=== PATIENT | female | born 1945 | race Caucasian/White ===

== ENCOUNTER → 2016-11-16 | Outpatient (CLI) | payer MEDICARE, BC ==
[~2016-11-16] MED LIST: BUPIVACAINE MPF 0.25% 10 ML VIAL. ONE; BYSTOLIC10 MG PO; CHOL100013 PO; CYCL10TA2 PO; DICL1TAB5 PO; FERR-26 PO; GABA-586 PO; IOHEXOL 180 MG/ML 10 ML VIAL. ONE; METF10002 PO; OLME40TA PO; OXYC-250 PO; TIZA4TAB PO; methylPREDNISolone ACETATE 40 MG/ML VIAL. ONE
--- NOTE | 2016-11-17 02:40 | PAIN ---
DATE OF SERVICE: 11/16/2016 PROGRESS NOTE FOR PAIN CLINIC DIAGNOSIS: Bilateral shoulder joint pain with primary osteoarthritis, bilateral shoulder joints. HISTORY OF PRESENT ILLNESS: The patient is a 71-year-old female who returns for followup status post previous acromioclavicular joint injections, last seen 08/02/2016. The patient did well with these afterwards, reports approximately 100% improvement for about 2 months. Pain has been returning now over the past month or so and is constant and painful in the shoulders bilaterally radiating to the biceps region of the upper arms with some numbness and aching. The patient reports it is constant and painful, rates as 8-9 on a scale of 10, making it difficult for her to do daily activities such as using her arms over her head, getting dressed, putting on clothing, carrying any items with the shoulder, is becoming significantly more difficult as well as driving vehicle. The patient reports no new motor or sensory deficits, no other complaints. PHYSICAL EXAMINATION: VITAL SIGNS: The patient's blood pressure is 158/102, pulse 76, respirations 18, temperature 97.9 degrees Fahrenheit. Height is 4 feet 10 inches, weight is 146 pounds. GENERAL: The patient is awake, alert, oriented, appropriate, very pleasant demeanor. HEENT: Shows normocephalic, atraumatic. Extraocular movements are intact and symmetrical. Oral cavity shows mucous membranes moist and pink. Dentition is intact. NECK: Shows anterior throat supple without palpable lymphadenopathy noted. Swallow reflex is symmetrical. Neck shows good rotational motion, some minor limitation in extension, but not with forward flexion. Right and left lateral rotation is performed without difficulty. CHEST: Shows normal on inspection. Breath sounds are clear to auscultation bilaterally. HEART: Shows S1 and S2 clear. No murmurs are auscultated. ABDOMEN: Soft, nontender, nondistended. No palpable organomegaly is noted. No rebound or guarding demonstrated. BACK: Shows spine grossly in the midline, normal cervical lordotic curvature, slight increase in thoracic kyphosis and some mild flattening of the lumbar lordotic curvature. The patient's upper extremities show deep tendon reflexes at 1+ in the biceps and triceps tendons. Motor exam is approximately 4 on a scale of 5, but symmetrical with wreath machine tender strength, biceps and triceps flexion. Significant tenderness with attempting to shrug the shoulders as well as abduction of the upper arms that is past about 15-20 degrees, very painful with both shoulder pain reported bilaterally with this maneuver. With palpation over the acromioclavicular joint, very severe tenderness especially on the right greater than the left with palpation on the anterior and posterior aspect of this joint. This is also tender with the patient's arms at the side and with pulling downward on the hands, significant pain reported again, worse on the right than the left, but present bilaterally. PLAN: Options were discussed with the patient and the patient's old chart was reviewed as her current medication regimen and updated. Current review of systems updated today as well. We will proceed with bilateral acromioclavicular joint injections with fluoroscopic guidance. Risks were again discussed including, but not limited to bleeding, infection, possibility of intravascular injection sequelae, spread of local anesthetic and numbness, pneumothorax, side effects of steroid medications, exposure to fluoroscopy and poor results regarding pain control. The patient understands and wishes to proceed. The patient will return to clinic in approximately 2 weeks for followup or as necessary, would like to call for next appointment. The patient was counseled as to activity level as well as side effects to be aware of. Also, we discussed the patient's blood pressure as it was slightly high with a diastolic of 102 today. The patient reports she is following up with her primary care physician within the next week. I encouraged her to discuss the blood pressure with her primary care at the next visit and she will do this as well. DIAGNOSIS: Bilateral shoulder joint pain with primary osteoarthritis, bilateral shoulders. PROCEDURE: Bilateral acromioclavicular joint injections with fluoroscopic guidance under sterile prep and drape using local anesthetic. MEDICATIONS INJECTED: A total of 4 mL of 0.25% bupivacaine and a total of 80 mg Depo-Medrol, 40 mg per joint after negative aspiration. CONDITION AT DISCHARGE: Stable. The patient tolerated the procedure well, had no complications. BRANDON GALVAN MD DR: TYLER/adrienne JOB#: [id number] / [id number]
== END ==
LOC: PNCL 13:33
PROVIDERS: ATTEND Anesthesiology
DX: M19.012 Primary osteoarthritis, left shoulder (principal); M19.011 Primary osteoarthritis, right shoulder
CPT/HCPCS: 20605; J1030; J3490

== ENCOUNTER → 2018-10-12 | Outpatient (CLI) | payer MEDICARE, BC ==
[~2018-10-12] MED LIST changes: -BUPIVACAINE MPF 0.25% 10 ML VIAL. ONE; +BYSTOLIC20 MG PO; +CHOL200059 PO; +CYAN-25 PO; +DICY10CA3 PO; -FERR-26 PO; +FERR325T14 PO; -GABA-586 PO; +GABA300C18 PO; -IOHEXOL 180 MG/ML 10 ML VIAL. ONE; +LACT1CAP8 PO; -METF10002 PO; +METF10007 PO; -OLME40TA PO; +OLME40TA12 PO; -OXYC-250 PO; +OXYC1TAB22 PO; -TIZA4TAB PO; +TIZA4TAB2 PO; +TRAM50TA PO; +methylPREDNISolone ACETATE 80 MG/ML VIAL. ONE
--- NOTE | 2018-10-12 20:49 | PAIN ---
DATE OF SERVICE: 10/12/2018 DIAGNOSES: Lumbar radiculopathy with lumbar degenerative disk disease and post-lumbar laminectomy syndrome. HISTORY OF PRESENT ILLNESS: The patient is a 73-year-old female who returns for followup, last seen 11/16/2016. The patient was having injection of the acromioclavicular joints bilaterally, reports good results with these, but the main complaint now is the pain in her low back and bilateral lower extremities, worse on the left than the right. The patient reports it has been going on for many years, but over the last year has become much worse with walking, standing, changing positions across the low back bilaterally into the right posterior gluteus into the left lateral hip and thigh and into the anterior thigh as well as the posterior thigh on the left side. The patient reports it is aching and stabbing, severe, radiating, cramping, tight, shooting, becoming severe at times, becoming more constant. The patient reports it is worse with standing, walking, better with sitting or lying down, does awaken her from sleep at night, but not more than once or twice. She generally sleeps about 8 or 9 hours without significant difficulty. The patient reports no loss of motor function. She is using a walker at all times when ambulating, no longer drives a car as her takes care of this for her. The patient rates her pain as 8 on a scale of 10 at its worst, 8 on average, 4 at its least and is 8 today. The patient reports no loss of motor function, but significant fatigability in the bilateral lower extremities, especially on the left with ambulation or standing. The patient did have MRI scan from 2011 showing previous surgical instrumentation, multilevel degenerative changes, spinal instrumentation from L3 through L5 and moderately severe right foraminal narrowing at L5-S1 due to marginal spurring, severe degenerative change as well. PHYSICAL EXAMINATION: VITAL SIGNS: The patient's blood pressure 142/88, pulse 72, respirations 18, temperature 98.6 degrees Fahrenheit. Height 4 feet 10 inches and weight is 145 pounds. GENERAL: The patient is awake, alert, oriented, appropriate, very pleasant demeanor. HEENT: Head shows normocephalic, atraumatic. Extraocular movements are intact and symmetrical. Oral cavity: Mucous membranes moist and pink. Dentition is intact. NECK: Shows anterior throat supple without palpable lymphadenopathy noted. Swallow reflex symmetrical. CHEST: Shows normal on inspection. Breath sounds clear to auscultation bilaterally. HEART: Shows S1, S2 clear. No murmurs auscultated. ABDOMEN: Obese, soft, nontender, nondistended. BACK: Shows spine grossly in the midline, slight flattening of cervical lordotic curvature and significant exaggerated thoracic kyphotic curvature, some flattening of lumbar lordotic curvature with well-healed surgical scar in the midline is noted. On inspection with palpation, the lumbar paraspinous muscle shows symmetrical, but with moderate tenderness bilaterally in the low and middle distribution of paraspinous musculature without radiation. The patient has good rotational motion, although somewhat limited with extension and flexion without any pain associated: The patient's lower extremities show deep tendon reflexes 1+ in the patellar and tendo-calcaneus tendons. Motor exam is 4 on a scale of 5, but equal and symmetrical with dorsiflexion, extension, quadriceps and hamstring flexion. Peripheral pulses are 1+. No peripheral edema is noted. Options were discussed with the patient. The patient's old chart was reviewed as her current medication regimen updated. Current review of systems updated today as well. We will proceed with a caudal approach epidural steroid injection today with fluoroscopic guidance. Risks were again discussed including, but not limited to bleeding, infection, possibility of epidural hematoma and subsequent neurological compromise, dural puncture, headaches, spinal cord and/or nerve damage, side effects of steroid medication and poor results regarding pain control. The patient understands and wished to proceed. The patient will return to clinic in approximately 2 weeks for followup, was counseled on return appointment, activity level and side effects to be aware of. DIAGNOSES: Lumbar radiculopathy with lumbar degenerative disk disease and post-lumbar laminectomy syndrome. PROCEDURE: Caudal approach epidural steroid injection using C-arm fluoroscopic guidance under sterile prep and drape using local anesthetic. MEDICATION INJECTED: A total of 120 mg Depo-Medrol plus 10 mL of preservative-free normal saline. CONDITION AT DISCHARGE: Stable. The patient tolerated procedure well, had no complications. BRANDON GALVAN MD DR: TYLER/adrienne JOB#: [id number] / [id number]
== END | disposition home or self-care (01) ==
LOC: PNCL 12:47
PROVIDERS: ATTEND Anesthesiology
DX: M51.16 Intervertebral disc disorders with radiculopathy, lumbar region (principal); M96.1 Postlaminectomy syndrome, not elsewhere classified; Z91.041 Radiographic dye allergy status
CPT/HCPCS: 62323; J1030; J1040

== ENCOUNTER → 2019-05-10 | Day surgery (SDC) | payer MEDICARE, BC ==
[~2019-05-10] MED LIST changes: +IV RINGERS,LACTATED 1000ML 1,000 ML IV SCH; -methylPREDNISolone ACETATE 40 MG/ML VIAL. ONE; -methylPREDNISolone ACETATE 80 MG/ML VIAL. ONE
[2019-05-10 13:15] VITALS: BP 150/70
== END ==
LOC: SURG 10:40
PROVIDERS: ATTEND Internal Medicine Gastroenterology
DX: K29.50 Unspecified chronic gastritis without bleeding (principal); E11.9 Type 2 diabetes mellitus without complications; I10 Essential (primary) hypertension; D64.9 Anemia, unspecified; Z88.8 Allergy status to other drugs, medicaments and biological substances; Z87.39 Personal history of other diseases of the musculoskeletal system and connective tissue; Z79.84 Long term (current) use of oral hypoglycemic drugs; Z87.891 Personal history of nicotine dependence
CPT/HCPCS: 43235

== ENCOUNTER → 2019-05-28 | Outpatient (CLI) | payer MEDICARE, BC ==
[2019-05-10 13:15] VITALS: BP 150/70
[~2019-05-28] VITALS: Ht 149.9 cm; Wt 58.1 kg
[~2019-05-28] MED LIST changes: -IV RINGERS,LACTATED 1000ML 1,000 ML IV SCH; +NORMAL SALINE IV ONE; +SINCALIDE IV ONE
--- NOTE | 2019-05-28 08:23 | RAD ---
Examination: ABDOMEN LTD History: Right upper quadrant pain Comparison/Correlation: None Findings: Right upper quadrant ultrasound was performed. Hepatic echotexture is normal. Gallbladder fossa is unremarkable. Gallbladder measures up to 8 cm diameter. No cholelithiasis. Common bile measures up to 0.3 cm diameter. Right kidney measures 10.1 cm x 3.5 cm x 4.1 cm. Proximal pancreas is normal. Distal pancreas is obscured by bowel gas. Inferior vena cava is unremarkable. Right pleural effusion is evident. Impression: Small right pleural effusion. Otherwise unremarkable exam. Electronically signed by: Lenny Gifford MD (05/28/2019 8:20 AM) [facility]
--- NOTE | 2019-05-28 10:56 | RAD ---
EXAM: Nuclear hepatobiliary scan. HISTORY: Pain. TECHNIQUE: Following intravenous administration of 5.5 mCi Tc 99m Choletec, anterior images of the abdomen were obtained at five minute intervals through one hour. Subsequently, 1.16 mcg CCK was administered and additional images to assess gallbladder ejection fraction were obtained. FINDINGS: There is prompt radiotracer uptake by the liver. No focal defect is seen. There is normal excretion into the biliary tree. The gallbladder is visualized within 20 minutes and there is free flow into the duodenum. The gallbladder ejection fraction is 73%. IMPRESSION: Increased gallbladder ejection fraction of 73%. This can be associated with biliary hyperkinesia. Electronically signed by: Elo Hess MD (05/28/2019 10:53 AM) [facility]
== END | disposition home or self-care (01) ==
LOC: US 07:55
PROVIDERS: ATTEND Internal Medicine Gastroenterology
DX: J90 Pleural effusion, not elsewhere classified (principal); R10.13 Epigastric pain; R10.11 Right upper quadrant pain; F90.9 Attention-deficit hyperactivity disorder, unspecified type
CPT/HCPCS: 76705; 78227; A9537; J2805

== ENCOUNTER → 2019-07-04 | Outpatient (CLI) | payer MEDICARE, BC ==
[2019-05-10 13:15] VITALS: BP 150/70
[~2019-07-04] MED LIST changes: -NORMAL SALINE IV ONE; -SINCALIDE IV ONE
--- NOTE | 2019-07-04 12:43 | RAD ---
EXAM: Bilateral lower extremity venous Doppler. HISTORY: Bilateral lower extremity pain/swelling. Shortness of breath. Elevated d-dimer. COMPARISON: None. FINDINGS: Grayscale and Doppler analysis of the both lower extremity deep venous systems was performed with graded compression and augmentation. The common femoral, greater saphenous, superficial femoral, popliteal and calf veins were assessed. There is no evidence of deep venous thrombosis. IMPRESSION: 1. No evidence of deep venous thrombosis. Electronically signed by: Marco A Jimenes MD (07/04/2019 12:40 PM) [facility]
--- NOTE | 2019-07-04 12:50 | RAD ---
EXAM: CHEST 2 VIEWS. HISTORY: Pleural effusion. COMPARISON: None. FINDINGS: Frontal and lateral views of the chest are obtained. A trace right pleural effusion may be present. Opacity in the right cardiophrenic angle may represent atelectasis or infiltrate. There is no pneumothorax. The heart is not enlarged. There are atherosclerotic calcifications of the aorta. Left glenohumeral osteoarthritis is severe. A sclerotic focus within the left proximal humerus measures 14 mm and may represent a bone island or a benign chondroid lesion such as an enchondroma in the absence of known malignancy. Changes of cervical and lumbar fusion are partially visualized. There is a mild S-shaped thoracolumbar scoliosis. IMPRESSION: 1. Trace right pleural effusion. Right basilar atelectasis or infiltrate. Follow-up to resolution is recommended. Electronically signed by: Marco A Jimenes MD (07/04/2019 12:47 PM) [facility]
[2019-07-04 13:24] LABS: ALBUMIN 3.3 g/dL (3.4-5.0); TOTAL PROTEIN 6.9 g/dL (6.4-8.2)
--- NOTE | 2019-07-05 01:17 | RAD ---
Ventilation/perfusion lung scan. HISTORY: Short of air, elevated d-dimer. Ventilation images were done using 9.3 mCi xenon-133. Anterior and posterior imaging is unremarkable. Perfusion images were done using 5 mCi technetium 99 MAA injected intravenously. A segmental perfusion defect is not identified. There is no ventilation perfusion mismatch. IMPRESSION: 1. Low probability for a pulmonary embolus. Electronically signed by: Jeffrey Brown MD (07/05/2019 1:14 AM) [facility]
== END | disposition home or self-care (01) ==
LOC: US 11:56
PROVIDERS: ATTEND Internal Medicine Pulmonary Disease
DX: J90 Pleural effusion, not elsewhere classified (principal); I70.0 Atherosclerosis of aorta; M19.012 Primary osteoarthritis, left shoulder; M41.85 Other forms of scoliosis, thoracolumbar region
CPT/HCPCS: 36415; 71046; 78582; 82040; 84155; 93970; 96374; A9540; A9558

== ENCOUNTER 2020-05-26 01:28 | Inpatient (IN) | payer MEDICARE, BC ==
[~2020-05-26] VITALS: Ht 147.3 cm; Wt 54.9 kg
[2020-05-26] VITALS (17 sets, daily range): BP systolic 100–146; BP diastolic 50–80
[2020-05-26] MEDS ORDERED: IV NORMAL SALINE 1000ML BAG 1,000 ML IV SCH (02:30)
[2020-05-26] MEDS: oxyCODONE/APAP 10/325 1 TAB TABLET PO PRN ×2 (02:32→09:07)
[2020-05-26 03:00] LABS: BASO % 1 % (0-3); EOS # 0.2 x10^3/uL (0.0-0.7); EOS % 2 % (0-3); HEMATOCRIT 31.6 % (36.0-47.0); HEMOGLOBIN 11.3 g/dL (12.0-15.5); LYMPH # 1.1 x10^3/uL (1.0-4.8); LYMPH % 12 % (24-48); MEAN CORPUSCULAR HEMOGLOBIN 33 pg (25-35); MEAN CORPUSCULAR HGB CONC 36 g/dL (31-37); MEAN CORPUSCULAR VOLUME 92 fL (79-100); MONO # 0.7 x10^3/uL (0.0-1.1); MONO % 8 % (0-9); NEUT # 7.2 x10^3/uL (1.8-7.7); NEUT % 78 % (31-73); PLATELET COUNT 143 x10^3/uL (140-400); RED BLOOD COUNT 3.45 x10^6/uL (3.50-5.40); RED CELL DISTRIBUTION WIDTH 14.9 % (11.5-14.5); WHITE BLOOD COUNT 9.3 x10^3/uL (4.0-11.0)
[2020-05-26 03:16] LABS: ALBUMIN 2.7 g/dL (3.4-5.0); ALBUMIN/GLOBULIN RATIO 0.8 (1.0-1.7); CALCIUM 7.6 mg/dL (8.5-10.1); CREATININE 1.9 mg/dL (0.6-1.0); GFR 25.8; MAGNESIUM 1.9 mg/dL (1.8-2.4); POTASSIUM 3.3 mmol/L (3.5-5.1); TOTAL PROTEIN 6.1 g/dL (6.4-8.2)
--- NOTE | 2020-05-26 04:00 | NUR ---
Patient arrived via EMS from [facility] at 0130. Patient transferred to bed, ICU monitors placed. Patient said has medication list at home. Able to complete admission history per patient. Dr. Berger called for admitting orders, would like to defer to nephrology if any electrolytes are critical. Multiple labs drawn with sodium coming back at 112. Consult and callback was placed to nephrology. Dr. Vazquez called back, orders received and placed to keep NS at 100 and recheck Na in 6 hours.
[2020-05-26] MEDS: MAGNESIUM OXIDE 400 MG TABLET PO SCH ×3 (07:55→20:00)
[2020-05-26] MEDS: POTASSIUM CHLORIDE 20 MEQ TABLET.ER. PO SCH ×3 (07:55→17:52)
--- NOTE | 2020-05-26 08:06 | HP ---
ADMIT DATE: HISTORY OF PRESENT ILLNESS: The patient is a 75-year-old female patient who was brought to the Emergency Room of [facility] with a complaint of generalized weakness. She has also nausea and vomiting for the last 4 days. She stated that whenever she feels like this, her sodium levels are very low. The patient states that she was feeling so weak that she fell and hit her head 3 days ago. She did complain of headache. Denied any extremity pain. No back pain, no abdominal pain, no chest pain. She also complained of trouble breathing, but denied any cough, chills, or fever. She stated she has been lying in bed. Her could not take care of her. EMS was called and took her to the Emergency Room. They reported that her bedroom was very dirty with bed bugs. She was basically investigated in the Emergency Room and apparently was found to have extreme hypokalemia, hyponatremia as well as acute kidney injury and severe hypomagnesemia, and was transferred to [facility] for further evaluation and treatment. PAST MEDICAL HISTORY: Significant for hypertension, type 2 diabetes mellitus, coronary artery disease status post stent deployment in August of this year at [facility]. Initially, she had 3 stents and 3 months later she had another 2 stents placed. She does have history of hyponatremia. In fact, she was admitted here to [facility] in 2016 with a very similar presentation. PAST SURGICAL HISTORY: Significant for appendectomy as well as PCI with stent deployment x 5. ALLERGIES: SHE IS ALLERGIC TO IODINATED CONTRAST MEDIA. MEDICATIONS: We do not have the actual list of her home medications. Her is bringing the list today. However, her most recent list of medications she was on included cyclobenzaprine 10 mg 3 times a day, ferrous sulfate 325 mg once a day, Bystolic 10 mg daily. She is on medoxomil 40 mg once a day, oxycodone/APAP 10/325 one to two tablets 4 times a day. She is on gabapentin 300 mg 3 times a day, metformin 500 mg q.i.d., cholecalciferol vitamin D 5000 units once a day. FAMILY HISTORY: Noncontributory. SOCIAL HISTORY: She is , lives with her . She quit smoking about 30 years ago. Does not drink alcohol. 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 She has two sons. She uses a walker at home. REVIEW OF SYSTEMS: The patient has bilateral cataracts, but denied any glaucoma or macular degeneration. She said that she is supposed to have her cataracts removed; however, she is on a blood thinner. Denied any earache, tinnitus or sensorineural deafness. Denied any nosebleeds, stuffy nose or postnasal drip. Denied any sore throat, sore tongue, toothache, hoarseness of voice or difficulty swallowing. Did complain of nausea, vomiting and severe anorexia, but denied any diarrhea or constipation. Denied any hematemesis, melena, or hematochezia. Denied any dysuria, frequency or hematuria. She denied any chest pain, shortness of breath, orthopnea or paroxysmal nocturnal dyspnea. PHYSICAL EXAMINATION: GENERAL: On arrival to the Emergency Room, she was pale, but no jaundice, cyanosis or thyromegaly. No jugular venous distention. No lower limb edema. VITAL SIGNS: Her heart rate was 67, blood pressure was 122/50, temperature 98.2, respiratory rate was 16, and oxygen saturation was 100% on room air. HEAD, EYES, EARS, NOSE AND THROAT: Showed normocephalic, atraumatic. NECK: Supple. HEART: Showed normal first and second heart sounds. No gallop or murmur. CHEST: Clear to auscultation. No crepitation or rhonchi. ABDOMEN: Distended, soft, nontender. NEUROLOGIC: She is awake, alert, responding appropriately. She moves her extremities spontaneously, although she has been extremely weak and was unable to get out of her bed. LABORATORY DATA: Her lab work on arrival to the Emergency Room showed a white cell count of 8900, hemoglobin 11, hematocrit 32, MCV 93, and platelet count of 159,000. Her chemistry showed serum sodium 109, potassium 3.2, chloride 72, bicarbonate 31, anion gap of 6, BUN 26, creatinine 2.2, estimated GFR was 21 mL per minute. Glucose 116, calcium was 8.2, magnesium was 1.4. Total bilirubin and ALT normal. AST and alkaline phosphatase slightly elevated. Her CK was 167. Troponin was 0.072. Total protein was 6.5, albumin was 2.8. Her urinalysis was essentially unremarkable. She did have a CT scan of the head and cervical spine, which showed that the patient has extracranial soft tissue scalp contusion and hematoma overlying the right temporal region without underlying osseous or intracranial abnormality, negative CT spine for acute traumatic injury. Her chest x-ray showed that the patient's cardiomediastinal silhouette and pulmonary vessels are within normal limits, the lungs and pleural spaces are clear. ASSESSMENT AND PLAN: In summary, this is a 75-year-old female patient who was seen at [facility] Emergency Room with generalized weakness. She was found to have severe hyponatremia, hypokalemia, hypomagnesemia and probably acute on chronic kidney injury. She was given magnesium sulfate and a liter of normal saline as well as potassium and was transferred to [facility] ICU for further evaluation and treatment. Her repeat lab work showed that her serum sodium is trending up slightly to 112, potassium up to 3.3 and magnesium is up to 1.9 and creatinine is down to 1.9. I did order a serum TSH as well as morning cortisol. We will continue with the potassium to supplement the potassium as well as magnesium and continue with normal saline with a plan to increase the sodium slowly at a rate of about 6 mEq per liter in 24 hours. I have consulted the administrative assistant office manager to assist with management. Unfortunately, we do not have the list of her medications, but the patient stated that she was on diuretic, although she is not sure whether she is on SSRI. PAUL PITTS MD DR: ERIC/adrienne JOB#: [id number] / [id number]
--- NOTE | 2020-05-26 11:30 | PDOC2 ---
CONSULT Date of Consult Date of Consult DATE: 05/26/20 TIME: 11:18 Reason for Consult Reason for Consult: Severe Hyponatremia Source Source: Chart review, Patient History of Present Illness Reason for Visit: Pt is a 75-year-old female who was brought to the Emergency Room of [facility] with a complaint of generalized weakness. She was also h aving nausea and vomiting for the last 4 days. She states that whenever she feels like this, her sodium levels are very low. She states that she was feeling so weak that she fell and hit her head 3 days ago. She was having headache. No other neurological symptoms Denies abdominal pain, no chest pain . She also complained of trouble breathing, but denies any cough, chills, or fever. C/O Severe anorexia . She stated she has been lying in bed. Her could not take care of her. EMS was called and took her to the Emergency Room. Per EMS her bedroom was very dirty with bed bugs. She had low Na in the past as well . She states cause was not known . She was hospitalized at [facility] x 2 this year for Cardiac cath/Stent placement and she thinks her sodium was low at the time as well and she was seen by Nephrology In [facility] ER she was found to have extreme hypokalemia, hyponatremia, Low Mg and MARIA ELENA Currently she denies any complaints, No CP or SOB at rest. No Headache. Denies any urinary complaints . She reports she was on diuretic .Denies use of SSRI's, No PPI. Denies use of NSAID's otc any other OTC health supplements except Zyrtec Denies Dx of Hypothyroidism, states Quit smoking many years back . She reports she has decreased her salt intake significantly per [employer] recommendations and has been drinking plenty of fluids- Including Pepsi, Water etc Denies ETOH or Illegal drug use Past Medical History Past Medical History Significant for hypertension, type 2 diabetes mellitus,coronary artery disease status post stent deployment in August of this year at [facility]. Initially, she had 3 stents and 3 months later she had another 2 stents placed. She does have history of hyponatremia. and was admitted here to [facility] in 2016 with a very similar presentation. Past Surgical History Past Surgical History Significant for appendectomy as well as PCI with stent deployment x 5. Family History Family History Non Contributory Social History Social History She is , lives with her . She quit smoking about 30 years ago. Does not drink alcohol. 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 She has two sons. She uses a walker at home. She was found at home with unhygenic conditions and bed bugs Current Medications Current Medications Current Medications Oxycodone/ Acetaminophen (Percocet 10/325) 2 tab PRN Q6HRS PRN PO SEVERE PAIN 7-10 Last administered on 05/26/20at 09:07; Start 05/26/20 at 02:00 Sodium Chloride 1,000 ml @ 100 mls/hr Q10H IV Last administered on 05/26/20at 02:32; Start 05/26/20 at 02:30; Stop 05/26/20 at 11:15; Status DC Potassium Chloride (Klor-Con) 20 meq TIDWMEALS PO Last administered on 05/26/20at 07:55; Start 05/26/20 at 08:00 Magnesium Oxide (Magnesium Oxide) 400 mg TID PO Last administered on 05/26/20at 07:55; Start 05/26/20 at 09:00 Active Scripts Active Reported Vitamin B-12 (Cyanocobalamin (Vitamin B-12)) 1,000 Mcg Tablet 1 Tab PO DAILY Probiotic (Lactobacillus Combo No.11) 1 Each Cap.sprink 1 Each PO DAILY Vitamin D-3 (Cholecalciferol (Vitamin D3)) 2,000 Unit Tablet 5,000 Unit PO DAILY Bystolic (Nebivolol Hcl) 20 Mg Tablet 20 Mg PO DAILY Tizanidine Hcl 4 Mg Tablet 1 Tab PO QHS Ferrous Sulfate 325 Mg Tablet 1 Tab PO DAILY Cyclobenzaprine Hcl 10 Mg Tablet 1 Tab PO TID Percocet 10-325 Mg Tablet (Oxycodone/Acetaminophen) 1 Each Tablet 1 Tab PO Q4-6HRS Gabapentin (Gabapentin) 300 Mg Capsule 1 Cap PO HS Allergies Allergies: Coded Allergies: Iodinated Contrast Media (Verified Allergy, Severe, Hives, 05/10/19) clarithromycin (Verified Allergy, Intermediate, 05/10/19) ROS Review of System As per HPI, rest of the ROS is negative Physical Exam Physical Exam GENERAL:NAD HEEN OM moist NECK: Supple. HEART: RRR CHEST: Clear to auscultation. on labored ABDOMEN: soft, nontender. NEUROLOGIC awake, alert, responding appropriately. She moves her extremities spontaneously, Morejon + SKIN No rash EXT No Edema Vital Signs Vital Signs Date Time Temp Pulse Resp B/P (MAP) Pulse Ox O2 Delivery O2 Flow Rate FiO2 05/26/20 09:07 12 Room Air 05/26/20 09:00 71 100/52 (68) 98 05/26/20 07:00 97.2 97.2 Assessment & Plan HypoNatremia - severe , recurrent At presentation to [facility] - Na of 109, corrected to 116 in 24 hrs with IV NS, Hold NS , avoid Overcorrection Check Na and will re-evaluate IVF , TSH Normal , No use of SSRI's Hospitalized with similar presentation in 2016 Hospitalization at [facility] in December with Na at 118, improved to 134 at dc - Dx with HypoVolemia - reviewed records from [facility] (No mention of Diuretics in DC meds) Monitor Closely, strict I/O , currently Pt asymptomatic , Dw RN HypoMagnesemia - Mg 1.4 at presentation to [facility]- Normal now HypoKalemia -Replace as indicated MARIA ELENA - Vasomotor /Dehydration BUN/Cr 26/2.2 and ua normal at [facility] Improving with IVF , good UOP ,Avoid nephrotoxins CKD 3- Cr 1.2 @ dc from [facility] in December 2019 , baseline Cr in 2015 MARIA ELENA at [facility] NSTEMI- Severe 2V CAD s/p cardiac cath and stent Diastolic Heart failure Hx of Massive bleeding from Cardiac cath insertion area with large hematoma at [facility] Labs Labs Laboratory Tests Test 05/26/20 02:50 05/26/20 09:05 White Blood Count 9.3 x10^3/uL (4.0-11.0) Red Blood Count 3.45 x10^6/uL (3.50-5.40) Hemoglobin 11.3 g/dL (12.0-15.5) Hematocrit 31.6 % (36.0-47.0) Mean Corpuscular Volume 92 fL (79-100) Mean Corpuscular Hemoglobin 33 pg (25-35) Mean Corpuscular Hemoglobin Concent 36 g/dL (31-37) Red Cell Distribution Width 14.9 % (11.5-14.5) Platelet Count 143 x10^3/uL (140-400) Neutrophils (%) (Auto) 78 % (31-73) Lymphocytes (%) (Auto) 12 % (24-48) Monocytes (%) (Auto) 8 % (0-9) Eosinophils (%) (Auto) 2 % (0-3) Basophils (%) (Auto) 1 % (0-3) Neutrophils # (Auto) 7.2 x10^3/uL (1.8-7.7) Lymphocytes # (Auto) 1.1 x10^3/uL (1.0-4.8) Monocytes # (Auto) 0.7 x10^3/uL (0.0-1.1) Eosinophils # (Auto) 0.2 x10^3/uL (0.0-0.7) Basophils # (Auto) 0.0 x10^3/uL (0.0-0.2) Sodium Level 112 mmol/L (136-145) 116 mmol/L (136-145) Potassium Level 3.3 mmol/L (3.5-5.1) Chloride Level 78 mmol/L (98-107) Carbon Dioxide Level 31 mmol/L (21-32) Anion Gap 3 (6-14) Blood Urea Nitrogen 26 mg/dL (7-20) Creatinine 1.9 mg/dL (0.6-1.0) Estimated GFR (Cockcroft-Gault) 25.8 BUN/Creatinine Ratio 14 (6-20) Glucose Level 104 mg/dL (70-99) Calcium Level 7.6 mg/dL (8.5-10.1) Magnesium Level 1.9 mg/dL (1.8-2.4) 1.8 mg/dL (1.8-2.4) Total Bilirubin 1.0 mg/dL (0.2-1.0) Aspartate Amino Transf (AST/SGOT) 52 U/L (15-37) Alanine Aminotransferase (ALT/SGPT) 16 U/L (14-59) Alkaline Phosphatase 131 U/L (46-116) Total Protein 6.1 g/dL (6.4-8.2) Albumin 2.7 g/dL (3.4-5.0) Albumin/Globulin Ratio 0.8 (1.0-1.7) Thyroid Stimulating Hormone (TSH) 2.701 uIU/mL (0.358-3.74) Cortisol AM Sample 16.4 ug/dL (4.3-22.4) Laboratory Tests Test 05/26/20 02:50 05/26/20 09:05 White Blood Count 9.3 x10^3/uL (4.0-11.0) Red Blood Count 3.45 x10^6/uL (3.50-5.40) Hemoglobin 11.3 g/dL (12.0-15.5) Hematocrit 31.6 % (36.0-47.0) Mean Corpuscular Volume 92 fL (79-100) Mean Corpuscular Hemoglobin 33 pg (25-35) Mean Corpuscular Hemoglobin Concent 36 g/dL (31-37) Red Cell Distribution Width 14.9 % (11.5-14.5) Platelet Count 143 x10^3/uL (140-400) Neutrophils (%) (Auto) 78 % (31-73) Lymphocytes (%) (Auto) 12 % (24-48) Monocytes (%) (Auto) 8 % (0-9) Eosinophils (%) (Auto) 2 % (0-3) Basophils (%) (Auto) 1 % (0-3) Neutrophils # (Auto) 7.2 x10^3/uL (1.8-7.7) Lymphocytes # (Auto) 1.1 x10^3/uL (1.0-4.8) Monocytes # (Auto) 0.7 x10^3/uL (0.0-1.1) Eosinophils # (Auto) 0.2 x10^3/uL (0.0-0.7) Basophils # (Auto) 0.0 x10^3/uL (0.0-0.2) Sodium Level 112 mmol/L (136-145) 116 mmol/L (136-145) Potassium Level 3.3 mmol/L (3.5-5.1) Chloride Level 78 mmol/L (98-107) Carbon Dioxide Level 31 mmol/L (21-32) Anion Gap 3 (6-14) Blood Urea Nitrogen 26 mg/dL (7-20) Creatinine 1.9 mg/dL (0.6-1.0) Estimated GFR (Cockcroft-Gault) 25.8 BUN/Creatinine Ratio 14 (6-20) Glucose Level 104 mg/dL (70-99) Calcium Level 7.6 mg/dL (8.5-10.1) Magnesium Level 1.9 mg/dL (1.8-2.4) 1.8 mg/dL (1.8-2.4) Total Bilirubin 1.0 mg/dL (0.2-1.0) Aspartate Amino Transf (AST/SGOT) 52 U/L (15-37) Alanine Aminotransferase (ALT/SGPT) 16 U/L (14-59) Alkaline Phosphatase 131 U/L (46-116) Total Protein 6.1 g/dL (6.4-8.2) Albumin 2.7 g/dL (3.4-5.0) Albumin/Globulin Ratio 0.8 (1.0-1.7) Thyroid Stimulating Hormone (TSH) 2.701 uIU/mL (0.358-3.74) Cortisol AM Sample 16.4 ug/dL (4.3-22.4) Review All relevant outside records, renal labs, imaging studies, telemetry/EKG's were reviewed. Images Images CT scan of the head and cervical spine, which showed that the patient has extracranial soft tissue scalp contusion and hematoma overlying the right temporal region without underlying osseous or intracranial abnormality negative CT spine for acute traumatic injury. chest x-ray s cardiomediastinal silhouette and pulmonary vessels are within normal limits, the lungs and pleural spaces are clear. LANCE DRISCOLL MD May 26, 2020 11:30
--- NOTE | 2020-05-26 13:59 | NUR ---
SS following for discharge planning. SS reviewed pt chart and discussed with pt RN. Pt is from home with spouse and is currently on room air. Pt having low sodium and low magnesium. Discharge plan is to home when medically ready. Pt transferring to room 254. SS will continue to follow for discharge planning.
--- NOTE | 2020-05-26 14:49 | NUR ---
Patient transferred from room 106 to room 254 via floor bed accompanied by transportation personnel. All personal belongings transferred with patient.
[2020-05-26 16:15] LABS: CALCIUM 7.6 mg/dL (8.5-10.1); CREATININE 1.8 mg/dL (0.6-1.0); GFR 27.5
[2020-05-26 21:32] LABS: CREATININE 1.6 mg/dL (0.6-1.0); GFR 31.5; POTASSIUM 3.6 mmol/L (3.5-5.1)
[2020-05-26 23:07] LABS: UR POTASSIUM 11.9 mmol/L (Not Estab.)
[2020-05-27 03:10] VITALS: BP 151/66
[2020-05-27 07:00] VITALS: BP 144/64
[2020-05-27] MEDS ORDERED: ACET325T21 PO (07:24)
[2020-05-27] MEDS ORDERED: CARV25TA2 PO (07:24)
[2020-05-27] MEDS ORDERED: CLOP75TA PO (07:24)
[2020-05-27] MEDS ORDERED: LIPITOR80 MG PO (07:24)
[2020-05-27] MEDS ORDERED: ASPI-886 PO (07:24)
[2020-05-27] MEDS ORDERED: CETI10TA74 PO (07:24)
[2020-05-27] MEDS ORDERED: AMLO10TA4 PO (07:24)
[2020-05-27] MEDS ORDERED: CYCL10TA2 PO (07:24)
[2020-05-27] MEDS ORDERED: NITR0.4T24 SL (07:24)
[2020-05-27] MEDS: POTASSIUM CHLORIDE 20 MEQ TABLET.ER. PO SCH ×3 (08:00→17:03)
[2020-05-27] MEDS: oxyCODONE/APAP 10/325 1 TAB TABLET PO PRN ×2 (08:01→20:35)
[2020-05-27 08:09] LABS: HEMATOCRIT 33.2 % (36.0-47.0); HEMOGLOBIN 11.7 g/dL (12.0-15.5); RED BLOOD COUNT 3.55 x10^6/uL (3.50-5.40); RED CELL DISTRIBUTION WIDTH 15.2 % (11.5-14.5); WHITE BLOOD COUNT 9.9 x10^3/uL (4.0-11.0)
[2020-05-27 08:34] LABS: ALBUMIN 2.7 g/dL (3.4-5.0); ALBUMIN/GLOBULIN RATIO 0.8 (1.0-1.7); CALCIUM 8.4 mg/dL (8.5-10.1); CREATININE 1.4 mg/dL (0.6-1.0); GFR 36.8; TOTAL BILIRUBIN 0.5 mg/dL (0.2-1.0); TOTAL PROTEIN 6.1 g/dL (6.4-8.2)
[2020-05-27 08:38] LABS: POTASSIUM 4.6 mmol/L (3.5-5.1)
--- NOTE | 2020-05-27 09:25 | PDOC ---
DATE OF SERVICE DATE: 05/27/20 TIME: 09:20 SUBJECTIVE ROS stable OBJECTIVE Vital Signs Vital Signs Date Time Temp Pulse Resp B/P (MAP) Pulse Ox O2 Delivery O2 Flow Rate FiO2 05/27/20 08:01 20 96 Room Air 05/27/20 07:00 98.5 81 144/64 (90) 98.5 I & 0 Intake and Output 05/27/20 07:00 Intake Total 1180 ml Output Total 2585 ml Balance -1405 ml Intake Oral 580 ml IV Total 600 ml Output Urine Total 2585 ml # Bowel Movements 1 PHYSICAL EXAM Physical Exam GENERAL:NAD HEEN OM moist NECK: Supple. HEART: RRR CHEST: Clear to auscultation. on labored ABDOMEN: soft, nontender. NEUROLOGIC awake, alert, responding appropriately. She moves her extremities spontaneously, Morejon + SKIN No rash EXT No Edema DIAGNOSIS/ASSESSMENT Assessment & Plan HypoNatremia - severe , recurrent At presentation to [facility] - Na of 109, corrected to 116 in 24 hrs with IV NS, Improving off IVF since yesterday afternoon TSH Normal , No use of SSRI's Hospitalized with similar presentation in 2016 Hospitalization at [facility] in December with Na at 118, improved to 134 at dc - Dx with HypoVolemia - reviewed records from [facility] (No mention of Diuretics in DC meds) Monitor Closely, strict I/O , Pt asymptomatic , Dw RN HypoMagnesemia - on PO replacement , Normal HypoKalemia -On PO replacement , monitor MARIA ELENA - Vasomotor /Dehydration BUN/Cr 26/2.2 and ua normal at [facility] Improving , good UOP ,Avoid nephrotoxins CKD 3- Cr 1.2 @ dc from [facility] in December 2019 , baseline Cr in 2015 MARIA ELENA at [facility] NSTEMI- Severe 2V CAD s/p cardiac cath and stent Diastolic Heart failure Hx of Massive bleeding from Cardiac cath insertion area with large hematoma at [facility] COMMENT/RELEVANT DATA Meds Current Medications Medications (Trade) Dose Ordered Sig/Jess Start Time Stop Time Status Last Admin Dose Admin Magnesium Oxide (Magnesium Oxide) 400 mg TID 05/26/20 09:00 05/26/20 20:00 400 MG Oxycodone/ Acetaminophen (Percocet 10/325) 2 tab PRN Q6HRS PRN 05/26/20 02:00 05/27/20 08:01 2 TAB Potassium Chloride (Klor-Con) 20 meq TIDWMEALS 9/28/20 08:00 05/27/20 08:00 20 MEQ Sodium Chloride 1,000 ml @ 100 mls/hr Q10H 05/26/20 02:30 05/26/20 11:15 DC 05/26/20 02:32 100 MLS/HR Lab Laboratory Tests Test 05/26/20 15:45 05/26/20 16:36 05/26/20 20:31 05/26/20 21:17 Sodium Level 116 mmol/L (136-145) 118 mmol/L (136-145) Potassium Level 3.0 mmol/L (3.5-5.1) 3.6 mmol/L (3.5-5.1) Chloride Level 82 mmol/L (98-107) 85 mmol/L (98-107) Carbon Dioxide Level 30 mmol/L (21-32) 28 mmol/L (21-32) Anion Gap 4 (6-14) 5 (6-14) Blood Urea Nitrogen 25 mg/dL (7-20) 24 mg/dL (7-20) Creatinine 1.8 mg/dL (0.6-1.0) 1.6 mg/dL (0.6-1.0) Estimated GFR (Cockcroft-Gault) 27.5 31.5 Glucose Level 143 mg/dL (70-99) 124 mg/dL (70-99) Calcium Level 7.6 mg/dL (8.5-10.1) 8.0 mg/dL (8.5-10.1) Glucose (Fingerstick) 132 mg/dL (70-99) 119 mg/dL (70-99) Test 05/27/20 07:15 05/27/20 07:45 Glucose (Fingerstick) 69 mg/dL (70-99) White Blood Count 9.9 x10^3/uL (4.0-11.0) Red Blood Count 3.55 x10^6/uL (3.50-5.40) Hemoglobin 11.7 g/dL (12.0-15.5) Hematocrit 33.2 % (36.0-47.0) Mean Corpuscular Volume 94 fL (79-100) Mean Corpuscular Hemoglobin 33 pg (25-35) Mean Corpuscular Hemoglobin Concent 35 g/dL (31-37) Red Cell Distribution Width 15.2 % (11.5-14.5) Platelet Count 158 x10^3/uL (140-400) Sodium Level 123 mmol/L (136-145) Potassium Level 4.6 mmol/L (3.5-5.1) Chloride Level 89 mmol/L (98-107) Carbon Dioxide Level 30 mmol/L (21-32) Anion Gap 4 (6-14) Blood Urea Nitrogen 20 mg/dL (7-20) Creatinine 1.4 mg/dL (0.6-1.0) Estimated GFR (Cockcroft-Gault) 36.8 BUN/Creatinine Ratio 14 (6-20) Glucose Level 96 mg/dL (70-99) Calcium Level 8.4 mg/dL (8.5-10.1) Magnesium Level 2.2 mg/dL (1.8-2.4) Total Bilirubin 0.5 mg/dL (0.2-1.0) Aspartate Amino Transf (AST/SGOT) 55 U/L (15-37) Alanine Aminotransferase (ALT/SGPT) 22 U/L (14-59) Alkaline Phosphatase 142 U/L (46-116) Total Protein 6.1 g/dL (6.4-8.2) Albumin 2.7 g/dL (3.4-5.0) Albumin/Globulin Ratio 0.8 (1.0-1.7) Results All relevant outside records, renal labs, imaging studies, telemetry/EKG's were reviewed. LANCE DRISCOLL MD May 27, 2020 09:25
[2020-05-27 11:01] VITALS: BP 126/41
--- NOTE | 2020-05-27 11:35 | PDOC ---
DATE OF SERVICE DATE: 05/27/20 TIME: 11:26 SUBJECTIVE ROS stable , she is feeling frustrated that she is not walking She states she eats only 1 meal/day whatever her cooks OBJECTIVE Vital Signs Vital Signs Date Time Temp Pulse Resp B/P (MAP) Pulse Ox O2 Delivery O2 Flow Rate FiO2 05/27/20 11:01 98.5 74 20 126/41 (69) 96 Room Air 98.5 I & 0 Intake and Output 05/27/20 07:00 Intake Total 1180 ml Output Total 2585 ml Balance -1405 ml Intake Oral 580 ml IV Total 600 ml Output Urine Total 2585 ml # Bowel Movements 1 PHYSICAL EXAM Physical Exam GENERAL:NAD HEEN OM moist NECK: Supple. HEART: RRR CHEST: Clear to auscultation. on labored ABDOMEN: soft, nontender. NEUROLOGIC awake, alert, responding appropriately. She moves her extremities spontaneously, Morejon + SKIN No rash EXT No Edema DIAGNOSIS/ASSESSMENT Assessment & Plan HypoNatremia - severe , recurrent At presentation to [place] - Na of 109, corrected to 116 in 24 hrs with IV NS, off IVF since yesterday afternoon , Na improving , good uop TSH Normal , No use of SSRI's Hospitalized with similar presentation in 2016 Hospitalization at [facility] in December with Na at 118, improved to 134 at dc - Dx with HypoVolemia - reviewed records from [facility] (No mention of Diuretics in DC meds) Monitor Closely, strict I/O , Pt asymptomatic , Dw RN HypoMagnesemia - on PO replacement , Normal HypoKalemia -On PO replacement , monitor MARIA ELENA - Vasomotor /Dehydration BUN/Cr 26/2.2 and ua normal at [facility] Improving , good UOP ,Avoid nephrotoxins CKD 3- Cr 1.2 @ dc from [facility] in December 2019 , baseline Cr in 2015 MARIA ELENA at [facility] NSTEMI- Severe 2V CAD s/p cardiac cath and stent Diastolic Heart failure Hx of Massive bleeding from Cardiac cath insertion area with large hematoma at [facility] COMMENT/RELEVANT DATA Meds Current Medications Medications (Trade) Dose Ordered Sig/Jess Start Time Stop Time Status Last Admin Dose Admin Magnesium Oxide (Magnesium Oxide) 400 mg TID 05/26/20 09:00 05/26/20 20:00 400 MG Oxycodone/ Acetaminophen (Percocet 10/325) 2 tab PRN Q6HRS PRN 05/26/20 02:00 05/27/20 08:01 2 TAB Potassium Chloride (Klor-Con) 20 meq TIDWMEALS 05/26/20 08:00 05/27/20 08:00 20 MEQ Sodium Chloride 1,000 ml @ 100 mls/hr Q10H 05/26/20 02:30 05/26/20 11:15 DC 05/26/20 02:32 100 MLS/HR Lab Laboratory Tests Test 05/26/20 15:45 05/26/20 16:36 05/26/20 20:31 05/26/20 21:17 Sodium Level 116 mmol/L (136-145) 118 mmol/L (136-145) Potassium Level 3.0 mmol/L (3.5-5.1) 3.6 mmol/L (3.5-5.1) Chloride Level 82 mmol/L (98-107) 85 mmol/L (98-107) Carbon Dioxide Level 30 mmol/L (21-32) 28 mmol/L (21-32) Anion Gap 4 (6-14) 5 (6-14) Blood Urea Nitrogen 25 mg/dL (7-20) 24 mg/dL (7-20) Creatinine 1.8 mg/dL (0.6-1.0) 1.6 mg/dL (0.6-1.0) Estimated GFR (Cockcroft-Gault) 27.5 31.5 Glucose Level 143 mg/dL (70-99) 124 mg/dL (70-99) Calcium Level 7.6 mg/dL (8.5-10.1) 8.0 mg/dL (8.5-10.1) Glucose (Fingerstick) 132 mg/dL (70-99) 119 mg/dL (70-99) Test 05/27/20 07:15 05/27/20 07:45 Glucose (Fingerstick) 69 mg/dL (70-99) White Blood Count 9.9 x10^3/uL (4.0-11.0) Red Blood Count 3.55 x10^6/uL (3.50-5.40) Hemoglobin 11.7 g/dL (12.0-15.5) Hematocrit 33.2 % (36.0-47.0) Mean Corpuscular Volume 94 fL (79-100) Mean Corpuscular Hemoglobin 33 pg (25-35) Mean Corpuscular Hemoglobin Concent 35 g/dL (31-37) Red Cell Distribution Width 15.2 % (11.5-14.5) Platelet Count 158 x10^3/uL (140-400) Sodium Level 123 mmol/L (136-145) Potassium Level 4.6 mmol/L (3.5-5.1) Chloride Level 89 mmol/L (98-107) Carbon Dioxide Level 30 mmol/L (21-32) Anion Gap 4 (6-14) Blood Urea Nitrogen 20 mg/dL (7-20) Creatinine 1.4 mg/dL (0.6-1.0) Estimated GFR (Cockcroft-Gault) 36.8 BUN/Creatinine Ratio 14 (6-20) Glucose Level 96 mg/dL (70-99) Calcium Level 8.4 mg/dL (8.5-10.1) Magnesium Level 2.2 mg/dL (1.8-2.4) Total Bilirubin 0.5 mg/dL (0.2-1.0) Aspartate Amino Transf (AST/SGOT) 55 U/L (15-37) Alanine Aminotransferase (ALT/SGPT) 22 U/L (14-59) Alkaline Phosphatase 142 U/L (46-116) Total Protein 6.1 g/dL (6.4-8.2) Albumin 2.7 g/dL (3.4-5.0) Albumin/Globulin Ratio 0.8 (1.0-1.7) Results All relevant outside records, renal labs, imaging studies, telemetry/EKG's were reviewed. Justicifation of Admission Dx: Justifications for Admission: Justification of Admission Dx: Yes Comments: Severe HypoNatremia LANCE DRISCOLL MD May 27, 2020 11:35
--- NOTE | 2020-05-27 11:38 | NUR ---
SW following. Discussed with RN, PT/OT ordered, as well as COVID swab for possible placement. SW will continue to follow.
[2020-05-27] MEDS: MAGNESIUM OXIDE 400 MG TABLET PO SCH ×3 (12:23→20:34)
[2020-05-27 14:49] VITALS: BP 138/69
[2020-05-27] MEDS: IV NORMAL SALINE 1000ML BAG 1,000 ML IV SCH (17:04)
[2020-05-27 19:00] VITALS: BP 148/56
--- NOTE | 2020-05-27 21:26 | PN ---
DATE: 05/27/2020 SUBJECTIVE: The patient is resting, slightly propped up in bed, in no apparent respiratory distress. She is awake, alert, complaining that she is very weak, unable to move. However, she denied any nausea, vomiting, diarrhea or constipation. Her serum sodium is improving slowly. Her serum sodium was [address] to [facility] Emergency Room and today is up to 123 mEq per liter. Her potassium and magnesium are also well within normal range and her BUN and creatinine has improved. In fact, her creatinine was 2.4 when she arrived to the Emergency Room of [facility] and this morning is 1.4. PHYSICAL EXAMINATION: GENERAL: When I examined her, she was pale, but no jaundice or cyanosis. No lymphadenopathy, no thyromegaly. No jugular venous distention. No lower limb edema. VITAL SIGNS: Her heart rate was 74, blood pressure was 126/41, temperature 98.5, respiratory rate 20, and oxygen saturation was 96% on room air. HEENT: Showed normocephalic, atraumatic. NECK: Supple. CARDIAC: Normal first and second heart sounds. No gallop, rub or murmur. CHEST: Clear to auscultation. No crepitation or rhonchi. ABDOMEN: Distended, soft, nontender. NEUROLOGIC: She is grossly intact. Her intake and output were incompletely recorded. LABORATORY DATA: As of this morning, her serum sodium was 123, potassium 4.6, chloride 89, bicarbonate 30, anion gap of 4, BUN 20, creatinine 1.4, estimated GFR was 37 mL per minute. Her glucose was 96, calcium was 8.4, magnesium was 2.2. Total bilirubin, AST, ALT, alkaline phosphatase were normal. Total protein was 6.1, albumin was 2.7. Her white cell count was 9900, hemoglobin 12, hematocrit 33, MCV 94 and platelet count of 158,000. ASSESSMENT: 1. Hyponatremia, severe, but improving. 2. Hypokalemia, resolved. 3. Hypomagnesemia, resolved. 4. Acute kidney injury is also improving. Her creatinine is down from 2.4 to 1.4. PLAN: To continue with current plan of management. She will probably need to be admitted to a detention facility for further rehabilitation. PAUL PITTS MD DR: Meg JOB#: [id number] / [id number]
[2020-05-27 23:12] VITALS: BP 145/56
--- NOTE | 2020-05-27 23:56 | NUR ---
Reported NA level [address] [place]. Orders to continue IVF NS at 75/hr.
[2020-05-28] MEDS: oxyCODONE/APAP 10/325 1 TAB TABLET PO PRN ×3 (02:23→20:07)
[2020-05-28 02:52] VITALS: BP 166/63
[2020-05-28] MEDS: IV NORMAL SALINE 1000ML BAG 1,000 ML IV SCH ×2 (05:25→20:04)
[2020-05-28 07:00] VITALS: BP 158/63
[2020-05-28 07:23] LABS: CREATININE 1.1 mg/dL (0.6-1.0); GFR 48.6; POTASSIUM 5.6 mmol/L (3.5-5.1)
[2020-05-28] MEDS: POTASSIUM CHLORIDE 20 MEQ TABLET.ER. PO SCH (08:00)
[2020-05-28] MEDS: MAGNESIUM OXIDE 400 MG TABLET PO SCH ×3 (08:13→20:07)
--- NOTE | 2020-05-28 09:18 | PDOC ---
DATE OF SERVICE DATE: 05/28/20 TIME: 09:18 SUBJECTIVE ROS sitting up in chair, states feeling better , had Breakfast OBJECTIVE Vital Signs Vital Signs Date Time Temp Pulse Resp B/P (MAP) Pulse Ox O2 Delivery O2 Flow Rate FiO2 05/28/20 07:00 97.5 73 18 158/63 (94) 92 Room Air 97.5 I & 0 Intake and Output 05/28/20 07:00 Intake Total 1200 ml Output Total 3100 ml Balance -1900 ml Intake Oral 1200 ml Output Urine Total 3100 ml # Bowel Movements 1 PHYSICAL EXAM Physical Exam GENERAL:NAD HEEN OM moist NECK: Supple. HEART: RRR CHEST: Clear to auscultation. on labored ABDOMEN: soft, nontender. NEUROLOGIC awake, alert, responding appropriately. She moves her extremities spontaneously, Morejon + SKIN No rash EXT No Edema DIAGNOSIS/ASSESSMENT Assessment & Plan HypoNatremia - severe , recurrent At presentation to [place] - Na of 109, continue current management, dw RN ULytes cw Pr-renal , TSH Normal , No use of SSRI's Hospitalized with similar presentation in 2015 Hospitalization at [facility] in December with Na at 118, improved to 134 at dc - Dx with HypoVolemia - reviewed records from [facility] (No mention of Diuretics in DC meds) Monitor , strict I/O , Salt tabs not available in our pharmacy HypoMagnesemia - on PO replacement , Normal HypoKalemia -On PO replacement , K elevated today DCed PO KCL MARIA ELENA - Vasomotor /Dehydration BUN/Cr 26/2.2 and ua normal at [facility] Improving , good UOP ,Avoid nephrotoxins CKD 3- Cr 1.2 @ dc from [facility] in December 2019 , baseline Cr in 2015 MARIA ELENA at [facility] NSTEMI- Severe 2V CAD s/p cardiac cath and stent Diastolic Heart failure Hx of Massive bleeding from Cardiac cath insertion area with large hematoma at [facility] COMMENT/RELEVANT DATA Meds Current Medications Medications (Trade) Dose Ordered Sig/Jess Start Time Stop Time Status Last Admin Dose Admin Magnesium Oxide (Magnesium Oxide) 400 mg TID 05/26/20 09:00 05/28/20 08:13 400 MG Oxycodone/ Acetaminophen (Percocet 10/325) 2 tab PRN Q6HRS PRN 05/26/20 02:00 05/28/20 02:23 2 TAB Potassium Chloride (Klor-Con) 20 meq TIDWMEALS 9/28/20 08:00 05/27/20 17:03 20 MEQ Sodium Chloride 1,000 ml @ 75 mls/hr [id number] 05/27/20 17:00 05/28/20 05:25 75 MLS/HR Lab Laboratory Tests Test 05/27/20 11:45 05/27/20 13:40 05/27/20 16:24 05/27/20 20:31 Glucose (Fingerstick) 104 mg/dL (70-99) 106 mg/dL (70-99) 114 mg/dL (70-99) Sodium Level 121 mmol/L (136-145) Magnesium Level 2.0 mg/dL (1.8-2.4) Test 05/27/20 23:13 05/28/20 06:30 05/28/20 07:10 Sodium Level 124 mmol/L (136-145) 125 mmol/L (136-145) Potassium Level 5.6 mmol/L (3.5-5.1) Chloride Level 94 mmol/L (98-107) Carbon Dioxide Level 30 mmol/L (21-32) Anion Gap 1 (6-14) Blood Urea Nitrogen 14 mg/dL (7-20) Creatinine 1.1 mg/dL (0.6-1.0) Estimated GFR (Cockcroft-Gault) 48.6 Glucose Level 86 mg/dL (70-99) Calcium Level 8.0 mg/dL (8.5-10.1) Magnesium Level 2.0 mg/dL (1.8-2.4) Glucose (Fingerstick) 86 mg/dL (70-99) Results All relevant outside records, renal labs, imaging studies, telemetry/EKG's were reviewed. Justicifation of Admission Dx: Justifications for Admission: Justification of Admission Dx: Yes LANCE DRISCOLL MD May 28, 2020 09:18
[2020-05-28 10:38] VITALS: BP 157/66
--- NOTE | 2020-05-28 11:23 | NUR ---
SS following up with discharge planning. SS reviewed pt chart and discussed with pt RN. Pt is currently on room air. COVID19 test pending. PT/OT recommended care home unit. SS met with pt and discussed care home unit and discharge planning. Pt reported that she is from [place] and is familiar with [facility] and [place]. Pt requested that SS contact her spouse, Crow, , to discuss care home unit. SS left voicemail for Matty requesting return call. SS will continue to follow for discharge planning.
[2020-05-28] MEDS ORDERED: ACETAMINOPHEN 325 MG TABLET. PO PRN (11:30)
[2020-05-28] MEDS ORDERED: NITROGLYCERIN SUBLINGUAL 0.4 MG BOTTLE OF 25. SL PRN (11:30)
[2020-05-28] MEDS: CLOPIDOGREL BISULFATE 75 MG TABLET PO SCH (12:26)
[2020-05-28] MEDS: ASPIRIN ENTERIC COATED 81 MG TABLET.DR. PO SCH (12:26)
[2020-05-28] MEDS: amLODIPine BESYLATE 10 MG TABLET PO SCH (12:27)
[2020-05-28] MEDS: CETIRIZINE HCL 10 MG TABLET. PO SCH (12:27)
[2020-05-28] MEDS: CARVEDILOL 12.5 MG TABLET. PO SCH ×2 (12:27→17:07)
--- NOTE | 2020-05-28 12:38 | NUR ---
SS following up with discharge planning. Pt's spouse, Crow, notified staff that he wants pt to go to [facility], ; fax [phone]. SS phoned and faxed referral to [facility]. COVID19 pending. SS will continue to follow for discharge planning.
[2020-05-28 14:27] LABS: CALCIUM 8.4 mg/dL (8.5-10.1); CREATININE 1.2 mg/dL (0.6-1.0); GFR 43.9; POTASSIUM 5.2 mmol/L (3.5-5.1)
[2020-05-28 14:49] VITALS: BP 168/70
[2020-05-28 19:00] VITALS: BP 144/68
[2020-05-28] MEDS: ATORVASTATIN CALCIUM 40 MG TABLET. PO SCH (20:07)
[2020-05-28] MEDS: CYCLOBENZAPRINE 10 MG TABLET. PO SCH (20:07)
[2020-05-28] MEDS: GABAPENTIN 300 MG CAPSULE. PO SCH (20:07)
[2020-05-28 22:44] VITALS: BP 140/61
[2020-05-29 02:56] VITALS: BP 155/68
[2020-05-29 05:54] LABS: CALCIUM 8.1 mg/dL (8.5-10.1); GFR 54.2; POTASSIUM 5.4 mmol/L (3.5-5.1)
[2020-05-29] MEDS: oxyCODONE/APAP 10/325 1 TAB TABLET PO PRN ×3 (06:23→20:39)
[2020-05-29 07:00] VITALS: BP 164/65
[2020-05-29] MEDS: amLODIPine BESYLATE 10 MG TABLET PO SCH (09:24)
[2020-05-29] MEDS: CETIRIZINE HCL 10 MG TABLET. PO SCH (09:24)
[2020-05-29] MEDS: ASPIRIN ENTERIC COATED 81 MG TABLET.DR. PO SCH (09:24)
[2020-05-29] MEDS: MAGNESIUM OXIDE 400 MG TABLET PO SCH ×3 (09:24→20:39)
[2020-05-29] MEDS: IV NORMAL SALINE 1000ML BAG 1,000 ML IV SCH ×2 (09:24→21:45)
[2020-05-29] MEDS: CLOPIDOGREL BISULFATE 75 MG TABLET PO SCH (09:24)
[2020-05-29] MEDS: CARVEDILOL 12.5 MG TABLET. PO SCH ×2 (09:25→17:48)
--- NOTE | 2020-05-29 09:41 | PN ---
DATE: 05/28/2020 SUBJECTIVE: The patient is resting, slightly propped up in bed, in no apparent distress. She is definitely more awake, alert. She apparently participated in physical therapy managed to walk with a walker, although she continued to complain of generalized weakness. PHYSICAL EXAMINATION: GENERAL: When I examined her, she was pale, but not jaundiced, cyanosis or thyromegaly. No jugular venous distension. No lower limb edema. VITAL SIGNS: Her heart rate was 77, blood pressure 157/66, temperature 98, respiratory rate was 16, and oxygen saturation was 94% on room air. HEAD, EYES, EARS, NOSE, AND THROAT: Showed normocephalic, atraumatic. NECK: Supple. CARDIAC: Normal first and second heart sounds. No gallop, rub or murmur. CHEST: Clear to auscultation. No crepitation or rhonchi. ABDOMEN: Distended, soft, nontender. NEUROLOGIC: She is definitely more awake, alert. All her cranial nerves intact. She moves extremities without difficulty. Her intake was 1180, output was 2700. LABORATORY DATA: Showed a white cell count 9900, hemoglobin 11, hematocrit 33, MCV 94 and platelet count of 158,000. Serum sodium was 125, potassium 5.6, chloride 94, bicarbonate 30, anion gap of 1. Her BUN was 14, creatinine 1.1, estimated GFR was 48 mL per minute. Her glucose was 86, calcium was 8, magnesium was 2. ASSESSMENT: 1. Hyponatremia, severe, but improving. Today's sodium is 125. 2. Hypokalemia, resolved. In fact, she is hyperkalemic with potassium 5.6. 3. Hypomagnesemia, resolved. 4. Acute kidney injury, also improving. Her creatinine is down to 1.1. Plan is to continue current plan of management. Her potassium was discontinued. Other medical problems include chronic kidney disease and non-ST segment elevation myocardial infarction. Apparently, has severe 2-vessel coronary artery disease, status post cardiac catheterization and stent deployment, diastolic heart failure. I would reconcile all her medication given her debility and weakness. She will need to have further rehabilitation probably in a jail facility. PAUL PITTS MD DR: ERIC/adrienne JOB#: [id number] / [id number]
--- NOTE | 2020-05-29 10:54 | PDOC ---
DATE OF SERVICE DATE: 05/29/20 TIME: 10:47 SUBJECTIVE ROS Stable , she is concerned about unable to ambulate Appetite not very good per RN OBJECTIVE Vital Signs Vital Signs Date Time Temp Pulse Resp B/P (MAP) Pulse Ox O2 Delivery O2 Flow Rate FiO2 05/29/20 09:25 74 155/68 05/29/20 08:00 Room Air 05/29/20 07:23 16 98 05/29/20 07:00 98.6 98.6 I & 0 Intake and Output 05/29/20 07:00 Intake Total 2200 ml Output Total 2500 ml Balance -300 ml Intake Oral 700 ml Blood Product IV Normal Saline Flush 1500 ml Output Urine Total 2500 ml # Bowel Movements 1 PHYSICAL EXAM Physical Exam GENERAL:NAD HEEN OM moist NECK: Supple. HEART: RRR CHEST: Clear to auscultation. non labored ABDOMEN: soft, nontender. NEUROLOGIC awake, alert, responding appropriately. She moves her extremities spontaneously, Morejon + SKIN No rash EXT No Edema DIAGNOSIS/ASSESSMENT Assessment & Plan HypoNatremia - severe , recurrent At presentation to [place] - Na of 109, improving with IV NS , continue current management, dw RN ULytes cw Pr-renal , TSH Normal , No use of SSRI's Hospitalized with similar presentation in 2016 Hospitalization at [facility] in December with Na at 118, improved to 134 at dc - Dx with HypoVolemia - reviewed records from [facility] (No mention of Diuretics in DC meds) Monitor , strict I/O , Salt tabs not available in our pharmacy HypoMagnesemia - on PO replacement , Normal HypoKalemia -was On PO replacement , K mildly elevated DCed PO KCL MARIA ELENA - Vasomotor /Dehydration BUN/Cr 26/2.2 and ua normal at [facility] Resolved , good UOP ,Avoid nephrotoxins CKD 3- Cr 1.2 @ dc from [facility] in December 2019 , baseline Cr in 2016 MARIA ELENA at [facility] NSTEMI- Severe 2V CAD s/p cardiac cath and stent Diastolic Heart failure Hx of Massive bleeding from Cardiac cath insertion area with large hematoma at [facility] COMMENT/RELEVANT DATA Meds Current Medications Medications (Trade) Dose Ordered Sig/Jess Start Time Stop Time Status Last Admin Dose Admin Acetaminophen (Tylenol) 650 mg PRN DAILY PRN 05/28/20 11:30 Amlodipine Besylate (Norvasc) 10 mg DAILY 05/28/20 12:00 05/29/20 09:24 10 MG Aspirin (Ecotrin) 81 mg DAILY 05/28/20 12:00 05/29/20 09:24 81 MG Atorvastatin Calcium (Lipitor) 80 mg QHS 05/28/20 21:00 05/28/20 20:07 80 MG Carvedilol (Coreg) 12.5 mg BIDWMEALS 05/28/20 12:00 05/29/20 09:25 12.5 MG Cetirizine HCl (ZyrTEC) 10 mg DAILY 05/28/20 12:00 05/29/20 09:24 10 MG Clopidogrel Bisulfate (Plavix) 75 mg DAILY 05/28/20 12:00 05/29/20 09:24 75 MG Cyclobenzaprine HCl (Flexeril) 10 mg QHS 05/28/20 21:00 05/28/20 20:07 10 MG Gabapentin (Neurontin) 300 mg HS 05/28/20 21:00 05/28/20 20:07 300 MG Magnesium Oxide (Magnesium Oxide) 400 mg TID 05/26/20 09:00 05/29/20 09:24 400 MG Nitroglycerin (Nitrostat) 0.4 mg PRN Q5MIN PRN 05/28/20 11:30 Oxycodone/ Acetaminophen (Percocet 10/325) 1 tab PRN Q6HRS PRN 05/28/20 11:30 05/29/20 06:23 1 TAB Potassium Chloride (Klor-Con) 20 meq TIDWMEALS 05/26/20 08:00 05/28/20 09:10 DC 05/27/20 17:03 20 MEQ Sodium Chloride 1,000 ml @ 75 mls/hr [id number] 05/27/20 17:00 05/29/20 09:24 75 MLS/HR Lab Laboratory Tests Test 05/28/20 11:10 05/28/20 14:04 05/28/20 16:33 05/28/20 20:09 Glucose (Fingerstick) 84 mg/dL (70-99) 133 mg/dL (70-99) 127 mg/dL (70-99) Sodium Level 129 mmol/L (136-145) Potassium Level 5.2 mmol/L (3.5-5.1) Chloride Level 95 mmol/L (98-107) Carbon Dioxide Level 32 mmol/L (21-32) Anion Gap 2 (6-14) Blood Urea Nitrogen 13 mg/dL (7-20) Creatinine 1.2 mg/dL (0.6-1.0) Estimated GFR (Cockcroft-Gault) 43.9 Glucose Level 151 mg/dL (70-99) Calcium Level 8.4 mg/dL (8.5-10.1) Test 05/29/20 04:43 05/29/20 07:52 Sodium Level 130 mmol/L (136-145) Potassium Level 5.4 mmol/L (3.5-5.1) Chloride Level 100 mmol/L (98-107) Carbon Dioxide Level 29 mmol/L (21-32) Anion Gap 1 (6-14) Blood Urea Nitrogen 11 mg/dL (7-20) Creatinine 1.0 mg/dL (0.6-1.0) Estimated GFR (Cockcroft-Gault) 54.2 Glucose Level 92 mg/dL (70-99) Calcium Level 8.1 mg/dL (8.5-10.1) Glucose (Fingerstick) 72 mg/dL (70-99) Results All relevant outside records, renal labs, imaging studies, telemetry/EKG's were reviewed. Justicifation of Admission Dx: Justifications for Admission: Justification of Admission Dx: Yes LANCE DRISCOLL MD May 29, 2020 10:54
[2020-05-29 11:00] VITALS: BP 152/57
--- NOTE | 2020-05-29 11:07 | NUR ---
SS following up with discharge planning. SS reviewed pt chart and discussed with pt RN. Pt is currently on room air. COVID19 [address] Berger, pt accepted at [facility], ; fax [phone]. Bed available tomorrow. SS will continue to follow for discharge planning.
--- NOTE | 2020-05-29 12:25 | PN ---
DATE: 05/29/2020 SUBJECTIVE: The patient is resting, almost flat in bed, in no apparent distress. She is awake, alert, continued to complain of weakness. She is concerned that her will not be able to take care of her and we are actually in the process of arranging for her to be discharged to Swing bed. I spoke with ____ and apparently they will not able to take her today, but she will be discharged tomorrow. Meanwhile, her serum sodium has been trending upward slowly. Her sodium today is 130. PHYSICAL EXAMINATION: GENERAL: When I examined her, she was pale, but no jaundice, cyanosis or thyromegaly. No jugular venous distention or limb edema. VITAL SIGNS: Her heart rate was 74, blood pressure was 155/68, temperature was 98.6, respiratory rate was 16, and oxygen saturation was 98%. HEENT: Normocephalic, atraumatic. NECK: Supple. HEART: Showed normal first and second heart sounds. No gallop, rub or murmur. CHEST: Clear to auscultation. No crepitation or rhonchi. ABDOMEN: Distended, soft, nontender. NEUROLOGIC: She is definitely more awake, alert, responding appropriately. All her cranial nerves intact. She moves extremities without difficulty. She ambulates with a walker with standby assist. Her intake over the last 24 hours was 1200, output was 3100. LABORATORY DATA: As of this morning, her serum sodium was 130, potassium 5.4, chloride 100, bicarbonate 29, anion gap of 1, BUN 11, creatinine 1, estimated GFR was 54 mL per minute. Her glucose was 92, calcium was 8.1. Her most recent white cell count was 9900, hemoglobin 11.7, hematocrit 33, MCV 94 and platelet count of 158,000. Her coronavirus PCR was not detectable. ASSESSMENT: 1. Profound hyponatremia, improving. Today's sodium is up to 130 mEq per liter. 2. Hypokalemia, resolved. In fact, she is hyperkalemic and her serum potassium today is 5.4. 3. Hypomagnesemia, resolved. 3. Acute kidney injury, improving. Her creatinine is down to 1 mg/dL. PLAN: To continue with IV normal saline. Continue with physical and occupational therapy. She will be discharged to Swing bed at [facility] tomorrow. PAUL PITTS MD DR: Meg JOB#: [id number] / [id number]
[2020-05-29 15:00] VITALS: BP 165/72
--- NOTE | 2020-05-29 16:10 | NUR ---
Have reviewed documentation by internal control consultant and made changes as needed
[2020-05-29 19:00] VITALS: BP 145/53
[2020-05-29] MEDS: CYCLOBENZAPRINE 10 MG TABLET. PO SCH ×2 (20:39→21:44)
[2020-05-29] MEDS: GABAPENTIN 300 MG CAPSULE. PO SCH (20:39)
[2020-05-29] MEDS: ATORVASTATIN CALCIUM 40 MG TABLET. PO SCH (20:39)
[2020-05-29 22:55] VITALS: BP 118/60
[2020-05-30 02:56] VITALS: BP 106/40
[2020-05-30 07:00] VITALS: BP 174/67
[2020-05-30] MEDS ORDERED: DEXTROSE 50% 25 GM / 50ML DISP.SYRIN. IV PRN (08:00)
[2020-05-30] MEDS: MAGNESIUM OXIDE 400 MG TABLET PO SCH (08:20)
[2020-05-30] MEDS: CARVEDILOL 12.5 MG TABLET. PO SCH (08:20)
[2020-05-30] MEDS: ASPIRIN ENTERIC COATED 81 MG TABLET.DR. PO SCH (08:20)
[2020-05-30] MEDS: amLODIPine BESYLATE 10 MG TABLET PO SCH (08:20)
[2020-05-30] MEDS: CLOPIDOGREL BISULFATE 75 MG TABLET PO SCH (08:20)
[2020-05-30] MEDS: oxyCODONE/APAP 10/325 1 TAB TABLET PO PRN (08:21)
[2020-05-30] MEDS: CETIRIZINE HCL 10 MG TABLET. PO SCH (08:21)
[2020-05-30 10:02] LABS: HEMATOCRIT 32.1 % (36.0-47.0); RED BLOOD COUNT 3.36 x10^6/uL (3.50-5.40); RED CELL DISTRIBUTION WIDTH 15.5 % (11.5-14.5)
[2020-05-30 10:08] LABS: ALBUMIN 2.6 g/dL (3.4-5.0); ALBUMIN/GLOBULIN RATIO 0.7 (1.0-1.7); CALCIUM 8.4 mg/dL (8.5-10.1); CREATININE 1.1 mg/dL (0.6-1.0); GFR 48.6; POTASSIUM 4.9 mmol/L (3.5-5.1); TOTAL BILIRUBIN 0.4 mg/dL (0.2-1.0); TOTAL PROTEIN 6.2 g/dL (6.4-8.2)
--- NOTE | 2020-05-30 10:17 | PDOC ---
DATE OF SERVICE DATE: 05/30/20 TIME: 10:15 SUBJECTIVE ROS Stable , OBJECTIVE Vital Signs Vital Signs Date Time Temp Pulse Resp B/P (MAP) Pulse Ox O2 Delivery O2 Flow Rate FiO2 05/30/20 09:21 96 Room Air 05/30/20 08:21 2.0 05/30/20 08:20 97 174/67 05/30/20 07:00 97.8 22 97.8 I & 0 Intake and Output 05/30/20 07:00 Output Total 3400 ml Balance -3400 ml Output Urine Total 3400 ml PHYSICAL EXAM Physical Exam GENERAL:NAD HEEN OM moist NECK: Supple. HEART: RRR CHEST: Clear to auscultation. non labored ABDOMEN: soft, nontender. NEUROLOGIC awake, alert, responding appropriately. She moves her extremities spontaneously, Morejon + SKIN No rash EXT No Edema DIAGNOSIS/ASSESSMENT Assessment & Plan HypoNatremia - severe , recurrent At presentation to [place] - Na of 109, improving with IV NS ULytes cw Pr-renal , TSH Normal , No use of SSRI's Hospitalized with similar presentation in 2016 Hospitalization at [facility] in December with Na at 118, improved to 134 at dc - Dx wi th HypoVolemia - reviewed records from [facility] (No mention of Diuretics in DC meds) Monitor , strict I/O , Salt tabs at dc. dw Dr. Berger, who will follow her as OP HypoMagnesemia - on PO replacement , Normal HypoKalemia -was On PO replacement , later K mildly elevated DCed PO KCL . K normal MARIA ELENA - Vasomotor /Dehydration BUN/Cr 26/2.2 and ua normal at [facility] Resolved , good UOP ,Avoid nephrotoxins CKD 3- Cr 1.2 @ dc from [facility] in December 2019 , baseline Cr in 2015 MARIA ELENA at [facility] NSTEMI- Severe 2V CAD s/p cardiac cath and stent Diastolic Heart failure Hx of Massive bleeding from Cardiac cath insertion area with large hematoma at [facility] COMMENT/RELEVANT DATA Meds Current Medications Medications (Trade) Dose Ordered Sig/Jess Start Time Stop Time Status Last Admin Dose Admin Acetaminophen (Tylenol) 650 mg PRN DAILY PRN 05/28/20 11:30 Amlodipine Besylate (Norvasc) 10 mg DAILY 05/28/20 12:00 05/30/20 08:20 10 MG Aspirin (Ecotrin) 81 mg DAILY 05/28/20 12:00 05/30/20 08:20 81 MG Atorvastatin Calcium (Lipitor) 80 mg QHS 05/28/20 21:00 05/29/20 20:39 80 MG Carvedilol (Coreg) 12.5 mg BIDWMEALS 05/28/20 12:00 05/30/20 08:20 12.5 MG Cetirizine HCl (ZyrTEC) 10 mg DAILY 05/28/20 12:00 05/30/20 08:21 10 MG Clopidogrel Bisulfate (Plavix) 75 mg DAILY 05/28/20 12:00 05/30/20 08:20 75 MG Cyclobenzaprine HCl (Flexeril) 10 mg QHS 05/28/20 21:00 05/29/20 21:44 10 MG Dextrose (Dextrose 50%-Water Syringe) 12.5 gm PRN Q15MIN PRN 05/30/20 08:00 05/30/20 08:20 12.5 GM Gabapentin (Neurontin) 300 mg HS 05/28/20 21:00 05/29/20 20:39 300 MG Magnesium Oxide (Magnesium Oxide) 400 mg TID 05/26/20 09:00 05/30/20 08:20 400 MG Nitroglycerin (Nitrostat) 0.4 mg PRN Q5MIN PRN 05/28/20 11:30 Oxycodone/ Acetaminophen (Percocet 10/325) 1 tab PRN Q6HRS PRN 05/28/20 11:30 05/29/20 06:23 1 TAB Potassium Chloride (Klor-Con) 20 meq TIDWMEALS 05/26/20 08:00 05/28/20 09:10 DC 05/27/20 17:03 20 MEQ Sodium Chloride 1,000 ml @ 75 mls/hr [id number] 05/27/20 17:00 05/29/20 21:45 75 MLS/HR Lab Laboratory Tests Test 05/29/20 11:43 05/29/20 17:16 05/29/20 20:24 05/30/20 07:44 Glucose (Fingerstick) 106 mg/dL (70-99) 102 mg/dL (70-99) 132 mg/dL (70-99) 55 mg/dL (70-99) Test 05/30/20 07:49 05/30/20 07:53 05/30/20 08:08 05/30/20 09:37 Glucose (Fingerstick) 40 mg/dL (70-99) 66 mg/dL (70-99) 54 mg/dL (70-99) White Blood Count 9.0 x10^3/uL (4.0-11.0) Red Blood Count 3.36 x10^6/uL (3.50-5.40) Hemoglobin 11.0 g/dL (12.0-15.5) Hematocrit 32.1 % (36.0-47.0) Mean Corpuscular Volume 96 fL (79-100) Mean Corpuscular Hemoglobin 33 pg (25-35) Mean Corpuscular Hemoglobin Concent 34 g/dL (31-37) Red Cell Distribution Width 15.5 % (11.5-14.5) Platelet Count 173 x10^3/uL (140-400) Sodium Level 132 mmol/L (136-145) Potassium Level 4.9 mmol/L (3.5-5.1) Chloride Level 100 mmol/L (98-107) Carbon Dioxide Level 29 mmol/L (21-32) Anion Gap 3 (6-14) Blood Urea Nitrogen 9 mg/dL (7-20) Creatinine 1.1 mg/dL (0.6-1.0) Estimated GFR (Cockcroft-Gault) 48.6 BUN/Creatinine Ratio 8 (6-20) Glucose Level 178 mg/dL (70-99) Calcium Level 8.4 mg/dL (8.5-10.1) Total Bilirubin 0.4 mg/dL (0.2-1.0) Aspartate Amino Transf (AST/SGOT) 43 U/L (15-37) Alanine Aminotransferase (ALT/SGPT) 18 U/L (14-59) Alkaline Phosphatase 123 U/L (46-116) Total Protein 6.2 g/dL (6.4-8.2) Albumin 2.6 g/dL (3.4-5.0) Albumin/Globulin Ratio 0.7 (1.0-1.7) Results All relevant outside records, renal labs, imaging studies, telemetry/EKG's were reviewed. Justicifation of Admission Dx: Justifications for Admission: Justification of Admission Dx: Yes LANCE DRISCOLL MD May 30, 2020 10:17
--- NOTE | 2020-05-30 10:22 | SNU/HH DC ---
DISCHARGE ORDERS DISCHARGE INFORMATION: DISCHARGE DATE: May 30, 2020 FINAL DIAGNOSIS hyponatremia acute kidney injury hypokalemia hypomagnesemia CONDITION ON DISCHARGE: Stable CODE STATUS: Code Status: Full DETENTION: SNF STAY <30 DAYS: Yes POST DISCHARGE ORDERS: ACTIVITY ORDERS: Activity as tolerated DIET AFTER DISCHARGE: Cardiac TREATMENT/EQUIPMENT ORDERS: Physical Therapy For: Evalulation/Treatment Occupational Therapy For: Evaluation/Treatment DISCHARGE MEDICATIONS: Home Meds Reported Medications Cyclobenzaprine Hcl (CYCLOBENZAPRINE HCL) 10 Mg Tablet, 1 TAB PO QHS for PAIN, #30 TAB 05/27/20 Carvedilol (CARVEDILOL) 25 Mg Tablet, 12.5 MG PO BIDWMEALS for CARDIAC, TAB 05/27/20 Atorvastatin Calcium (LIPITOR) 80 Mg Tablet, 1 TAB PO HS for HIGH LIPID, #30 TAB 5 Refills 05/27/20 Aspirin (ASPIRIN EC) 81 Mg Tablet.dr, 1 TAB PO DAILY for BLOOD THINNER, #30 TAB 3 Refills 05/27/20 Acetaminophen (ACETAMINOPHEN) 325 Mg Tablet, 2 TAB PO PRN DAILY PRN for pain or fever for 30 Days, #30 TAB 0 Refills 05/27/20 Cetirizine Hcl (ZYRTEC) 10 Mg Tablet, 1 TAB PO DAILY for ALLERGY, #30 TAB 2 Refills 05/27/20 Amlodipine Besylate (NORVASC) 10 Mg Tablet, 10 MG PO DAILY for htn, TAB 05/27/20 Nitroglycerin (NITROSTAT) 0.4 Mg Tab.subl, 0.4 MG SL PRN Q5MIN PRN for CHEST PAIN, BOTTLE 05/27/20 Clopidogrel Bisulfate (CLOPIDOGREL) 75 Mg Tablet, 1 TAB PO DAILY for STENT, #90 TAB 1 Refill 05/27/20 Oxycodone/Apap 10-325 (PERCOCET 10-325 MG TABLET ) 1 Each Tablet, 1 TAB PO Q4- 6HRS, #40 TAB 08/02/16 Gabapentin (GABAPENTIN ) 300 Mg Capsule, 1 CAP PO HS for nerve pain, #90 CAP 5 Refills 09/26/14 Discontinued Reported Medications Cyanocobalamin (Vitamin B-12) (VITAMIN B-12) 1,000 Mcg Tablet, 1 TAB PO DAILY for supp, #30 TAB 2 Refills 10/12/18 Lactobacillus Combo No.11 (PROBIOTIC) 1 Each Cap.sprink, 1 EACH PO DAILY for supp, CAP 10/12/18 Cholecalciferol (Vitamin D3) (VITAMIN D-3) 2,000 Unit Tablet, 5000 UNIT PO DAILY for supp, TAB 10/12/18 Nebivolol Hcl (BYSTOLIC) 20 Mg Tablet, 20 MG PO DAILY for htn, TAB 10/12/18 Ferrous Sulfate (FERROUS SULFATE) 325 Mg Tablet, 1 TAB PO DAILY, #30 TAB 3 Refills 08/02/16 PAUL PITTS MD May 30, 2020 10:22
[2020-05-30 10:57] VITALS: BP 132/57
--- NOTE | 2020-05-30 11:31 | NUR ---
SS following up with discharge planning. SS reviewed pt chart and discussed with pt RN. Pt accepted at [facility], ; fax [phone]. COVID19 negative. Discharge orders received. SS phoned and faxed discharge orders to [facility]. Pt will discharge today and go to [facility] at 1400 via [facility] transport, [id number]. Pt, pt's spouse, and pt's RN notified.
[2020-05-30] MEDS: IV NORMAL SALINE 1000ML BAG 1,000 ML IV SCH (11:32)
--- NOTE | 2020-05-30 12:13 | DS ---
DATE OF DISCHARGE: 05/30/2020 HOSPITAL COURSE: The patient is a 75-year-old female patient who was admitted as a transfer from the Emergency Room of [facility] with profound hyponatremia. In fact, when she arrived there, she complained of generalized weakness together with nausea and vomiting. She was found to have severe hyponatremia with serum sodium of only 109 mEq per liter. She was extensively investigated. We started her on IV normal saline and her serum sodium steadily improved. She was also found to be extremely hypokalemic, hypomagnesemic and in acute kidney injury and all her electrolytes and kidney function have dramatically improved. Her serum sodium has risen from 109 to 232. Her serum potassium has risen from 3 to 4.9 and her magnesium has risen from 1.3 to 2. Her creatinine came down from high of 1.9, down to 1.1. The patient feels generally much improved, stronger, and has been up and about walking with a walker and a decision was made to discharge her to swing bed at [facility] to continue the process of rehabilitation. PHYSICAL EXAMINATION: GENERAL: When I saw her today, she looked pale, but no jaundice, cyanosis or thyromegaly. No jugular venous distention. No limb edema. VITAL SIGNS: Her heart rate was 97, blood pressure was 174/67, temperature was 97.8, respiratory rate 22, and oxygen saturation was 96% on room air. HEAD, EYES, EARS, NOSE AND THROAT: Showed normocephalic, atraumatic. NECK: Supple. CARDIAC: Normal first and second heart sounds. No gallop, rub or murmur. CHEST: Clear to auscultation. No crepitation or rhonchi. ABDOMEN: Distended, soft, nontender. NEUROLOGIC: She is definitely more lucid without any obvious lateralizing sign. All her cranial nerves intact. She moves extremities without difficulty. She ambulates with a walker. Her intake over the last 24 hours was 2200, output was 2500. LABORATORY DATA: As of this morning, her serum sodium was up to 132, potassium 4.9, chloride 100, bicarbonate 29, anion gap of 3, BUN 9, creatinine 1.1, estimated GFR was 48 mL per minute. Her glucose 178, calcium was 8.4. Total bilirubin, AST, ALT, alkaline phosphatase slightly elevated. Total protein 6.2, albumin was 2.6. Her white cell count was 9000, hemoglobin 11, hematocrit 32, MCV 96, and platelet count of 173,000. DISCHARGE MEDICATIONS: She was discharged to the swing bed in [facility] to continue on the following medications: Tylenol 650 mg every 6 hours as needed, amlodipine 10 mg once a day, aspirin 81 mg once a day, atorvastatin, calcium 80 mg at bedtime, carvedilol 12.5 mg twice a day with meals, cetirizine for Zyrtec 10 mg once a day, Plavix 75 mg once a day, cyclobenzaprine 10 mg at bedtime, gabapentin 300 mg at bedtime, nitroglycerin 0.4 mg sublingually every 5 minutes x 3 and oxycodone/APAP 10/325 one tablet every 4-6 hours. FINAL DISCHARGE DIAGNOSES: 1. Profound hyponatremia, resolved. 2. Hypokalemia, resolved. 3. Hypomagnesemia, resolved. 4. Acute kidney injury has resolved. The patient has multiple other medical problems including hypertension, type 2 diabetes, coronary artery disease, status post 3 stent deployment, previous history of hypernatremia. PAUL PITTS MD DR: ERIC/adrienne JOB#: [id number] / [id number]
== END 2020-05-30 14:16 | DRG 682 ==
LOC: 1 WEST ICU 01:28 → 2 SOUTH 15:00
PROVIDERS: ADMIT Internal Medicine; ATTEND Internal Medicine
DX: N17.0 Acute kidney failure with tubular necrosis (principal); E43 Unspecified severe protein-calorie malnutrition; E87.1 Hypo-osmolality and hyponatremia; E11.22 Type 2 diabetes mellitus with diabetic chronic kidney disease; E83.42 Hypomagnesemia; E87.6 Hypokalemia; I12.9 Hypertensive chronic kidney disease with stage 1 through stage 4 chronic kidney disease, or unspecified chronic kidney disease; I25.10 Atherosclerotic heart disease of native coronary artery without angina pectoris; N18.9 Chronic kidney disease, unspecified; Z87.891 Personal history of nicotine dependence; Z95.5 Presence of coronary angioplasty implant and graft; Z20.828 Contact with and (suspected) exposure to other viral communicable diseases; Z88.8 Allergy status to other drugs, medicaments and biological substances; Z68.25 Body mass index [BMI] 25.0-25.9, adult
CPT/HCPCS: 36415; 80048; 80053; 82436; 82533; 82962; 83735; 84133; 84295; 84300; 84443; 85025; 85027; J7030; 97110-GP; 97530-GO; 97530-GP; 97535-GO; G0378; U0003-CS

== ENCOUNTER 2020-09-20 01:09 | Inpatient (IN) | payer MEDICARE, BC ==
[~2020-09-20] VITALS: Ht 147.3 cm; Wt 58.8 kg
[2020-09-20] VITALS (9 sets, daily range): BP systolic 117–169; BP diastolic 42–72
[~2020-09-20 01:09] MED LIST changes: +ACET325T21 PO; +AMLO10TA4 PO; +ASPI-886 PO; +CARV25TA2 PO; +CETI10TA74 PO; +CLOP75TA PO; +LIPITOR80 MG PO; +NITR0.4T24 SL
[2020-09-20] MEDS ORDERED: cefTRIAXone IV Push 1 GM VIAL. IVP SCH (03:00)
[2020-09-20] MEDS ORDERED: ONDANSETRON PF 4 MG/2 ML VIAL. IVP PRN (03:00)
[2020-09-20] MEDS: IV NORMAL SALINE 1000ML BAG 1,000 ML IV SCH ×3 (03:18→23:46)
[2020-09-20] MEDS: PANTOPRAZOLE IV PUSH 40 MG VIAL. IVP SCH ×3 (03:18→21:18)
--- NOTE | 2020-09-20 07:18 | PDOC1 ---
History and Physical Date of Admission Date of Admission DATE: 09/20/20 TIME: 07:17 Identification/Chief Complaint Chief Complaint Hematemesis Source Source: Chart review, Patient History of Present Illness History of Present Illness Ms Gonzalez is a 75yo F w/ PMHx hypertension, type 2 diabetes, CAD s/p PCI (x3 in 08/2019 at [facility], then x2 11/2019) who presented to [facility] 09/19/20 c/o hematemesis. Was transfused 2u of convalescent FFP, NGT was placed, but coiled in esophagus. Vital signs on ED presentation temp 94 F, heart rate 102 bpm blood pressure 142/73. WBC 16.4, Hb 9.3, Platelets 295, Na 129, K 4, BUN 111, Cr 2.3, Glucose 291, Trop 0.061, BNP 7800, Lipase 75, Albumin 3. UDS + for opioids. UA positive leukoesterase and blood. Transferred to [facility] for GI consultation and further treatment. Per GI has had dyspepsia and early satiety for decades. EGD in 2010 2018 not revealing. Previous gastric emptying study borderline delay. Colonoscopy in 2010 with no pathology. Upon evaluation she is drowsy and very confused. Repeat KUB with NG tube better placed below the diaphragm and appears in stomach. Discussed with bedside patient has been continuing her home medications in addition she has been taking ibuprofen and Aleve for pain recently. She was seen by [facility] cardiology on ~09/08/2020 and prescribed Brilinta 90 mg, and losartan 25 mg spironolactone 25 mg and furosemide 20 mg twice daily Past Medical History Cardiovascular: CAD (S/p OBED x5 in 2019), HTN Endocrine: Diabetes Past Surgical History Past Surgical History S/P hysterectomy, , left rotator cuff repair, bilateral CTR's. Past Surgical History: Arthroscopy (Left rotator cuff), , Hysterectomy, Other (Bilateral carpal tunnel release) Family History Family History CAD, CVA, DM, Hypertension Family History: Coronary Artery Disease, Diabetes, Heart Disease, Hypertension, Stroke Social History Smoke: Quit ALCOHOL: none Drugs: None Current Medications Current Medications Current Medications Sodium Chloride 1,000 ml @ 100 mls/hr Q10H IV Last administered on 09/20/20at 03:18; Start 09/20/20 at 03:00 Ondansetron HCl (Zofran) 4 mg PRN Q6HRS PRN IVP NAUSEA/VOMITING; Start 09/20/20 at 03:00 Morphine Sulfate (Morphine Sulfate) 4 mg PRN Q4HRS PRN IV PAIN; Start 09/20/20 at 03:00 Pantoprazole Sodium (PROTONIX VIAL for IV PUSH) 40 mg BID IVP Last administered on 09/20/20at 03:18; Start 09/20/20 at 03:00 Ceftriaxone Sodium (Rocephin) 1 gm Q24H IVP ; Start 09/20/20 at 03:00; Stop at 03:07; Status DC Ceftriaxone Sodium (Rocephin) 1 gm Q24H IVP ; Start 09/20/20 at 21:00 Active Scripts Active Reported Cyclobenzaprine Hcl 10 Mg Tablet 1 Tab PO QHS Carvedilol 25 Mg Tablet 12.5 Mg PO BIDWMEALS Lipitor (Atorvastatin Calcium) 80 Mg Tablet 1 Tab PO HS Aspirin Ec (Aspirin) 81 Mg Tablet.dr 1 Tab PO DAILY Acetaminophen 325 Mg Tablet 2 Tab PO PRN DAILY PRN 30 Days Zyrtec (Cetirizine Hcl) 10 Mg Tablet 1 Tab PO DAILY Norvasc (Amlodipine Besylate) 10 Mg Tablet 10 Mg PO DAILY Nitrostat (Nitroglycerin) 0.4 Mg Tab.subl 0.4 Mg SL PRN Q5MIN PRN Clopidogrel (Clopidogrel Bisulfate) 75 Mg Tablet 1 Tab PO DAILY Percocet 10-325 Mg Tablet (Oxycodone/Acetaminophen) 1 Each Tablet 1 Tab PO Q4-6HRS Gabapentin (Gabapentin) 300 Mg Capsule 1 Cap PO HS Allergies Allergies: Coded Allergies: Iodinated Contrast Media (Verified Allergy, Severe, Hives, 05/10/19) clarithromycin (Verified Allergy, Intermediate, 05/10/19) ROS Review of System Unable to obtain due to severe confusion Physical Exam General: No acute distress, moderate distress HEENT: Atraumatic, PERRLA, EOMI, Mucous membr. moist/pink Lungs: Clear to auscultation, Normal air movement Heart: S1S2, RRR, no thrills, no rubs, no gallops, no murmurs Abdomen: Normal bowel sounds, Soft, No tenderness, No hepatosplenomegaly, No masses Rectal Exam: not examined Extremities: No clubbing, No cyanosis, No edema, Normal pulses, No tenderness/swelling Skin: No rashes, No breakdown, No significant lesion Neuro: Normal tone, Sensation intact, Cranial nerves 3-12 NL, Reflexes 2+ Psych/Mental Status: Other (Confused) Vitals Vitals Vital Signs Date Time Temp Pulse Resp B/P (MAP) Pulse Ox O2 Delivery O2 Flow Rate FiO2 09/20/20 04:51 109 140/70 (93) 09/20/20 03:00 97.0 16 98 Room Air 97.0 09/20/20 01:15 2.0 Labs Labs Laboratory Tests Test 09/20/20 04:00 SARS-CoV-2 Antigen (Rapid) Negative (NEGATIVE) Laboratory Tests Test 09/20/20 04:00 SARS-CoV-2 Antigen (Rapid) Negative (NEGATIVE) Images Images KUB: Enteric tube is coiled in the upper esophagus. The cardiomediastinal silhouette and pulmonary vessels are within normal limits. The lung and pleural spaces are clear. Numerous dilated loops of small bowel in the abdomen. No suspicious masses or calcifications. Visualized osseous structures are unremarkable. IMPRESSION: 1. Enteric tube coiled in the upper esophagus 2. No acute cardiopulmonary process. 3. Numerous dilated loops of small bowel in the abdomen. Repeat KUB with no formal read appears to have NG tube no longer coiled now passes below the diaphragm and appears in the stomach. VTE Prophylaxis Ordered VTE Prophylaxis Devices: Yes VTE Pharmacological Prophylaxi: Contraindicated Assessment/Plan Assessment/Plan A/P: Acute blood loss anemia - due to upper GI bleed likely from NSAIDs with cardiac antiplatelet agents, on BID protonix UGIB - GI consulted, possible gastritis vs PUD Acute encephalopathy - sepsis from UTI but also metabolic with uremia UTI -positive leuk esterase and blood. Septic we will continue Rocephin. MARIA ELENA - vasomotor nephropathy Uremia - likely from upper GI bleed Sepsis- leukocytosis, hypothermia, UTI and GI bleed treat as sepsis with IVF and rocephin Hyponatremia - likely hypovolemic, will monitor hydration DM2 - sliding scale CAD - s/p remote stenting 08/2019. Sees [facility]. 09/08/2020 and prescribed Brilinta 90 mg, and losartan 25 mg spironolactone 25 mg and furosemide 20 mg twice daily Elevated troponins - likely demand ischemia given sepsis and above. Will trend troponins, Telemetry FEN - NPO PPX - PPI, SCDs FULL CODE Dispo - inpatient Justifications for Admission Other Justification EDI BRADEN MD Sep 20, 2020 07:18
--- NOTE | 2020-09-20 07:30 | NUR ---
Pt was received fr [facility] via EMS by 0115 this AM. Maintained LR IVF while waiting for admission orders. Pt lethargic, (was given benadryl @ [facility]) though answers questions appropriately. Pt very pale looking, skin cool to touch. Arrived with NGT to left nare, solorio cath and 2 IV sites. Noted scabbed areas candelaria to legs, areas of bruising candelaria the left lower side of her abdomen.
--- NOTE | 2020-09-20 07:35 | NUR ---
Followed up with lab this AM due to timed troponin. AM Staff said that night coordinator didnt draw the blood yet. Offered to draw blood but lab said that type and screen should be drawn by lab. Pt denied chest pain or ab pain @ this time.
[2020-09-20 07:41] LABS: CALCIUM 9.3 mg/dL (8.5-10.1); CREATININE 2.5 mg/dL (0.6-1.0); GFR 18.8; POTASSIUM 4.6 mmol/L (3.5-5.1)
[2020-09-20] MEDS: INSULIN LISPRO 300 UNITS/3 ML VIAL. SQ SCH ×4 (07:45→23:58)
[2020-09-20] MEDS ORDERED: DEXTROSE 50% 25 GM / 50ML DISP.SYRIN. IV PRN (07:45)
[2020-09-20] MEDS: METOPROLOL IV PUSH 5 MG/5 ML VIAL. IVP SCH ×4 (08:21→23:53)
[2020-09-20 08:26] LABS: BASO # 0.1 x10^3/uL (0.0-0.2); BASO % 0 % (0-3); EOS % 0 % (0-3); HEMATOCRIT 25.4 % (36.0-47.0); HEMOGLOBIN 8.3 g/dL (12.0-15.5); LYMPH # 1.7 x10^3/uL (1.0-4.8); LYMPH % 6 % (24-48); MEAN CORPUSCULAR HEMOGLOBIN 30 pg (25-35); MEAN CORPUSCULAR HGB CONC 33 g/dL (31-37); MEAN CORPUSCULAR VOLUME 92 fL (79-100); MONO # 1.2 x10^3/uL (0.0-1.1); MONO % 5 % (0-9); NEUT # 23.7 x10^3/uL (1.8-7.7); NEUT % 89 % (31-73); PLATELET COUNT 284 x10^3/uL (140-400); RED BLOOD COUNT 2.75 x10^6/uL (3.50-5.40); RED CELL DISTRIBUTION WIDTH 12.7 % (11.5-14.5); WHITE BLOOD COUNT 26.7 x10^3/uL (4.0-11.0)
[2020-09-20] MEDS ORDERED: ACETAMINOPHEN 650 MG SUPP.RECT. PR PRN (09:00)
--- NOTE | 2020-09-20 11:42 | PDOC2 ---
GI CONSULT Date of Service: DATE: 09/20/20 TIME: 11:24 Reason For Consult: GI bleeding. HPI: HPI: 75 y/o female presented to [facility] ER last evening with complaints of tarry stools, abdominal pain and altered mental status. Unclear if had hematemesis. She's confused and not a reliable historian. Hemoglobin lower than historical values. Here has not had a stool. Has NG with small amount of dark drainage. From our EMR: No h/o PUD. Long h/o dyspepsia, mostly early satiety. EGD's in 2010 and 2018 pretty much unrevealing for major issue. At one time on PPI, apparently not now. Negative GB sono and PIPIDA in 2019. GES borderline delayed. No liver or pancreatic history. Former smoker. No alcohol use. Details re: bowel function unknown. Colonoscopy in 2010 as part of w/u for AMALIA negative. No pathology. At one time on po iron supplement, unclearly now. Details re: weight and appetite not available. PMH: PMH: FMS, ASHD with prior PCI, HTN, COPD, hyponatremia, OA, CTS. S/P hysterectomy, , left rotator cuff repair, bilateral CTR's. FH: Family History: CAD, CVA, DM, Hypertension Social History: Smoke: Quit ALCOHOL: none ROS: Not reliably obtainable from patient at this time due to mental status. Vitals: Vitals: Vital Signs Date Time Temp Pulse Resp B/P (MAP) Pulse Ox O2 Delivery O2 Flow Rate FiO2 09/20/20 08:21 113 147/51 09/20/20 07:59 101.5 20 96 Room Air 101.5 09/20/20 01:15 2.0 Labs: Labs: Laboratory Tests Test 09/20/20 04:00 09/20/20 07:19 09/20/20 08:25 09/20/20 09:50 SARS-CoV-2 Antigen (Rapid) Negative (NEGATIVE) White Blood Count 26.7 x10^3/uL (4.0-11.0) Red Blood Count 2.75 x10^6/uL (3.50-5.40) Hemoglobin 8.3 g/dL (12.0-15.5) Hematocrit 25.4 % (36.0-47.0) Mean Corpuscular Volume 92 fL (79-100) Mean Corpuscular Hemoglobin 30 pg (25-35) Mean Corpuscular Hemoglobin Concent 33 g/dL (31-37) Red Cell Distribution Width 12.7 % (11.5-14.5) Platelet Count 284 x10^3/uL (140-400) Neutrophils (%) (Auto) 89 % (31-73) Lymphocytes (%) (Auto) 6 % (24-48) Monocytes (%) (Auto) 5 % (0-9) Eosinophils (%) (Auto) 0 % (0-3) Basophils (%) (Auto) 0 % (0-3) Neutrophils # (Auto) 23.7 x10^3/uL (1.8-7.7) Lymphocytes # (Auto) 1.7 x10^3/uL (1.0-4.8) Monocytes # (Auto) 1.2 x10^3/uL (0.0-1.1) Eosinophils # (Auto) 0.0 x10^3/uL (0.0-0.7) Basophils # (Auto) 0.1 x10^3/uL (0.0-0.2) Sodium Level 131 mmol/L (136-145) Potassium Level 4.6 mmol/L (3.5-5.1) Chloride Level 93 mmol/L (98-107) Carbon Dioxide Level 27 mmol/L (21-32) Anion Gap 11 (6-14) Blood Urea Nitrogen 123 mg/dL (7-20) Creatinine 2.5 mg/dL (0.6-1.0) Estimated GFR (Cockcroft-Gault) 18.8 Glucose Level 173 mg/dL (70-99) Calcium Level 9.3 mg/dL (8.5-10.1) Troponin I Quantitative 0.115 ng/mL (0.000-0.055) Glucose (Fingerstick) 158 mg/dL (70-99) Lactic Acid Level 2.1 mmol/L (0.4-2.0) UA at [facility] compatible with UTI. Azotemia noted with abnormal BUN/Cr ratio. Allergies: Coded Allergies: Iodinated Contrast Media (Verified Allergy, Severe, Hives, 05/10/19) clarithromycin (Verified Allergy, Intermediate, 05/10/19) Medications: Current Medications Medications (Trade) Dose Ordered Sig/Jess Route PRN Reason Start Time Stop Time Status Last Admin Dose Admin Sodium Chloride 1,000 ml @ 100 mls/hr Q10H IV 09/20/20 03:00 09/20/20 03:18 Pantoprazole Sodium (PROTONIX VIAL for IV PUSH) 40 mg BID IVP 09/20/20 03:00 09/20/20 08:29 Metoprolol Tartrate (Lopressor Vial) 5 mg Q6HRS IVP 09/20/20 07:45 09/20/20 08:21 Acetaminophen (Tylenol Supp) 650 mg PRN Q6HRS PRN [place] MILD PAIN / TEMP > 100.3'F 09/20/20 09:00 09/20/20 10:24 Imaging: Imaging: None here. PE: GEN: Mild distress, confused. HEENT: Atraumatic, PERRLA LUNGS: CTAB HEART: RRR with occasional extrasystoles, no murmurs ABD: NABS, S/ND/tender suprapubic, no masses EXTREMITY: No edema SKIN: No rashes, no jaundice NEURO/PSYCH: Not oriented, no focal findings. A/P: A/P: IMP: UGI bleed? By NG seems maybe, but low volume. H.pylori status unknown, b ut no prior PUD. No signs liver disease. M-W, ulcer major differentials. H/o dyspepsia, undiagnosed. H/o AMALIA. Has UTI, maybe why the AMS. REC: Continue PPI. Observe for signs of ongoing bleeding. Will plan on EGD today. Other rec's after. Thanks. CHIRAG TREVIÑO MD Sep 20, 2020 11:42
[2020-09-20 12:45] LABS: % BANDS 3 % (0-9); % LYMPHS 3 % (24-48); % MONOS 1 % (0-10); % SEGS 93 % (35-66); PLT ESTIMATE ADEQUATE (ADEQUATE)
[2020-09-20] MEDS ORDERED: NITROGLYCERIN SUBLINGUAL 0.4 MG BOTTLE OF 25. SL PRN (14:15)
--- NOTE | 2020-09-20 14:29 | PDOC2 ---
CONSULT Date of Consult Date of Consult DATE: 09/20/20 TIME: 14:21 Reason for Consult Reason for Consult: Acute kidney injury Referring Physician Referring Physician: Anselmo Identification/Chief Complaint Chief Complaint Hematemesis, GI bleed Source Source: Chart review, Patient History of Present Illness Reason for Visit: Patient is a 75-year-old female with extensive past medical history as outlined below. She presented to [facility] ER with hematemesis. She is now transferred to [facility] for further evaluation by gastr oenterology specialist for her GI bleed. Her last creatinine in our system was noted to be 1.1 however she presented with a creatinine of 2.5. Her records from [facility] were reviewed. She appears somewhat pale and drowsy. She has been started on antibiotics. She was noted to have a high-grade fever documented to 101.5 earlier today. She has a Morejon catheter and appears to be urinating well. A UA is not available at this time. She denies NSAID use or nausea vomiting diarrhea per se other than hematemesis. Past Medical History Past Medical History Diabetes, hypertension, CAD status post stents x5, hysterectomy, shoulder surgery, osteoarthritis, COPD, section, fibromyalgia, tobaccoism Past Surgical History Past Surgical History Hysterectomy, section, shoulder surgery Family History Family History: Kidney Disease (Sister) Social History Quit ALCOHOL: none Current Medications Current Medications Current Medications Sodium Chloride 1,000 ml @ 100 mls/hr Q10H IV Last administered on 09/20/20at 13:27; Start 09/20/20 at 03:00 Ondansetron HCl (Zofran) 4 mg PRN Q6HRS PRN IVP NAUSEA/VOMITING; Start 09/20/20 at 03:00 Morphine Sulfate (Morphine Sulfate) 4 mg PRN Q4HRS PRN IV PAIN; Start 09/20/20 at 03:00 Pantoprazole Sodium (PROTONIX VIAL for IV PUSH) 40 mg BID IVP Last administered on 09/20/20at 08:29; Start 09/20/20 at 03:00 Ceftriaxone Sodium (Rocephin) 1 gm Q24H IVP ; Start 09/20/20 at 03:00; Stop 09/20/20 at 03:07; Status DC Ceftriaxone Sodium (Rocephin) 1 gm Q24H IVP ; Start 09/20/20 at 21:00 Metoprolol Tartrate (Lopressor Vial) 5 mg Q6HRS IVP Last administered on 09/20/20at 12:39; Start 09/20/20 at 07:45 Insulin Human Lispro (HumaLOG) 0-9 UNITS Q6HRS SQ ; Start 09/20/20 at 07:45 Dextrose (Dextrose 50%-Water Syringe) 12.5 gm PRN Q15MIN PRN IV SEE COMMENTS; Start 09/20/20 at 07:45 Acetaminophen (Tylenol Supp) 650 mg PRN Q6HRS PRN [place] MILD PAIN / TEMP > 100.3'F Last administered on 09/20/20at 10:24; Start 09/20/20 at 09:00 Nitroglycerin (Nitrostat) 0.4 mg PRN Q5MIN PRN SL CHEST PAIN; Start 09/20/20 at 14:15 Ringer's Solution 1,000 ml @ 50 mls/hr Q20H IV ; Start 09/21/20 at 07:00; Stop 09/21/20 at 18:59; Status UNV Magnesium Sulfate 50 ml @ 25 mls/hr PRN DAILY PRN IV for Mag < 1.7 on am labs; Start 09/20/20 at 14:30; Status UNV Active Scripts Active Reported Cyclobenzaprine Hcl 10 Mg Tablet 1 Tab PO QHS Carvedilol 25 Mg Tablet 12.5 Mg PO BIDWMEALS Lipitor (Atorvastatin Calcium) 80 Mg Tablet 1 Tab PO HS Aspirin Ec (Aspirin) 81 Mg Tablet.dr 1 Tab PO DAILY Acetaminophen 325 Mg Tablet 2 Tab PO PRN DAILY PRN 30 Days Zyrtec (Cetirizine Hcl) 10 Mg Tablet 1 Tab PO DAILY Norvasc (Amlodipine Besylate) 10 Mg Tablet 10 Mg PO DAILY Nitrostat (Nitroglycerin) 0.4 Mg Tab.subl 0.4 Mg SL PRN Q5MIN PRN Clopidogrel (Clopidogrel Bisulfate) 75 Mg Tablet 1 Tab PO DAILY Percocet 10-325 Mg Tablet (Oxycodone/Acetaminophen) 1 Each Tablet 1 Tab PO Q4-6HRS Gabapentin (Gabapentin) 300 Mg Capsule 1 Cap PO HS Allergies Allergies: Coded Allergies: Iodinated Contrast Media (Verified Allergy, Severe, Hives, 05/10/19) clarithromycin (Verified Allergy, Intermediate, 05/10/19) ROS Review of System Negative other than as reviewed under HPI Physical Exam Physical Exam General Appearance: Awake semi-alert Oriented x 2 In no visible Distress, significant facial pallor Eyes: VIsion Unchanged Conjunctiva palish EN: No EN Drainage Mucous Memb. Dryish Neck: no JVD no JVP Supple no Thyromegaly CVS: S1 S2 soft murmur No Gallop No Rub no Edema Resp: no Rales no Rhonchi no Acc. Muscle use GI: BAS +ve NO Bruit Min Tender right lower quadrant Non Distended : no CVA tenderness; no Suprapubic Tenderness SKIN: No petechial rashes Breast Exam deferred Mu.Sk: Adequate ROM no obvious muscle Atrophy Heme: Unable to palpate Obvious LAD unable to palpate splenomegaly NEURO: Good Strength and Tone Cranial Nerves II - XII grossly intact Psych: Not depressed no active Active hallucination Vital Signs Vital Signs Date Time Temp Pulse Resp B/P (MAP) Pulse Ox O2 Delivery O2 Flow Rate FiO2 09/20/20 12:39 101 130/42 09/20/20 11:41 100.6 20 97 Room Air 100.6 09/20/20 01:15 2.0 Assessment & Plan ARF: This is etiology unclear intravascular volume depletion appears to be most likely etiology at this time. Given right lower quadrant pain kidney stone will need to be ruled out especially in the setting of fevers. CT scan of the abdomen stone protocol has been ordered. Current FLuid and E-lyte status does not necessitate emergent need for Dialysis. Possible underlying CKD due to diabetic nephropathy cannot be ruled out Anemia: Presumably due to hematemesis. Tansfuse with next HD as needed. HTN: Current BP meds reviewed. As needed hydralazine if needed Abdominal pain: CT of the abdomen without IV contrast has been ordered. Consideration to oral contrast can be given if felt necessary Hyponatremia: Presumably associated with vomiting and hematemesis, intravascular volume depletion. She has had hyponatremia in the past. Watch response to normal saline. Do not see need for hypertonic saline at this time. Labs Labs Laboratory Tests Test 09/20/20 04:00 09/20/20 07:19 09/20/20 08:25 09/20/20 09:50 SARS-CoV-2 Antigen (Rapid) Negative (NEGATIVE) White Blood Count 26.7 x10^3/uL (4.0-11.0) Red Blood Count 2.75 x10^6/uL (3.50-5.40) Hemoglobin 8.3 g/dL (12.0-15.5) Hematocrit 25.4 % (36.0-47.0) Mean Corpuscular Volume 92 fL (79-100) Mean Corpuscular Hemoglobin 30 pg (25-35) Mean Corpuscular Hemoglobin Concent 33 g/dL (31-37) Red Cell Distribution Width 12.7 % (11.5-14.5) Platelet Count 284 x10^3/uL (140-400) Neutrophils (%) (Auto) 89 % (31-73) Lymphocytes (%) (Auto) 6 % (24-48) Monocytes (%) (Auto) 5 % (0-9) Eosinophils (%) (Auto) 0 % (0-3) Basophils (%) (Auto) 0 % (0-3) Neutrophils # (Auto) 23.7 x10^3/uL (1.8-7.7) Lymphocytes # (Auto) 1.7 x10^3/uL (1.0-4.8) Monocytes # (Auto) 1.2 x10^3/uL (0.0-1.1) Eosinophils # (Auto) 0.0 x10^3/uL (0.0-0.7) Basophils # (Auto) 0.1 x10^3/uL (0.0-0.2) Segmented Neutrophils % 93 % (35-66) Band Neutrophils % 3 % (0-9) Lymphocytes % 3 % (24-48) Monocytes % 1 % (0-10) Platelet Estimate Adequate (ADEQUATE) Sodium Level 131 mmol/L (136-145) Potassium Level 4.6 mmol/L (3.5-5.1) Chloride Level 93 mmol/L (98-107) Carbon Dioxide Level 27 mmol/L (21-32) Anion Gap 11 (6-14) Blood Urea Nitrogen 123 mg/dL (7-20) Creatinine 2.5 mg/dL (0.6-1.0) Estimated GFR (Cockcroft-Gault) 18.8 Glucose Level 173 mg/dL (70-99) Calcium Level 9.3 mg/dL (8.5-10.1) Troponin I Quantitative 0.115 ng/mL (0.000-0.055) Glucose (Fingerstick) 158 mg/dL (70-99) Lactic Acid Level 2.1 mmol/L (0.4-2.0) Test 09/20/20 11:05 09/20/20 11:59 Glucose (Fingerstick) 174 mg/dL (70-99) Troponin I Quantitative 0.128 ng/mL (0.000-0.055) Laboratory Tests Test 09/20/20 04:00 09/20/20 07:19 09/20/20 08:25 09/20/20 09:50 SARS-CoV-2 Antigen (Rapid) Negative (NEGATIVE) White Blood Count 26.7 x10^3/uL (4.0-11.0) Red Blood Count 2.75 x10^6/uL (3.50-5.40) Hemoglobin 8.3 g/dL (12.0-15.5) Hematocrit 25.4 % (36.0-47.0) Mean Corpuscular Volume 92 fL (79-100) Mean Corpuscular Hemoglobin 30 pg (25-35) Mean Corpuscular Hemoglobin Concent 33 g/dL (31-37) Red Cell Distribution Width 12.7 % (11.5-14.5) Platelet Count 284 x10^3/uL (140-400) Neutrophils (%) (Auto) 89 % (31-73) Lymphocytes (%) (Auto) 6 % (24-48) Monocytes (%) (Auto) 5 % (0-9) Eosinophils (%) (Auto) 0 % (0-3) Basophils (%) (Auto) 0 % (0-3) Neutrophils # (Auto) 23.7 x10^3/uL (1.8-7.7) Lymphocytes # (Auto) 1.7 x10^3/uL (1.0-4.8) Monocytes # (Auto) 1.2 x10^3/uL (0.0-1.1) Eosinophils # (Auto) 0.0 x10^3/uL (0.0-0.7) Basophils # (Auto) 0.1 x10^3/uL (0.0-0.2) Segmented Neutrophils % 93 % (35-66) Band Neutrophils % 3 % (0-9) Lymphocytes % 3 % (24-48) Monocytes % 1 % (0-10) Platelet Estimate Adequate (ADEQUATE) Sodium Level 131 mmol/L (136-145) Potassium Level 4.6 mmol/L (3.5-5.1) Chloride Level 93 mmol/L (98-107) Carbon Dioxide Level 27 mmol/L (21-32) Anion Gap 11 (6-14) Blood Urea Nitrogen 123 mg/dL (7-20) Creatinine 2.5 mg/dL (0.6-1.0) Estimated GFR (Cockcroft-Gault) 18.8 Glucose Level 173 mg/dL (70-99) Calcium Level 9.3 mg/dL (8.5-10.1) Troponin I Quantitative 0.115 ng/mL (0.000-0.055) Glucose (Fingerstick) 158 mg/dL (70-99) Lactic Acid Level 2.1 mmol/L (0.4-2.0) Test 09/20/20 11:05 09/20/20 11:59 Glucose (Fingerstick) 174 mg/dL (70-99) Troponin I Quantitative 0.128 ng/mL (0.000-0.055) Review All relevant outside records, renal labs, imaging studies, telemetry/EKG's were reviewed. BREN BURR MD Sep 20, 2020 14:29
[2020-09-20] MEDS ORDERED: MAGNESIUM SULFATE 2GM 50 ML IV PRN (14:30)
--- NOTE | 2020-09-20 16:05 | NUR ---
Dr. Vazquez was paged for clarification on CT orders with or without contrast. Pt is allergic to IV contrast and is NPO due to GI bleed. Dr. Vazquez would like to have CT with contrast if GI was ok with giving pt oral contrast. Dr. Barbosa was paged who state he was ok with pt receiving oral contrast. laboratory tech notified.
[2020-09-20 16:09] LABS: BILIRUBIN,URINE NEGATIVE (NEG); CLARITY,URINE CLEAR; COLOR,URINE YELLOW; NITRITE,URINE NEGATIVE (NEG); PROTEIN,URINE NEGATIVE (NEG-TRACE); UROBILINOGEN,URINE 0.2 mg/dL (0.2 mg/dL)
[2020-09-20 16:17] LABS: BACTERIA,URINE FEW /HPF (0-FEW); RBC,URINE RARE /HPF (0-2)
--- NOTE | 2020-09-20 16:25 | PDOC2 ---
CONSULT Date of Consult Date of Consult DATE: 09/20/20 TIME: 16:16 Reason for Consult Reason for Consult: History of coronary disease and upcoming procedures Referring Physician Referring Physician: Dr. Douglas Identification/Chief Complaint Chief Complaint Confusion Source Source: Chart review, Patient History of Present Illness Reason for Visit: The patient is a 75-year-old female who is being worked up for blood loss anemi a, encephalopathy and was seen earlier today by the GI service for a possible EGD. She has a history of extensive coronary artery disease with up to 5 stents placed earlier last year at [facility]. Additionally she had a minimally elevated troponin at 0.128 which on repeat was 0.115. The patient is confused and cannot give a clear history. However she does deny chest pain. Her EKG showed T wave inversion which is uncertain if it is chronic. Apparently she was seen by her logistics technician at [facility] with the last several weeks and has been continued on Brilinta which probably has been present since her stenting in early 2019. Past Medical History Cardiovascular: CAD (S/p OBED x5 in 2019), CHF, HTN Endocrine: Diabetes Past Surgical History Past Surgical History: Arthroscopy (Left rotator cuff), , Hysterectomy, Other (Bilateral carpal tunnel release, multiple coronary stents placed in early 2019) Family History Family History: Coronary Artery Disease, Diabetes, Heart Disease, Hypertension, Stroke Social History Quit ALCOHOL: none Drugs: None Current Medications Current Medications Current Medications Sodium Chloride 1,000 ml @ 100 mls/hr Q10H IV Last administered on 09/20/20at 13:27; Start 09/20/20 at 03:00 Ondansetron HCl (Zofran) 4 mg PRN Q6HRS PRN IVP NAUSEA/VOMITING; Start 09/20/20 at 03:00 Morphine Sulfate (Morphine Sulfate) 4 mg PRN Q4HRS PRN IV PAIN; Start 09/20/20 at 03:00 Pantoprazole Sodium (PROTONIX VIAL for IV PUSH) 40 mg BID IVP Last administered on 09/20/20at 08:29; Start 09/20/20 at 03:00 Ceftriaxone Sodium (Rocephin) 1 gm Q24H IVP ; Start 09/20/20 at 03:00; Stop 09/20/20 at 03:07; Status DC Ceftriaxone Sodium (Rocephin) 1 gm Q24H IVP ; Start 09/20/20 at 21:00 Metoprolol Tartrate (Lopressor Vial) 5 mg Q6HRS IVP Last administered on 09/20/20at 12:39; Start 09/20/20 at 07:45 Insulin Human Lispro (HumaLOG) 0-9 UNITS Q6HRS SQ ; Start 09/20/20 at 07:45 Dextrose (Dextrose 50%-Water Syringe) 12.5 gm PRN Q15MIN PRN IV SEE COMMENTS; Start 09/20/20 at 07:45 Acetaminophen (Tylenol Supp) 650 mg PRN Q6HRS PRN [place] MILD PAIN / TEMP > 100.3'F Last administered on 09/20/20at 10:24; Start 09/20/20 at 09:00 Nitroglycerin (Nitrostat) 0.4 mg PRN Q5MIN PRN SL CHEST PAIN; Start 09/20/20 at 14:15 Ringer's Solution 1,000 ml @ 50 mls/hr Q20H IV ; Start 09/21/20 at 07:00; Stop 09/21/20 at 18:59 Magnesium Sulfate 50 ml @ 25 mls/hr PRN DAILY PRN IV for Mag < 1.7 on am labs; Start 09/20/20 at 14:30 Active Scripts Active Reported Cyclobenzaprine Hcl 10 Mg Tablet 1 Tab PO QHS Carvedilol 25 Mg Tablet 12.5 Mg PO BIDWMEALS Lipitor (Atorvastatin Calcium) 80 Mg Tablet 1 Tab PO HS Aspirin Ec (Aspirin) 81 Mg Tablet.dr 1 Tab PO DAILY Acetaminophen 325 Mg Tablet 2 Tab PO PRN DAILY PRN 30 Days Zyrtec (Cetirizine Hcl) 10 Mg Tablet 1 Tab PO DAILY Norvasc (Amlodipine Besylate) 10 Mg Tablet 10 Mg PO DAILY Nitrostat (Nitroglycerin) 0.4 Mg Tab.subl 0.4 Mg SL PRN Q5MIN PRN Clopidogrel (Clopidogrel Bisulfate) 75 Mg Tablet 1 Tab PO DAILY Percocet 10-325 Mg Tablet (Oxycodone/Acetaminophen) 1 Each Tablet 1 Tab PO Q4-6HRS Gabapentin (Gabapentin) 300 Mg Capsule 1 Cap PO HS Allergies Allergies: Coded Allergies: Iodinated Contrast Media (Verified Allergy, Severe, Hives, 05/10/19) clarithromycin (Verified Allergy, Intermediate, 05/10/19) ROS General: YES: Fatigue, Malaise Neurological: Yes Confusion Physical Exam General: mild distress HEENT: Atraumatic Lungs: Other (Mildly decreased breath sounds) Heart: Regular rate Abdomen: Normal bowel sounds Vitals VITALS Vital Signs Date Time Temp Pulse Resp B/P (MAP) Pulse Ox O2 Delivery O2 Flow Rate FiO2 09/20/20 14:59 100.2 94 20 121/59 (79) 96 Room Air 100.2 09/20/20 01:15 2.0 Labs Labs Laboratory Tests Test 09/20/20 04:00 09/20/20 07:19 09/20/20 08:25 09/20/20 09:50 SARS-CoV-2 Antigen (Rapid) Negative (NEGATIVE) White Blood Count 26.7 x10^3/uL (4.0-11.0) Red Blood Count 2.75 x10^6/uL (3.50-5.40) Hemoglobin 8.3 g/dL (12.0-15.5) Hematocrit 25.4 % (36.0-47.0) Mean Corpuscular Volume 92 fL (79-100) Mean Corpuscular Hemoglobin 30 pg (25-35) Mean Corpuscular Hemoglobin Concent 33 g/dL (31-37) Red Cell Distribution Width 12.7 % (11.5-14.5) Platelet Count 284 x10^3/uL (140-400) Neutrophils (%) (Auto) 89 % (31-73) Lymphocytes (%) (Auto) 6 % (24-48) Monocytes (%) (Auto) 5 % (0-9) Eosinophils (%) (Auto) 0 % (0-3) Basophils (%) (Auto) 0 % (0-3) Neutrophils # (Auto) 23.7 x10^3/uL (1.8-7.7) Lymphocytes # (Auto) 1.7 x10^3/uL (1.0-4.8) Monocytes # (Auto) 1.2 x10^3/uL (0.0-1.1) Eosinophils # (Auto) 0.0 x10^3/uL (0.0-0.7) Basophils # (Auto) 0.1 x10^3/uL (0.0-0.2) Segmented Neutrophils % 93 % (35-66) Band Neutrophils % 3 % (0-9) Lymphocytes % 3 % (24-48) Monocytes % 1 % (0-10) Platelet Estimate Adequate (ADEQUATE) Sodium Level 131 mmol/L (136-145) Potassium Level 4.6 mmol/L (3.5-5.1) Chloride Level 93 mmol/L (98-107) Carbon Dioxide Level 27 mmol/L (21-32) Anion Gap 11 (6-14) Blood Urea Nitrogen 123 mg/dL (7-20) Creatinine 2.5 mg/dL (0.6-1.0) Estimated GFR (Cockcroft-Gault) 18.8 Glucose Level 173 mg/dL (70-99) Calcium Level 9.3 mg/dL (8.5-10.1) Troponin I Quantitative 0.115 ng/mL (0.000-0.055) Glucose (Fingerstick) 158 mg/dL (70-99) Lactic Acid Level 2.1 mmol/L (0.4-2.0) Test 09/20/20 11:05 09/20/20 11:59 09/20/20 14:45 Glucose (Fingerstick) 174 mg/dL (70-99) Troponin I Quantitative 0.128 ng/mL (0.000-0.055) Thyroid Stimulating Hormone (TSH) 1.187 uIU/mL (0.358-3.74) Laboratory Tests Test 09/20/20 04:00 09/20/20 07:19 09/20/20 08:25 09/20/20 09:50 SARS-CoV-2 Antigen (Rapid) Negative (NEGATIVE) White Blood Count 26.7 x10^3/uL (4.0-11.0) Red Blood Count 2.75 x10^6/uL (3.50-5.40) Hemoglobin 8.3 g/dL (12.0-15.5) Hematocrit 25.4 % (36.0-47.0) Mean Corpuscular Volume 92 fL (79-100) Mean Corpuscular Hemoglobin 30 pg (25-35) Mean Corpuscular Hemoglobin Concent 33 g/dL (31-37) Red Cell Distribution Width 12.7 % (11.5-14.5) Platelet Count 284 x10^3/uL (140-400) Neutrophils (%) (Auto) 89 % (31-73) Lymphocytes (%) (Auto) 6 % (24-48) Monocytes (%) (Auto) 5 % (0-9) Eosinophils (%) (Auto) 0 % (0-3) Basophils (%) (Auto) 0 % (0-3) Neutrophils # (Auto) 23.7 x10^3/uL (1.8-7.7) Lymphocytes # (Auto) 1.7 x10^3/uL (1.0-4.8) Monocytes # (Auto) 1.2 x10^3/uL (0.0-1.1) Eosinophils # (Auto) 0.0 x10^3/uL (0.0-0.7) Basophils # (Auto) 0.1 x10^3/uL (0.0-0.2) Segmented Neutrophils % 93 % (35-66) Band Neutrophils % 3 % (0-9) Lymphocytes % 3 % (24-48) Monocytes % 1 % (0-10) Platelet Estimate Adequate (ADEQUATE) Sodium Level 131 mmol/L (136-145) Potassium Level 4.6 mmol/L (3.5-5.1) Chloride Level 93 mmol/L (98-107) Carbon Dioxide Level 27 mmol/L (21-32) Anion Gap 11 (6-14) Blood Urea Nitrogen 123 mg/dL (7-20) Creatinine 2.5 mg/dL (0.6-1.0) Estimated GFR (Cockcroft-Gault) 18.8 Glucose Level 173 mg/dL (70-99) Calcium Level 9.3 mg/dL (8.5-10.1) Troponin I Quantitative 0.115 ng/mL (0.000-0.055) Glucose (Fingerstick) 158 mg/dL (70-99) Lactic Acid Level 2.1 mmol/L (0.4-2.0) Test 09/20/20 11:05 09/20/20 11:59 09/20/20 14:45 Glucose (Fingerstick) 174 mg/dL (70-99) Troponin I Quantitative 0.128 ng/mL (0.000-0.055) Thyroid Stimulating Hormone (TSH) 1.187 uIU/mL (0.358-3.74) Assessment/Plan Assessment/Plan 1. Blood loss anemia. Being worked up by the GI service. EGD pending. 2. History of coronary disease with multiple stents placed in early 2019. Available records show the most recent stents placed were in November 2019. At this time if needed Brilinta may be reasonably held at reasonably low risk in the short-term. EKG shows some T wave inversion and will repeat EKG this afternoon and in the morning. Additionally troponins have been him minimally elevated 0.128 and 0.115. We will repeat a troponin in the morning. If no changes in EKG or significant elevation in troponin the patient would be at moderate risk for an EGD procedure. We will continue to monitor. We will attempt to obtain further old records. We will check an echocardiogram. 3. Encephalopathy. Work-up as above. 4. MARIA ELENA. Being evaluated by the renal service. 5. Hypertension. We will continue to monitor. Thank you for allowing us to participate in the care of your patient. AYLA GARCIA MD Sep 20, 2020 16:25
[2020-09-20] MEDS: cefTRIAXone IV Push 1 GM VIAL. IVP SCH (21:18)
[2020-09-20] MEDS: MORPHINE SULFATE 4 MG/ML VIAL. IV PRN (23:47)
[2020-09-21] VITALS (13 sets, daily range): BP systolic 105–145; BP diastolic 35–61
--- NOTE | 2020-09-21 05:04 | RAD ---
ACUTE ABDOMEN SERIES History: NG placement. Comparison: Two-view chest July 04, 2019. Findings: Frontal chest and supine and upright views of the abdomen. There is enteric tube, tip is in the proximal stomach. The cardiac size is normal. There is coronary artery disease. There is no pleural effusion or pneumothorax. There is stable linear scarring in the left lung base. Lungs otherwise clear. No pneumoperitoneum is identified. No dilated air-filled loops of bowel are seen. Bowel gas pattern i s nonobstructive. No obvious organomegaly. There is advanced arthropathy of the bilateral shoulders. There is posterior fusion hardware of the lower lumbar spine. IMPRESSION: 1. Enteric tube tip is in the proximal stomach. 2. Stable linear scarring in the left lung base. 3. Nonobstructive bowel gas pattern. Electronically signed by: Livan Mari MD (09/21/2020 5:02 AM) [facility]
[2020-09-21] MEDS: INSULIN LISPRO 300 UNITS/3 ML VIAL. SQ SCH ×3 (06:00→18:00)
--- NOTE | 2020-09-21 06:09 | EKG ---
[facility] [address] [place] [address] Test Date: 2020-09-21 Test Time: 05:59:18 Pat Name: GEOFFREY KANG Department: Room: [facility] Gender: F Fishing Hand: BOOGIE : 1945 Requested By: AYLA GARCIA Order Number: [id number] Reading MD: Measurements Intervals [place] Rate: 105 P: 59 IL: 170 QRS: 28 QRSD: 98 T: 204 QT: 334 QTc: 445 Interpretive Statements SINUS TACHYCARDIA ST & T ABNORMALITY, CONSIDER HIGH LATERAL ISCHEMIA OR LEFT VENTRICULAR STRAIN T ABNORMALITY IN ANTERIOR LEADS INFEROLATERAL LEADS ABNORMAL ECG RI6.02 No previous ECG available for comparison
--- NOTE | 2020-09-21 06:37 | RAD ---
PQRS Compliance Statement: One or more of the following individualized dose reduction techniques were utilized for this examinat ion: 1. Automated exposure control 2. Adjustment of the mA and/or kV according to patient size 3. Use of iterative reconstruction technique CT ABDOMEN+PELVIS W Clinical Indication: Reason: RLQ Pain and MARIA ELENA, fever, okay to use oral contrast / Comparison: None. TECHNIQUE: Helical CT imaging of the abdomen and pelvis is performed without IV contrast. Oral contra st is administered. Findings: There is enteric tube, tip is in the proximal stomach. There is three-vessel coronary artery disease. Cardiac size normal, no pericardial effusion. There is atelectasis or scarring in the posterior lowe r lobes bilaterally. Calcified granulomas in the spleen. The gallbladder is distended. The liver is normal. The pancreas i s atrophic. A 12 mm indeterminate left adrenal nodule. The right adrenal gland is normal. There is mo derate atherosclerotic calcification of the abdominal aorta. There is no renal calculus. There is no hydronephrosis. No obvious abnormality of the stomach. There is no small bowel obstruction. There is wall thickening of the distal ileum. No colon wall thickening is identified. The appendix is not seen, no secondary s igns of appendicitis. No abdominal adenopathy or free fluid. There is supraumbilical ventral hernia m esh. There is a Morejon catheter in the urinary bladder. The urinary bladder is decompressed. Hysterectomy. No pelvic free fluid. There is posterior fusion hardware of L3-L5. There is grade 2 anterolisthesis of L4 on L5. There is v acuum disc phenomenon of T11/T12 and L4/L5 and L5/S1. There are probably reactive endplate changes of T11/T12. There is right convexity scoliosis centered at T12. IMPRESSION: 1. There is wall thickening of the distal ileum suggesting ileitis. 2. Small indeterminate left adrenal nodule. Consider outpatient adrenal protocol CT or MR abdomen. Electronically signed by: Livan Mari MD (09/21/2020 6:34 AM) [facility]
[2020-09-21] MEDS: METOPROLOL IV PUSH 5 MG/5 ML VIAL. IVP SCH ×3 (06:46→19:24)
[2020-09-21] MEDS ORDERED: IV RINGERS,LACTATED 1000ML 1,000 ML IV SCH (07:00)
[2020-09-21 07:59] LABS: BASO # 0.1 x10^3/uL (0.0-0.2); BASO % 1 % (0-3); EOS % 0 % (0-3); LYMPH # 2.5 x10^3/uL (1.0-4.8); LYMPH % 16 % (24-48); MEAN CORPUSCULAR HEMOGLOBIN 32 pg (25-35); MEAN CORPUSCULAR HGB CONC 34 g/dL (31-37); MEAN CORPUSCULAR VOLUME 95 fL (79-100); MONO % 6 % (0-9); NEUT # 12.4 x10^3/uL (1.8-7.7); NEUT % 77 % (31-73); PLATELET COUNT 140 x10^3/uL (140-400); RED BLOOD COUNT 2.03 x10^6/uL (3.50-5.40); RED CELL DISTRIBUTION WIDTH 13.2 % (11.5-14.5)
[2020-09-21 08:03] LABS: HEMATOCRIT 19.2 % (36.0-47.0); HEMOGLOBIN 6.4 g/dL (12.0-15.5)
[2020-09-21 09:21] LABS: ALBUMIN 2.7 g/dL (3.4-5.0); ALBUMIN/GLOBULIN RATIO 0.9 (1.0-1.7); CALCIUM 8.3 mg/dL (8.5-10.1); CREATININE 2.1 mg/dL (0.6-1.0); MAGNESIUM 2.9 mg/dL (1.8-2.4); PHOSPHORUS 3.9 mg/dL (2.6-4.7); POTASSIUM 4.3 mmol/L (3.5-5.1); TOTAL BILIRUBIN 0.1 mg/dL (0.2-1.0); TOTAL PROTEIN 5.6 g/dL (6.4-8.2)
--- NOTE | 2020-09-21 10:19 | PDOC ---
DATE OF SERVICE: DOS: DATE: 09/21/20 TIME: 10:15 SUBJECTIVE ROS Asked to see for acute renal failure and hyponatremia Patient mostly complains of thirst today. She remains on normal saline at this time. She has an NG tube in place and remains n.p.o. Hemoglobin is noted to have dropped. Patient remains somewhat confused CVS: no Orthopnea, no CP RESP: no SOB, no [place] GI: no Nausea, no Vomiting : no Dysuria, no Urgency OBJECTIVE Vital Signs Vital Signs Date Time Temp Pulse Resp B/P (MAP) Pulse Ox O2 Delivery O2 Flow Rate FiO2 09/21/20 06:46 109 184/73 09/21/20 03:00 98.4 16 98 Room Air 98.4 09/21/20 00:17 2.0 I & 0 Intake and Output 09/21/20 07:00 Intake Total 0 ml Output Total 1575 ml Balance -1575 ml Intake Oral 0 ml Output Urine Total 1450 ml Gastric Drainage Total 125 ml PHYSICAL EXAM Physical Exam General Appearance: Awake semi-alert Oriented x 2 In no visible Distress, significant facial pallor Eyes: VIsion Unchanged Conjunctiva palish EN: No EN Drainage Mucous Memb. Dryish Neck: no JVD no JVP Supple no Thyromegaly CVS: S1 S2 soft murmur No Gallop No Rub no Edema Resp: no Rales no Rhonchi no Acc. Muscle use GI: BAS +ve NO Bruit Min Tender right lower quadrant Non Distended : no CVA tenderness; no Suprapubic Tenderness Assessment & Plan ARF: This is etiology unclear intravascular volume depletion appears to be most likely etiology at this time. CT scan is negative for kidney stone. UA is benign as noted. Creatinine slightly better today with IV fluids is ongoing Possible underlying CKD due to diabetic nephropathy cannot be ruled out Anemia: Presumably due to hematemesis. Transfuse as needed. GI to evaluate further for ongoing drop in hemoglobin HTN: Current BP meds reviewed. As needed beta-blockers as ordered due to ongoing tachycardia Abdominal pain: CT of the abdomen noted. Defer to GI to manage further. No obvious renal pathology noted Hyponatremia: Now resolved COMMENT/RELEVANT DATA Meds Current Medications Medications (Trade) Dose Ordered Sig/Jess Start Time Stop Time Status Last Admin Dose Admin Acetaminophen (Tylenol Supp) 650 mg PRN Q6HRS PRN 09/20/20 09:00 09/20/20 10:24 650 MG Ceftriaxone Sodium (Rocephin) 1 gm Q24H 09/20/20 21:00 09/20/20 21:18 1 GM Dextrose (Dextrose 50%-Water Syringe) 12.5 gm PRN Q15MIN PRN 09/20/20 07:45 Insulin Human Lispro (HumaLOG) 0-9 UNITS Q6HRS 09/20/20 07:45 Magnesium Sulfate 50 ml @ 25 mls/hr PRN DAILY PRN 09/20/20 14:30 Metoprolol Tartrate (Lopressor Vial) 5 mg Q6HRS 09/20/20 07:45 09/21/20 06:46 5 MG Morphine Sulfate (Morphine Sulfate) 4 mg PRN Q4HRS PRN 09/20/20 03:00 09/20/20 23:47 4 MG Nitroglycerin (Nitrostat) 0.4 mg PRN Q5MIN PRN 09/20/20 14:15 Ondansetron HCl (Zofran) 4 mg PRN Q6HRS PRN 09/20/20 03:00 Pantoprazole Sodium (PROTONIX VIAL for IV PUSH) 40 mg BID 09/20/20 03:00 09/20/20 21:18 40 MG Ringer's Solution 1,000 ml @ 50 mls/hr Q20H 09/21/20 07:00 09/21/20 18:59 Sodium Chloride 1,000 ml @ 100 mls/hr Q10H 09/20/20 03:00 09/20/20 23:46 100 MLS/HR Lab Laboratory Tests Test 09/20/20 11:05 09/20/20 11:59 09/20/20 14:45 09/20/20 16:00 Glucose (Fingerstick) 174 mg/dL (70-99) Troponin I Quantitative 0.128 ng/mL (0.000-0.055) Iron Level 139 ug/dL (50-170) Total Iron Binding Capacity 238 ug/dL (250-450) Iron Saturation 58 % (15-34) Thyroid Stimulating Hormone (TSH) 1.187 uIU/mL (0.358-3.74) Urine Collection Type Unknown Urine Color Yellow Urine Clarity Clear Urine pH 5.0 (<5.0-8.0) Urine Specific Barry 1.015 (1.000-1.030) Urine Protein Negative mg/dL (NEG-TRACE) Urine Glucose (UA) Negative mg/dL (NEG) Urine Ketones (Stick) Negative mg/dL (NEG) Urine Blood Negative (NEG) Urine Nitrite Negative (NEG) Urine Bilirubin Negative (NEG) Urine Urobilinogen Dipstick 0.2 mg/dL (0.2 mg/dL) Urine Leukocyte Esterase Moderate (NEG) Urine RBC Rare /HPF (0-2) Urine WBC 11-20 /HPF (0-4) Urine Squamous Epithelial Cells Occ /LPF Urine Bacteria Few /HPF (0-FEW) Urine Mucus Slight /LPF Test 09/20/20 18:44 09/20/20 20:20 09/20/20 23:58 09/21/20 06:30 Glucose (Fingerstick) 189 mg/dL (70-99) 103 mg/dL (70-99) Lactic Acid Level 2.1 mmol/L (0.4-2.0) White Blood Count 16.0 x10^3/uL (4.0-11.0) Red Blood Count 2.03 x10^6/uL (3.50-5.40) Hemoglobin 6.4 g/dL (12.0-15.5) Hematocrit 19.2 % (36.0-47.0) Mean Corpuscular Volume 95 fL (79-100) Mean Corpuscular Hemoglobin 32 pg (25-35) Mean Corpuscular Hemoglobin Concent 34 g/dL (31-37) Red Cell Distribution Width 13.2 % (11.5-14.5) Platelet Count 140 x10^3/uL (140-400) Neutrophils (%) (Auto) 77 % (31-73) Lymphocytes (%) (Auto) 16 % (24-48) Monocytes (%) (Auto) 6 % (0-9) Eosinophils (%) (Auto) 0 % (0-3) Basophils (%) (Auto) 1 % (0-3) Neutrophils # (Auto) 12.4 x10^3/uL (1.8-7.7) Lymphocytes # (Auto) 2.5 x10^3/uL (1.0-4.8) Monocytes # (Auto) 1.0 x10^3/uL (0.0-1.1) Eosinophils # (Auto) 0.0 x10^3/uL (0.0-0.7) Basophils # (Auto) 0.1 x10^3/uL (0.0-0.2) Sodium Level 138 mmol/L (136-145) Potassium Level 4.3 mmol/L (3.5-5.1) Chloride Level 100 mmol/L (98-107) Carbon Dioxide Level 27 mmol/L (21-32) Anion Gap 11 (6-14) Blood Urea Nitrogen 101 mg/dL (7-20) Creatinine 2.1 mg/dL (0.6-1.0) Estimated GFR (Cockcroft-Gault) 23.0 BUN/Creatinine Ratio 48 (6-20) Glucose Level 116 mg/dL (70-99) Calcium Level 8.3 mg/dL (8.5-10.1) Phosphorus Level 3.9 mg/dL (2.6-4.7) Magnesium Level 2.9 mg/dL (1.8-2.4) Total Bilirubin 0.1 mg/dL (0.2-1.0) Aspartate Amino Transf (AST/SGOT) 32 U/L (15-37) Alanine Aminotransferase (ALT/SGPT) 29 U/L (14-59) Alkaline Phosphatase 75 U/L (46-116) Troponin I Quantitative 0.069 ng/mL (0.000-0.055) Total Protein 5.6 g/dL (6.4-8.2) Albumin 2.7 g/dL (3.4-5.0) Albumin/Globulin Ratio 0.9 (1.0-1.7) Test 09/21/20 06:44 Glucose (Fingerstick) 91 mg/dL (70-99) Results All relevant outside records, renal labs, imaging studies, telemetry/EKG's were reviewed. Other CT scan abdomen pelvis: IMPRESSION: 1. There is wall thickening of the distal ileum suggesting ileitis. 2. Small indeterminate left adrenal nodule. Consider outpatient adrenal protocol CT or MR abdomen. Justicifation of Admission Dx: Justifications for Admission: Justification of Admission Dx: Yes BREN BURR MD Sep 21, 2020 10:19
[2020-09-21] MEDS: MORPHINE SULFATE 4 MG/ML VIAL. IV PRN ×2 (11:05→18:52)
--- NOTE | 2020-09-21 11:23 | PDOC ---
[employer] PROGRESS NOTE Date of Service DOS: DATE: 09/21/20 TIME: 11:06 Chief Complaint Chief Complaint A/P: Acute blood loss anemia - due to upper GI bleed likely from NSAIDs with cardiac antiplatelet agents, on BID protonix. Transfuse 2u PRBC 09/21 for Hb < 7 UGIB - GI consulted, possible gastritis vs PUD Acute encephalopathy - sepsis from UTI but also metabolic with uremia UTI -positive leuk esterase and blood. Septic we will continue Rocephin. MARIA ELENA - vasomotor nephropathy Uremia - likely from upper GI bleed Sepsis- leukocytosis, hypothermia, UTI and GI bleed treat as sepsis with IVF and rocephin Hyponatremia - likely hypovolemic, will monitor hydration DM2 - sliding scale CAD - s/p remote stenting 08/2019. Sees [facility]. 09/08/2020 and prescribed Brilinta 90 mg, and losartan 25 mg spironolactone 25 mg and furosemide 20 mg twice daily Elevated troponins - likely demand ischemia given sepsis and above. Will trend troponins, Telemetry FEN - NPO PPX - PPI, SCDs FULL CODE Dispo - inpatient History of Present Illness History of Present Illness Ms Gonzalez is a 75yo F w/ PMHx hypertension, type 2 diabetes, CAD s/p PCI (x3 in 08/2019 at [facility], then x2 11/2019) who presented to [place] 09/19/20 c/o hematemesis. Was transfused 2u of convalescent FFP, NGT was placed, but coiled in esophagus. Vital signs on ED presentation temp 94 F, heart rate 102 bpm blood pressure 142/73. WBC 16.4, Hb 9.3, Platelets 295, Na 129, K 4, BUN 111, Cr 2.3, Glucose 291, Trop 0.061, BNP 7800, Lipase 75, Albumin 3. UDS + for opioids. UA positive leuk oesterase and blood. Transferred to [facility] for GI consultation and further treatment. Per GI has had dyspepsia and early satiety for decades. EGD in 2010 2019 not revealing. Previous gastric emptying study borderline delay. Colonoscopy in 2010 with no pathology. Upon evaluation she is drowsy and very confused. Repeat KUB with NG tube better placed below the diaphragm and appears in stomach. Discussed with bedside patient has been continuing her home medications in addition she has been taking ibuprofen and Aleve for pain recently. She was seen by [facility] cardiology on ~09/08/2020 and prescribed Brilinta 90 mg, and losartan 25 mg spironolactone 25 mg and furosemide 20 mg twice daily Overnight 100.5F. Hb 6.4, WBC 16, BUN 101, Cr 2.1. 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 Vitals/I&O Vitals/I&O: Vital Signs Date Time Temp Pulse Resp B/P (MAP) Pulse Ox O2 Delivery O2 Flow Rate FiO2 09/21/20 06:46 109 184/73 09/21/20 03:00 98.4 16 98 Room Air 98.4 09/21/20 00:17 2.0 I & O 09/20/20 09/20/20 09/21/20 15:00 23:00 07:00 Intake Total 0 ml 0 ml 0 ml Output Total 375 ml 700 ml 500 ml Balance -375 ml -700 ml -500 ml Physical Exam General: mild distress Heart: Regular rate Abdomen: Normal bowel sounds Extremities: No clubbing, No cyanosis, No edema, Normal pulses, No tenderness/swelling Skin: No rashes, No breakdown, No significant lesion Labs Labs: Laboratory Tests Test 09/20/20 11:59 09/20/20 14:45 09/20/20 16:00 09/20/20 18:44 Troponin I Quantitative 0.128 ng/mL (0.000-0.055) Iron Level 139 ug/dL (50-170) Total Iron Binding Capacity 238 ug/dL (250-450) Iron Saturation 58 % (15-34) Thyroid Stimulating Hormone (TSH) 1.187 uIU/mL (0.358-3.74) Urine Collection Type Unknown Urine Color Yellow Urine Clarity Clear Urine pH 5.0 (<5.0-8.0) Urine Specific [place] 1.015 (1.000-1.030) Urine Protein Negative mg/dL (NEG-TRACE) Urine Glucose (UA) Negative mg/dL (NEG) Urine Ketones (Stick) Negative mg/dL (NEG) Urine Blood Negative (NEG) Urine Nitrite Negative (NEG) Urine Bilirubin Negative (NEG) Urine Urobilinogen Dipstick 0.2 mg/dL (0.2 mg/dL) Urine Leukocyte Esterase Moderate (NEG) Urine RBC Rare /HPF (0-2) Urine WBC 11-20 /HPF (0-4) Urine Squamous Epithelial Cells Occ /LPF Urine Bacteria Few /HPF (0-FEW) Urine Mucus Slight /LPF Glucose (Fingerstick) 189 mg/dL (70-99) Test 09/20/20 20:20 09/20/20 23:58 09/21/20 06:30 09/21/20 06:44 Lactic Acid Level 2.1 mmol/L (0.4-2.0) Glucose (Fingerstick) 103 mg/dL (70-99) 91 mg/dL (70-99) White Blood Count 16.0 x10^3/uL (4.0-11.0) Red Blood Count 2.03 x10^6/uL (3.50-5.40) Hemoglobin 6.4 g/dL (12.0-15.5) Hematocrit 19.2 % (36.0-47.0) Mean Corpuscular Volume 95 fL (79-100) Mean Corpuscular Hemoglobin 32 pg (25-35) Mean Corpuscular Hemoglobin Concent 34 g/dL (31-37) Red Cell Distribution Width 13.2 % (11.5-14.5) Platelet Count 140 x10^3/uL (140-400) Neutrophils (%) (Auto) 77 % (31-73) Lymphocytes (%) (Auto) 16 % (24-48) Monocytes (%) (Auto) 6 % (0-9) Eosinophils (%) (Auto) 0 % (0-3) Basophils (%) (Auto) 1 % (0-3) Neutrophils # (Auto) 12.4 x10^3/uL (1.8-7.7) Lymphocytes # (Auto) 2.5 x10^3/uL (1.0-4.8) Monocytes # (Auto) 1.0 x10^3/uL (0.0-1.1) Eosinophils # (Auto) 0.0 x10^3/uL (0.0-0.7) Basophils # (Auto) 0.1 x10^3/uL (0.0-0.2) Sodium Level 138 mmol/L (136-145) Potassium Level 4.3 mmol/L (3.5-5.1) Chloride Level 100 mmol/L (98-107) Carbon Dioxide Level 27 mmol/L (21-32) Anion Gap 11 (6-14) Blood Urea Nitrogen 101 mg/dL (7-20) Creatinine 2.1 mg/dL (0.6-1.0) Estimated GFR (Cockcroft-Gault) 23.0 BUN/Creatinine Ratio 48 (6-20) Glucose Level 116 mg/dL (70-99) Calcium Level 8.3 mg/dL (8.5-10.1) Phosphorus Level 3.9 mg/dL (2.6-4.7) Magnesium Level 2.9 mg/dL (1.8-2.4) Total Bilirubin 0.1 mg/dL (0.2-1.0) Aspartate Amino Transf (AST/SGOT) 32 U/L (15-37) Alanine Aminotransferase (ALT/SGPT) 29 U/L (14-59) Alkaline Phosphatase 75 U/L (46-116) Troponin I Quantitative 0.069 ng/mL (0.000-0.055) Total Protein 5.6 g/dL (6.4-8.2) Albumin 2.7 g/dL (3.4-5.0) Albumin/Globulin Ratio 0.9 (1.0-1.7) Comment Review of Relevant I have reviewed the following items brett (where applicable) has been applied. Medications: Current Medications Medications (Trade) Dose Ordered Sig/Jess Route PRN Reason Start Time Stop Time Status Last Admin Dose Admin Ceftriaxone Sodium (Rocephin) 1 gm Q24H IVP 09/20/20 21:00 09/20/20 21:18 Justifications for Admission Other Justification EDI BRADEN MD Sep 21, 2020 11:23
--- NOTE | 2020-09-21 12:47 | PDOC ---
G I PROGRESS NOTE Subjective No clear complaints. Objective Now concern for cardiac atrial mass. Any endoscopy on hold. Physical Exam Lungs clear RRR Abdomen soft. Some epigastric tenderness. NG output bilious. Review of Relevant I have reviewed the following items brett (where applicable) has been applied. Labs Laboratory Tests Test 09/20/20 04:00 09/20/20 07:19 09/20/20 08:25 09/20/20 09:50 Coronavirus (PCR) Not detected (Not Detected) SARS-CoV-2 Antigen (Rapid) Negative (NEGATIVE) White Blood Count 26.7 x10^3/uL (4.0-11.0) Red Blood Count 2.75 x10^6/uL (3.50-5.40) Hemoglobin 8.3 g/dL (12.0-15.5) Hematocrit 25.4 % (36.0-47.0) Mean Corpuscular Volume 92 fL (79-100) Mean Corpuscular Hemoglobin 30 pg (25-35) Mean Corpuscular Hemoglobin Concent 33 g/dL (31-37) Red Cell Distribution Width 12.7 % (11.5-14.5) Platelet Count 284 x10^3/uL (140-400) Neutrophils (%) (Auto) 89 % (31-73) Lymphocytes (%) (Auto) 6 % (24-48) Monocytes (%) (Auto) 5 % (0-9) Eosinophils (%) (Auto) 0 % (0-3) Basophils (%) (Auto) 0 % (0-3) Neutrophils # (Auto) 23.7 x10^3/uL (1.8-7.7) Lymphocytes # (Auto) 1.7 x10^3/uL (1.0-4.8) Monocytes # (Auto) 1.2 x10^3/uL (0.0-1.1) Eosinophils # (Auto) 0.0 x10^3/uL (0.0-0.7) Basophils # (Auto) 0.1 x10^3/uL (0.0-0.2) Segmented Neutrophils % 93 % (35-66) Band Neutrophils % 3 % (0-9) Lymphocytes % 3 % (24-48) Monocytes % 1 % (0-10) Platelet Estimate Adequate (ADEQUATE) Sodium Level 131 mmol/L (136-145) Potassium Level 4.6 mmol/L (3.5-5.1) Chloride Level 93 mmol/L (98-107) Carbon Dioxide Level 27 mmol/L (21-32) Anion Gap 11 (6-14) Blood Urea Nitrogen 123 mg/dL (7-20) Creatinine 2.5 mg/dL (0.6-1.0) Estimated GFR (Cockcroft-Gault) 18.8 Glucose Level 173 mg/dL (70-99) Calcium Level 9.3 mg/dL (8.5-10.1) Troponin I Quantitative 0.115 ng/mL (0.000-0.055) Glucose (Fingerstick) 158 mg/dL (70-99) Lactic Acid Level 2.1 mmol/L (0.4-2.0) Test 09/20/20 11:05 09/20/20 11:59 09/20/20 14:45 09/20/20 16:00 Glucose (Fingerstick) 174 mg/dL (70-99) Troponin I Quantitative 0.128 ng/mL (0.000-0.055) Iron Level 139 ug/dL (50-170) Total Iron Binding Capacity 238 ug/dL (250-450) Iron Saturation 58 % (15-34) Thyroid Stimulating Hormone (TSH) 1.187 uIU/mL (0.358-3.74) Urine Collection Type Unknown Urine Color Yellow Urine Clarity Clear Urine pH 5.0 (<5.0-8.0) Urine Specific [place] 1.015 (1.000-1.030) Urine Protein Negative mg/dL (NEG-TRACE) Urine Glucose (UA) Negative mg/dL (NEG) Urine Ketones (Stick) Negative mg/dL (NEG) Urine Blood Negative (NEG) Urine Nitrite Negative (NEG) Urine Bilirubin Negative (NEG) Urine Urobilinogen Dipstick 0.2 mg/dL (0.2 mg/dL) Urine Leukocyte Esterase Moderate (NEG) Urine RBC Rare /HPF (0-2) Urine WBC 11-20 /HPF (0-4) Urine Squamous Epithelial Cells Occ /LPF Urine Bacteria Few /HPF (0-FEW) Urine Mucus Slight /LPF Test 09/20/20 18:44 09/20/20 20:20 09/20/20 23:58 09/21/20 06:30 Glucose (Fingerstick) 189 mg/dL (70-99) 103 mg/dL (70-99) Lactic Acid Level 2.1 mmol/L (0.4-2.0) White Blood Count 16.0 x10^3/uL (4.0-11.0) Red Blood Count 2.03 x10^6/uL (3.50-5.40) Hemoglobin 6.4 g/dL (12.0-15.5) Hematocrit 19.2 % (36.0-47.0) Mean Corpuscular Volume 95 fL (79-100) Mean Corpuscular Hemoglobin 32 pg (25-35) Mean Corpuscular Hemoglobin Concent 34 g/dL (31-37) Red Cell Distribution Width 13.2 % (11.5-14.5) Platelet Count 140 x10^3/uL (140-400) Neutrophils (%) (Auto) 77 % (31-73) Lymphocytes (%) (Auto) 16 % (24-48) Monocytes (%) (Auto) 6 % (0-9) Eosinophils (%) (Auto) 0 % (0-3) Basophils (%) (Auto) 1 % (0-3) Neutrophils # (Auto) 12.4 x10^3/uL (1.8-7.7) Lymphocytes # (Auto) 2.5 x10^3/uL (1.0-4.8) Monocytes # (Auto) 1.0 x10^3/uL (0.0-1.1) Eosinophils # (Auto) 0.0 x10^3/uL (0.0-0.7) Basophils # (Auto) 0.1 x10^3/uL (0.0-0.2) Sodium Level 138 mmol/L (136-145) Potassium Level 4.3 mmol/L (3.5-5.1) Chloride Level 100 mmol/L (98-107) Carbon Dioxide Level 27 mmol/L (21-32) Anion Gap 11 (6-14) Blood Urea Nitrogen 101 mg/dL (7-20) Creatinine 2.1 mg/dL (0.6-1.0) Estimated GFR (Cockcroft-Gault) 23.0 BUN/Creatinine Ratio 48 (6-20) Glucose Level 116 mg/dL (70-99) Calcium Level 8.3 mg/dL (8.5-10.1) Phosphorus Level 3.9 mg/dL (2.6-4.7) Magnesium Level 2.9 mg/dL (1.8-2.4) Total Bilirubin 0.1 mg/dL (0.2-1.0) Aspartate Amino Transf (AST/SGOT) 32 U/L (15-37) Alanine Aminotransferase (ALT/SGPT) 29 U/L (14-59) Alkaline Phosphatase 75 U/L (46-116) Troponin I Quantitative 0.069 ng/mL (0.000-0.055) Total Protein 5.6 g/dL (6.4-8.2) Albumin 2.7 g/dL (3.4-5.0) Albumin/Globulin Ratio 0.9 (1.0-1.7) Test 09/21/20 06:44 09/21/20 11:04 Glucose (Fingerstick) 91 mg/dL (70-99) 106 mg/dL (70-99) Laboratory Tests Test 09/20/20 14:45 09/20/20 16:00 09/20/20 18:44 09/20/20 20:20 Iron Level 139 ug/dL (50-170) Total Iron Binding Capacity 238 ug/dL (250-450) Iron Saturation 58 % (15-34) Thyroid Stimulating Hormone (TSH) 1.187 uIU/mL (0.358-3.74) Urine Collection Type Unknown Urine Color Yellow Urine Clarity Clear Urine pH 5.0 (<5.0-8.0) Urine Specific [place] 1.015 (1.000-1.030) Urine Protein Negative mg/dL (NEG-TRACE) Urine Glucose (UA) Negative mg/dL (NEG) Urine Ketones (Stick) Negative mg/dL (NEG) Urine Blood Negative (NEG) Urine Nitrite Negative (NEG) Urine Bilirubin Negative (NEG) Urine Urobilinogen Dipstick 0.2 mg/dL (0.2 mg/dL) Urine Leukocyte Esterase Moderate (NEG) Urine RBC Rare /HPF (0-2) Urine WBC 11-20 /HPF (0-4) Urine Squamous Epithelial Cells Occ /LPF Urine Bacteria Few /HPF (0-FEW) Urine Mucus Slight /LPF Glucose (Fingerstick) 189 mg/dL (70-99) Lactic Acid Level 2.1 mmol/L (0.4-2.0) Test 09/20/20 23:58 09/21/20 06:30 09/21/20 06:44 09/21/20 11:04 Glucose (Fingerstick) 103 mg/dL (70-99) 91 mg/dL (70-99) 106 mg/dL (70-99) White Blood Count 16.0 x10^3/uL (4.0-11.0) Red Blood Count 2.03 x10^6/uL (3.50-5.40) Hemoglobin 6.4 g/dL (12.0-15.5) Hematocrit 19.2 % (36.0-47.0) Mean Corpuscular Volume 95 fL (79-100) Mean Corpuscular Hemoglobin 32 pg (25-35) Mean Corpuscular Hemoglobin Concent 34 g/dL (31-37) Red Cell Distribution Width 13.2 % (11.5-14.5) Platelet Count 140 x10^3/uL (140-400) Neutrophils (%) (Auto) 77 % (31-73) Lymphocytes (%) (Auto) 16 % (24-48) Monocytes (%) (Auto) 6 % (0-9) Eosinophils (%) (Auto) 0 % (0-3) Basophils (%) (Auto) 1 % (0-3) Neutrophils # (Auto) 12.4 x10^3/uL (1.8-7.7) Lymphocytes # (Auto) 2.5 x10^3/uL (1.0-4.8) Monocytes # (Auto) 1.0 x10^3/uL (0.0-1.1) Eosinophils # (Auto) 0.0 x10^3/uL (0.0-0.7) Basophils # (Auto) 0.1 x10^3/uL (0.0-0.2) Sodium Level 138 mmol/L (136-145) Potassium Level 4.3 mmol/L (3.5-5.1) Chloride Level 100 mmol/L (98-107) Carbon Dioxide Level 27 mmol/L (21-32) Anion Gap 11 (6-14) Blood Urea Nitrogen 101 mg/dL (7-20) Creatinine 2.1 mg/dL (0.6-1.0) Estimated GFR (Cockcroft-Gault) 23.0 BUN/Creatinine Ratio 48 (6-20) Glucose Level 116 mg/dL (70-99) Calcium Level 8.3 mg/dL (8.5-10.1) Phosphorus Level 3.9 mg/dL (2.6-4.7) Magnesium Level 2.9 mg/dL (1.8-2.4) Total Bilirubin 0.1 mg/dL (0.2-1.0) Aspartate Amino Transf (AST/SGOT) 32 U/L (15-37) Alanine Aminotransferase (ALT/SGPT) 29 U/L (14-59) Alkaline Phosphatase 75 U/L (46-116) Troponin I Quantitative 0.069 ng/mL (0.000-0.055) Total Protein 5.6 g/dL (6.4-8.2) Albumin 2.7 g/dL (3.4-5.0) Albumin/Globulin Ratio 0.9 (1.0-1.7) Note drop in hemoglobin; think largely dilutional. Vitals/I & O Vital Sign - Last 24 Hours 09/20/20 09/20/20 09/20/20 09/20/20 14:59 17:54 19:00 20:00 Temp 100.2 98.5 100.2 98.5 Pulse 94 94 78 Resp 20 18 B/P (MAP) 121/59 (79) 121/59 130/55 (80) Pulse Ox 96 94 O2 Delivery Room Air Room Air Room Air O2 Flow Rate 2.0 09/20/20 09/20/20 09/20/20 09/21/20 23:00 23:47 23:53 00:17 Temp 98.2 98.2 Pulse 111 102 Resp 16 18 B/P (MAP) 117/52 (73) 125/48 Pulse Ox 95 94 98 O2 Delivery Room Air Room Air Room Air O2 Flow Rate 2.0 09/21/20 09/21/20 09/21/20 09/21/20 03:00 06:46 07:00 08:00 Temp 98.4 98.5 98.4 98.5 Pulse 61 109 81 Resp 16 18 B/P (MAP) 119/45 (69) 184/73 124/50 (74) Pulse Ox 98 98 O2 Delivery Room Air Room Air Room Air O2 Flow Rate 2.0 1/09/21/20 09/21/20 09/21/20 11:00 11:05 12:08 12:23 Temp 98.6 99.0 99.7 98.6 99.0 99.7 Pulse 99 99 100 Resp 18 20 18 20 B/P (MAP) 124/46 (72) 126/46 122/43 Pulse Ox 100 98 O2 Delivery Room Air Room Air Intake and Output 09/20/20 09/20/20 09/21/20 15:00 23:00 07:00 Intake Total 0 ml 0 ml 0 ml Output Total 375 ml 700 ml 500 ml Balance -375 ml -700 ml -500 ml Images Note "ileitis" on CT--no diarrhea so seems doubtful. Assessment UGIB, stable at present. Now some h/o NSAID use? EGD on hold pending further cardiac evaluation. Plan of Care Note Continue PPI. Await further cardiac testing. Agree with transfuse. Justicifation of Admission Dx: Justifications for Admission: Justification of Admission Dx: Yes CHIRAG TREVIÑO MD Sep 21, 2020 12:47
[2020-09-21] MEDS: PANTOPRAZOLE IV PUSH 40 MG VIAL. IVP SCH ×2 (14:22→21:36)
[2020-09-21] MEDS: IV RINGERS,LACTATED 1000ML 1,000 ML IV SCH (14:23)
--- NOTE | 2020-09-21 14:40 | PDOC ---
PROGRESS NOTES Date of Service DATE: 09/21/20 TIME: 14:37 Subjective Subjective Patient seen and examined Objective Objective Vital Signs Date Time Temp Pulse Resp B/P (MAP) Pulse Ox O2 Delivery O2 Flow Rate FiO2 09/21/20 14:28 99 118/42 09/21/20 12:23 99.7 20 99.7 09/21/20 11:35 98 Room Air 2.0 Intake and Output 09/21/20 07:00 Intake Total 0 ml Output Total 1575 ml Balance -1575 ml Intake Oral 0 ml Output Urine Total 1450 ml Gastric Drainage Total 125 ml Physical Exam Abdomen: Normal bowel sounds Heart: Regular rate General: mild distress Lungs: Clear to auscultation Assessment Assessment 1. Blood loss anemia. Patient's hemoglobin hematocrit have further declined this morning to 6.4 and 19.2. She is being transfused. She is followed by the GI service. Bedside echo shows a probable mass in the left atrium and possibly left ventricle. At this time would hold on nonemergency EGD. Will review final echo images when available. We will tentatively plan on a transesophageal echo tomorrow. 2. History of coronary disease with multiple stents placed in early 2019. Available records show the most recent stents placed were in November 2019. At this time if needed Brilinta may be reasonably held at reasonably low risk in the short-term. No acute EKG changes. No significant elevation in troponins at 0.115, 0.128 and 0.069. 3. Encephalopathy. Work-up as above. 4. MARIA ELENA. Being evaluated by the renal service. 5. Hypertension. We will continue to monitor. Comment Review of Relevant I have reviewed the following items brett (where applicable) has been applied. Labs Laboratory Tests Test 09/20/20 04:00 09/20/20 07:19 09/20/20 08:25 09/20/20 09:50 Coronavirus (PCR) Not detected (Not Detected) SARS-CoV-2 Antigen (Rapid) Negative (NEGATIVE) White Blood Count 26.7 x10^3/uL (4.0-11.0) Red Blood Count 2.75 x10^6/uL (3.50-5.40) Hemoglobin 8.3 g/dL (12.0-15.5) Hematocrit 25.4 % (36.0-47.0) Mean Corpuscular Volume 92 fL (79-100) Mean Corpuscular Hemoglobin 30 pg (25-35) Mean Corpuscular Hemoglobin Concent 33 g/dL (31-37) Red Cell Distribution Width 12.7 % (11.5-14.5) Platelet Count 284 x10^3/uL (140-400) Neutrophils (%) (Auto) 89 % (31-73) Lymphocytes (%) (Auto) 6 % (24-48) Monocytes (%) (Auto) 5 % (0-9) Eosinophils (%) (Auto) 0 % (0-3) Basophils (%) (Auto) 0 % (0-3) Neutrophils # (Auto) 23.7 x10^3/uL (1.8-7.7) Lymphocytes # (Auto) 1.7 x10^3/uL (1.0-4.8) Monocytes # (Auto) 1.2 x10^3/uL (0.0-1.1) Eosinophils # (Auto) 0.0 x10^3/uL (0.0-0.7) Basophils # (Auto) 0.1 x10^3/uL (0.0-0.2) Segmented Neutrophils % 93 % (35-66) Band Neutrophils % 3 % (0-9) Lymphocytes % 3 % (24-48) Monocytes % 1 % (0-10) Platelet Estimate Adequate (ADEQUATE) Sodium Level 131 mmol/L (136-145) Potassium Level 4.6 mmol/L (3.5-5.1) Chloride Level 93 mmol/L (98-107) Carbon Dioxide Level 27 mmol/L (21-32) Anion Gap 11 (6-14) Blood Urea Nitrogen 123 mg/dL (7-20) Creatinine 2.5 mg/dL (0.6-1.0) Estimated GFR (Cockcroft-Gault) 18.8 Glucose Level 173 mg/dL (70-99) Calcium Level 9.3 mg/dL (8.5-10.1) Troponin I Quantitative 0.115 ng/mL (0.000-0.055) Glucose (Fingerstick) 158 mg/dL (70-99) Lactic Acid Level 2.1 mmol/L (0.4-2.0) Test 09/20/20 11:05 09/20/20 11:59 09/20/20 14:45 09/20/20 16:00 Glucose (Fingerstick) 174 mg/dL (70-99) Troponin I Quantitative 0.128 ng/mL (0.000-0.055) Iron Level 139 ug/dL (50-170) Total Iron Binding Capacity 238 ug/dL (250-450) Iron Saturation 58 % (15-34) Thyroid Stimulating Hormone (TSH) 1.187 uIU/mL (0.358-3.74) Urine Collection Type Unknown Urine Color Yellow Urine Clarity Clear Urine pH 5.0 (<5.0-8.0) Urine Specific [place] 1.015 (1.000-1.030) Urine Protein Negative mg/dL (NEG-TRACE) Urine Glucose (UA) Negative mg/dL (NEG) Urine Ketones (Stick) Negative mg/dL (NEG) Urine Blood Negative (NEG) Urine Nitrite Negative (NEG) Urine Bilirubin Negative (NEG) Urine Urobilinogen Dipstick 0.2 mg/dL (0.2 mg/dL) Urine Leukocyte Esterase Moderate (NEG) Urine RBC Rare /HPF (0-2) Urine WBC 11-20 /HPF (0-4) Urine Squamous Epithelial Cells Occ /LPF Urine Bacteria Few /HPF (0-FEW) Urine Mucus Slight /LPF Test 09/20/20 18:44 09/20/20 20:20 09/20/20 23:58 09/21/20 06:30 Glucose (Fingerstick) 189 mg/dL (70-99) 103 mg/dL (70-99) Lactic Acid Level 2.1 mmol/L (0.4-2.0) White Blood Count 16.0 x10^3/uL (4.0-11.0) Red Blood Count 2.03 x10^6/uL (3.50-5.40) Hemoglobin 6.4 g/dL (12.0-15.5) Hematocrit 19.2 % (36.0-47.0) Mean Corpuscular Volume 95 fL (79-100) Mean Corpuscular Hemoglobin 32 pg (25-35) Mean Corpuscular Hemoglobin Concent 34 g/dL (31-37) Red Cell Distribution Width 13.2 % (11.5-14.5) Platelet Count 140 x10^3/uL (140-400) Neutrophils (%) (Auto) 77 % (31-73) Lymphocytes (%) (Auto) 16 % (24-48) Monocytes (%) (Auto) 6 % (0-9) Eosinophils (%) (Auto) 0 % (0-3) Basophils (%) (Auto) 1 % (0-3) Neutrophils # (Auto) 12.4 x10^3/uL (1.8-7.7) Lymphocytes # (Auto) 2.5 x10^3/uL (1.0-4.8) Monocytes # (Auto) 1.0 x10^3/uL (0.0-1.1) Eosinophils # (Auto) 0.0 x10^3/uL (0.0-0.7) Basophils # (Auto) 0.1 x10^3/uL (0.0-0.2) Sodium Level 138 mmol/L (136-145) Potassium Level 4.3 mmol/L (3.5-5.1) Chloride Level 100 mmol/L (98-107) Carbon Dioxide Level 27 mmol/L (21-32) Anion Gap 11 (6-14) Blood Urea Nitrogen 101 mg/dL (7-20) Creatinine 2.1 mg/dL (0.6-1.0) Estimated GFR (Cockcroft-Gault) 23.0 BUN/Creatinine Ratio 48 (6-20) Glucose Level 116 mg/dL (70-99) Calcium Level 8.3 mg/dL (8.5-10.1) Phosphorus Level 3.9 mg/dL (2.6-4.7) Magnesium Level 2.9 mg/dL (1.8-2.4) Total Bilirubin 0.1 mg/dL (0.2-1.0) Aspartate Amino Transf (AST/SGOT) 32 U/L (15-37) Alanine Aminotransferase (ALT/SGPT) 29 U/L (14-59) Alkaline Phosphatase 75 U/L (46-116) Troponin I Quantitative 0.069 ng/mL (0.000-0.055) Total Protein 5.6 g/dL (6.4-8.2) Albumin 2.7 g/dL (3.4-5.0) Albumin/Globulin Ratio 0.9 (1.0-1.7) Test 09/21/20 06:44 09/21/20 11:04 Glucose (Fingerstick) 91 mg/dL (70-99) 106 mg/dL (70-99) Laboratory Tests Test 09/20/20 14:45 09/20/20 16:00 09/20/20 18:44 09/20/20 20:20 Iron Level 139 ug/dL (50-170) Total Iron Binding Capacity 238 ug/dL (250-450) Iron Saturation 58 % (15-34) Thyroid Stimulating Hormone (TSH) 1.187 uIU/mL (0.358-3.74) Urine Collection Type Unknown Urine Color Yellow Urine Clarity Clear Urine pH 5.0 (<5.0-8.0) Urine Specific [place] 1.015 (1.000-1.030) Urine Protein Negative mg/dL (NEG-TRACE) Urine Glucose (UA) Negative mg/dL (NEG) Urine Ketones (Stick) Negative mg/dL (NEG) Urine Blood Negative (NEG) Urine Nitrite Negative (NEG) Urine Bilirubin Negative (NEG) Urine Urobilinogen Dipstick 0.2 mg/dL (0.2 mg/dL) Urine Leukocyte Esterase Moderate (NEG) Urine RBC Rare /HPF (0-2) Urine WBC 11-20 /HPF (0-4) Urine Squamous Epithelial Cells Occ /LPF Urine Bacteria Few /HPF (0-FEW) Urine Mucus Slight /LPF Glucose (Fingerstick) 189 mg/dL (70-99) Lactic Acid Level 2.1 mmol/L (0.4-2.0) Test 09/20/20 23:58 09/21/20 06:30 09/21/20 06:44 09/21/20 11:04 Glucose (Fingerstick) 103 mg/dL (70-99) 91 mg/dL (70-99) 106 mg/dL (70-99) White Blood Count 16.0 x10^3/uL (4.0-11.0) Red Blood Count 2.03 x10^6/uL (3.50-5.40) Hemoglobin 6.4 g/dL (12.0-15.5) Hematocrit 19.2 % (36.0-47.0) Mean Corpuscular Volume 95 fL (79-100) Mean Corpuscular Hemoglobin 32 pg (25-35) Mean Corpuscular Hemoglobin Concent 34 g/dL (31-37) Red Cell Distribution Width 13.2 % (11.5-14.5) Platelet Count 140 x10^3/uL (140-400) Neutrophils (%) (Auto) 77 % (31-73) Lymphocytes (%) (Auto) 16 % (24-48) Monocytes (%) (Auto) 6 % (0-9) Eosinophils (%) (Auto) 0 % (0-3) Basophils (%) (Auto) 1 % (0-3) Neutrophils # (Auto) 12.4 x10^3/uL (1.8-7.7) Lymphocytes # (Auto) 2.5 x10^3/uL (1.0-4.8) Monocytes # (Auto) 1.0 x10^3/uL (0.0-1.1) Eosinophils # (Auto) 0.0 x10^3/uL (0.0-0.7) Basophils # (Auto) 0.1 x10^3/uL (0.0-0.2) Sodium Level 138 mmol/L (136-145) Potassium Level 4.3 mmol/L (3.5-5.1) Chloride Level 100 mmol/L (98-107) Carbon Dioxide Level 27 mmol/L (21-32) Anion Gap 11 (6-14) Blood Urea Nitrogen 101 mg/dL (7-20) Creatinine 2.1 mg/dL (0.6-1.0) Estimated GFR (Cockcroft-Gault) 23.0 BUN/Creatinine Ratio 48 (6-20) Glucose Level 116 mg/dL (70-99) Calcium Level 8.3 mg/dL (8.5-10.1) Phosphorus Level 3.9 mg/dL (2.6-4.7) Magnesium Level 2.9 mg/dL (1.8-2.4) Total Bilirubin 0.1 mg/dL (0.2-1.0) Aspartate Amino Transf (AST/SGOT) 32 U/L (15-37) Alanine Aminotransferase (ALT/SGPT) 29 U/L (14-59) Alkaline Phosphatase 75 U/L (46-116) Troponin I Quantitative 0.069 ng/mL (0.000-0.055) Total Protein 5.6 g/dL (6.4-8.2) Albumin 2.7 g/dL (3.4-5.0) Albumin/Globulin Ratio 0.9 (1.0-1.7) Medications Current Medications Sodium Chloride 1,000 ml @ 100 mls/hr Q10H IV Last administered on 09/20/20at 23:46; Start 09/20/20 at 03:00; Stop 09/21/20 at 10:18; Status DC Ondansetron HCl (Zofran) 4 mg PRN Q6HRS PRN IVP NAUSEA/VOMITING; Start 09/20/20 at 03:00 Morphine Sulfate (Morphine Sulfate) 4 mg PRN Q4HRS PRN IV PAIN Last administered on 09/21/20at 11:05; Start 09/20/20 at 03:00 Pantoprazole Sodium (PROTONIX VIAL for IV PUSH) 40 mg BID IVP Last administered on 09/21/20at 14:22; Start 09/20/20 at 03:00 Ceftriaxone Sodium (Rocephin) 1 gm Q24H IVP ; Start 09/20/20 at 03:00; Stop 09/20/20 at 03:07; Status DC Ceftriaxone Sodium (Rocephin) 1 gm Q24H IVP Last administered on 09/20/20at 21:18; Start 09/20/20 at 21:00 Metoprolol Tartrate (Lopressor Vial) 5 mg Q6HRS IVP Last administered on 09/21/20at 14:28; Start 09/20/20 at 07:45 Insulin Human Lispro (HumaLOG) 0-9 UNITS Q6HRS SQ ; Start 09/20/20 at 07:45 Dextrose (Dextrose 50%-Water Syringe) 12.5 gm PRN Q15MIN PRN IV SEE COMMENTS; Start 09/20/20 at 07:45 Acetaminophen (Tylenol Supp) 650 mg PRN Q6HRS PRN WA MILD PAIN / TEMP > 100.3'F Last administered on 09/20/20at 10:24; Start 09/20/20 at 09:00 Nitroglycerin (Nitrostat) 0.4 mg PRN Q5MIN PRN SL CHEST PAIN; Start 09/20/20 at 14:15 Ringer's Solution 1,000 ml @ 50 mls/hr Q20H IV ; Start 09/21/20 at 07:00; Stop 09/21/20 at 18:59 Magnesium Sulfate 50 ml @ 25 mls/hr PRN DAILY PRN IV for Mag < 1.7 on am labs; Start 09/20/20 at 14:30 Ringer's Solution 1,000 ml @ 75 mls/hr [id number] IV Last administered on 09/21/20at 14:23; Start 09/21/20 at 10:30 Active Scripts Active Reported Cyclobenzaprine Hcl 10 Mg Tablet 1 Tab PO QHS Carvedilol 25 Mg Tablet 12.5 Mg PO BIDWMEALS Lipitor (Atorvastatin Calcium) 80 Mg Tablet 1 Tab PO HS Aspirin Ec (Aspirin) 81 Mg Tablet.dr 1 Tab PO DAILY Acetaminophen 325 Mg Tablet 2 Tab PO PRN DAILY PRN 30 Days Zyrtec (Cetirizine Hcl) 10 Mg Tablet 1 Tab PO DAILY Norvasc (Amlodipine Besylate) 10 Mg Tablet 10 Mg PO DAILY Nitrostat (Nitroglycerin) 0.4 Mg Tab.subl 0.4 Mg SL PRN Q5MIN PRN Clopidogrel (Clopidogrel Bisulfate) 75 Mg Tablet 1 Tab PO DAILY Percocet 10-325 Mg Tablet (Oxycodone/Acetaminophen) 1 Each Tablet 1 Tab PO Q4-6HRS Gabapentin (Gabapentin) 300 Mg Capsule 1 Cap PO HS Vitals/I & O Vital Sign - Last 24 Hours 09/20/20 09/20/20 09/20/20 09/20/20 14:59 17:54 19:00 20:00 Temp 100.2 98.5 100.2 98.5 Pulse 94 94 78 Resp 20 18 B/P (MAP) 121/59 (79) 121/59 130/55 (80) Pulse Ox 96 94 O2 Delivery Room Air Room Air Room Air O2 Flow Rate 2.0 09/20/20 09/20/20 09/20/20 09/21/20 23:00 23:47 23:53 00:17 Temp 98.2 98.2 Pulse 111 102 Resp 16 18 B/P (MAP) 117/52 (73) 125/48 Pulse Ox 95 94 98 O2 Delivery Room Air Room Air Room Air O2 Flow Rate 2.0 09/21/20 09/21/20 09/21/20 09/21/20 03:00 06:46 07:00 08:00 Temp 98.4 98.5 98.4 98.5 Pulse 61 109 81 Resp 16 18 B/P (MAP) 119/45 (69) 184/73 124/50 (74) Pulse Ox 98 98 O2 Delivery Room Air Room Air Room Air O2 Flow Rate 2.0 09/21/20 09/21/20 09/21/20 09/21/20 11:00 11:05 11:35 12:08 Temp 98.6 99.0 98.6 99.0 Pulse 99 99 Resp 18 20 18 B/P (MAP) 124/46 (72) 126/46 Pulse Ox 100 98 98 O2 Delivery Room Air Room Air Room Air O2 Flow Rate 2.0 09/21/20 09/21/20 12:23 14:28 Temp 99.7 99.7 Pulse 100 99 Resp 20 B/P (MAP) 122/43 118/42 Intake and Output 09/20/20 09/20/20 09/21/20 15:00 23:00 07:00 Intake Total 0 ml 0 ml 0 ml Output Total 375 ml 700 ml 500 ml Balance -375 ml -700 ml -500 ml Justifications for Admission Other Justification AYLA GARCIA MD Sep 21, 2020 14:40
[2020-09-21 15:43] LABS: HEMATOCRIT 23.9 % (36.0-47.0); HEMOGLOBIN 7.6 g/dL (12.0-15.5); RED BLOOD COUNT 2.46 x10^6/uL (3.50-5.40); RED CELL DISTRIBUTION WIDTH 13.8 % (11.5-14.5); WHITE BLOOD COUNT 14.2 x10^3/uL (4.0-11.0)
[2020-09-21] MEDS: cefTRIAXone IV Push 1 GM VIAL. IVP SCH (21:36)
[2020-09-22] MEDS: METOPROLOL IV PUSH 5 MG/5 ML VIAL. IVP SCH ×4 (00:59→16:14)
[2020-09-22] MEDS: MORPHINE SULFATE 4 MG/ML VIAL. IV PRN ×3 (02:11→14:07)
[2020-09-22 03:00] VITALS: BP 151/49
[2020-09-22] MEDS: IV RINGERS,LACTATED 1000ML 1,000 ML IV SCH (05:03)
[2020-09-22] MEDS: INSULIN LISPRO 300 UNITS/3 ML VIAL. SQ SCH ×4 (06:00→18:00)
[2020-09-22 07:00] VITALS: BP 129/102
[2020-09-22 07:24] LABS: BASO # 0.1 x10^3/uL (0.0-0.2); BASO % 0 % (0-3); EOS % 0 % (0-3); HEMATOCRIT 22.9 % (36.0-47.0); HEMOGLOBIN 7.5 g/dL (12.0-15.5); LYMPH # 1.5 x10^3/uL (1.0-4.8); LYMPH % 12 % (24-48); MEAN CORPUSCULAR HEMOGLOBIN 31 pg (25-35); MEAN CORPUSCULAR HGB CONC 33 g/dL (31-37); MEAN CORPUSCULAR VOLUME 96 fL (79-100); MONO # 0.9 x10^3/uL (0.0-1.1); MONO % 7 % (0-9); NEUT # 10.9 x10^3/uL (1.8-7.7); NEUT % 81 % (31-73); PLATELET COUNT 169 x10^3/uL (140-400); RED BLOOD COUNT 2.39 x10^6/uL (3.50-5.40); RED CELL DISTRIBUTION WIDTH 13.7 % (11.5-14.5); WHITE BLOOD COUNT 13.4 x10^3/uL (4.0-11.0)
[2020-09-22 07:39] LABS: ALBUMIN 2.7 g/dL (3.4-5.0); ALBUMIN/GLOBULIN RATIO 0.8 (1.0-1.7); CREATININE 1.4 mg/dL (0.6-1.0); GFR 36.8; POTASSIUM 4.1 mmol/L (3.5-5.1); TOTAL BILIRUBIN 0.3 mg/dL (0.2-1.0); TOTAL PROTEIN 6.2 g/dL (6.4-8.2)
[2020-09-22 09:21] LABS: PHOSPHORUS 2.8 mg/dL (2.6-4.7)
[2020-09-22] MEDS: PANTOPRAZOLE IV PUSH 40 MG VIAL. IVP SCH ×2 (09:42→22:07)
--- NOTE | 2020-09-22 10:03 | PDOC ---
Date of Service: DATE: 09/22/20 TIME: 09:54 Subjective: Subjective: "I have to potty." Wants water. Talks about heart stents. "I don't want any more tests." Objective: Objective: D/w nurse - constantly asking for water, to have JANELLE today. Vital Signs: Vital Signs Date Time Temp Pulse Resp B/P (MAP) Pulse Ox O2 Delivery O2 Flow Rate FiO2 09/22/20 09:47 20 90 Room Air 09/22/20 07:00 98.0 82 129/102 (111) 98.0 09/21/20 18:52 2.0 Labs: Laboratory Tests Test 09/21/20 11:04 09/21/20 15:22 09/21/20 19:04 09/21/20 23:51 Glucose (Fingerstick) 106 mg/dL 163 mg/dL 135 mg/dL White Blood Count 14.2 x10^3/uL Red Blood Count 2.46 x10^6/uL Hemoglobin 7.6 g/dL Hematocrit 23.9 % Mean Corpuscular Volume 97 fL Mean Corpuscular Hemoglobin 31 pg Mean Corpuscular Hemoglobin Concent 32 g/dL Red Cell Distribution Width 13.8 % Platelet Count 149 x10^3/uL Test 09/22/20 05:55 09/22/20 06:00 White Blood Count 13.4 x10^3/uL Red Blood Count 2.39 x10^6/uL Hemoglobin 7.5 g/dL Hematocrit 22.9 % Mean Corpuscular Volume 96 fL Mean Corpuscular Hemoglobin 31 pg Mean Corpuscular Hemoglobin Concent 33 g/dL Red Cell Distribution Width 13.7 % Platelet Count 169 x10^3/uL Neutrophils (%) (Auto) 81 % Lymphocytes (%) (Auto) 12 % Monocytes (%) (Auto) 7 % Eosinophils (%) (Auto) 0 % Basophils (%) (Auto) 0 % Neutrophils # (Auto) 10.9 x10^3/uL Lymphocytes # (Auto) 1.5 x10^3/uL Monocytes # (Auto) 0.9 x10^3/uL Eosinophils # (Auto) 0.0 x10^3/uL Basophils # (Auto) 0.1 x10^3/uL Sodium Level 146 mmol/L Potassium Level 4.1 mmol/L Chloride Level 109 mmol/L Carbon Dioxide Level 30 mmol/L Anion Gap 7 Blood Urea Nitrogen 57 mg/dL Creatinine 1.4 mg/dL Estimated GFR (Cockcroft-Gault) 36.8 BUN/Creatinine Ratio 41 Glucose Level 133 mg/dL Calcium Level 9.0 mg/dL Phosphorus Level 2.8 mg/dL Magnesium Level 2.7 mg/dL Total Bilirubin 0.3 mg/dL Aspartate Amino Transf (AST/SGOT) 22 U/L Alanine Aminotransferase (ALT/SGPT) 22 U/L Alkaline Phosphatase 67 U/L Total Protein 6.2 g/dL Albumin 2.7 g/dL Albumin/Globulin Ratio 0.8 Glucose (Fingerstick) 124 mg/dL URINE CULTURE Preliminary Preliminary No Growth on 09/22/20 at 0832 Imaging: Echocardiogram pending PE: GEN: seems anxious LUNGS: clear anteriorly HEART: RRR ABD: soft - brief a bit malpositioned, observed fair amount of dark soft stool, NGT dark bilious NEURO/PSYCH: confused A/P: ?atrial mass UGIB, anemia ?UTI, MARIA ELENA - better COVID negative -- Continue IV PPI, follow Hgb. EGD on hold for now, continue per cardiology. Justicifation of Admission Dx: Justifications for Admission: Justification of Admission Dx: Yes REAL FRAZIER Sep 22, 2020 10:03
[2020-09-22] MEDS ORDERED: IV RINGERS,LACTATED 1000ML 1,000 ML IV SCH (10:15)
[2020-09-22] MEDS ORDERED: BENZOCAINE ONE 20% MUCOSAL SPRAY. MM (10:30)
[2020-09-22] MEDS ORDERED: LIDOCAINE 2% TOPICAL JELLY 30GM TUBE. TP ONE (10:30)
[2020-09-22] MEDS ORDERED: LIDOCAINE 2% VISCOUS 15 ML SOLUTION. SWSW ONE (10:30)
[2020-09-22 11:00] VITALS: BP 158/42
[2020-09-22] MEDS ORDERED: PHENOL ORAL SPRAY 177ML BOTTLE. PO PRN (11:30)
--- NOTE | 2020-09-22 11:35 | PDOC ---
[employer] PROGRESS NOTE Date of Service DOS: DATE: 09/22/20 TIME: 11:30 Chief Complaint Chief Complaint Acute blood loss anemia UGIB Acute encephalopathy UTI MARIA ELENA Uremia Sepsis Hyponatremia DM2 CAD Elevated troponins History of Present Illness History of Present Illness Ms Gonzalez is a 75yo F w/ PMHx hypertension, type 2 diabetes, CAD s/p PCI (x3 in 08/2019 at [facility], then x2 11/2019) who presented to [facility] 09/19/20 c/o hematemesis. Was transfused 2u of convalescent FFP, NGT was placed, but coiled in esophagus. Vital signs on ED presentation temp 94 F, heart rate 102 bpm blood pressure 142/73. WBC 16.4, Hb 9.3, Platelets 295, Na 129, K 4, BUN 111, Cr 2.3, Glucose 291, Trop 0.061, BNP 7800, Lipase 75, Albumin 3. UDS + for opioids. UA positive leukoesterase and blood. Transferred to [facility] for GI consultation and further treatment. Per GI has had dyspepsia and early satiety for decades. EGD in 2010 2018 not revealing. Previous gastric emptying study borderline delay. Colonoscopy in 2010 with no pathology. Upon evaluation she is drowsy and very confused. Repeat KUB with NG tube better placed below the diaphragm and appears in stomach. Discussed with bedside patient has been continuing her home medications in addition she has been taking ibuprofen and Aleve for pain recently. She was seen by [facility] cardiology on ~09/08/2020 and prescribed Brilinta 90 mg, and losartan 25 mg spironolactone 25 mg and furosemide 20 mg twice daily Overnight 100.5F. Hb 6.4, WBC 16, BUN 101, Cr 2.1. 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 Angel protective services case worker. -Chart reviewed/ Vitals/I&O Vitals/I&O: Vital Signs Date Time Temp Pulse Resp B/P (MAP) Pulse Ox O2 Delivery O2 Flow Rate FiO2 09/22/20 11:00 97.6 91 16 158/42 (80) 94 Room Air 97.6 09/22/20 08:00 2.0 I & O 09/21/20 09/21/20 09/22/20 15:00 23:00 07:00 Intake Total 412 ml 0 ml Output Total 200 ml 800 ml Balance 412 ml -200 ml -800 ml Physical Exam General: mild distress Heart: Regular rate Abdomen: Normal bowel sounds Extremities: No clubbing, No cyanosis, No edema, Normal pulses, No tenderness/swelling Skin: No rashes, No breakdown, No significant lesion Labs Labs: Laboratory Tests Test 09/21/20 15:22 09/21/20 19:04 09/21/20 23:51 09/22/20 05:55 White Blood Count 14.2 x10^3/uL (4.0-11.0) 13.4 x10^3/uL (4.0-11.0) Red Blood Count 2.46 x10^6/uL (3.50-5.40) 2.39 x10^6/uL (3.50-5.40) Hemoglobin 7.6 g/dL (12.0-15.5) 7.5 g/dL (12.0-15.5) Hematocrit 23.9 % (36.0-47.0) 22.9 % (36.0-47.0) Mean Corpuscular Volume 97 fL (79-100) 96 fL (79-100) Mean Corpuscular Hemoglobin 31 pg (25-35) 31 pg (25-35) Mean Corpuscular Hemoglobin Concent 32 g/dL (31-37) 33 g/dL (31-37) Red Cell Distribution Width 13.8 % (11.5-14.5) 13.7 % (11.5-14.5) Platelet Count 149 x10^3/uL (140-400) 169 x10^3/uL (140-400) Glucose (Fingerstick) 163 mg/dL (70-99) 135 mg/dL (70-99) Neutrophils (%) (Auto) 81 % (31-73) Lymphocytes (%) (Auto) 12 % (24-48) Monocytes (%) (Auto) 7 % (0-9) Eosinophils (%) (Auto) 0 % (0-3) Basophils (%) (Auto) 0 % (0-3) Neutrophils # (Auto) 10.9 x10^3/uL (1.8-7.7) Lymphocytes # (Auto) 1.5 x10^3/uL (1.0-4.8) Monocytes # (Auto) 0.9 x10^3/uL (0.0-1.1) Eosinophils # (Auto) 0.0 x10^3/uL (0.0-0.7) Basophils # (Auto) 0.1 x10^3/uL (0.0-0.2) Sodium Level 146 mmol/L (136-145) Potassium Level 4.1 mmol/L (3.5-5.1) Chloride Level 109 mmol/L (98-107) Carbon Dioxide Level 30 mmol/L (21-32) Anion Gap 7 (6-14) Blood Urea Nitrogen 57 mg/dL (7-20) Creatinine 1.4 mg/dL (0.6-1.0) Estimated GFR (Cockcroft-Gault) 36.8 BUN/Creatinine Ratio 41 (6-20) Glucose Level 133 mg/dL (70-99) Calcium Level 9.0 mg/dL (8.5-10.1) Phosphorus Level 2.8 mg/dL (2.6-4.7) Magnesium Level 2.7 mg/dL (1.8-2.4) Total Bilirubin 0.3 mg/dL (0.2-1.0) Aspartate Amino Transf (AST/SGOT) 22 U/L (15-37) Alanine Aminotransferase (ALT/SGPT) 22 U/L (14-59) Alkaline Phosphatase 67 U/L (46-116) Total Protein 6.2 g/dL (6.4-8.2) Albumin 2.7 g/dL (3.4-5.0) Albumin/Globulin Ratio 0.8 (1.0-1.7) Test 09/22/20 06:00 Glucose (Fingerstick) 124 mg/dL (70-99) Review of Systems Review of Systems: Denies headache. Denies hematochezia. Assessment and Plan Assessmemt and Plan Acute blood loss anemia UGIB Acute encephalopathy UTI MARIA ELENA Uremia Sepsis Hyponatremia DM2 CAD Elevated troponins 09/22/2020: Plan 1. Continue NG to suction 2. Appreciate cardiology and GI input 3. Trend troponins 4. Sliding scale insulin 5. Continue IV PPI 6. Home meds 7. Full code 8. DVT prophylaxis 9. Labs ordered 10. PT/OT Comment Review of Relevant I have reviewed the following items brett (where applicable) has been applied. Justifications for Admission Other Justification RENE ALTMAN III DO Sep 22, 2020 11:35
[2020-09-22 12:26] LABS: HEMATOCRIT 22.4 % (36.0-47.0); HEMOGLOBIN 7.4 g/dL (12.0-15.5)
--- NOTE | 2020-09-22 12:29 | PDOC ---
Renal-Progress Notes Subjective Notes Notes NO NEW COMPLAINTS History of Present Illness Hx of present illness STABLE Vitals Vitals Vital Signs Date Time Temp Pulse Resp B/P (MAP) Pulse Ox O2 Delivery O2 Flow Rate FiO2 09/22/20 11:00 97.6 91 16 158/42 (80) 94 Room Air 97.6 09/22/20 08:00 2.0 Weight Weight [ ] I.O. Intake and Output Intake and Output 09/22/20 07:00 Intake Total 412 ml Output Total 1000 ml Balance -588 ml Intake Oral 0 ml Blood Product IV Normal Saline Flush 412 ml Output Urine Total 1000 ml # Bowel Movements 1 Labs Labs Laboratory Tests Test 09/21/20 15:22 09/21/20 19:04 09/21/20 23:51 09/22/20 05:55 White Blood Count 14.2 x10^3/uL (4.0-11.0) 13.4 x10^3/uL (4.0-11.0) Red Blood Count 2.46 x10^6/uL (3.50-5.40) 2.39 x10^6/uL (3.50-5.40) Hemoglobin 7.6 g/dL (12.0-15.5) 7.5 g/dL (12.0-15.5) Hematocrit 23.9 % (36.0-47.0) 22.9 % (36.0-47.0) Mean Corpuscular Volume 97 fL (79-100) 96 fL (79-100) Mean Corpuscular Hemoglobin 31 pg (25-35) 31 pg (25-35) Mean Corpuscular Hemoglobin Concent 32 g/dL (31-37) 33 g/dL (31-37) Red Cell Distribution Width 13.8 % (11.5-14.5) 13.7 % (11.5-14.5) Platelet Count 149 x10^3/uL (140-400) 169 x10^3/uL (140-400) Glucose (Fingerstick) 163 mg/dL (70-99) 135 mg/dL (70-99) Neutrophils (%) (Auto) 81 % (31-73) Lymphocytes (%) (Auto) 12 % (24-48) Monocytes (%) (Auto) 7 % (0-9) Eosinophils (%) (Auto) 0 % (0-3) Basophils (%) (Auto) 0 % (0-3) Neutrophils # (Auto) 10.9 x10^3/uL (1.8-7.7) Lymphocytes # (Auto) 1.5 x10^3/uL (1.0-4.8) Monocytes # (Auto) 0.9 x10^3/uL (0.0-1.1) Eosinophils # (Auto) 0.0 x10^3/uL (0.0-0.7) Basophils # (Auto) 0.1 x10^3/uL (0.0-0.2) Sodium Level 146 mmol/L (136-145) Potassium Level 4.1 mmol/L (3.5-5.1) Chloride Level 109 mmol/L (98-107) Carbon Dioxide Level 30 mmol/L (21-32) Anion Gap 7 (6-14) Blood Urea Nitrogen 57 mg/dL (7-20) Creatinine 1.4 mg/dL (0.6-1.0) Estimated GFR (Cockcroft-Gault) 36.8 BUN/Creatinine Ratio 41 (6-20) Glucose Level 133 mg/dL (70-99) Calcium Level 9.0 mg/dL (8.5-10.1) Phosphorus Level 2.8 mg/dL (2.6-4.7) Magnesium Level 2.7 mg/dL (1.8-2.4) Total Bilirubin 0.3 mg/dL (0.2-1.0) Aspartate Amino Transf (AST/SGOT) 22 U/L (15-37) Alanine Aminotransferase (ALT/SGPT) 22 U/L (14-59) Alkaline Phosphatase 67 U/L (46-116) Total Protein 6.2 g/dL (6.4-8.2) Albumin 2.7 g/dL (3.4-5.0) Albumin/Globulin Ratio 0.8 (1.0-1.7) Test 09/22/20 06:00 09/22/20 11:59 Glucose (Fingerstick) 124 mg/dL (70-99) 147 mg/dL (70-99) Micro Micro Microbiology 09/20/20 Urine Culture - Preliminary, Resulted Review of Systems Constitutional: yes: weakness, alert Ears/Nose/Throat: Yes: no symptom reported Eyes: Yes: no symptom reported Pulmonary: Yes no symptom reported Cardiovascular: Yes no symptom reported Gastrointestional: Yes: no symptom reported Genitourinary: Yes: no symptom reported Musculoskeletal: Yes: no symptom reported Psychiatric/Neurological: Yes: no symptom reported Physical Exam General Appearance: no apparent distress, febrile Respiratory: decreased breath sounds Heart: S1S2 Abdomen: bowel sounds present Extremities: pulses present, no edema Neurology: alert, confused Assessment Assessment IMP MARIA ELENA-CR IMPROVED TO 1.5 CKD STAGE 3-CR AT BASELINE NOW ANEMIA ? L ATRIAL MASS ENCEPHALOPATHY PLAN PRBC NEEDED CONT NGT START PPN HYDRATION JANELLE PENDING EGD PENDING MAX JUNIOR MD Sep 22, 2020 12:29
[2020-09-22] MEDS ORDERED: PROPOFOL 10 MG/ML (20ML) VIAL. IV ONE (12:55)
[2020-09-22 15:00] VITALS: BP 167/58
[2020-09-22] MEDS: AMINO AC 3%/ELECTROLYTE/GLYCER 1,000 ML IV SCH (15:43)
--- NOTE | 2020-09-22 18:17 | CARD ---
MR#: [id number] Date of Study: 09/21/2020 Ordering Physician: AYLA SÁNCHEZ, Referring Physician: AYLA SÁNCHEZ, Tech: Nadya Olmos ROSALES APPROVED REPORT EXAM: Two-dimensional and M-mode echocardiogram with Doppler and color Doppler. Other Information Quality : Technically LimitedHR: 94bpm INDICATION CAD 2D DIMENSIONS Left Atrium(2D)3.3 (1.6-4.0cm)IVSd0.9 (0.7-1.1cm) Aortic Root(2D)2.3 (2.0-3.7cm)LVDd4.5 (3.9-5.9cm) LVOT Diameter2.0 (1.8-2.4cm)PWd0.8 (0.7-1.1cm) LVDs3.4 (2.5-4.0cm)FS (%) 24.0 % SV43.4 mlCO4.1 L/min Aortic Valve AoV Peak Luke.178.1cm/sAoV VTI33.3cm AO Peak GR.12.7mmHgLVOT Peak Luke.117.8cm/s LVOT VTI 21.71cmAO Mean GR.8mmHg MEAGAN (VTI)2.05cm2 Mitral Valve MV E Vkmqwdep273.0cm/sMV DECEL YCLJ268li MV A Zubuujtx52.4cm/sE/A Ratio1.1 MV A Qtvkxkjz424rz TDI Lateral E' P. V5.70cm/sMedial E' P. V5.61cm/s E/Lateral E'17.5E/Medial E'17.8 Tricuspid Valve TR P. Zukvwmqq380wc/sRAP MPHOTQOT9ocCp TR Peak Gr.56fqXlKOPU01fuVx Pulmonary Vein S1 Mjzgtwtw25.8cm/sS2 Phtlmqho55.78cm/s D2 Yhnnnmuv74.8cm/s LEFT VENTRICLE The left ventricle is normal size. There is normal left ventricular wall thickness with some increase d calcification in the wall. The left ventricular systolic function is normal and the ejection fract ion is within normal range. The ejection fraction is 55 to 60% There is normal LV segmental wall phu on. The left ventricular diastolic function and filling is normal for age. The thrombus/mass appears mobile and extends from the Left Atruim to the Left Ventricle. There is no ventricular septal defect visualized. There is no left ventricular aneurysm. RIGHT VENTRICLE The right ventricle is normal size. There is normal right ventricular wall thickness. The right ventr icular systolic function is normal. ATRIA The left atrium size is normal. There is an increased echodensity in the wall of the left atrium of u ncertain significance. A possible mass cannot be excluded. The right atrium size is normal. The inter atrial septum is intact with no evidence for an atrial septal defect or patent foramen ovale as noted on 2-D or Doppler imaging. AORTIC VALVE The aortic valve is thickened but opens well. Doppler and Color Flow revealed no significant aortic r egurgitation. There is no significant aortic valvular stenosis. There is no aortic valvular vegetatio n. MITRAL VALVE The mitral valve is normal in structure and function. There is no evidence of mitral valve prolapse. There is no mitral valve stenosis. Doppler and Color Flow revealed mild mitral regurgitation. TRICUSPID VALVE The tricuspid valve is normal in structure and function. Doppler and Color Flow revealed moderate tri cuspid regurgitation. There is no tricuspid valve prolapse or vegetation. There is no tricuspid valve stenosis. PULMONIC VALVE The pulmonary valve is normal in structure and function. Doppler and Color Flow revealed no pulmonic valvular regurgitation. There is no pulmonic valvular stenosis. GREAT VESSELS The aortic root is normal in size. The IVC is normal in size and collapses >50% with inspiration. PERICARDIAL EFFUSION There is no pleural effusion. There is no evidence of significant pericardial effusion. Critical Notification Physician Notified Date: 09/21/2020 Time: 11:24 Physician Name:Jonh Critical Value: Yes Response Time:instantly Report Read Back <Conclusion> Technically difficult study. The left ventricle is normal size. The left ventricular systolic function is normal and the ejection fraction is within normal range. The ejection fraction is 55 to 60% The left atrium size is normal. There is an increased echodensity in the wall of the left atrium of uncertain significance. A possible mass cannot be excluded. Doppler and Color Flow revealed no significant aortic regurgitation. There is no significant aortic valvular stenosis. Doppler and Color Flow revealed mild mitral regurgitation. Doppler and Color Flow revealed moderate tricuspid regurgitation. Signed by : Ayla Sánchez MD Electronically Approved : 09/22/2020 18:17:03
[2020-09-22 19:00] VITALS: BP 162/78
--- NOTE | 2020-09-22 21:39 | CARD ---
MR#: [id number] Date of Study: 09/22/2020 Ordering Physician: AYLA GARCIA, Referring Physician: AYLA GARCIA, Tech: Nessa Lomeli APPROVED REPORT EXAM: Two-dimensional and M-mode echocardiogram with Doppler and color Doppler. INDICATION Cardiac Disease: CAD Thrombus LA mass/thrombus RISK FACTORS Hypertension Diabetes Reason For Test : Rule out Intracardiac Thrombus. PROCEDURE After obtaining informed consent, patient underwent transesophageal echo in the PACU. Type of Sedation : General Anesthesia Sedation was administered by Goran Jackson. Sedation was achieved with Propofol 120mg intravenously. Transesophageal probe was inserted and advanced into esophagus by Deepak Hong MD. The JANELLE was performed without complications. Throughout the procedure, the blood pressure, pulse oximetry, cardiac rhythm, and rate were monitored . The patient tolerated the procedure without adverse effects. Recovery from general anesthesia was une ventful and vital signs were stable. LEFT VENTRICLE The left ventricle is normal size. There is moderate concentric left ventricular hypertrophy. The lef t ventricular systolic function is normal and the ejection fraction is within normal range. The Eject ion Fraction is 50-55%. There is normal LV segmental wall motion. No left ventricle thrombus noted on this study. There is no left ventricular aneurysm. There is no mass noted in the left ventricle. RIGHT VENTRICLE The right ventricle is normal size. There is normal right ventricular wall thickness. The right ventr icular systolic function is normal. ATRIA The left atrium is moderately dilated. The right atrium is moderately dilated. The interatrial septum is intact with no evidence for an atrial septal defect or patent foramen ovale as noted on 2-D or Do ppler imaging. There is no thrombus noted in the left atrial appendage. AORTIC VALVE The aortic valve is normal in structure and function. Doppler and Color Flow revealed trace aortic re gurgitation. There is no significant aortic valvular stenosis. MITRAL VALVE The mitral valve is normal in structure and function. There is no evidence of mitral valve prolapse. There is no mitral valve stenosis. Doppler and Color-flow revealed mild to moderate mitral regurgitat ion. TRICUSPID VALVE The tricuspid valve is normal in structure and function. Doppler and Color Flow revealed trace tricus pid regurgitation. There is no tricuspid valve stenosis. PULMONIC VALVE The pulmonic valve is not well visualized. Doppler and Color Flow revealed trace pulmonic valvular re gurgitation. There is no pulmonic valvular stenosis. GREAT VESSELS The aortic root is normal in size. The IVC is normal in size and collapses >50% with inspiration. Critical Notification Critical Value: No <Conclusion> The left ventricular systolic function is normal and the ejection fraction is within normal range. Th e Ejection Fraction is 50-55%. There is normal LV segmental wall motion. Doppler and Color-flow revealed mild to moderate mitral regurgitation. No clear evidence of intracardiac mass. Signed by : Santiago Hong, Electronically Approved : 09/22/2020 21:38:41
[2020-09-22] MEDS: cefTRIAXone IV Push 1 GM VIAL. IVP SCH (22:07)
[2020-09-22 23:00] VITALS: BP 163/104
[2020-09-23] MEDS: MORPHINE SULFATE 4 MG/ML VIAL. IV PRN ×4 (00:19→23:57)
[2020-09-23] MEDS: METOPROLOL IV PUSH 5 MG/5 ML VIAL. IVP SCH ×5 (00:20→23:55)
[2020-09-23 03:00] VITALS: BP 182/89
[2020-09-23 03:13] LABS: BASE EXCESS ABG 1 mmol/L (-3-3); HCO3 ABG 26 mmol/L (21-28); PCO2 ABG 42 mmHg (35-46); PO2 ABG 70 mmHg (65-108); SAT O2 ABG 93 % (92-99)
[2020-09-23 03:17] LABS: FIO2 ABG 36
[2020-09-23 03:38] LABS: BASO # 0.1 x10^3/uL (0.0-0.2); BASO % 0 % (0-3); EOS # 0.2 x10^3/uL (0.0-0.7); EOS % 1 % (0-3); HEMATOCRIT 26.9 % (36.0-47.0); HEMOGLOBIN 8.7 g/dL (12.0-15.5); LYMPH # 1.7 x10^3/uL (1.0-4.8); LYMPH % 8 % (24-48); MEAN CORPUSCULAR HEMOGLOBIN 31 pg (25-35); MEAN CORPUSCULAR HGB CONC 32 g/dL (31-37); MEAN CORPUSCULAR VOLUME 96 fL (79-100); MONO # 1.4 x10^3/uL (0.0-1.1); MONO % 6 % (0-9); NEUT # 19.1 x10^3/uL (1.8-7.7); NEUT % 85 % (31-73); PLATELET COUNT 260 x10^3/uL (140-400); RED CELL DISTRIBUTION WIDTH 13.7 % (11.5-14.5); WHITE BLOOD COUNT 22.4 x10^3/uL (4.0-11.0)
[2020-09-23 03:48] LABS: ALBUMIN 2.8 g/dL (3.4-5.0); CALCIUM 9.2 mg/dL (8.5-10.1); CREATININE 1.2 mg/dL (0.6-1.0); GFR 43.9; POTASSIUM 4.6 mmol/L (3.5-5.1)
[2020-09-23] MEDS: LABETALOL 20 MG/4 ML DISP.SYRIN. IVP PRN (04:41)
[2020-09-23] MEDS: AMINO AC 3%/ELECTROLYTE/GLYCER 1,000 ML IV SCH ×2 (04:42→19:59)
[2020-09-23] MEDS ORDERED: HYDROCORTISONE SOD SUCC/PF 100 MG/2 ML VIAL. IVP ONE (05:45)
[2020-09-23] MEDS ORDERED: diphenhydrAMINE 50 MG/ML VIAL IVP ONE ×2 (05:45)
[2020-09-23] MEDS: INSULIN LISPRO 300 UNITS/3 ML VIAL. SQ SCH ×5 (06:00→23:53)
[2020-09-23 07:00] VITALS: BP 142/100
[2020-09-23] MEDS ORDERED: ALBUTEROL SULFATE 2.5 MG/3 ML NEBU. NEB PRN (07:00)
[2020-09-23] MEDS: IV 1/2 NORMAL SALINE 1,000 ML IV SCH ×2 (07:03→20:05)
[2020-09-23] MEDS: PANTOPRAZOLE IV PUSH 40 MG VIAL. IVP SCH ×2 (09:46→21:15)
[2020-09-23 11:00] VITALS: BP 159/94
--- NOTE | 2020-09-23 11:27 | PDOC ---
[employer] PROGRESS NOTE Date of Service DOS: DATE: 09/23/20 TIME: 11:22 Chief Complaint Chief Complaint Acute blood loss anemia UGIB Acute encephalopathy UTI MARIA ELENA Uremia Sepsis Hyponatremia DM2 CAD Elevated troponins History of Present Illness History of Present Illness Ms Gonzalez is a 75yo F w/ PMHx hypertension, type 2 diabetes, CAD s/p PCI (x3 in 08/2019 at [facility], then x2 11/2019) who presented to [facility] 09/19/20 c/o hematemesis. Was transfused 2u of convalescent FFP, NGT was placed, but coiled in esophagus. Vital signs on ED presentation temp 94 F, heart rate 102 bpm blood pressure 142/73. WBC 16.4, Hb 9.3, Platelets 295, Na 129, K 4, BUN 111, Cr 2.3, Glucose 291, Trop 0.061, BNP 7800, Lipase 75, Albumin 3. UDS + for opioids. UA positive leukoesterase and blood. Transferred to [facility] for GI consultation and further treatment. Per GI has had dyspepsia and early satiety for decades. EGD in 2010 2019 not revealing. Previous gastric emptying study borderline delay. Colonoscopy in 2010 with no pathology. Upon evaluation she is drowsy and very confused. Repeat KUB with NG tube better placed below the diaphragm and appears in stomach. Discussed with bedside patient has been continuing her home medications in addition she has been taking ibuprofen and Aleve for pain recently. She was seen by [facility] cardiology on ~09/08/2020 and prescribed Brilinta 90 mg, and losartan 25 mg spironolactone 25 mg and furosemide 20 mg twice daily Overnight 100.5F. Hb 6.4, WBC 16, BUN 101, Cr 2.1. 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 Angel patient case manager. -Chart reviewed. 09/23/2020 -Patient seen and examined. -Patient had rapid response last night due to hypoxia and tachycardia. Awaiting VQ scan (vs CT) -Creatinine trending down. 2.5 -> 1.2 -Angel TOMPKINS. Angel patient case manager. -Chart reviewed. Vitals/I&O Vitals/I&O: Vital Signs Date Time Temp Pulse Resp B/P (MAP) Pulse Ox O2 Delivery O2 Flow Rate FiO2 09/23/20 07:19 96 Nasal Cannula 2.0 09/23/20 07:00 97.6 102 20 142/100 (114) 97.6 I & O 09/22/20 09/22/20 09/23/20 15:00 23:00 07:00 Intake Total 350 ml 150 ml 300 ml Output Total 375 ml 550 ml 450 ml Balance -25 ml -400 ml -150 ml Physical Exam General: mild distress Heart: Regular rate Abdomen: Normal bowel sounds Extremities: No clubbing, No cyanosis, No edema, Normal pulses, No tenderness/swelling Skin: No rashes, No breakdown, No significant lesion Labs Labs: Laboratory Tests Test 09/22/20 11:50 09/22/20 11:59 09/22/20 18:21 09/23/20 00:14 Hemoglobin 7.4 g/dL (12.0-15.5) Hematocrit 22.4 % (36.0-47.0) Mean Corpuscular Hemoglobin Concent 33 g/dL (31-37) Glucose (Fingerstick) 147 mg/dL (70-99) 163 mg/dL (70-99) 160 mg/dL (70-99) Test 09/23/20 02:58 09/23/20 02:59 09/23/20 03:11 09/23/20 03:30 Glucose (Fingerstick) 249 mg/dL (70-99) 285 mg/dL (70-99) O2 Saturation 93 % (92-99) Arterial Blood pH 7.42 (7.35-7.45) Arterial Blood pCO2 at Patient Temp 42 mmHg (35-46) Arterial Blood pO2 at Patient Temp 70 mmHg (65-108) Arterial Blood HCO3 26 mmol/L (21-28) Arterial Blood Base Excess 1 mmol/L (-3-3) FiO2 36 White Blood Count 22.4 x10^3/uL (4.0-11.0) Red Blood Count 2.80 x10^6/uL (3.50-5.40) Hemoglobin 8.7 g/dL (12.0-15.5) Hematocrit 26.9 % (36.0-47.0) Mean Corpuscular Volume 96 fL (79-100) Mean Corpuscular Hemoglobin 31 pg (25-35) Mean Corpuscular Hemoglobin Concent 32 g/dL (31-37) Red Cell Distribution Width 13.7 % (11.5-14.5) Platelet Count 260 x10^3/uL (140-400) Neutrophils (%) (Auto) 85 % (31-73) Lymphocytes (%) (Auto) 8 % (24-48) Monocytes (%) (Auto) 6 % (0-9) Eosinophils (%) (Auto) 1 % (0-3) Basophils (%) (Auto) 0 % (0-3) Neutrophils # (Auto) 19.1 x10^3/uL (1.8-7.7) Lymphocytes # (Auto) 1.7 x10^3/uL (1.0-4.8) Monocytes # (Auto) 1.4 x10^3/uL (0.0-1.1) Eosinophils # (Auto) 0.2 x10^3/uL (0.0-0.7) Basophils # (Auto) 0.1 x10^3/uL (0.0-0.2) Sodium Level 143 mmol/L (136-145) Potassium Level 4.6 mmol/L (3.5-5.1) Chloride Level 106 mmol/L (98-107) Carbon Dioxide Level 28 mmol/L (21-32) Anion Gap 9 (6-14) Blood Urea Nitrogen 35 mg/dL (7-20) Creatinine 1.2 mg/dL (0.6-1.0) Estimated GFR (Cockcroft-Gault) 43.9 Glucose Level 245 mg/dL (70-99) Calcium Level 9.2 mg/dL (8.5-10.1) Phosphorus Level 3.0 mg/dL (2.6-4.7) Magnesium Level 2.2 mg/dL (1.8-2.4) Albumin 2.8 g/dL (3.4-5.0) Test 09/23/20 04:50 09/23/20 06:07 D-Dimer (Grace) 1.16 ug/mlFEU (0.00-0.50) Glucose (Fingerstick) 211 mg/dL (70-99) Review of Systems Review of Systems: Denies pain. Denies fever. Assessment and Plan Assessmemt and Plan Acute blood loss anemia UGIB Acute encephalopathy UTI MARIA ELENA Uremia Sepsis Hyponatremia DM2 CAD Elevated troponins 09/23/2020 Plan 1. Await VQ scan 2. Await EGD 3. Appreciate GI and cardiology input 4. Sliding scale insulin 5. Continue IV abx 6. Continue IV PPI 7. Home meds 8. Full code 9. DVT prophylaxis 10. Trend labs 11. PT/OT Comment Review of Relevant I have reviewed the following items brett (where applicable) has been applied. Medications: Current Medications Medications (Trade) Dose Ordered Sig/Jess Route PRN Reason Start Time Stop Time Status Last Admin Dose Admin Phenol (Chloraseptic) 1 spray PRN Q2HR PRN PO SORE THROAT 09/22/20 11:30 09/22/20 15:43 Amino Acids/ Glycerin/ Electrolytes 1,000 ml @ 80 mls/hr [id number] IV 09/22/20 12:30 09/23/20 04:42 Labetalol HCl (Normodyne Iv Push) 10 mg PRN Q10MIN PRN IVP HYPERTENSION 09/23/20 04:30 09/23/20 04:41 Hydrocortisone Sodium Succinate (Solu-CORTEF) 200 mg 1X ONCE IVP 09/23/20 05:45 09/23/20 05:46 DC 09/23/20 07:03 Sodium Chloride 1,000 ml @ 75 mls/hr [id number] IV 09/23/20 06:45 09/23/20 07:03 Albuterol Sulfate (Ventolin Neb Soln) 2.5 mg PRN Q6HRS PRN NEB SHORTNESS OF BREATH 09/23/20 07:00 09/23/20 07:16 Justifications for Admission Other Justification RENE ALTMAN III DO Sep 23, 2020 11:27
--- NOTE | 2020-09-23 12:03 | RAD ---
NM LUNG PERFUSION SCAN History:Reason: Shortness of breath./ Spl. Instructions: / History: Comparison: July 04, 2019 Findings: Perfusion examination was performed. Ventilation images not obtained due to Covid protocol. Perfusion images were acquired after the patient was injected with 5.5 mCi of technetium 99m MAA. Heterogeneous perfusion. Several small regions of perfusion defects within the right anterior lower l obe and left superior upper lobe. Moderate perfusion defect within the right anterior lower lobe. Impression: 1. Intermediate probability for pulmonary embolic disease. Electronically signed by: Tejinder Hahn DO (09/23/2020 12:00 PM) [id number]
--- NOTE | 2020-09-23 12:05 | PDOC ---
Renal-Progress Notes Subjective Notes Notes NO NEW COMPLAINTS History of Present Illness Hx of present illness STABLE Vitals Vitals Vital Signs Date Time Temp Pulse Resp B/P (MAP) Pulse Ox O2 Delivery O2 Flow Rate FiO2 09/23/20 11:00 98.2 110 18 159/94 (115) 99 Nasal Cannula 2.0 98.2 Weight Weight [ ] I.O. Intake and Output Intake and Output 09/23/20 07:00 Intake Total 800 ml Output Total 1375 ml Balance -575 ml Intake Oral 500 ml IV Total 300 ml Output Urine Total 1375 ml # Voids 2 # Bowel Movements 1 Labs Labs Laboratory Tests Test 09/22/20 18:21 09/23/20 00:14 09/23/20 02:58 09/23/20 02:59 Glucose (Fingerstick) 163 mg/dL (70-99) 160 mg/dL (70-99) 249 mg/dL (70-99) 285 mg/dL (70-99) Test 09/23/20 03:11 09/23/20 03:30 09/23/20 04:50 09/23/20 06:07 O2 Saturation 93 % (92-99) Arterial Blood pH 7.42 (7.35-7.45) Arterial Blood pCO2 at Patient Temp 42 mmHg (35-46) Arterial Blood pO2 at Patient Temp 70 mmHg (65-108) Arterial Blood HCO3 26 mmol/L (21-28) Arterial Blood Base Excess 1 mmol/L (-3-3) FiO2 36 White Blood Count 22.4 x10^3/uL (4.0-11.0) Red Blood Count 2.80 x10^6/uL (3.50-5.40) Hemoglobin 8.7 g/dL (12.0-15.5) Hematocrit 26.9 % (36.0-47.0) Mean Corpuscular Volume 96 fL (79-100) Mean Corpuscular Hemoglobin 31 pg (25-35) Mean Corpuscular Hemoglobin Concent 32 g/dL (31-37) Red Cell Distribution Width 13.7 % (11.5-14.5) Platelet Count 260 x10^3/uL (140-400) Neutrophils (%) (Auto) 85 % (31-73) Lymphocytes (%) (Auto) 8 % (24-48) Monocytes (%) (Auto) 6 % (0-9) Eosinophils (%) (Auto) 1 % (0-3) Basophils (%) (Auto) 0 % (0-3) Neutrophils # (Auto) 19.1 x10^3/uL (1.8-7.7) Lymphocytes # (Auto) 1.7 x10^3/uL (1.0-4.8) Monocytes # (Auto) 1.4 x10^3/uL (0.0-1.1) Eosinophils # (Auto) 0.2 x10^3/uL (0.0-0.7) Basophils # (Auto) 0.1 x10^3/uL (0.0-0.2) Sodium Level 143 mmol/L (136-145) Potassium Level 4.6 mmol/L (3.5-5.1) Chloride Level 106 mmol/L (98-107) Carbon Dioxide Level 28 mmol/L (21-32) Anion Gap 9 (6-14) Blood Urea Nitrogen 35 mg/dL (7-20) Creatinine 1.2 mg/dL (0.6-1.0) Estimated GFR (Cockcroft-Gault) 43.9 Glucose Level 245 mg/dL (70-99) Calcium Level 9.2 mg/dL (8.5-10.1) Phosphorus Level 3.0 mg/dL (2.6-4.7) Magnesium Level 2.2 mg/dL (1.8-2.4) Albumin 2.8 g/dL (3.4-5.0) D-Dimer (Grace) 1.16 ug/mlFEU (0.00-0.50) Glucose (Fingerstick) 211 mg/dL (70-99) Test 09/23/20 11:50 Glucose (Fingerstick) 237 mg/dL (70-99) Micro Micro Microbiology 09/20/20 Urine Culture - Final, Complete Review of Systems Constitutional: yes: weakness, alert Ears/Nose/Throat: Yes: no symptom reported Eyes: Yes: no symptom reported Pulmonary: Yes no symptom reported Cardiovascular: Yes no symptom reported Gastrointestional: Yes: no symptom reported Genitourinary: Yes: no symptom reported Musculoskeletal: Yes: no symptom reported Psychiatric/Neurological: Yes: no symptom reported Physical Exam General Appearance: no apparent distress, febrile Respiratory: decreased breath sounds Heart: S1S2 Abdomen: bowel sounds present Extremities: pulses present, no edema Neurology: alert, confused Assessment Assessment IMP MARIA ELENA-CR IMPROVED TO 1.2 CKD STAGE 3-CR AT BASELINE NOW HYPERNATREMIA-RESOLVED ANEMIA ? L ATRIAL MASS ENCEPHALOPATHY PLAN PRBC NEEDED CONT NGT STARTED PPN JANELLE TODAY EGD PENDING MAX JUNIOR MD Sep 23, 2020 12:05
--- NOTE | 2020-09-23 12:24 | PDOC ---
Date of Service: DATE: 09/23/20 TIME: 12:20 Objective: Objective: Reviewed chart. Vital Signs: Vital Signs Date Time Temp Pulse Resp B/P (MAP) Pulse Ox O2 Delivery O2 Flow Rate FiO2 09/23/20 11:00 98.2 110 18 159/94 (115) 99 Nasal Cannula 2.0 98.2 Labs: Laboratory Tests Test 09/22/20 18:21 09/23/20 00:14 09/23/20 02:58 09/23/20 02:59 Glucose (Fingerstick) 163 mg/dL (70-99) 160 mg/dL (70-99) 249 mg/dL (70-99) 285 mg/dL (70-99) Test 09/23/20 06:07 09/23/20 11:50 Glucose (Fingerstick) 211 mg/dL (70-99) 237 mg/dL (70-99) Imaging: JANELLE 09/22 <Conclusion> The left ventricular systolic function is normal and the ejection fraction is within normal range. The Ejection Fraction is 50-55%. There is normal LV segmental wall motion. Doppler and Color-flow revealed mild to moderate mitral regurgitation. No clear evidence of intracardiac mass. VQ Scan 09/23 Impression: 1. Intermediate probability for pulmonary embolic disease. PE: GEN: looks sicker today LUNGS: diminished, NC 2L HEART: tachycardic ABD: soft, non-distended NEURO/PSYCH: lethargic, mumbles A/P: SOA, elevated D-dimer UGIB (?resolved), anemia (stable) COVID negative -- EGD on hold, continue PPI. Justicifation of Admission Dx: Justifications for Admission: Justification of Admission Dx: Yes REAL FRAZIER Sep 23, 2020 12:24
[2020-09-23 15:00] VITALS: BP 147/91
--- NOTE | 2020-09-23 16:20 | RAD ---
EXAM: Bilateral lower extremity venous Doppler sonogram. HISTORY: Pain and swelling. TECHNIQUE: Bar scale and color Doppler sonographic evaluation of the bilateral lower extremity veins with spectral waveform analysis was performed. FINDINGS: There is normal color flow, normal compressibility and there are normal spectral waveforms in the lower extremity veins, with limited evaluation of the right calf veins due to patient motion. IMPRESSION: No Doppler evidence of lower extremity deep venous thrombosis, limited due to patient mot ion. Electronically signed by: Elo Hess MD (09/23/2020 4:18 PM) [id number]
--- NOTE | 2020-09-23 16:54 | PDOC ---
WANDY GARCIA PECAN SHELLER 09/23/20 1654: CARDIO Progress Notes Date and Time Date of Service 09/23/2020 Time of Evaluation 1300 Subjective Subjective: No Chest Pain, No shortness of breath, No Palpitations, Other (complains of abd pain and lower back pain) Vitals Vitals Vital Signs Date Time Temp Pulse Resp B/P (MAP) Pulse Ox O2 Delivery O2 Flow Rate FiO2 09/23/20 15:00 97.9 92 16 147/91 (109) 100 Nasal Cannula 2.0 97.9 Weight Weight [ ] Input and Output Intake and Output Intake and Output 09/23/20 07:00 Intake Total 800 ml Output Total 1375 ml Balance -575 ml Intake Oral 500 ml IV Total 300 ml Output Urine Total 1375 ml # Voids 2 # Bowel Movements 1 Laboratory Labs Laboratory Tests Test 09/22/20 18:21 09/23/20 00:14 09/23/20 02:58 09/23/20 02:59 Glucose (Fingerstick) 163 mg/dL (70-99) 160 mg/dL (70-99) 249 mg/dL (70-99) 285 mg/dL (70-99) Test 09/23/20 03:11 09/23/20 03:30 09/23/20 04:50 09/23/20 06:07 O2 Saturation 93 % (92-99) Arterial Blood pH 7.42 (7.35-7.45) Arterial Blood pCO2 at Patient Temp 42 mmHg (35-46) Arterial Blood pO2 at Patient Temp 70 mmHg (65-108) Arterial Blood HCO3 26 mmol/L (21-28) Arterial Blood Base Excess 1 mmol/L (-3-3) FiO2 36 White Blood Count 22.4 x10^3/uL (4.0-11.0) Red Blood Count 2.80 x10^6/uL (3.50-5.40) Hemoglobin 8.7 g/dL (12.0-15.5) Hematocrit 26.9 % (36.0-47.0) Mean Corpuscular Volume 96 fL (79-100) Mean Corpuscular Hemoglobin 31 pg (25-35) Mean Corpuscular Hemoglobin Concent 32 g/dL (31-37) Red Cell Distribution Width 13.7 % (11.5-14.5) Platelet Count 260 x10^3/uL (140-400) Neutrophils (%) (Auto) 85 % (31-73) Lymphocytes (%) (Auto) 8 % (24-48) Monocytes (%) (Auto) 6 % (0-9) Eosinophils (%) (Auto) 1 % (0-3) Basophils (%) (Auto) 0 % (0-3) Neutrophils # (Auto) 19.1 x10^3/uL (1.8-7.7) Lymphocytes # (Auto) 1.7 x10^3/uL (1.0-4.8) Monocytes # (Auto) 1.4 x10^3/uL (0.0-1.1) Eosinophils # (Auto) 0.2 x10^3/uL (0.0-0.7) Basophils # (Auto) 0.1 x10^3/uL (0.0-0.2) Sodium Level 143 mmol/L (136-145) Potassium Level 4.6 mmol/L (3.5-5.1) Chloride Level 106 mmol/L (98-107) Carbon Dioxide Level 28 mmol/L (21-32) Anion Gap 9 (6-14) Blood Urea Nitrogen 35 mg/dL (7-20) Creatinine 1.2 mg/dL (0.6-1.0) Estimated GFR (Cockcroft-Gault) 43.9 Glucose Level 245 mg/dL (70-99) Calcium Level 9.2 mg/dL (8.5-10.1) Phosphorus Level 3.0 mg/dL (2.6-4.7) Magnesium Level 2.2 mg/dL (1.8-2.4) Albumin 2.8 g/dL (3.4-5.0) D-Dimer (Grace) 1.16 ug/mlFEU (0.00-0.50) Glucose (Fingerstick) 211 mg/dL (70-99) Test 09/23/20 11:50 Glucose (Fingerstick) 237 mg/dL (70-99) Microbiology Micro Microbiology 09/20/20 Urine Culture - Final, Complete Review of Systems Constitutional: yes: weakness, alert Ears/Nose/Throat: Yes: no symptom reported Eyes: Yes: no symptom reported Pulmonary: Yes no symptom reported Cardiovascular: Yes no symptom reported Gastrointestional: Yes: no symptom reported Genitourinary: Yes: no symptom reported Musculoskeletal: Yes: no symptom reported Psychiatric/Neurological: Yes: no symptom reported Physical Exam HEENT: Neck Supple W Full Motion Chest: Symmetric LUNGS: Other (diminished bases) Heart: RRR (sinus tachycardia) Abdomen: Other (soft) Extremities: No Calf Tenderness Neurology: alert, follow commands, confused Assessment Assessment 1. Acute anemia: post transfusion stable at 8.7. EGD held due to PE workup 2. Mild troponin elevation: suspect demand mediated peaked at 0.128. Post JANELLE no intracardiac lesion nor thrombus, EF nml. 3. CAD: estimated PCI/11/2019 per spouse. Clinically stable 4. Reactive sinus tachycardia with intermittent PVCs: PE workup ongoing per pulmonary. No RV dilation 5. Metabolic Encephalopathy 6. MARIA ELENA: better 7. HTN: controlled 8. Possible UTI: per PCP 9. Moderate MR Recommendations 1. Presently NPO and will continue IV lopressor., She is on high dose coreg at home. Would resume once PO allowed. Also still having abdominal pain with possible ileitis per CT, GI is following 2. May hold brilinta for now. Resume ASA when clear with GI pending pulmonary workup. 3. Continue IV hydration 4. Secondary prevention when able to take PO Justicifation of Admission Dx: Justifications for Admission: Justification of Admission Dx: Yes AYLA GARCIA MD 09/23/20 1836: CARDIO Progress Notes Assessment Assessment Patient seen and examined I agree with our nurse practitioners assessment. Acute anemia: post transfusion stable at 8.7. GI following. Mild troponin elevation: suspect demand mediated peaked at 0.128. Post JANELLE no intracardiac lesion nor thrombus, EF nml. EGD now would be at moderate risk from a cardiac viewpoint CAD: estimated PCI/11/2019 per spouse. Clinically stable Reactive sinus tachycardia with intermittent PVCs: PE workup ongoing per pulmonary. No RV dilation Metabolic Encephalopathy MARIA ELENA: improved. HTN: controlled Moderate MR WANDY GARCIA SOFIA Sep 23, 2020 16:54 AYLA GARCIA MD Sep 23, 2020 18:36
[2020-09-23 19:00] VITALS: BP 149/86
[2020-09-23] MEDS ORDERED: predniSONE 20 MG TABLET PO ONE ×2 (19:30→23:00)
[2020-09-23] MEDS: cefTRIAXone IV Push 1 GM VIAL. IVP SCH (21:15)
[2020-09-23 23:00] VITALS: BP 154/97
[2020-09-24] MEDS: AMINO AC 3%/ELECTROLYTE/GLYCER 1,000 ML IV SCH ×2 (03:38→16:29)
[2020-09-24] MEDS: IV 1/2 NORMAL SALINE 1,000 ML IV SCH (03:38)
[2020-09-24] MEDS: LABETALOL 20 MG/4 ML DISP.SYRIN. IVP PRN (03:39)
[2020-09-24 03:49] VITALS: BP 156/91
[2020-09-24] MEDS: MORPHINE SULFATE 4 MG/ML VIAL. IV PRN (04:03)
[2020-09-24] MEDS: INSULIN LISPRO 300 UNITS/3 ML VIAL. SQ SCH ×3 (05:52→18:00)
[2020-09-24] MEDS: METOPROLOL IV PUSH 5 MG/5 ML VIAL. IVP SCH ×3 (05:59→18:35)
[2020-09-24] MEDS ORDERED: predniSONE 20 MG TABLET PO ONE (06:00)
[2020-09-24 07:00] VITALS: BP 170/105
[2020-09-24 07:18] LABS: BASO % 0 % (0-3); EOS % 0 % (0-3); HEMATOCRIT 23.8 % (36.0-47.0); HEMOGLOBIN 7.9 g/dL (12.0-15.5); LYMPH # 1.5 x10^3/uL (1.0-4.8); LYMPH % 7 % (24-48); MEAN CORPUSCULAR HEMOGLOBIN 32 pg (25-35); MEAN CORPUSCULAR HGB CONC 33 g/dL (31-37); MEAN CORPUSCULAR VOLUME 96 fL (79-100); MONO # 1.3 x10^3/uL (0.0-1.1); MONO % 6 % (0-9); NEUT # 18.6 x10^3/uL (1.8-7.7); NEUT % 87 % (31-73); PLATELET COUNT 224 x10^3/uL (140-400); RED BLOOD COUNT 2.49 x10^6/uL (3.50-5.40); RED CELL DISTRIBUTION WIDTH 13.9 % (11.5-14.5); WHITE BLOOD COUNT 21.4 x10^3/uL (4.0-11.0)
[2020-09-24 07:43] LABS: ALBUMIN 2.8 g/dL (3.4-5.0); CALCIUM 9.2 mg/dL (8.5-10.1); CREATININE 1.3 mg/dL (0.6-1.0); PHOSPHORUS 3.2 mg/dL (2.6-4.7); POTASSIUM 4.9 mmol/L (3.5-5.1)
--- NOTE | 2020-09-24 08:11 | PDOC ---
PROGRESS NOTES Date of Service: DATE: 09/24/20 TIME: 08:11 Chief Complaint Chief Complaint Acute blood loss anemia hypoxia, CTA CHEST PENDING UGIB Acute encephalopathy UTI MARIA ELENA Uremia Sepsis Hyponatremia DM2 CAD Elevated troponins History of Present Illness History of Present Illness Ms Gonzalez is a 75yo F w/ PMHx hypertension, type 2 diabetes, CAD s/p PCI (x3 in 08/2019 at [facility], then x2 11/2019) who presented to [facility] 09/19/20 c/o hematemesis. Was transfused 2u of convalescent FFP, NGT was placed, but coiled in esophagus. Vital signs on ED presentation temp 94 F, heart rate 102 bpm blood pressure 142/73. WBC 16.4, Hb 9.3, Platelets 295, Na 129, K 4, BUN 111, Cr 2.3, Glucose 291, Trop 0.061, BNP 7800, Lipase 75, Albumin 3. UDS + for opioids. UA positive leukoesterase and blood. Transferred to [facility] for GI consultation and further treatment. Per GI has had dyspepsia and early satiety for decades. EGD in 2010 2019 not revealing. Previous gastric emptying study borderline delay. Colonoscopy in 2010 with no pathology. Upon evaluation she is drowsy and very confused. Repeat KUB with NG tube better placed below the diaphragm and appears in stomach. Discussed with bedside patient has been continuing her home medications in addition she has been taking ibuprofen and Aleve for pain recently. She was seen by [facility] cardiology on ~09/08/2020 and prescribed Brilinta 90 mg, and losartan 25 mg spironolactone 25 mg and furosemide 20 mg twice daily Overnight 100.5F. Hb 6.4, WBC 16, BUN 101, Cr 2.1. 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 Angel case packer and sealer. -Chart reviewed. 09/24/2020 -Patient seen and examined. -Patient had rapid response 1-25 due to hypoxia and tachycardia. intermediate VQ scan, CTA CHEST TODAY, D/W DR CIFUENTES -Creatinine trending down. 2.5 -> 1.2 -Anegl TOMPKINS. Angel case packer and sealer. -Chart reviewed. 38 MIN pt exam, chart review, > 50% of time spent with exam, chart review, pt care coordination Vitals Vitals Vital Signs Date Time Temp Pulse Resp B/P (MAP) Pulse Ox O2 Delivery O2 Flow Rate FiO2 09/24/20 07:00 98.1 110 20 170/105 (126) 97 Nasal Cannula 2.0 98.1 Physical Exam General: Cooperative, mild distress, Other (confused) Heart: Regular rate, No murmurs Lungs: Other (diminished) Abdomen: Normal bowel sounds, Soft, No tenderness Extremities: No clubbing, No cyanosis, No edema, Normal pulses, No tenderness/swelling Skin: No rashes, No breakdown, No significant lesion Labs LABS Signed PATIENT: GEOFFREY GONZALEZ ACCOUNT: [id number] : 1945 LOCATION: [address] [place] [address] AGE: 75 SEX: F EXAM STATUS: ADM IN ORD. PHYSICIAN: MICAELA CHIANG MD REASON: PE WORKUP. PROCEDURE: PULMONARY PERFUSION IMG PARTIC NM LUNG PERFUSION SCAN History:Reason: Shortness of breath./ Spl. Instructions: / History: Comparison: July 04, 2019 Findings: Perfusion examination was performed. Ventilation images not obtained due to Covid protocol. Perfusion images were acquired after the patient was injected with 5.5 mCi of technetium 99m MAA. Heterogeneous perfusion. Several small regions of perfusion defects within the right anterior lower lobe and left superior upper lobe. Moderate perfusion defect within the right anterior lower lobe. Impression: 1. Intermediate probability for pulmonary embolic disease. Electronically signed by: Tejinder Trammell DO (09/23/2020 12:00 PM) [id number] DICTATED and SIGNED BY: TEJINDER TRAMMELL DO DATE: 09/23/20 [id number] Laboratory Tests Test 09/23/20 11:50 09/23/20 17:40 09/23/20 23:53 09/24/20 05:51 Glucose (Fingerstick) 237 mg/dL (70-99) 185 mg/dL (70-99) 196 mg/dL (70-99) 200 mg/dL (70-99) Test 09/24/20 05:55 White Blood Count 21.4 x10^3/uL (4.0-11.0) Red Blood Count 2.49 x10^6/uL (3.50-5.40) Hemoglobin 7.9 g/dL (12.0-15.5) Hematocrit 23.8 % (36.0-47.0) Mean Corpuscular Volume 96 fL (79-100) Mean Corpuscular Hemoglobin 32 pg (25-35) Mean Corpuscular Hemoglobin Concent 33 g/dL (31-37) Red Cell Distribution Width 13.9 % (11.5-14.5) Platelet Count 224 x10^3/uL (140-400) Neutrophils (%) (Auto) 87 % (31-73) Lymphocytes (%) (Auto) 7 % (24-48) Monocytes (%) (Auto) 6 % (0-9) Eosinophils (%) (Auto) 0 % (0-3) Basophils (%) (Auto) 0 % (0-3) Neutrophils # (Auto) 18.6 x10^3/uL (1.8-7.7) Lymphocytes # (Auto) 1.5 x10^3/uL (1.0-4.8) Monocytes # (Auto) 1.3 x10^3/uL (0.0-1.1) Eosinophils # (Auto) 0.0 x10^3/uL (0.0-0.7) Basophils # (Auto) 0.0 x10^3/uL (0.0-0.2) Sodium Level 144 mmol/L (136-145) Potassium Level 4.9 mmol/L (3.5-5.1) Chloride Level 107 mmol/L (98-107) Carbon Dioxide Level 26 mmol/L (21-32) Anion Gap 11 (6-14) Blood Urea Nitrogen 43 mg/dL (7-20) Creatinine 1.3 mg/dL (0.6-1.0) Estimated GFR (Cockcroft-Gault) 40.0 Glucose Level 182 mg/dL (70-99) Calcium Level 9.2 mg/dL (8.5-10.1) Phosphorus Level 3.2 mg/dL (2.6-4.7) Magnesium Level 2.2 mg/dL (1.8-2.4) Albumin 2.8 g/dL (3.4-5.0) Comment Review of Relevant I have reviewed the following items brett (where applicable) has been applied. Labs Laboratory Tests Test 09/22/20 11:50 09/22/20 11:59 09/22/20 18:21 09/23/20 00:14 Hemoglobin 7.4 g/dL (12.0-15.5) Hematocrit 22.4 % (36.0-47.0) Mean Corpuscular Hemoglobin Concent 33 g/dL (31-37) Glucose (Fingerstick) 147 mg/dL (70-99) 163 mg/dL (70-99) 160 mg/dL (70-99) Test 09/23/20 02:58 09/23/20 02:59 09/23/20 03:11 09/23/20 03:30 Glucose (Fingerstick) 249 mg/dL (70-99) 285 mg/dL (70-99) O2 Saturation 93 % (92-99) Arterial Blood pH 7.42 (7.35-7.45) Arterial Blood pCO2 at Patient Temp 42 mmHg (35-46) Arterial Blood pO2 at Patient Temp 70 mmHg (65-108) Arterial Blood HCO3 26 mmol/L (21-28) Arterial Blood Base Excess 1 mmol/L (-3-3) FiO2 36 White Blood Count 22.4 x10^3/uL (4.0-11.0) Red Blood Count 2.80 x10^6/uL (3.50-5.40) Hemoglobin 8.7 g/dL (12.0-15.5) Hematocrit 26.9 % (36.0-47.0) Mean Corpuscular Volume 96 fL (79-100) Mean Corpuscular Hemoglobin 31 pg (25-35) Mean Corpuscular Hemoglobin Concent 32 g/dL (31-37) Red Cell Distribution Width 13.7 % (11.5-14.5) Platelet Count 260 x10^3/uL (140-400) Neutrophils (%) (Auto) 85 % (31-73) Lymphocytes (%) (Auto) 8 % (24-48) Monocytes (%) (Auto) 6 % (0-9) Eosinophils (%) (Auto) 1 % (0-3) Basophils (%) (Auto) 0 % (0-3) Neutrophils # (Auto) 19.1 x10^3/uL (1.8-7.7) Lymphocytes # (Auto) 1.7 x10^3/uL (1.0-4.8) Monocytes # (Auto) 1.4 x10^3/uL (0.0-1.1) Eosinophils # (Auto) 0.2 x10^3/uL (0.0-0.7) Basophils # (Auto) 0.1 x10^3/uL (0.0-0.2) Sodium Level 143 mmol/L (136-145) Potassium Level 4.6 mmol/L (3.5-5.1) Chloride Level 106 mmol/L (98-107) Carbon Dioxide Level 28 mmol/L (21-32) Anion Gap 9 (6-14) Blood Urea Nitrogen 35 mg/dL (7-20) Creatinine 1.2 mg/dL (0.6-1.0) Estimated GFR (Cockcroft-Gault) 43.9 Glucose Level 245 mg/dL (70-99) Calcium Level 9.2 mg/dL (8.5-10.1) Phosphorus Level 3.0 mg/dL (2.6-4.7) Magnesium Level 2.2 mg/dL (1.8-2.4) Albumin 2.8 g/dL (3.4-5.0) Test 09/23/20 04:50 09/23/20 06:07 09/23/20 11:50 09/23/20 17:40 D-Dimer (Grace) 1.16 ug/mlFEU (0.00-0.50) Glucose (Fingerstick) 211 mg/dL (70-99) 237 mg/dL (70-99) 185 mg/dL (70-99) Test 09/23/20 23:53 09/24/20 05:51 09/24/20 05:55 Glucose (Fingerstick) 196 mg/dL (70-99) 200 mg/dL (70-99) White Blood Count 21.4 x10^3/uL (4.0-11.0) Red Blood Count 2.49 x10^6/uL (3.50-5.40) Hemoglobin 7.9 g/dL (12.0-15.5) Hematocrit 23.8 % (36.0-47.0) Mean Corpuscular Volume 96 fL (79-100) Mean Corpuscular Hemoglobin 32 pg (25-35) Mean Corpuscular Hemoglobin Concent 33 g/dL (31-37) Red Cell Distribution Width 13.9 % (11.5-14.5) Platelet Count 224 x10^3/uL (140-400) Neutrophils (%) (Auto) 87 % (31-73) Lymphocytes (%) (Auto) 7 % (24-48) Monocytes (%) (Auto) 6 % (0-9) Eosinophils (%) (Auto) 0 % (0-3) Basophils (%) (Auto) 0 % (0-3) Neutrophils # (Auto) 18.6 x10^3/uL (1.8-7.7) Lymphocytes # (Auto) 1.5 x10^3/uL (1.0-4.8) Monocytes # (Auto) 1.3 x10^3/uL (0.0-1.1) Eosinophils # (Auto) 0.0 x10^3/uL (0.0-0.7) Basophils # (Auto) 0.0 x10^3/uL (0.0-0.2) Sodium Level 144 mmol/L (136-145) Potassium Level 4.9 mmol/L (3.5-5.1) Chloride Level 107 mmol/L (98-107) Carbon Dioxide Level 26 mmol/L (21-32) Anion Gap 11 (6-14) Blood Urea Nitrogen 43 mg/dL (7-20) Creatinine 1.3 mg/dL (0.6-1.0) Estimated GFR (Cockcroft-Gault) 40.0 Glucose Level 182 mg/dL (70-99) Calcium Level 9.2 mg/dL (8.5-10.1) Phosphorus Level 3.2 mg/dL (2.6-4.7) Magnesium Level 2.2 mg/dL (1.8-2.4) Albumin 2.8 g/dL (3.4-5.0) Laboratory Tests Test 09/23/20 11:50 09/23/20 17:40 09/23/20 23:53 09/24/20 05:51 Glucose (Fingerstick) 237 mg/dL (70-99) 185 mg/dL (70-99) 196 mg/dL (70-99) 200 mg/dL (70-99) Test 09/24/20 05:55 White Blood Count 21.4 x10^3/uL (4.0-11.0) Red Blood Count 2.49 x10^6/uL (3.50-5.40) Hemoglobin 7.9 g/dL (12.0-15.5) Hematocrit 23.8 % (36.0-47.0) Mean Corpuscular Volume 96 fL (79-100) Mean Corpuscular Hemoglobin 32 pg (25-35) Mean Corpuscular Hemoglobin Concent 33 g/dL (31-37) Red Cell Distribution Width 13.9 % (11.5-14.5) Platelet Count 224 x10^3/uL (140-400) Neutrophils (%) (Auto) 87 % (31-73) Lymphocytes (%) (Auto) 7 % (24-48) Monocytes (%) (Auto) 6 % (0-9) Eosinophils (%) (Auto) 0 % (0-3) Basophils (%) (Auto) 0 % (0-3) Neutrophils # (Auto) 18.6 x10^3/uL (1.8-7.7) Lymphocytes # (Auto) 1.5 x10^3/uL (1.0-4.8) Monocytes # (Auto) 1.3 x10^3/uL (0.0-1.1) Eosinophils # (Auto) 0.0 x10^3/uL (0.0-0.7) Basophils # (Auto) 0.0 x10^3/uL (0.0-0.2) Sodium Level 144 mmol/L (136-145) Potassium Level 4.9 mmol/L (3.5-5.1) Chloride Level 107 mmol/L (98-107) Carbon Dioxide Level 26 mmol/L (21-32) Anion Gap 11 (6-14) Blood Urea Nitrogen 43 mg/dL (7-20) Creatinine 1.3 mg/dL (0.6-1.0) Estimated GFR (Cockcroft-Gault) 40.0 Glucose Level 182 mg/dL (70-99) Calcium Level 9.2 mg/dL (8.5-10.1) Phosphorus Level 3.2 mg/dL (2.6-4.7) Magnesium Level 2.2 mg/dL (1.8-2.4) Albumin 2.8 g/dL (3.4-5.0) Microbiology 09/20/20 Urine Culture - Final, Complete Medications Current Medications Sodium Chloride 1,000 ml @ 100 mls/hr Q10H IV Last administered on 09/20/20at 23:46; Start 09/20/20 at 03:00; Stop 09/21/20 at 10:18; Status DC Ondansetron HCl (Zofran) 4 mg PRN Q6HRS PRN IVP NAUSEA/VOMITING; Start 09/20/20 at 03:00 Morphine Sulfate (Morphine Sulfate) 4 mg PRN Q4HRS PRN IV PAIN Last administered on 09/24/20at 04:03; Start 09/20/20 at 03:00 Pantoprazole Sodium (PROTONIX VIAL for IV PUSH) 40 mg BID IVP Last administered on 09/23/20at 21:15; Start 09/20/20 at 03:00 Ceftriaxone Sodium (Rocephin) 1 gm Q24H IVP ; Start 09/20/20 at 03:00; Stop 09/20/20 at 03:07; Status DC Ceftriaxone Sodium (Rocephin) 1 gm Q24H IVP Last administered on 09/23/20at 21:15; Start 09/20/20 at 21:00 Metoprolol Tartrate (Lopressor Vial) 5 mg Q6HRS IVP Last administered on at 05:59; Start 09/20/20 at 07:45 Insulin Human Lispro (HumaLOG) 0-9 UNITS Q6HRS SQ Last administered on 09/23/20at 14:23; Start 09/20/20 at 07:45 Dextrose (Dextrose 50%-Water Syringe) 12.5 gm PRN Q15MIN PRN IV SEE COMMENTS; Start 09/20/20 at 07:45 Acetaminophen (Tylenol Supp) 650 mg PRN Q6HRS PRN ME MILD PAIN / TEMP > 100.3'F Last administered on 09/20/20at 10:24; Start 09/20/20 at 09:00 Nitroglycerin (Nitrostat) 0.4 mg PRN Q5MIN PRN SL CHEST PAIN; Start 09/20/20 at 14:15 Ringer's Solution 1,000 ml @ 50 mls/hr Q20H IV ; Start 09/21/20 at 07:00; Stop 09/21/20 at 18:59; Status DC Magnesium Sulfate 50 ml @ 25 mls/hr PRN DAILY PRN IV for Mag < 1.7 on am labs; Start 09/20/20 at 14:30 Ringer's Solution 1,000 ml @ 75 mls/hr [id number] IV Last administered on 09/22/20at 05:03; Start 09/21/20 at 10:30; Stop 09/22/20 at 12:31; Status DC Ringer's Solution 1,000 ml @ 50 mls/hr Q20H IV Last administered on 09/22/20at 13:42; Start 09/22/20 at 10:15; Stop 09/22/20 at 22:14; Status DC Benzocaine (Hurricaine One) 2 spray 1X ONCE MM Last administered on 09/22/20at 13:40; Start 09/22/20 at 10:30; Stop 09/22/20 at 10:31; Status DC Lidocaine HCl (Xylocaine 2% Topical 30gm Tube) 1 freddie 1X ONCE TP ; Start 09/22/20 at 10:30; Stop 09/22/20 at 10:31; Status DC Lidocaine HCl (Viscous Lidocaine) 15 ml 1X ONCE SWSW ; Start 09/22/20 at 10:30; Stop 09/22/20 at 10:31; Status DC Phenol (Chloraseptic) 1 spray PRN Q2HR PRN PO SORE THROAT Last administered on 09/22/20at 15:43; Start 09/22/20 at 11:30 Amino Acids/ Glycerin/ Electrolytes 1,000 ml @ 80 mls/hr [id number] IV Last administered on 09/24/20at 03:38; Start 09/22/20 at 12:30 Propofol (Diprivan) 200 mg STK-MED ONCE IV ; Start 09/22/20 at 12:55; Stop 09/22/20 at 12:55; Status DC Labetalol HCl (Normodyne Iv Push) 10 mg PRN Q10MIN PRN IVP HYPERTENSION Last administered on 09/24/20at 03:39; Start 09/23/20 at 04:30 Hydrocortisone Sodium Succinate (Solu-CORTEF) 200 mg 1X ONCE IVP Last administered on 09/23/20at 07:03; Start 09/23/20 at 05:45; Stop 09/23/20 at 05:46; Status DC Diphenhydramine HCl (Benadryl) 25 mg 1X ONCE IVP ; Start 09/23/20 at 05:45; Stop 09/23/20 at 05:46; Status DC Diphenhydramine HCl (Benadryl) 25 mg 1X ONCE IVP ; Start 09/23/20 at 05:45; Stop 09/23/20 at 05:46; Status DC Sodium Chloride 1,000 ml @ 75 mls/hr [id number] IV Last administered on 09/24/20at 03:38; Start 09/23/20 at 06:45 Albuterol Sulfate (Ventolin Neb Soln) 2.5 mg PRN Q6HRS PRN NEB SHORTNESS OF BREATH Last administered on 09/23/20at 07:16; Start 09/23/20 at 07:00 Prednisone (Prednisone) 20 mg 1X ONCE PO Last administered on 09/23/20at 19:51; Start 09/23/20 at 19:30; Stop 09/23/20 at 19:34; Status DC Prednisone (Prednisone) 20 mg 1X ONCE PO Last administered on 09/23/20at 22:49; Start 09/23/20 at 23:00; Stop 09/23/20 at 23:01; Status DC Prednisone (Prednisone) 20 mg 1X ONCE PO Last administered on 09/24/20at 05:59; Start 09/24/20 at 06:00; Stop 09/24/20 at 06:01; Status DC Active Scripts Active Reported Cyclobenzaprine Hcl 10 Mg Tablet 1 Tab PO QHS Carvedilol 25 Mg Tablet 12.5 Mg PO BIDWMEALS Lipitor (Atorvastatin Calcium) 80 Mg Tablet 1 Tab PO HS Aspirin Ec (Aspirin) 81 Mg Tablet.dr 1 Tab PO DAILY Acetaminophen 325 Mg Tablet 2 Tab PO PRN DAILY PRN 30 Days Zyrtec (Cetirizine Hcl) 10 Mg Tablet 1 Tab PO DAILY Norvasc (Amlodipine Besylate) 10 Mg Tablet 10 Mg PO DAILY Nitrostat (Nitroglycerin) 0.4 Mg Tab.subl 0.4 Mg SL PRN Q5MIN PRN Clopidogrel (Clopidogrel Bisulfate) 75 Mg Tablet 1 Tab PO DAILY Percocet 10-325 Mg Tablet (Oxycodone/Acetaminophen) 1 Each Tablet 1 Tab PO Q4-6HRS Gabapentin (Gabapentin) 300 Mg Capsule 1 Cap PO HS Vitals/I & O Vital Sign - Last 24 Hours 09/23/20 09/23/20 09/23/20 09/23/20 11:00 14:12 14:13 15:00 Temp 98.2 97.9 98.2 97.9 Pulse 110 110 92 Resp 18 20 16 B/P (MAP) 159/94 (115) 159/94 147/91 (109) Pulse Ox 99 94 100 O2 Delivery Nasal Cannula Nasal Cannula Nasal Cannula O2 Flow Rate 2.0 2.0 2.0 09/23/20 09/23/20 09/23/20 09/23/20 19:00 19:39 19:44 20:00 Temp 99.3 99.3 Pulse 90 111 Resp 18 20 B/P (MAP) 149/86 (107) 165/81 Pulse Ox 98 O2 Delivery Nasal Cannula Room Air 09/23/20 09/23/20 09/23/20 09/23/20 20:14 23:00 23:55 23:57 Temp 99.4 99.4 Pulse 117 116 Resp 20 20 18 B/P (MAP) 154/97 (116) 168/90 Pulse Ox 99 99 98 O2 Delivery Room Air Room Air O2 Flow Rate 2.0 2.0 09/24/20 09/24/20 09/24/20 09/24/20 00:27 03:39 03:49 04:03 Temp 98.9 98.9 Pulse 124 107 Resp 20 20 20 B/P (MAP) 176/89 156/91 (112) Pulse Ox 99 99 99 O2 Delivery Room Air Nasal Cannula Room Air O2 Flow Rate 2.0 2.0 2.0 09/24/20 09/24/20 05:59 07:00 Temp 98.1 98.1 Pulse 112 110 Resp 20 B/P (MAP) 166/109 170/105 (126) Pulse Ox 97 O2 Delivery Nasal Cannula O2 Flow Rate 2.0 Intake and Output0 09/23/20 09/23/20 09/24/20 15:00 23:00 07:00 Intake Total 0 ml Output Total 450 ml 200 ml 200 ml Balance -450 ml -200 ml -200 ml Nutrition Consultation Dietary Evaluation: Recommendations by RD: Dietary education by RD, PPN/TPN Comments: REC continue PPN for short term nutrition until able to advance diet REC ADA/Cardiac diet per PMH when able with glucerna supplements Expected Outcomes/Goals: diet adv/ tolerance to meet >75% est nutr needs via po intake Malnutrition Findings: Food and Nutrition Intake (Sev: <50% est energy req 5days Weight Status: Appropriate Justicifation of Admission Dx: Justifications for Admission: Justification of Admission Dx: Yes CHRISTIAN CAMARGO MD Sep 24, 2020 08:11
[2020-09-24] MEDS: PANTOPRAZOLE IV PUSH 40 MG VIAL. IVP SCH ×2 (08:23→21:13)
--- NOTE | 2020-09-24 08:50 | CONS ---
DATE OF CONSULTATION: PULMONARY CONSULTATION ATTENDING PHYSICIAN: Dr. Garvin. REASON FOR CONSULTATION: Dyspnea, abnormal perfusion scan. HISTORY OF PRESENT ILLNESS: The patient is a 75-year-old female who has multiple chronic medical problems including history of type 2 diabetes, history of hypertension, CAD. She was admitted to the hospital with GI bleed and possible UTI. Her hemoglobin was as low as 6.4. She received packed RBCs. The patient had an episode of dyspnea the night before. As a result primary care physician ordered a perfusion scan only. There was no ventilation scan performed. The perfusion scan showed intermediate probability for pulmonary embolic disease. There were small perfusion defects in the right lower and superior upper lobe and also in the right lower lobe. The patient had venous Dopplers, which did not show any evidence of DVT. SHE HAS ALLERGY TO IV DYE. As a result, CTA chest was not performed. At present, she is comfortable on 2 liters of oxygen saturation of 97%. No shortness of breath. Unable to obtain much history from the patient due to her dementia. PAST MEDICAL HISTORY: Significant for hypertension, type 2 diabetes, CAD, multiple stents, history of gastrointestinal bleed. PAST SURGICAL HISTORY: Hysterectomy, and multiple others as listed in the H and P. FAMILY HISTORY: CAD and CVA. SOCIAL HISTORY: Nonsmoker at present. ALLERGIES: IV DYE AND CLARITHROMYCIN. MEDICATIONS: Reviewed as listed in the MRAD. PHYSICAL EXAMINATION: GENERAL: She is in no obvious respiratory distress. VITAL SIGNS: Blood pressure stable, pulse ox 97% on 2 liters. NECK: Supple. LUNGS: Clear. CARDIOVASCULAR: With a regular rate. ABDOMEN: Soft. EXTREMITIES: With no pitting edema. LABORATORY DATA: Reviewed. D-dimer 1.1. BUN 43, creatinine 1.3. White cell count 21.4, hemoglobin 7.9, platelets are 224. IMPRESSION: 1. Acute hypoxic respiratory failure. This could be secondary to multifactorial etiologies. Clinically, low suspicion for pulmonary embolism. Only perfusion scan was only done and it shows perfusion abnormalities and without the ventilation scan, it is difficult to assess for any thromboembolic disease. Her venous Dopplers are negative. At this time, she is on a premedication protocol for CTA chest, which will be scheduled today. In the setting of GI bleed, I would hold off on any full anticoagulation until CTA chest is done. 2. Rule out other causes of hypoxia such as congestive heart failure or pneumonia. Await CTA chest. 3. Underlying dementia. 4. Recent gastrointestinal bleed. Followed by GI. No endoscopy has been done. RECOMMENDATIONS: 1. Continue present oxygen. 2. Discussed with RN/ Fullbright. Awaiting CTA chest with premedication protocol. 3. Follow hemoglobin closely. 4. Her previous EGD in 2019 was unrevealing. 5. We will follow along with you. IFTIKHAR CIFUENTES MD DR: CAIO/adrienne JOB#: [id number] / [id number] ROGER
--- NOTE | 2020-09-24 09:40 | PDOC ---
Date of Service: DATE: 09/24/20 TIME: 09:36 Subjective: Subjective: Not much history from her - ?abd pain? Objective: Objective: D/w nurse - plans for CT angio today, had pre-treatment. No bleeding. Vital Signs: Vital Signs Date Time Temp Pulse Resp B/P (MAP) Pulse Ox O2 Delivery O2 Flow Rate FiO2 09/24/20 07:00 98.1 110 20 170/105 (126) 97 Nasal Cannula 2.0 98.1 Labs: Laboratory Tests Test 09/23/20 11:50 09/23/20 17:40 09/23/20 23:53 09/24/20 05:51 Glucose (Fingerstick) 237 mg/dL (70-99) 185 mg/dL (70-99) 196 mg/dL (70-99) 200 mg/dL (70-99) Imaging: LE Doppler 09/23 IMPRESSION: No Doppler evidence of lower extremity deep venous thrombosis, limited due to patient motion. PE: GEN: chronically ill LUNGS: diminished anteriorly, adjust NC appropriately HEART: tachycardic ABD: soft, BS+, periumbilical discomfort? NEURO/PSYCH: awake, mumbling/moaning A/P: SOA, elevated D-dimer Anemia, UGIB - EGD on hold COVID negative09/20 -- Plans for more chest imaging, await this. Continue PPI. Justicifation of Admission Dx: Justifications for Admission: Justification of Admission Dx: Yes REAL FRAZIER Sep 24, 2020 09:40
[2020-09-24 11:00] VITALS: BP 185/122
[2020-09-24] MEDS ORDERED: IOHEXOL 350 MG/ML 100 ML VIAL. IV ONE (11:00)
[2020-09-24] MEDS ORDERED: CONTRAST GIVEN. MC PRN (11:00)
[2020-09-24] MEDS ORDERED: diphenhydrAMINE 50 MG/ML VIAL IV ONE (11:30)
[2020-09-24] MEDS ORDERED: diphenhydrAMINE HCL 25 MG CAPSULE PO ONE (11:30)
--- NOTE | 2020-09-24 12:18 | PDOC ---
CARDIO Progress Notes Date and Time Date of Service 09/24/2020 Time of Evaluation 1150 Subjective Subjective: No Chest Pain, No shortness of breath, No Palpitations Vitals Vitals Vital Signs Date Time Temp Pulse Resp B/P (MAP) Pulse Ox O2 Delivery O2 Flow Rate FiO2 09/24/20 11:16 185/122 09/24/20 11:00 99.1 124 20 95 Nasal Cannula 2.0 99.1 Weight Weight [ ] Input and Output Intake and Output Intake and Output 09/24/20 07:00 Intake Total 0 ml Output Total 850 ml Balance -850 ml Intake Oral 0 ml Output Urine Total 850 ml Laboratory Labs Laboratory Tests Test 09/23/20 17:40 09/23/20 23:53 09/24/20 05:51 09/24/20 05:55 Glucose (Fingerstick) 185 mg/dL (70-99) 196 mg/dL (70-99) 200 mg/dL (70-99) White Blood Count 21.4 x10^3/uL (4.0-11.0) Red Blood Count 2.49 x10^6/uL (3.50-5.40) Hemoglobin 7.9 g/dL (12.0-15.5) Hematocrit 23.8 % (36.0-47.0) Mean Corpuscular Volume 96 fL (79-100) Mean Corpuscular Hemoglobin 32 pg (25-35) Mean Corpuscular Hemoglobin Concent 33 g/dL (31-37) Red Cell Distribution Width 13.9 % (11.5-14.5) Platelet Count 224 x10^3/uL (140-400) Neutrophils (%) (Auto) 87 % (31-73) Lymphocytes (%) (Auto) 7 % (24-48) Monocytes (%) (Auto) 6 % (0-9) Eosinophils (%) (Auto) 0 % (0-3) Basophils (%) (Auto) 0 % (0-3) Neutrophils # (Auto) 18.6 x10^3/uL (1.8-7.7) Lymphocytes # (Auto) 1.5 x10^3/uL (1.0-4.8) Monocytes # (Auto) 1.3 x10^3/uL (0.0-1.1) Eosinophils # (Auto) 0.0 x10^3/uL (0.0-0.7) Basophils # (Auto) 0.0 x10^3/uL (0.0-0.2) Sodium Level 144 mmol/L (136-145) Potassium Level 4.9 mmol/L (3.5-5.1) Chloride Level 107 mmol/L (98-107) Carbon Dioxide Level 26 mmol/L (21-32) Anion Gap 11 (6-14) Blood Urea Nitrogen 43 mg/dL (7-20) Creatinine 1.3 mg/dL (0.6-1.0) Estimated GFR (Cockcroft-Gault) 40.0 Glucose Level 182 mg/dL (70-99) Calcium Level 9.2 mg/dL (8.5-10.1) Phosphorus Level 3.2 mg/dL (2.6-4.7) Magnesium Level 2.2 mg/dL (1.8-2.4) Albumin 2.8 g/dL (3.4-5.0) Test 09/24/20 11:49 Glucose (Fingerstick) 221 mg/dL (70-99) Microbiology Micro Microbiology 09/20/20 Urine Culture - Final, Complete Review of Systems Constitutional: yes: weakness, alert Ears/Nose/Throat: Yes: no symptom reported Eyes: Yes: no symptom reported Pulmonary: Yes no symptom reported Cardiovascular: Yes no symptom reported Gastrointestional: Yes: no symptom reported Genitourinary: Yes: no symptom reported Musculoskeletal: Yes: no symptom reported Psychiatric/Neurological: Yes: no symptom reported Physical Exam HEENT: Neck Supple W Full Motion Chest: Symmetric LUNGS: Other (diminished bases) Heart: RRR (sinus tachycardia) Abdomen: Other (soft) Extremities: No Edema, No Calf Tenderness, Other (pale) Neurology: confused (drowsy) Assessment Assessment 1. Acute anemia: post transfusion, Hgb at 7.9. EGD held due to PE workup 2. Mild troponin elevation: suspect demand mediated peaked at 0.128. Post JANELLE no intracardiac lesion nor thrombus, EF nml. 3. CAD: estimated PCI/11/2019 per spouse. Clinically stable 4. Reactive sinus tachycardia with intermittent PVCs: PE workup ongoing per pulmonary. No RV dilation. HR 110-120s 5. Metabolic Encephalopathy 6. MARIA ELENA: better 7. HTN: controlled 8. Possible UTI: per PCP 9. Moderate MR 10. Abdominal pain with possible ileitis: no diarrhea currently. GI following Recommendations 1. Presently NPO and will continue IV lopressor., She is on high dose coreg at home. Would resume once PO allowed 2. May hold brilinta for now. Resume ASA when clear with GI pending pulmonary workup. 3. Continue IV hydration 4. Secondary prevention when able to take PO 5. Being prepped for iodine allergy, awaiting CTA chest today 6. Supportive care Justicifation of Admission Dx: Justifications for Admission: Justification of Admission Dx: Yes WANDY GARCIA BREAKER LAYER Sep 24, 2020 12:18
--- NOTE | 2020-09-24 12:32 | RAD ---
CT angiography of the chest 09/24/2020 11:12 AM Indication: Reason: increased ddimer, SOA / Spl. Instructions: omni 350 80ml 5N [phone] / Histor y: Technique: Multiple contiguous axial images were obtained through the chest after administration of i ntravenous iodinated contrast. Coronal, sagittal, and 3-D MIP reformations were created. Comparison: Chest radiograph July 04, 2019 Findings: There is no filling defect within central pulmonary arteries or evidence of acute pulmonary embolism. The heart is enlarged. No significant pericardial effusion is identified. Dense calcification of the coronary arteries is noted. No pathologically enlarged mediastinal or below is appreciated. There is a small left and moderate right pleural effusion. There is no pneumothorax. Patchy groundgla ss infiltrates are present throughout all of the lungs is somewhat Hilar and central distribution. The appearance favors pulmonary edema possibly in the setting of enmanuel estive failure. An atypical or viral infectious process however cannot be excluded on the basis of th is exam alone. Limited visualization of the upper abdomen demonstrates no acute abnormalities. Exagge rated thoracic kyphosis noted. But appears to be degenerative fusion is seen. Evaluation is limited b ased on exam technique. IMPRESSION: 1. No evidence of acute pulmonary embolism 2. Small left and moderate right pleural effusion 3. Patchy groundglass infiltrates throughout the bilateral lungs. Cardiomegaly. Constellation of find ings favor pulmonary edema however an atypical or viral infectious process cannot be excluded. CT DOSING PQRS STATEMENT: One or more of the following individualized dose reduction techniques were utilized for this examinat ion: 1. Automated exposure control 2. Adjustment of the mA and/or kV according to patient size 3. Use of iterative reconstruction technique Electronically signed by: Pascual Edmond MD (09/24/2020 12:30 PM) [id number]
--- NOTE | 2020-09-24 13:05 | NUR ---
SW following this BPCI patient today. Pt remains on 02. Pt on IV Rocephin, COVID negative. Pt on a clear liquid diet. PT/OT to evaluate.
--- NOTE | 2020-09-24 13:30 | NUR ---
PATIENTS' RESULTS OF CTA REVEALS SMALL LEFT PLEURAL EFFUSION, GROUND GLASS INFILTRATES BILAT. LUNGS BUT NEGATIVE FOR PE.
--- NOTE | 2020-09-24 13:33 | PDOC ---
Renal-Progress Notes Subjective Notes Notes NO NEW COMPLAINTS History of Present Illness Hx of present illness STABLE Vitals Vitals Vital Signs Date Time Temp Pulse Resp B/P (MAP) Pulse Ox O2 Delivery O2 Flow Rate FiO2 09/24/20 11:16 185/122 09/24/20 11:00 99.1 124 20 95 Nasal Cannula 2.0 99.1 Weight Weight [ ] I.O. Intake and Output Intake and Output 09/24/20 07:00 Intake Total 0 ml Output Total 850 ml Balance -850 ml Intake Oral 0 ml Output Urine Total 850 ml Labs Labs Laboratory Tests Test 09/23/20 17:40 09/23/20 23:53 09/24/20 05:51 09/24/20 05:55 Glucose (Fingerstick) 185 mg/dL (70-99) 196 mg/dL (70-99) 200 mg/dL (70-99) White Blood Count 21.4 x10^3/uL (4.0-11.0) Red Blood Count 2.49 x10^6/uL (3.50-5.40) Hemoglobin 7.9 g/dL (12.0-15.5) Hematocrit 23.8 % (36.0-47.0) Mean Corpuscular Volume 96 fL (79-100) Mean Corpuscular Hemoglobin 32 pg (25-35) Mean Corpuscular Hemoglobin Concent 33 g/dL (31-37) Red Cell Distribution Width 13.9 % (11.5-14.5) Platelet Count 224 x10^3/uL (140-400) Neutrophils (%) (Auto) 87 % (31-73) Lymphocytes (%) (Auto) 7 % (24-48) Monocytes (%) (Auto) 6 % (0-9) Eosinophils (%) (Auto) 0 % (0-3) Basophils (%) (Auto) 0 % (0-3) Neutrophils # (Auto) 18.6 x10^3/uL (1.8-7.7) Lymphocytes # (Auto) 1.5 x10^3/uL (1.0-4.8) Monocytes # (Auto) 1.3 x10^3/uL (0.0-1.1) Eosinophils # (Auto) 0.0 x10^3/uL (0.0-0.7) Basophils # (Auto) 0.0 x10^3/uL (0.0-0.2) Sodium Level 144 mmol/L (136-145) Potassium Level 4.9 mmol/L (3.5-5.1) Chloride Level 107 mmol/L (98-107) Carbon Dioxide Level 26 mmol/L (21-32) Anion Gap 11 (6-14) Blood Urea Nitrogen 43 mg/dL (7-20) Creatinine 1.3 mg/dL (0.6-1.0) Estimated GFR (Cockcroft-Gault) 40.0 Glucose Level 182 mg/dL (70-99) Calcium Level 9.2 mg/dL (8.5-10.1) Phosphorus Level 3.2 mg/dL (2.6-4.7) Magnesium Level 2.2 mg/dL (1.8-2.4) Albumin 2.8 g/dL (3.4-5.0) Test 09/24/20 11:49 Glucose (Fingerstick) 221 mg/dL (70-99) Micro Micro Microbiology 09/20/20 Urine Culture - Final, Complete Review of Systems Constitutional: yes: weakness, alert Ears/Nose/Throat: Yes: no symptom reported Eyes: Yes: no symptom reported Pulmonary: Yes no symptom reported Cardiovascular: Yes no symptom reported Gastrointestional: Yes: no symptom reported Genitourinary: Yes: no symptom reported Musculoskeletal: Yes: no symptom reported Psychiatric/Neurological: Yes: no symptom reported Physical Exam General Appearance: no apparent distress, febrile Respiratory: decreased breath sounds Heart: S1S2 Abdomen: bowel sounds present Extremities: pulses present, no edema Neurology: confused (drowsy) Assessment Assessment IMP MARIA ELENA-CR IMPROVED TO 1.3 CKD STAGE 3-CR AT BASELINE NOW HYPERNATREMIA-RESOLVED ANEMIA ? L ATRIAL MASS ENCEPHALOPATHY PLAN PRBC NEEDED CONT NGT PPN JANELLE TODAY EGD PENDING MAX JUNIOR MD Sep 24, 2020 13:33
[2020-09-24 15:00] VITALS: BP 173/100
--- NOTE | 2020-09-24 15:35 | NUR ---
PATIENTS' HERE AT THE BEDSIDE, PATIENT ASSISTED UP TO RECLINER AT THE BEDSIDE WITH ASSIST OF TWO PHYSICAL THERAPIST, PATIENT MORE ALERT AT THIS TIME AND VERBAL WELL, RECOGNIZED AT THE BEDSIDE.
[2020-09-24 19:00] VITALS: BP 146/78
[2020-09-24] MEDS: cefTRIAXone IV Push 1 GM VIAL. IVP SCH (21:13)
[2020-09-24 23:00] VITALS: BP 155/85
[2020-09-25] MEDS: METOPROLOL IV PUSH 5 MG/5 ML VIAL. IVP SCH ×5 (00:10→23:44)
[2020-09-25 03:25] VITALS: BP 174/100
[2020-09-25] MEDS: AMINO AC 3%/ELECTROLYTE/GLYCER 1,000 ML IV SCH (05:43)
[2020-09-25] MEDS: INSULIN LISPRO 300 UNITS/3 ML VIAL. SQ SCH ×5 (06:00→23:49)
[2020-09-25 07:00] VITALS: BP 176/95
[2020-09-25] MEDS ORDERED: IV RINGERS,LACTATED 1000ML 1,000 ML IV SCH (07:00)
[2020-09-25] MEDS: LABETALOL 20 MG/4 ML DISP.SYRIN. IVP PRN (07:43)
[2020-09-25] MEDS ORDERED: IV RINGERS,LACTATED 1000ML 1,000 ML IV ONE (08:45)
[2020-09-25] MEDS: PANTOPRAZOLE IV PUSH 40 MG VIAL. IVP SCH ×2 (08:45→20:38)
--- NOTE | 2020-09-25 09:05 | PDOC ---
PROGRESS NOTES Date of Service: DATE: 09/25/20 TIME: 09:05 Chief Complaint Chief Complaint IMPRESSION Acute blood loss anemia hypoxia, CTA CHEST NEG PE echodensity in the wall of the left atrium of uncertain significance. A possible mass cannot be excluded., CARDIOLOGY CONSULT // transesophageal echo no thrombus, UGIB Acute METABOLIC encephalopathy, NEUROLOGY CONSULT, CT HEAD STAT 09-25 , NH4, PT/INR UTI MARIA ELENA Uremia Sepsis, ID CONSULT 09-25 Hyponatremia, NEPHROLOGY FOLLOWING DM2 CAD Elevated troponins ELECTROLYTE DISTURBANCE, NEPHROLOGY FOLLOWING, AM , PM CORTISOL 09-25 MORE LETHARGIC NEW CHG FROM 09-24 CT HEAD, STAT NH4 D/W DR BURR IN [place], CONSULT NEUROLOGY TODAY History of Present Illness History of Present Illness Ms Gonzalez is a 75yo F w/ PMHx hypertension, type 2 diabetes, CAD s/p PCI (x3 in 08/2019 at [facility], then x2 11/2019) who presented to [facility] 09/19/20 c/o hematemesis. Was transfused 2u of convalescent FFP, NGT was placed, but coiled in esophagus. Vital signs on ED presentation temp 94 F, heart rate 102 bpm blood pressure 142/73. WBC 16.4, Hb 9.3, Platelets 295, Na 129, K 4, BUN 111, Cr 2.3, Glucose 291, Trop 0.061, BNP 7800, Lipase 75, Albumin 3. UDS + for opioids. UA positive leukoesterase and blood. Transferred to [facility] for GI consultation and further treatment. Per GI has had dyspepsia and early satiety for decades. EGD in 2010 2018 not revealing. Previous gastric emptying study borderline delay. Colonoscopy in 2010 with no pathology. Upon evaluation she is drowsy and very confused. Repeat KUB with NG tube better placed below the diaphragm and appears in stomach. Discussed with bedside patient has been continuing her home medications in addition she has been taking ibuprofen and Aleve for pain recently. She was seen by [facility] cardiology on ~09/08/2020 and prescribed Brilinta 90 mg, and losartan 25 mg spironolactone 25 mg and furosemide 20 mg twice daily Overnight 100.5F. Hb 6.4, WBC 16, BUN 101, Cr 2.1. 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 Angel patient case coordinator. -Chart reviewed. 09/25/2020 -Patient seen and examined. -Patient had rapid response 09-22 due to hypoxia and tachycardia. intermediate VQ scan, CTA CHEST NEG , D/W DR CIFUENTES, DR BURR -Creatinine trending down. 2.5 -> 1.2 -Angel RN. Angel patient case coordinator. -Chart reviewed. 37 MIN pt exam, chart review CC TIME, > 50% of time spent with exam, chart review, pt care coordination Vitals Vitals Vital Signs Date Time Temp Pulse Resp B/P (MAP) Pulse Ox O2 Delivery O2 Flow Rate FiO2 09/25/20 07:43 135 186/89 09/25/20 07:00 98.8 26 98 Nasal Cannula 2.0 98.8 Physical Exam Physical Exam SITTING BEDSIDE CHAIR, NOT RESPONDING TO COMMANDS, LETHARGIC General: Cooperative, mild distress, Other (confused, NOW LETHARGIC ) Heart: Regular rate, No murmurs Lungs: Clear, Other (diminished) Abdomen: Normal bowel sounds, Soft, No tenderness Extremities: No clubbing, No cyanosis, No edema, Normal pulses, No tenderness/swelling Skin: No rashes, No breakdown, No significant lesion Labs LABS APPROVED REPORT EXAM: Two-dimensional and M-mode echocardiogram with Doppler and color Doppler. Other Information Quality : Technically Limited HR: 94bpm INDICATION CAD 2D DIMENSIONS Left Atrium(2D) 3.3 (1.6-4.0cm) IVSd 0.9 (0.7-1.1cm) Aortic Root(2D) 2.3 (2.0-3.7cm) LVDd 4.5 (3.9-5.9cm) LVOT Diameter 2.0 (1.8-2.4cm) PWd 0.8 (0.7-1.1cm) LVDs 3.4 (2.5-4.0cm) FS (%) 24.0 % SV 43.4 ml CO 4.1 L/min Aortic Valve AoV Peak Luke. 178.1cm/s AoV VTI 33.3cm AO Peak GR. 12.7mmHg LVOT Peak Luke. 117.8cm/s LVOT VTI 21.71cm AO Mean GR. 8mmHg MEAGAN (VTI) 2.05cm2 Mitral Valve MV E Velocity 100.0cm/s MV DECEL TIME 243ms MV A Velocity 92.4cm/s E/A Ratio 1.1 MV A Duration 115ms TDI Lateral E' P. V 5.70cm/s Medial E' P. V 5.61cm/s E/Lateral E' 17.5 E/Medial E' 17.8 Tricuspid Valve TR P. Velocity 348cm/s RAP ESTIMATE 5mmHg TR Peak Gr. 48mmHg RVSP 53mmHg Pulmonary Vein S1 Velocity 35.8cm/s S2 Velocity 28.78cm/s D2 Velocity 28.8cm/s LEFT VENTRICLE The left ventricle is normal size. There is normal left ventricular wall thickness with some increased calcification in the wall. The left ventricular systolic function is normal and the ejection fraction is within normal range. The ejection fraction is 55 to 60% There is normal LV segmental wall motion. The left ventricular diastolic function and filling is normal for age. The thrombus/mass appears mobile and extends from the Left Atruim to the Left Ventricle. There is no ventricular septal defect visualized. There is no left ventricular aneurysm. RIGHT VENTRICLE The right ventricle is normal size. There is normal right ventricular wall thickness. The right ventricular systolic function is normal. ATRIA The left atrium size is normal. There is an increased echodensity in the wall of the left atrium of uncertain significance. A possible mass cannot be excluded. The right atrium size is normal. The interatrial septum is intact with no evidence for an atrial septal defect or patent foramen ovale as noted on 2-D or Doppler imaging. AORTIC VALVE The aortic valve is thickened but opens well. Doppler and Color Flow revealed no significant aortic regurgitation. There is no significant aortic valvular stenosis. There is no aortic valvular vegetation. MITRAL VALVE The mitral valve is normal in structure and function. There is no evidence of mitral valve prolapse. There is no mitral valve stenosis. Doppler and Color Flow revealed mild mitral regurgitation. TRICUSPID VALVE The tricuspid valve is normal in structure and function. Doppler and Color Flow revealed moderate tricuspid regurgitation. There is no tricuspid valve prolapse or vegetation. There is no tricuspid valve stenosis. PULMONIC VALVE The pulmonary valve is normal in structure and function. Doppler and Color Flow revealed no pulmonic valvular regurgitation. There is no pulmonic valvular stenosis. GREAT VESSELS The aortic root is normal in size. The IVC is normal in size and collapses >50% with inspiration. PERICARDIAL EFFUSION There is no pleural effusion. There is no evidence of significant pericardial effusion. Critical Notification Physician Notified Date: 09/21/2020 Time: 11:24 Physician Name:Jonh Critical Value: Yes Response Time:instantly Report Read Back <Conclusion> Technically difficult study. The left ventricle is normal size. The left ventricular systolic function is normal and the ejection fraction is within normal range. The ejection fraction is 55 to 60% The left atrium size is normal. There is an increased echodensity in the wall of the left atrium of uncertain significance. A possible mass cannot be excluded. Doppler and Color Flow revealed no significant aortic regurgitation. There is no significant aortic valvular stenosis. Doppler and Color Flow revealed mild mitral regurgitation. Doppler and Color Flow revealed moderate tricuspid regurgitation. Signed by : Ayla Sánchez MD Electronically Approved : 09/22/2020 18:17:03 DICTATED and SIGNED BY: AYLA SÁNCHEZ MD DATE: 09/21/20 [id number] Laboratory Tests Test 09/24/20 11:49 09/24/20 18:33 09/24/20 23:53 09/25/20 05:58 Glucose (Fingerstick) 221 mg/dL (70-99) 162 mg/dL (70-99) 176 mg/dL (70-99) 183 mg/dL (70-99) Comment Review of Relevant I have reviewed the following items brett (where applicable) has been applied. Labs Laboratory Tests Test 09/23/20 11:50 09/23/20 17:40 09/23/20 23:53 09/24/20 05:51 Glucose (Fingerstick) 237 mg/dL (70-99) 185 mg/dL (70-99) 196 mg/dL (70-99) 200 mg/dL (70-99) Test 09/24/20 05:55 09/24/20 11:49 09/24/20 18:33 09/24/20 23:53 White Blood Count 21.4 x10^3/uL (4.0-11.0) Red Blood Count 2.49 x10^6/uL (3.50-5.40) Hemoglobin 7.9 g/dL (12.0-15.5) Hematocrit 23.8 % (36.0-47.0) Mean Corpuscular Volume 96 fL (79-100) Mean Corpuscular Hemoglobin 32 pg (25-35) Mean Corpuscular Hemoglobin Concent 33 g/dL (31-37) Red Cell Distribution Width 13.9 % (11.5-14.5) Platelet Count 224 x10^3/uL (140-400) Neutrophils (%) (Auto) 87 % (31-73) Lymphocytes (%) (Auto) 7 % (24-48) Monocytes (%) (Auto) 6 % (0-9) Eosinophils (%) (Auto) 0 % (0-3) Basophils (%) (Auto) 0 % (0-3) Neutrophils # (Auto) 18.6 x10^3/uL (1.8-7.7) Lymphocytes # (Auto) 1.5 x10^3/uL (1.0-4.8) Monocytes # (Auto) 1.3 x10^3/uL (0.0-1.1) Eosinophils # (Auto) 0.0 x10^3/uL (0.0-0.7) Basophils # (Auto) 0.0 x10^3/uL (0.0-0.2) Sodium Level 144 mmol/L (136-145) Potassium Level 4.9 mmol/L (3.5-5.1) Chloride Level 107 mmol/L (98-107) Carbon Dioxide Level 26 mmol/L (21-32) Anion Gap 11 (6-14) Blood Urea Nitrogen 43 mg/dL (7-20) Creatinine 1.3 mg/dL (0.6-1.0) Estimated GFR (Cockcroft-Gault) 40.0 Glucose Level 182 mg/dL (70-99) Calcium Level 9.2 mg/dL (8.5-10.1) Phosphorus Level 3.2 mg/dL (2.6-4.7) Magnesium Level 2.2 mg/dL (1.8-2.4) Albumin 2.8 g/dL (3.4-5.0) Glucose (Fingerstick) 221 mg/dL (70-99) 162 mg/dL (70-99) 176 mg/dL (70-99) Test 09/25/20 05:58 Glucose (Fingerstick) 183 mg/dL (70-99) Laboratory Tests Test 09/24/20 11:49 09/24/20 18:33 09/24/20 23:53 09/25/20 05:58 Glucose (Fingerstick) 221 mg/dL (70-99) 162 mg/dL (70-99) 176 mg/dL (70-99) 183 mg/dL (70-99) Microbiology 09/20/20 Urine Culture - Final, Complete Medications Current Medications Sodium Chloride 1,000 ml @ 100 mls/hr Q10H IV Last administered on 09/20/20at 23:46; Start 09/20/20 at 03:00; Stop 09/21/20 at 10:18; Status DC Ondansetron HCl (Zofran) 4 mg PRN Q6HRS PRN IVP NAUSEA/VOMITING; Start 09/20/20 at 03:00 Morphine Sulfate (Morphine Sulfate) 4 mg PRN Q4HRS PRN IV PAIN Last administered on 09/24/20at 04:03; Start 09/20/20 at 03:00 Pantoprazole Sodium (PROTONIX VIAL for IV PUSH) 40 mg BID IVP Last administered on 09/25/20at 08:45; Start 09/20/20 at 03:00 Ceftriaxone Sodium (Rocephin) 1 gm Q24H IVP ; Start 09/20/20 at 03:00; Stop 09/20/20 at 03:07; Status DC Ceftriaxone Sodium (Rocephin) 1 gm Q24H IVP Last administered on 09/24/20at 21:13; Start 09/20/20 at 21:00 Metoprolol Tartrate (Lopressor Vial) 5 mg Q6HRS IVP Last administered on 09/25/20at 05:47; Start 09/20/20 at 07:45 Insulin Human Lispro (HumaLOG) 0-9 UNITS Q6HRS SQ Last administered on 09/24/20at 13:42; Start 09/20/20 at 07:45 Dextrose (Dextrose 50%-Water Syringe) 12.5 gm PRN Q15MIN PRN IV SEE COMMENTS; Start 09/20/20 at 07:45 Acetaminophen (Tylenol Supp) 650 mg PRN Q6HRS PRN NM MILD PAIN / TEMP > 100.3'F Last administered on 09/20/20at 10:24; Start 09/20/20 at 09:00 Nitroglycerin (Nitrostat) 0.4 mg PRN Q5MIN PRN SL CHEST PAIN; Start 09/20/20 at 14:15 Ringer's Solution 1,000 ml @ 50 mls/hr Q20H IV ; Start 09/21/20 at 07:00; Stop 09/21/20 at 18:59; Status DC Magnesium Sulfate 50 ml @ 25 mls/hr PRN DAILY PRN IV for Mag < 1.7 on am labs; Start 09/20/20 at 14:30 Ringer's Solution 1,000 ml @ 75 mls/hr [id number] IV Last administered on 09/22/20at 05:03; Start 09/21/20 at 10:30; Stop 09/22/20 at 12:31; Status DC Ringer's Solution 1,000 ml @ 50 mls/hr Q20H IV Last administered on 09/22/20at 13:42; Start 09/22/20 at 10:15; Stop 09/22/20 at 22:14; Status DC Benzocaine (Hurricaine One) 2 spray 1X ONCE MM Last administered on 09/22/20at 13:40; Start 09/22/20 at 10:30; Stop 09/22/20 at 10:31; Status DC Lidocaine HCl (Xylocaine 2% Topical 30gm Tube) 1 freddie 1X ONCE TP ; Start 09/22/20 at 10:30; Stop 09/22/20 at 10:31; Status DC Lidocaine HCl (Viscous Lidocaine) 15 ml 1X ONCE SWSW ; Start 09/22/20 at 10:30; Stop 09/22/20 at 10:31; Status DC Phenol (Chloraseptic) 1 spray PRN Q2HR PRN PO SORE THROAT Last administered on 09/22/20at 15:43; Start 09/22/20 at 11:30 Amino Acids/ Glycerin/ Electrolytes 1,000 ml @ 80 mls/hr [id number] IV Last administered on 09/25/20at 05:43; Start 09/22/20 at 12:30 Propofol (Diprivan) 200 mg STK-MED ONCE IV ; Start 09/22/20 at 12:55; Stop 09/22/20 at 12:55; Status DC Labetalol HCl (Normodyne Iv Push) 10 mg PRN Q10MIN PRN IVP HYPERTENSION Last administered on 09/25/20at 07:43; Start 09/23/20 at 04:30 Hydrocortisone Sodium Succinate (Solu-CORTEF) 200 mg 1X ONCE IVP Last administered on 09/23/20at 07:03; Start 09/23/20 at 05:45; Stop 09/23/20 at 05:46; Status DC Diphenhydramine HCl (Benadryl) 25 mg 1X ONCE IVP ; Start 09/23/20 at 05:45; Stop 09/23/20 at 05:46; Status DC Diphenhydramine HCl (Benadryl) 25 mg 1X ONCE IVP ; Start 09/23/20 at 05:45; Stop 09/23/20 at 05:46; Status DC Sodium Chloride 1,000 ml @ 75 mls/hr [id number] IV Last administered on 09/24/20at 03:38; Start 09/23/20 at 06:45; Stop 09/24/20 at 08:15; Status DC Albuterol Sulfate (Ventolin Neb Soln) 2.5 mg PRN Q6HRS PRN NEB SHORTNESS OF BREATH Last administered on 09/23/20at 07:16; Start 09/23/20 at 07:00 Prednisone (Prednisone) 20 mg 1X ONCE PO Last administered on 09/23/20at 19:51; Start 09/23/20 at 19:30; Stop 09/23/20 at 19:34; Status DC Prednisone (Prednisone) 20 mg 1X ONCE PO Last administered on 09/23/20at 22:49; Start 09/23/20 at 23:00; Stop 09/23/20 at 23:01; Status DC Prednisone (Prednisone) 20 mg 1X ONCE PO Last administered on 09/24/20at 05:59; Start 09/24/20 at 06:00; Stop 09/24/20 at 06:01; Status DC Iohexol (Omnipaque 350 Mg/ml) 80 ml 1X ONCE IV Last administered on 09/24/20at 11:37; Start 09/24/20 at 11:00; Stop 09/24/20 at 11:01; Status DC Info (CONTRAST GIVEN -- Rx MONITORING) 1 each PRN DAILY PRN MC SEE COMMENTS; Start 09/24/20 at 11:00; Stop 09/26/20 at 10:59 Diphenhydramine HCl (Benadryl) 50 mg 1X ONCE PO ; Start 09/24/20 at 11:30; Stop 09/24/20 at 11:06; Status DC Diphenhydramine HCl (Benadryl) 50 mg 1X ONCE IV Last administered on 09/24/20at 11:10; Start 09/24/20 at 11:30; Stop 09/24/20 at 11:31; Status DC Ringer's Solution 1,000 ml @ 50 mls/hr Q20H IV ; Start 09/25/20 at 07:00; Stop 09/25/20 at 18:59 Ringer's Solution 1,000 ml @ 75 mls/hr 1X ONCE IV ; Start 09/25/20 at 08:45; Stop 09/25/20 at 22:04 Active Scripts Active Reported Cyclobenzaprine Hcl 10 Mg Tablet 1 Tab PO QHS Carvedilol 25 Mg Tablet 12.5 Mg PO BIDWMEALS Lipitor (Atorvastatin Calcium) 80 Mg Tablet 1 Tab PO HS Aspirin Ec (Aspirin) 81 Mg Tablet.dr 1 Tab PO DAILY Acetaminophen 325 Mg Tablet 2 Tab PO PRN DAILY PRN 30 Days Zyrtec (Cetirizine Hcl) 10 Mg Tablet 1 Tab PO DAILY Norvasc (Amlodipine Besylate) 10 Mg Tablet 10 Mg PO DAILY Nitrostat (Nitroglycerin) 0.4 Mg Tab.subl 0.4 Mg SL PRN Q5MIN PRN Clopidogrel (Clopidogrel Bisulfate) 75 Mg Tablet 1 Tab PO DAILY Percocet 10-325 Mg Tablet (Oxycodone/Acetaminophen) 1 Each Tablet 1 Tab PO Q4-6HRS Gabapentin (Gabapentin) 300 Mg Capsule 1 Cap PO HS Vitals/I & O Vital Sign - Last 24 Hours 09/24/20 09/24/20 09/24/20 09/24/20 11:00 11:16 15:00 18:35 Temp 99.1 99.1 99.1 99.1 Pulse 124 117 117 Resp 20 20 B/P (MAP) 185/122 (143) 185/122 173/100 (124) 173/100 Pulse Ox 95 99 O2 Delivery Nasal Cannula Nasal Cannula O2 Flow Rate 2.0 2.0 09/24/20 09/24/20 09/24/20 09/25/20 19:00 20:00 23:00 00:10 Temp 98.4 97.8 98.4 97.8 Pulse 97 118 115 Resp 24 26 B/P (MAP) 146/78 (100) 155/85 (108) 155/84 Pulse Ox 97 98 O2 Delivery Nasal Cannula Nasal Cannula Nasal Cannula O2 Flow Rate 2.0 2.0 2.0 09/25/20 09/25/20 09/25/20 09/25/20 03:25 05:47 07:00 07:43 Temp 97.4 98.8 97.4 98.8 Pulse 115 135 130 135 Resp B/P (MAP) 174/100 (124) 186/89 176/95 (122) 186/89 Pulse Ox 98 98 O2 Delivery Nasal Cannula Nasal Cannula O2 Flow Rate 2.0 2.0 Intake and Output 09/24/20 09/24/20 09/25/20 15:00 23:00 07:00 Intake Total 0 ml 0 ml Output Total 100 ml 300 ml 400 ml Balance -100 ml -300 ml -400 ml Nutrition Consultation Dietary Evaluation: Recommendations by RD: Dietary education by RD, PPN/TPN Comments: REC continue PPN for short term nutrition until able to advance diet REC ADA/Cardiac diet per PMH when able with glucerna supplements Expected Outcomes/Goals: diet adv/ tolerance to meet >75% est nutr needs via po intake Malnutrition Findings: Food and Nutrition Intake (Sev: <50% est energy req 5days Weight Status: Appropriate Justicifation of Admission Dx: Justifications for Admission: Justification of Admission Dx: Yes CHRISTIAN CAMARGO MD Sep 25, 2020 09:05
[2020-09-25 09:50] LABS: CALCIUM 9.7 mg/dL (8.5-10.1); CREATININE 1.8 mg/dL (0.6-1.0); GFR 27.5; POTASSIUM 5.5 mmol/L (3.5-5.1)
[2020-09-25 09:55] LABS: CALCIUM 9.4 mg/dL (8.5-10.1); CREATININE 1.8 mg/dL (0.6-1.0); GFR 27.5; PHOSPHORUS 3.9 mg/dL (2.6-4.7); POTASSIUM 5.4 mmol/L (3.5-5.1)
[2020-09-25] MEDS ORDERED: PIP/TAZO PER PHARMACY MC PRN (10:15)
[2020-09-25 10:19] LABS: BASO % 0 % (0-3); EOS % 0 % (0-3); HEMATOCRIT 26.4 % (36.0-47.0); HEMOGLOBIN 8.3 g/dL (12.0-15.5); LYMPH # 2.3 x10^3/uL (1.0-4.8); LYMPH % 12 % (24-48); MEAN CORPUSCULAR HEMOGLOBIN 31 pg (25-35); MEAN CORPUSCULAR HGB CONC 32 g/dL (31-37); MEAN CORPUSCULAR VOLUME 97 fL (79-100); MONO # 2.1 x10^3/uL (0.0-1.1); MONO % 10 % (0-9); NEUT # 15.8 x10^3/uL (1.8-7.7); NEUT % 78 % (31-73); PLATELET COUNT 316 x10^3/uL (140-400); RED BLOOD COUNT 2.71 x10^6/uL (3.50-5.40); RED CELL DISTRIBUTION WIDTH 14.6 % (11.5-14.5); WHITE BLOOD COUNT 20.3 x10^3/uL (4.0-11.0)
--- NOTE | 2020-09-25 10:21 | PDOC ---
PULMONARY PROGRESS NOTES DATE: 09/25/20 TIME: 10:16 Subjective Patient is currently on nasal cannula oxygen Vitals Vital Signs Date Time Temp Pulse Resp B/P (MAP) Pulse Ox O2 Delivery O2 Flow Rate FiO2 09/25/20 07:43 135 186/89 09/25/20 07:00 98.8 26 98 Nasal Cannula 2.0 98.8 ROS: No Nausea, No Chest Pain, No Increase Cough General: Alert Lungs: Other (diminished) Cardiovascular: S1, S2 Abdomen: Soft Neuro Exam: Alert Extremities: No Edema Skin: Warm, Dry Labs Laboratory Tests Test 09/23/20 11:50 09/23/20 17:40 09/23/20 23:53 09/24/20 05:51 Glucose (Fingerstick) 237 mg/dL (70-99) 185 mg/dL (70-99) 196 mg/dL (70-99) 200 mg/dL (70-99) Test 09/24/20 05:55 09/24/20 11:49 09/24/20 18:33 09/24/20 23:53 White Blood Count 21.4 x10^3/uL (4.0-11.0) Red Blood Count 2.49 x10^6/uL (3.50-5.40) Hemoglobin 7.9 g/dL (12.0-15.5) Hematocrit 23.8 % (36.0-47.0) Mean Corpuscular Volume 96 fL (79-100) Mean Corpuscular Hemoglobin 32 pg (25-35) Mean Corpuscular Hemoglobin Concent 33 g/dL (31-37) Red Cell Distribution Width 13.9 % (11.5-14.5) Platelet Count 224 x10^3/uL (140-400) Neutrophils (%) (Auto) 87 % (31-73) Lymphocytes (%) (Auto) 7 % (24-48) Monocytes (%) (Auto) 6 % (0-9) Eosinophils (%) (Auto) 0 % (0-3) Basophils (%) (Auto) 0 % (0-3) Neutrophils # (Auto) 18.6 x10^3/uL (1.8-7.7) Lymphocytes # (Auto) 1.5 x10^3/uL (1.0-4.8) Monocytes # (Auto) 1.3 x10^3/uL (0.0-1.1) Eosinophils # (Auto) 0.0 x10^3/uL (0.0-0.7) Basophils # (Auto) 0.0 x10^3/uL (0.0-0.2) Sodium Level 144 mmol/L (136-145) Potassium Level 4.9 mmol/L (3.5-5.1) Chloride Level 107 mmol/L (98-107) Carbon Dioxide Level 26 mmol/L (21-32) Anion Gap 11 (6-14) Blood Urea Nitrogen 43 mg/dL (7-20) Creatinine 1.3 mg/dL (0.6-1.0) Estimated GFR (Cockcroft-Gault) 40.0 Glucose Level 182 mg/dL (70-99) Calcium Level 9.2 mg/dL (8.5-10.1) Phosphorus Level 3.2 mg/dL (2.6-4.7) Magnesium Level 2.2 mg/dL (1.8-2.4) Albumin 2.8 g/dL (3.4-5.0) Glucose (Fingerstick) 221 mg/dL (70-99) 162 mg/dL (70-99) 176 mg/dL (70-99) Test 09/25/20 05:58 09/25/20 08:00 Glucose (Fingerstick) 183 mg/dL (70-99) Sodium Level 147 mmol/L (136-145) Potassium Level 5.5 mmol/L (3.5-5.1) Chloride Level 109 mmol/L (98-107) Carbon Dioxide Level 22 mmol/L (21-32) Anion Gap 16 (6-14) Blood Urea Nitrogen 64 mg/dL (7-20) Creatinine 1.8 mg/dL (0.6-1.0) Estimated GFR (Cockcroft-Gault) 27.5 Glucose Level 199 mg/dL (70-99) Calcium Level 9.7 mg/dL (8.5-10.1) Phosphorus Level 3.9 mg/dL (2.6-4.7) Magnesium Level 2.7 mg/dL (1.8-2.4) Albumin 3.0 g/dL (3.4-5.0) Laboratory Tests Test 09/24/20 11:49 09/24/20 18:33 09/24/20 23:53 09/25/20 05:58 Glucose (Fingerstick) 221 mg/dL (70-99) 162 mg/dL (70-99) 176 mg/dL (70-99) 183 mg/dL (70-99) Test 09/25/20 08:00 Sodium Level 147 mmol/L (136-145) Potassium Level 5.5 mmol/L (3.5-5.1) Chloride Level 109 mmol/L (98-107) Carbon Dioxide Level 22 mmol/L (21-32) Anion Gap 16 (6-14) Blood Urea Nitrogen 64 mg/dL (7-20) Creatinine 1.8 mg/dL (0.6-1.0) Estimated GFR (Cockcroft-Gault) 27.5 Glucose Level 199 mg/dL (70-99) Calcium Level 9.7 mg/dL (8.5-10.1) Phosphorus Level 3.9 mg/dL (2.6-4.7) Magnesium Level 2.7 mg/dL (1.8-2.4) Albumin 3.0 g/dL (3.4-5.0) Medications Active Scripts Medications Dose Route/Sig Max Daily Dose Days Date Category Cyclobenzaprine Hcl 10 Mg Tablet 1 Tab PO QHS 05/27/20 Reported Carvedilol 25 Mg Tablet 12.5 Mg PO BIDWMEALS 05/27/20 Reported Lipitor (Atorvastatin Calcium) 80 Mg Tablet 1 Tab PO HS 05/27/20 Reported Aspirin Ec (Aspirin) 81 Mg Tablet.dr 1 Tab PO DAILY 05/27/20 Reported Acetaminophen 325 Mg Tablet 2 Tab PO PRN DAILY PRN 30 05/27/20 Reported Zyrtec (Cetirizine Hcl) 10 Mg Tablet 1 Tab PO DAILY 05/27/20 Reported Norvasc (Amlodipine Besylate) 10 Mg Tablet 10 Mg PO DAILY 05/27/20 Reported Nitrostat (Nitroglycerin) 0.4 Mg Tab.subl 0.4 Mg SL PRN Q5MIN PRN 05/27/20 Reported Clopidogrel (Clopidogrel Bisulfate) 75 Mg Tablet 1 Tab PO DAILY 05/27/20 Reported Percocet 10-325 Mg Tablet (Oxycodone/Acetaminophen) 1 Each Tablet 1 Tab PO Q4-6HRS 08/02/16 Reported Gabapentin (Gabapentin) 300 Mg Capsule 1 Cap PO HS 09/26/14 Reported Comments IMPRESSION: 1. No evidence of acute pulmonary embolism 2. Small left and moderate right pleural effusion 3. Patchy groundglass infiltrates throughout the bilateral lungs. Cardiomegaly. Constellation of findings favor pulmonary edema however an atypical or viral infectious process cannot be excluded. Impression . IMPRESSION: 1. Acute hypoxic respiratory failure. This could be secondary to multifactorial etiologies, negative for pulmonary embolism 2. Rule out other causes of hypoxia such as congestive heart failure or pneumonia. Patient has a loculated effusion 3. Underlying dementia. 4. Recent gastrointestinal bleed. Followed by GI. No endoscopy has been done. Plan . RECOMMENDATIONS: Continue supplemental oxygen to keep oxygen saturations greater than 92% CT of chest was negative for PE did demonstrate a loculated effusion, less likely pneumonia Obtain blood cultures, follow urine culture, consult infectious disease for ongoing leukocytosis will DC Rocephin and start Zosyn for empiric antibiotic coverage Follow GI recommendations Follow nephrology recommendations in regards to hyperkalemia and hypernatremia PCP to manage hypertension DVT/GI prophylaxis--SCDS D/W IFTIKHAR BEASLEY MD Sep 25, 2020 10:21
--- NOTE | 2020-09-25 10:52 | PDOC ---
Infectious Disease Note Vital Sign Vital Signs Vital Signs Date Time Temp Pulse Resp B/P (MAP) Pulse Ox O2 Delivery O2 Flow Rate FiO2 09/25/20 07:43 135 186/89 09/25/20 07:00 98.8 26 98 Nasal Cannula 2.0 98.8 Labs Lab Laboratory Tests Test 09/24/20 11:49 09/24/20 18:33 09/24/20 23:53 09/25/20 05:58 Glucose (Fingerstick) 221 mg/dL (70-99) 162 mg/dL (70-99) 176 mg/dL (70-99) 183 mg/dL (70-99) Test 09/25/20 08:00 09/25/20 09:50 Sodium Level 147 mmol/L (136-145) Potassium Level 5.5 mmol/L (3.5-5.1) Chloride Level 109 mmol/L (98-107) Carbon Dioxide Level 22 mmol/L (21-32) Anion Gap 16 (6-14) Blood Urea Nitrogen 64 mg/dL (7-20) Creatinine 1.8 mg/dL (0.6-1.0) Estimated GFR (Cockcroft-Gault) 27.5 Glucose Level 199 mg/dL (70-99) Calcium Level 9.7 mg/dL (8.5-10.1) Phosphorus Level 3.9 mg/dL (2.6-4.7) Magnesium Level 2.7 mg/dL (1.8-2.4) OT-Gbv-[id number]-Type Natriuretic Peptide > 08923 pg/mL (0-124) Albumin 3.0 g/dL (3.4-5.0) White Blood Count 20.3 x10^3/uL (4.0-11.0) Red Blood Count 2.71 x10^6/uL (3.50-5.40) Hemoglobin 8.3 g/dL (12.0-15.5) Hematocrit 26.4 % (36.0-47.0) Mean Corpuscular Volume 97 fL (79-100) Mean Corpuscular Hemoglobin 31 pg (25-35) Mean Corpuscular Hemoglobin Concent 32 g/dL (31-37) Red Cell Distribution Width 14.6 % (11.5-14.5) Platelet Count 316 x10^3/uL (140-400) Neutrophils (%) (Auto) 78 % (31-73) Lymphocytes (%) (Auto) 12 % (24-48) Monocytes (%) (Auto) 10 % (0-9) Eosinophils (%) (Auto) 0 % (0-3) Basophils (%) (Auto) 0 % (0-3) Neutrophils # (Auto) 15.8 x10^3/uL (1.8-7.7) Lymphocytes # (Auto) 2.3 x10^3/uL (1.0-4.8) Monocytes # (Auto) 2.1 x10^3/uL (0.0-1.1) Eosinophils # (Auto) 0.0 x10^3/uL (0.0-0.7) Basophils # (Auto) 0.0 x10^3/uL (0.0-0.2) Micro Microbiology 09/20/20 Urine Culture - Final, Complete Objective Assessment pt seen, consult dictated Plan Plan of Care / TERRIE BURR MD Sep 25, 2020 10:52
[2020-09-25] MEDS ORDERED: PIPERACILLIN/TAZOBACTAM 2.25 GM in IV NORMAL SALINE 50ML 50 ML IV SCH (11:00)
[2020-09-25] MEDS ORDERED: FUROSEMIDE 40 MG/4 ML VIAL. IVP ONE (11:00)
[2020-09-25] MEDS ORDERED: LABETALOL 20 MG/4 ML DISP.SYRIN. IVP PRN (11:00)
[2020-09-25 11:01] VITALS: BP 173/80
[2020-09-25 11:22] LABS: PROTHROMBIN TIME PATIENT 23.9 SEC (11.7-14.0)
--- NOTE | 2020-09-25 11:27 | CONS ---
DATE OF CONSULTATION: 09/25/2020 REQUESTING PHYSICIAN: Messi Garvin MD REASON FOR CONSULTATION: Leukocytosis. HISTORY OF PRESENT ILLNESS: This is a 75-year-old female who lives with her at home, who came in with hematemesis. The patient initially at [facility] and was transferred here for further management. The patient also underwent a GI workup or undergoing GI workup and cardiac workup, has renal insufficiency. The patient in last 3 days, she has been barely arousable, also pulmonary input. The patient has no fever here other than 99.3. White count is up to 20,000. BUN and creatinine is 64 and 1.8. Potassium is on the high side. She is tachycardic. BNP is 35,000. So far, all the cultures are negative. Chest CTA negative. Lower extremity ultrasound negative. Perfusion scan negative. Abdominal CT showed some inflammation of the terminal ileum, otherwise negative. EGD has been planned and the patient initially receiving Rocephin, changed to Zosyn today and consult has been requested. The patient is barely arousable, dozes off back to sleep, unable to communicate, unable to get any information. Information was obtained through chart review and discussing with the patient's nurse. There is no nausea, vomiting, diarrhea noted by RN and there is no fever noted. PAST MEDICAL HISTORY: Positive for fibromyalgia, coronary artery disease with a myocardial infarction in the past, hypertension, COPD, has had hysterectomy, arthritis, carpal tunnel syndrome. SOCIAL HISTORY: Positive for smoking. No alcohol use or drug use. ALLERGIES: LISTED ALLERGIC TO CLARITHROMYCIN AND IODINATED CONTRAST MEDIA. CURRENT MEDICATIONS: Reviewed. REVIEW OF SYSTEMS: As per HPI, all other systems reviewed are negative. PHYSICAL EXAMINATION: GENERAL: Barely arousable female who does not respond, not in distress. VITAL SIGNS: Temperature 98.8, pulse 135, respirations 26, blood pressure 186/89. HEENT: Both pupils are round and reacting. No conjunctival lesion, no lesion in the mouth. NECK: Supple, no JVP, no lymphadenopathy. LUNGS: Clear. HEART: S1, S2 regular. ABDOMEN: Soft, nontender, no organomegaly. EXTREMITIES: No edema, cyanosis. SKIN: Unremarkable other than some scratch ortiz are present. NEUROLOGIC: The patient is lethargic, barely arousable, opens eyes and unable to communicate or follow commands. LABORATORY STUDIES: White count is 20.3, platelets are normal. BUN and creatinine is 64 and 1.8. COVID negative. Urinalysis, 11-20 wbc's. Urine culture is negative. CT as I mentioned in HPI. IMPRESSION: 1. Leukocytosis, most likely to be reactive. There is no obvious area of infection so far. 2. Gastrointestinal bleed that itself gastrointestinal bleed can cause leukocytosis. 3. Renal insufficiency. 4. Encephalopathy, etiology for encephalopathy is not clear. 5. Coronary artery disease. RECOMMENDATIONS: Change Zosyn to meropenem, add daptomycin. We will get ammonia level, CT head and CT head is negative, consider lumbar puncture. Thank you very much, Dr. Garvin, for giving me the opportunity to participate in this patient's care. TERRIE BURR MD DR: JAIRO/adrienne JOB#: [id number] / [id number]
--- NOTE | 2020-09-25 11:44 | RAD ---
CT HEAD/BRAIN WO History: Reason: AMS Comparison: May 25, 2020 Technique: Noncontrast CT imaging was performed of the head. Exposure: One or more of the following individualized dose reduction techniques were utilized for thi s examination: 1. Automated exposure control 2. Adjustment of the mA and/or kV according to patient size 3. Use of iterative reconstruction technique. Findings: No intracranial hemorrhage. No mass effect. No hydrocephalus. Mild brain parenchymal volume loss. Moderate foci of decreased attenuation within hemispheric white m atter, most often due to chronic microvascular ischemia. Imaged orbits are unremarkable. Imaged paranasal sinuses and mastoid air cells are clear. No acute ca lvarial fracture. Impression: 1. No acute intracranial abnormality. Electronically signed by: Tejinder Hahn DO (09/25/2020 11:42 AM) [id number]
[2020-09-25] MEDS: NITROGLYCERIN OINT 1 GM PACKET. TP SCH ×3 (11:48→23:43)
[2020-09-25 12:04] LABS: BASE EXCESS COOX -2 mmol/L (-3-3); HCO3 COOX 21 mmol/L (21-28); METHEMOGLOBIN 0.5 % (0.0-1.9); PCO2 COOX 32 mmHg (35-46); PO2 COOX 82 mmHg (65-108); SAT O2 COOX 95 % (92-99)
--- NOTE | 2020-09-25 12:05 | PDOC ---
Renal-Progress Notes Subjective Notes Notes NO NEW COMPLAINTS History of Present Illness Hx of present illness STABLE Vitals Vitals Vital Signs Date Time Temp Pulse Resp B/P (MAP) Pulse Ox O2 Delivery O2 Flow Rate FiO2 09/25/20 11:50 113 173/80 09/25/20 11:01 98.5 24 100 Nasal Cannula 3.0 98.5 Weight Weight [ ] I.O. Intake and Output Intake and Output 09/25/20 07:00 Intake Total 0 ml Output Total 800 ml Balance -800 ml Intake Oral 0 ml Output Urine Total 800 ml Labs Labs Laboratory Tests Test 09/24/20 18:33 09/24/20 23:53 09/25/20 05:58 09/25/20 08:00 Glucose (Fingerstick) 162 mg/dL (70-99) 176 mg/dL (70-99) 183 mg/dL (70-99) Prothrombin Time 23.9 SEC (11.7-14.0) Prothromb Time International Ratio 2.2 (0.8-1.1) Sodium Level 147 mmol/L (136-145) Potassium Level 5.5 mmol/L (3.5-5.1) Chloride Level 109 mmol/L (98-107) Carbon Dioxide Level 22 mmol/L (21-32) Anion Gap 16 (6-14) Blood Urea Nitrogen 64 mg/dL (7-20) Creatinine 1.8 mg/dL (0.6-1.0) Estimated GFR (Cockcroft-Gault) 27.5 Glucose Level 199 mg/dL (70-99) Calcium Level 9.7 mg/dL (8.5-10.1) Phosphorus Level 3.9 mg/dL (2.6-4.7) Magnesium Level 2.7 mg/dL (1.8-2.4) MH-Wtt-K-Type Natriuretic Peptide > 24988 pg/mL (0-124) Albumin 3.0 g/dL (3.4-5.0) Procalcitonin 0.41 ng/mL (0.00-0.10) Test 09/25/20 09:50 White Blood Count 20.3 x10^3/uL (4.0-11.0) Red Blood Count 2.71 x10^6/uL (3.50-5.40) Hemoglobin 8.3 g/dL (12.0-15.5) Hematocrit 26.4 % (36.0-47.0) Mean Corpuscular Volume 97 fL (79-100) Mean Corpuscular Hemoglobin 31 pg (25-35) Mean Corpuscular Hemoglobin Concent 32 g/dL (31-37) Red Cell Distribution Width 14.6 % (11.5-14.5) Platelet Count 316 x10^3/uL (140-400) Neutrophils (%) (Auto) 78 % (31-73) Lymphocytes (%) (Auto) 12 % (24-48) Monocytes (%) (Auto) 10 % (0-9) Eosinophils (%) (Auto) 0 % (0-3) Basophils (%) (Auto) 0 % (0-3) Neutrophils # (Auto) 15.8 x10^3/uL (1.8-7.7) Lymphocytes # (Auto) 2.3 x10^3/uL (1.0-4.8) Monocytes # (Auto) 2.1 x10^3/uL (0.0-1.1) Eosinophils # (Auto) 0.0 x10^3/uL (0.0-0.7) Basophils # (Auto) 0.0 x10^3/uL (0.0-0.2) Micro Micro Microbiology 09/20/20 Urine Culture - Final, Complete Review of Systems Constitutional: yes: alert Ears/Nose/Throat: Yes: no symptom reported Eyes: Yes: no symptom reported Pulmonary: Yes no symptom reported Cardiovascular: Yes no symptom reported Gastrointestional: Yes: no symptom reported Genitourinary: Yes: no symptom reported Musculoskeletal: Yes: no symptom reported Psychiatric/Neurological: Yes: no symptom reported Physical Exam General Appearance: no apparent distress, febrile Respiratory: decreased breath sounds Heart: S1S2 Abdomen: bowel sounds present Extremities: pulses present, no edema Neurology: confused (drowsy) Assessment Assessment IMP MARIA ELENA-CR UP TO 1.8 HYPERKALEMIA CKD STAGE 3-CR AT BASELINE 1.5 HYPERNATREMIA ANEMIA ENCEPHALOPATHY PLAN PRBC NEEDED CONT NGT CONT PPN F/U K WITH AM LABS MAX JUNIOR MD Sep 25, 2020 12:05
--- NOTE | 2020-09-25 12:13 | NUR ---
Received report from sausage maker 4L off BP 113/60 HR 80
[2020-09-25] MEDS: MEROPENEM 500 MG in IV NORMAL SALINE 50ML 50 ML IV SCH ×2 (12:51→21:59)
[2020-09-25] MEDS: IV NORMAL SALINE 1000ML BAG 1,000 ML IV SCH (13:00)
[2020-09-25] MEDS: DAPTOmycin (GENERIC) IVPB 350 MG in IV NORMAL SALINE 50ML 50 ML IV SCH (13:57)
--- NOTE | 2020-09-25 14:24 | PDOC2 ---
NEUROLOGY CONSULT Date of Service DOS: DATE: 09/25/20 TIME: 13:49 History of Present Illness History of Present Illness The patient is a 75-year-old right-handed female transferred here from [facility] on 09/20. She presented the day before there with hematemesis. Beginning about 3 days ago she has been more and more obtunded. There is no history of stroke, seizure, or head injury. She did have a head CT this morning, which is negative. She has multiple laboratory abnormalities as reviewed below. Past Medical History Cardiovascular: CAD, HTN Pulmonary: COPD GI: GI bleed Heme/Onc: Anemia NOS Musculoskeletal: low back pain, Osteoarthritis Rheumatologic: Fibromyalgia Renal/: Urinary Incontinence Endocrine: Diabetes Past Surgical History Past Surgical History: , Hysterectomy, Other (coronary stents, left rotator cuff, bilateral carpal tunnel) Family History Family History: CAD, CVA, Hypertension Social History Social History , no alcohol or tobacco Current Medications Current Medications Current Medications Sodium Chloride 1,000 ml @ 100 mls/hr Q10H IV Last administered on 09/20/20at 23:46; Start 09/20/20 at 03:00; Stop 09/21/20 at 10:18; Status DC Ondansetron HCl (Zofran) 4 mg PRN Q6HRS PRN IVP NAUSEA/VOMITING; Start 09/20/20 at 03:00 Morphine Sulfate (Morphine Sulfate) 4 mg PRN Q4HRS PRN IV PAIN Last administered on 09/24/20at 04:03; Start 09/20/20 at 03:00 Pantoprazole Sodium (PROTONIX VIAL for IV PUSH) 40 mg BID IVP Last administered on 09/25/20at 08:45; Start 09/20/20 at 03:00 Ceftriaxone Sodium (Rocephin) 1 gm Q24H IVP ; Start 09/20/20 at 03:00; Stop 09/20/20 at 03:07; Status DC Ceftriaxone Sodium (Rocephin) 1 gm Q24H IVP Last administered on 09/24/20at 21:13; Start 09/20/20 at 21:00; Stop 09/25/20 at 10:16; Status DC Metoprolol Tartrate (Lopressor Vial) 5 mg Q6HRS IVP Last administered on 09/25/20at 11:50; Start 09/20/20 at 07:45 Insulin Human Lispro (HumaLOG) 0-9 UNITS Q6HRS SQ Last administered on 09/24/20at 13:42; Start 09/20/20 at 07:45 Dextrose (Dextrose 50%-Water Syringe) 12.5 gm PRN Q15MIN PRN IV SEE COMMENTS; Start 09/20/20 at 07:45 Acetaminophen (Tylenol Supp) 650 mg PRN Q6HRS PRN [place] MILD PAIN / TEMP > 100.3'F Last administered on 09/20/20at 10:24; Start 09/20/20 at 09:00 Nitroglycerin (Nitrostat) 0.4 mg PRN Q5MIN PRN SL CHEST PAIN; Start 09/20/20 at 14:15 Ringer's Solution 1,000 ml @ 50 mls/hr Q20H IV ; Start 09/21/20 at 07:00; Stop 09/21/20 at 18:59; Status DC Magnesium Sulfate 50 ml @ 25 mls/hr PRN DAILY PRN IV for Mag < 1.7 on am labs; Start 09/20/20 at 14:30 Ringer's Solution 1,000 ml @ 75 mls/hr [id number] IV Last administered on 09/22/20at 05:03; Start 09/21/20 at 10:30; Stop 09/22/20 at 12:31; Status DC Ringer's Solution 1,000 ml @ 50 mls/hr Q20H IV Last administered on 09/22/20at 13:42; Start 09/22/20 at 10:15; Stop 09/22/20 at 22:14; Status DC Benzocaine (Hurricaine One) 2 spray 1X ONCE MM Last administered on 09/22/20at 13:40; Start 09/22/20 at 10:30; Stop 09/22/20 at 10:31; Status DC Lidocaine HCl (Xylocaine 2% Topical 30gm Tube) 1 freddie 1X ONCE TP ; Start 09/22/20 at 10:30; Stop 09/22/20 at 10:31; Status DC Lidocaine HCl (Viscous Lidocaine) 15 ml 1X ONCE SWSW ; Start 09/22/20 at 10:30; Stop 09/22/20 at 10:31; Status DC Phenol (Chloraseptic) 1 spray PRN Q2HR PRN PO SORE THROAT Last administered on 09/22/20at 15:43; Start 09/22/20 at 11:30 Amino Acids/ Glycerin/ Electrolytes 1,000 ml @ 80 mls/hr [id number] IV Last administered on 09/25/20at 05:43; Start 09/22/20 at 12:30; Stop 09/25/20 at 12:47; Status DC Propofol (Diprivan) 200 mg STK-MED ONCE IV ; Start 09/22/20 at 12:55; Stop 09/22/20 at 12:55; Status DC Labetalol HCl (Normodyne Iv Push) 10 mg PRN Q10MIN PRN IVP HYPERTENSION Last administered on 09/25/20at 07:43; Start 09/23/20 at 04:30; Stop 09/25/20 at 10:56; Status DC Hydrocortisone Sodium Succinate (Solu-CORTEF) 200 mg 1X ONCE IVP Last administered on 09/23/20at 07:03; Start 09/23/20 at 05:45; Stop 09/23/20 at 05:46; Status DC Diphenhydramine HCl (Benadryl) 25 mg 1X ONCE IVP ; Start 09/23/20 at 05:45; Stop 09/23/20 at 05:46; Status DC Diphenhydramine HCl (Benadryl) 25 mg 1X ONCE IVP ; Start 09/23/20 at 05:45; Stop 09/23/20 at 05:46; Status DC Sodium Chloride 1,000 ml @ 75 mls/hr [id number] IV Last administered on 09/24/20at 03:38; Start 09/23/20 at 06:45; Stop 09/24/20 at 08:15; Status DC Albuterol Sulfate (Ventolin Neb Soln) 2.5 mg PRN Q6HRS PRN NEB SHORTNESS OF BREATH Last administered on 09/23/20at 07:16; Start 09/23/20 at 07:00 Prednisone (Prednisone) 20 mg 1X ONCE PO Last administered on 09/23/20at 19:51; Start 09/23/20 at 19:30; Stop 09/23/20 at 19:34; Status DC Prednisone (Prednisone) 20 mg 1X ONCE PO Last administered on 09/23/20at 22:49; Start 09/23/20 at 23:00; Stop 09/23/20 at 23:01; Status DC Prednisone (Prednisone) 20 mg 1X ONCE PO Last administered on 09/24/20at 05:59; Start 09/24/20 at 06:00; Stop 09/24/20 at 06:01; Status DC Iohexol (Omnipaque 350 Mg/ml) 80 ml 1X ONCE IV Last administered on 09/24/20at 11:37; Start 09/24/20 at 11:00; Stop 09/24/20 at 11:01; Status DC Info (CONTRAST GIVEN -- Rx MONITORING) 1 each PRN DAILY PRN MC SEE COMMENTS; Start 09/24/20 at 11:00; Stop 09/26/20 at 10:59 Diphenhydramine HCl (Benadryl) 50 mg 1X ONCE PO ; Start 09/24/20 at 11:30; Stop 09/24/20 at 11:06; Status DC Diphenhydramine HCl (Benadryl) 50 mg 1X ONCE IV Last administered on 09/24/20at 11:10; Start 09/24/20 at 11:30; Stop 09/24/20 at 11:31; Status DC Ringer's Solution 1,000 ml @ 50 mls/hr Q20H IV Last administered on 09/25/20at 09:15; Start 09/25/20 at 07:00; Stop 09/25/20 at 18:59 Ringer's Solution 1,000 ml @ 75 mls/hr 1X ONCE IV ; Start 09/25/20 at 08:45; Stop 09/25/20 at 22:04 Nitroglycerin (Nitro-Bid Oint) 1 inch Q6HRS TP Last administered on 09/25/20at 11:48; Start 09/25/20 at 10:00 Piperacillin Sod/ Tazobactam Sod (Zosyn Per Pharmacy) 1 each PRN DAILY PRN MC SEE COMMENTS; Start 09/25/20 at 10:15; Stop 09/25/20 at 10:56; Status DC Piperacillin Sod/ Tazobactam Sod 2.25 gm/Sodium Chloride 50 ml @ 100 mls/hr Q6HRS IV ; Start 09/25/20 at 11:00; Stop 09/25/20 at 10:56; Status DC Furosemide (Lasix) 40 mg 1X ONCE IVP Last administered on 09/25/20at 11:48; Start 09/25/20 at 11:00; Stop 09/25/20 at 11:01; Status DC Labetalol HCl (Normodyne Iv Push) 20 mg PRN Q2HR PRN IVP HYPERTENSION; Start 09/25/20 at 11:00 Meropenem 500 mg/ Sodium Chloride 50 ml @ 100 mls/hr Q8HRS IV Last administered on 09/25/20at 12:51; Start 09/25/20 at 14:00 Daptomycin 350 mg/ Sodium Chloride 50 ml @ 100 mls/hr Q48H IV ; Start 09/25/20 at 14:00 Sodium Chloride 1,000 ml @ 75 mls/hr [id number] IV Last administered on 09/25/20at 13:00; Start 09/25/20 at 13:00 Active Scripts Active Reported Cyclobenzaprine Hcl 10 Mg Tablet 1 Tab PO QHS Carvedilol 25 Mg Tablet 12.5 Mg PO BIDWMEALS Lipitor (Atorvastatin Calcium) 80 Mg Tablet 1 Tab PO HS Aspirin Ec (Aspirin) 81 Mg Tablet.dr 1 Tab PO DAILY Acetaminophen 325 Mg Tablet 2 Tab PO PRN DAILY PRN 30 Days Zyrtec (Cetirizine Hcl) 10 Mg Tablet 1 Tab PO DAILY Norvasc (Amlodipine Besylate) 10 Mg Tablet 10 Mg PO DAILY Nitrostat (Nitroglycerin) 0.4 Mg Tab.subl 0.4 Mg SL PRN Q5MIN PRN Clopidogrel (Clopidogrel Bisulfate) 75 Mg Tablet 1 Tab PO DAILY Percocet 10-325 Mg Tablet (Oxycodone/Acetaminophen) 1 Each Tablet 1 Tab PO Q4-6HRS Gabapentin (Gabapentin) 300 Mg Capsule 1 Cap PO HS Allergies Allergies: Coded Allergies: Iodinated Contrast Media (Verified Allergy, Severe, Hives, 05/10/19) clarithromycin (Verified Allergy, Intermediate, 05/10/19) ROS Review of System Negative for fever, chills, weight loss, shortness of breath, chest pain, indigestion, hematochezia, melena, and dysuria. Full 14-point review of systems is negative. Physical Exam Physical Examination General: Well-developed, well-nourished white female in no acute distress HEENT: Normocephalic andatraumatic. Tympanic membranes clear.Temporal arteriespulsatile and nontender.Fundoscopic exam unremarkable Neck: Supple without bruit, no meningismus Musculoskeletal: Stability:see neurologic. Gait exam:see neurologic. Tone:see neurologic.Strength:see neurologic. Neurological: Mental Status:orientation, memory, attention span/concentration, language, fund of knowledge: Does not respond to voice, does not follow commands, nonverbal. Cranial Nerves:Pupils equal and reactive to light, extraocular movements areintact, visual frances are full to threat. There is no facial asymmetry. All other cranial related problems are negative except as mentioned before.Reflexes:2+ and symmetric with flexor plantar responses. Motor:Withdraws minimally to pain. Coordination and gait:not cooperative. Sensory:Not cooperative. Vitals VITALS Vital Signs Date Time Temp Pulse Resp B/P (MAP) Pulse Ox O2 Delivery O2 Flow Rate FiO2 09/25/20 12:07 Nasal Cannula 3.0 09/25/20 11:50 113 173/80 09/25/20 11:01 98.5 24 100 98.5 Labs Labs Urine drug screen at [facility] positive for opioids Laboratory Tests Test 09/23/20 17:40 09/23/20 23:53 09/24/20 05:51 09/24/20 05:55 Glucose (Fingerstick) 185 mg/dL (70-99) 196 mg/dL (70-99) 200 mg/dL (70-99) White Blood Count 21.4 x10^3/uL (4.0-11.0) Red Blood Count 2.49 x10^6/uL (3.50-5.40) Hemoglobin 7.9 g/dL (12.0-15.5) Hematocrit 23.8 % (36.0-47.0) Mean Corpuscular Volume 96 fL (79-100) Mean Corpuscular Hemoglobin 32 pg (25-35) Mean Corpuscular Hemoglobin Concent 33 g/dL (31-37) Red Cell Distribution Width 13.9 % (11.5-14.5) Platelet Count 224 x10^3/uL (140-400) Neutrophils (%) (Auto) 87 % (31-73) Lymphocytes (%) (Auto) 7 % (24-48) Monocytes (%) (Auto) 6 % (0-9) Eosinophils (%) (Auto) 0 % (0-3) Basophils (%) (Auto) 0 % (0-3) Neutrophils # (Auto) 18.6 x10^3/uL (1.8-7.7) Lymphocytes # (Auto) 1.5 x10^3/uL (1.0-4.8) Monocytes # (Auto) 1.3 x10^3/uL (0.0-1.1) Eosinophils # (Auto) 0.0 x10^3/uL (0.0-0.7) Basophils # (Auto) 0.0 x10^3/uL (0.0-0.2) Sodium Level 144 mmol/L (136-145) Potassium Level 4.9 mmol/L (3.5-5.1) Chloride Level 107 mmol/L (98-107) Carbon Dioxide Level 26 mmol/L (21-32) Anion Gap 11 (6-14) Blood Urea Nitrogen 43 mg/dL (7-20) Creatinine 1.3 mg/dL (0.6-1.0) Estimated GFR (Cockcroft-Gault) 40.0 Glucose Level 182 mg/dL (70-99) Calcium Level 9.2 mg/dL (8.5-10.1) Phosphorus Level 3.2 mg/dL (2.6-4.7) Magnesium Level 2.2 mg/dL (1.8-2.4) Albumin 2.8 g/dL (3.4-5.0) Test 09/24/20 11:49 09/24/20 18:33 09/24/20 23:53 09/25/20 05:58 Glucose (Fingerstick) 221 mg/dL (70-99) 162 mg/dL (70-99) 176 mg/dL (70-99) 183 mg/dL (70-99) Test 09/25/20 08:00 09/25/20 09:50 09/25/20 11:07 09/25/20 11:45 Prothrombin Time 23.9 SEC (11.7-14.0) Prothromb Time International Ratio 2.2 (0.8-1.1) Sodium Level 147 mmol/L (136-145) Potassium Level 5.5 mmol/L (3.5-5.1) Chloride Level 109 mmol/L (98-107) Carbon Dioxide Level 22 mmol/L (21-32) Anion Gap 16 (6-14) Blood Urea Nitrogen 64 mg/dL (7-20) Creatinine 1.8 mg/dL (0.6-1.0) Estimated GFR (Cockcroft-Gault) 27.5 Glucose Level 199 mg/dL (70-99) Calcium Level 9.7 mg/dL (8.5-10.1) Phosphorus Level 3.9 mg/dL (2.6-4.7) Magnesium Level 2.7 mg/dL (1.8-2.4) VV-Fms-V-Type Natriuretic Peptide > 98040 pg/mL (0-124) Albumin 3.0 g/dL (3.4-5.0) Procalcitonin 0.41 ng/mL (0.00-0.10) White Blood Count 20.3 x10^3/uL (4.0-11.0) Red Blood Count 2.71 x10^6/uL (3.50-5.40) Hemoglobin 8.3 g/dL (12.0-15.5) Hematocrit 26.4 % (36.0-47.0) Mean Corpuscular Volume 97 fL (79-100) Mean Corpuscular Hemoglobin 31 pg (25-35) Mean Corpuscular Hemoglobin Concent 32 g/dL (31-37) Red Cell Distribution Width 14.6 % (11.5-14.5) Platelet Count 316 x10^3/uL (140-400) Neutrophils (%) (Auto) 78 % (31-73) Lymphocytes (%) (Auto) 12 % (24-48) Monocytes (%) (Auto) 10 % (0-9) Eosinophils (%) (Auto) 0 % (0-3) Basophils (%) (Auto) 0 % (0-3) Neutrophils # (Auto) 15.8 x10^3/uL (1.8-7.7) Lymphocytes # (Auto) 2.3 x10^3/uL (1.0-4.8) Monocytes # (Auto) 2.1 x10^3/uL (0.0-1.1) Eosinophils # (Auto) 0.0 x10^3/uL (0.0-0.7) Basophils # (Auto) 0.0 x10^3/uL (0.0-0.2) O2 Saturation 95 % (92-99) Arterial Blood pH 7.44 (7.35-7.45) Arterial Blood pCO2 at Patient Temp 32 mmHg (35-46) Arterial Blood pO2 at Patient Temp 82 mmHg (65-108) Arterial Blood HCO3 21 mmol/L (21-28) Arterial Blood Base Excess -2 mmol/L (-3-3) Oxyhemoglobin 94.0 % Methemoglobin 0.5 % (0.0-1.9) Carbon Monoxide, Quantitative 0.3 % (0.0-1.9) FiO2 3ln.c. Ammonia < 10 mcmol/L (11-34) Cortisol AM Sample 47.2 ug/dL (4.3-22.4) Laboratory Tests Test 09/24/20 18:33 09/24/20 23:53 09/25/20 05:58 09/25/20 08:00 Glucose (Fingerstick) 162 mg/dL (70-99) 176 mg/dL (70-99) 183 mg/dL (70-99) Prothrombin Time 23.9 SEC (11.7-14.0) Prothromb Time International Ratio 2.2 (0.8-1.1) Sodium Level 147 mmol/L (136-145) Potassium Level 5.5 mmol/L (3.5-5.1) Chloride Level 109 mmol/L (98-107) Carbon Dioxide Level 22 mmol/L (21-32) Anion Gap 16 (6-14) Blood Urea Nitrogen 64 mg/dL (7-20) Creatinine 1.8 mg/dL (0.6-1.0) Estimated GFR (Cockcroft-Gault) 27.5 Glucose Level 199 mg/dL (70-99) Calcium Level 9.7 mg/dL (8.5-10.1) Phosphorus Level 3.9 mg/dL (2.6-4.7) Magnesium Level 2.7 mg/dL (1.8-2.4) WW-Haf-A-Type Natriuretic Peptide > 31544 pg/mL (0-124) Albumin 3.0 g/dL (3.4-5.0) Procalcitonin 0.41 ng/mL (0.00-0.10) Test 09/25/20 09:50 09/25/20 11:07 1/28/21 11:45 White Blood Count 20.3 x10^3/uL (4.0-11.0) Red Blood Count 2.71 x10^6/uL (3.50-5.40) Hemoglobin 8.3 g/dL (12.0-15.5) Hematocrit 26.4 % (36.0-47.0) Mean Corpuscular Volume 97 fL (79-100) Mean Corpuscular Hemoglobin 31 pg (25-35) Mean Corpuscular Hemoglobin Concent 32 g/dL (31-37) Red Cell Distribution Width 14.6 % (11.5-14.5) Platelet Count 316 x10^3/uL (140-400) Neutrophils (%) (Auto) 78 % (31-73) Lymphocytes (%) (Auto) 12 % (24-48) Monocytes (%) (Auto) 10 % (0-9) Eosinophils (%) (Auto) 0 % (0-3) Basophils (%) (Auto) 0 % (0-3) Neutrophils # (Auto) 15.8 x10^3/uL (1.8-7.7) Lymphocytes # (Auto) 2.3 x10^3/uL (1.0-4.8) Monocytes # (Auto) 2.1 x10^3/uL (0.0-1.1) Eosinophils # (Auto) 0.0 x10^3/uL (0.0-0.7) Basophils # (Auto) 0.0 x10^3/uL (0.0-0.2) O2 Saturation 95 % (92-99) Arterial Blood pH 7.44 (7.35-7.45) Arterial Blood pCO2 at Patient Temp 32 mmHg (35-46) Arterial Blood pO2 at Patient Temp 82 mmHg (65-108) Arterial Blood HCO3 21 mmol/L (21-28) Arterial Blood Base Excess -2 mmol/L (-3-3) Oxyhemoglobin 94.0 % Methemoglobin 0.5 % (0.0-1.9) Carbon Monoxide, Quantitative 0.3 % (0.0-1.9) FiO2 3ln.c. Ammonia < 10 mcmol/L (11-34) Cortisol AM Sample 47.2 ug/dL (4.3-22.4) Images Images CT head: No intracranial hemorrhage. No mass effect. No hydrocephalus. Mild brain parenchymal volume loss. Moderate foci of decreased attenuation within hemispheric white matter, most often due to chronic microvascular ischemia. Imaged orbits are unremarkable. Imaged paranasal sinuses and mastoid air cells are clear. No acute calvarial fracture. Impression: 1. No acute intracranial abnormality. Transesophageal echocardiogram: LEFT VENTRICLE The left ventricle is normal size. There is moderate concentric left ventricular hypertrophy. The left ventricular systolic function is normal and the ejection fraction is within normal range. The Ejection Fraction is 50-55%. There is nor mal LV segmental wall motion. No left ventricle thrombus noted on this study. There is no left ventricular aneurysm. There is no mass noted in the left ventricle. RIGHT VENTRICLE The right ventricle is normal size. There is normal right ventricular wall thickness. The right ventricular systolic function is normal. ATRIA The left atrium is moderately dilated. The right atrium is moderately dilated. The interatrial septum is intact with no evidence for an atrial septal defect or patent foramen ovale as noted on 2-D or Doppler imaging. There is no thrombus noted in the left atrial appendage. AORTIC VALVE The aortic valve is normal in structure and function. Doppler and Color Flow revealed trace aortic regurgitation. There is no significant aortic valvular stenosis. MITRAL VALVE The mitral valve is normal in structure and function. There is no evidence of mitral valve prolapse. There is no mitral valve stenosis. Doppler and Color-flow revealed mild to moderate mitral regurgitation. TRICUSPID VALVE The tricuspid valve is normal in structure and function. Doppler and Color Flow revealed trace tricuspid regurgitation. There is no tricuspid valve stenosis. PULMONIC VALVE The pulmonic valve is not well visualized. Doppler and Color Flow revealed trace pulmonic valvular regurgitation. There is no pulmonic valvular stenosis. GREAT VESSELS The aortic root is normal in size. The IVC is normal in size and collapses >50% with inspiration. Critical Notification Critical Value: No <Conclusion> The left ventricular systolic function is normal and the ejection fraction is within normal range. The Ejection Fraction is 50-55%. There is normal LV segmental wall motion. Doppler and Color-flow revealed mild to moderate mitral regurgitation. No clear evidence of intracardiac mass. Assessment/Plan Assessment/Plan Impression: Metabolic encephalopathy, note multiple abnormalities including elevated B natruretic peptide, methemoglobin, carbon monoxide, positive leukocyte esterase in the urine, opioids in the urine, anemia, hypoxia with work-up negative for pulmonary embolism, INR 2.2, acute kidney injury, leukocytosis and possible sepsis syndrome, hyponatremia, hyperkalemia, elevated troponins, possible left atrial mass with negative transesophageal echocardiogram, anemia and GI bleeding. Suspect hepatic dysfunction Recommendations: EEG, done, consistent with metabolic encephalopathy, no seizure activity INR 2.2, cannot get lumbar puncture Treat medical diseases Thank you for letting me help with the patient's care. MACY MARIA MD Sep 25, 2020 14:24
--- NOTE | 2020-09-25 14:35 | PDOC ---
Date of Service: DATE: 09/25/20 TIME: 14:31 Subjective: Subjective: present, asks "where are we at?" EGD postponed again. Objective: Objective: Neuro recs: EEG, done, consistent with metabolic encephalopathy, no seizure activity INR 2.2, cannot get lumbar puncture Treat medical diseases Vital Signs: Vital Signs Date Time Temp Pulse Resp B/P (MAP) Pulse Ox O2 Delivery O2 Flow Rate FiO2 09/25/20 12:07 Nasal Cannula 3.0 09/25/20 11:50 113 173/80 09/25/20 11:01 98.5 24 100 98.5 Labs: Laboratory Tests Test 09/24/20 18:33 09/24/20 23:53 09/25/20 05:58 09/25/20 08:00 Glucose (Fingerstick) 162 mg/dL 176 mg/dL 183 mg/dL Prothrombin Time 23.9 SEC Prothromb Time International Ratio 2.2 Sodium Level 147 mmol/L Potassium Level 5.5 mmol/L Chloride Level 109 mmol/L Carbon Dioxide Level 22 mmol/L Anion Gap 16 Blood Urea Nitrogen 64 mg/dL Creatinine 1.8 mg/dL Estimated GFR (Cockcroft-Gault) 27.5 Glucose Level 199 mg/dL Calcium Level 9.7 mg/dL Phosphorus Level 3.9 mg/dL Magnesium Level 2.7 mg/dL GT-[id number]-Type Natriuretic Peptide > 79379 pg/mL Albumin 3.0 g/dL Procalcitonin 0.41 ng/mL Test 09/25/20 09:50 09/25/20 11:07 09/25/20 11:45 White Blood Count 20.3 x10^3/uL Red Blood Count 2.71 x10^6/uL Hemoglobin 8.3 g/dL Hematocrit 26.4 % Mean Corpuscular Volume 97 fL Mean Corpuscular Hemoglobin 31 pg Mean Corpuscular Hemoglobin Concent 32 g/dL Red Cell Distribution Width 14.6 % Platelet Count 316 x10^3/uL Neutrophils (%) (Auto) 78 % Lymphocytes (%) (Auto) 12 % Monocytes (%) (Auto) 10 % Eosinophils (%) (Auto) 0 % Basophils (%) (Auto) 0 % Neutrophils # (Auto) 15.8 x10^3/uL Lymphocytes # (Auto) 2.3 x10^3/uL Monocytes # (Auto) 2.1 x10^3/uL Eosinophils # (Auto) 0.0 x10^3/uL Basophils # (Auto) 0.0 x10^3/uL O2 Saturation 95 % Arterial Blood pH 7.44 Arterial Blood pCO2 at Patient Temp 32 mmHg Arterial Blood pO2 at Patient Temp 82 mmHg Arterial Blood HCO3 21 mmol/L Arterial Blood Base Excess -2 mmol/L Oxyhemoglobin 94.0 % Methemoglobin 0.5 % Carbon Monoxide, Quantitative 0.3 % FiO2 3ln.c. Ammonia < 10 mcmol/L Cortisol AM Sample 47.2 ug/dL Imaging: Head CT Impression: 1. No acute intracranial abnormality. PE: GEN: chronically ill LUNGS: diminished, NC 3L HEART: tachycardic ABD: soft, non-distended NEURO/PSYCH: difficult to rouse A/P: Metabolic encephalopathy Anemia, UGIB (resolved?) - EGD on hold Leukocytosis, MARIA ELENA, coagulopathy COVID negative09/20 -- EGD on hold, continue PPI. Justicifation of Admission Dx: Justifications for Admission: Justification of Admission Dx: Yes REAL FRAZIER Sep 25, 2020 14:35
--- NOTE | 2020-09-25 14:49 | PDOC ---
CARDIO Progress Notes Date and Time Date of Service 09/25/2020 Time of Evaluation 1110 Subjective Subjective: No Chest Pain, No shortness of breath, No Palpitations Vitals Vitals Vital Signs Date Time Temp Pulse Resp B/P (MAP) Pulse Ox O2 Delivery O2 Flow Rate FiO2 09/25/20 12:07 Nasal Cannula 3.0 09/25/20 11:50 113 173/80 09/25/20 11:01 98.5 24 100 98.5 Weight Weight [ ] Input and Output Intake and Output Intake and Output 09/25/20 07:00 Intake Total 0 ml Output Total 800 ml Balance -800 ml Intake Oral 0 ml Output Urine Total 800 ml Laboratory Labs Laboratory Tests Test 09/24/20 18:33 09/24/20 23:53 09/25/20 05:58 09/25/20 08:00 Glucose (Fingerstick) 162 mg/dL (70-99) 176 mg/dL (70-99) 183 mg/dL (70-99) Prothrombin Time 23.9 SEC (11.7-14.0) Prothromb Time International Ratio 2.2 (0.8-1.1) Sodium Level 147 mmol/L (136-145) Potassium Level 5.5 mmol/L (3.5-5.1) Chloride Level 109 mmol/L (98-107) Carbon Dioxide Level 22 mmol/L (21-32) Anion Gap 16 (6-14) Blood Urea Nitrogen 64 mg/dL (7-20) Creatinine 1.8 mg/dL (0.6-1.0) Estimated GFR (Cockcroft-Gault) 27.5 Glucose Level 199 mg/dL (70-99) Calcium Level 9.7 mg/dL (8.5-10.1) Phosphorus Level 3.9 mg/dL (2.6-4.7) Magnesium Level 2.7 mg/dL (1.8-2.4) OJ-Mcs-C-Type Natriuretic Peptide > 31634 pg/mL (0-124) Albumin 3.0 g/dL (3.4-5.0) Procalcitonin 0.41 ng/mL (0.00-0.10) Test 09/25/20 09:50 09/25/20 11:07 09/25/20 11:45 09/25/20 14:35 White Blood Count 20.3 x10^3/uL (4.0-11.0) Red Blood Count 2.71 x10^6/uL (3.50-5.40) Hemoglobin 8.3 g/dL (12.0-15.5) Hematocrit 26.4 % (36.0-47.0) Mean Corpuscular Volume 97 fL (79-100) Mean Corpuscular Hemoglobin 31 pg (25-35) Mean Corpuscular Hemoglobin Concent 32 g/dL (31-37) Red Cell Distribution Width 14.6 % (11.5-14.5) Platelet Count 316 x10^3/uL (140-400) Neutrophils (%) (Auto) 78 % (31-73) Lymphocytes (%) (Auto) 12 % (24-48) Monocytes (%) (Auto) 10 % (0-9) Eosinophils (%) (Auto) 0 % (0-3) Basophils (%) (Auto) 0 % (0-3) Neutrophils # (Auto) 15.8 x10^3/uL (1.8-7.7) Lymphocytes # (Auto) 2.3 x10^3/uL (1.0-4.8) Monocytes # (Auto) 2.1 x10^3/uL (0.0-1.1) Eosinophils # (Auto) 0.0 x10^3/uL (0.0-0.7) Basophils # (Auto) 0.0 x10^3/uL (0.0-0.2) O2 Saturation 95 % (92-99) Arterial Blood pH 7.44 (7.35-7.45) Arterial Blood pCO2 at Patient Temp 32 mmHg (35-46) Arterial Blood pO2 at Patient Temp 82 mmHg (65-108) Arterial Blood HCO3 21 mmol/L (21-28) Arterial Blood Base Excess -2 mmol/L (-3-3) Oxyhemoglobin 94.0 % Methemoglobin 0.5 % (0.0-1.9) Carbon Monoxide, Quantitative 0.3 % (0.0-1.9) FiO2 3ln.c. Ammonia < 10 mcmol/L (11-34) Cortisol AM Sample 47.2 ug/dL (4.3-22.4) Glucose (Fingerstick) 202 mg/dL (70-99) Microbiology Micro Microbiology 09/20/20 Urine Culture - Final, Complete Review of Systems Constitutional: yes: alert Ears/Nose/Throat: Yes: no symptom reported Eyes: Yes: no symptom reported Pulmonary: Yes no symptom reported Cardiovascular: Yes no symptom reported Gastrointestional: Yes: no symptom reported Genitourinary: Yes: no symptom reported Musculoskeletal: Yes: no symptom reported Psychiatric/Neurological: Yes: no symptom reported Physical Exam HEENT: Neck Supple W Full Motion Chest: Symmetric LUNGS: Other (diminished bases) Heart: RRR (sinus tachycardia) Abdomen: Other (soft) Extremities: No Edema, No Calf Tenderness, Other (pale) Neurology: confused (drowsy) Assessment Assessment 1. Acute anemia: post transfusion, Hgb at 7.9.No PE per CTA 2. Mild troponin elevation: suspect demand mediated peaked at 0.128. Post JANELLE no intracardiac lesion nor thrombus, EF nml. 3. CAD: estimated PCI/11/2019 per spouse. Clinically stable 4. Reactive sinus tachycardia: PE workup ongoing per pulmonary. No RV dilation. HR 110-120s 5. Metabolic Encephalopathy: LP and head CT today pending. Remains confused 6. MARIA ELEAN with hyperkalemia 7. HTN: labile 8. Possible UTI: per PCP 9. Moderate MR 10. Abdominal pain with possible ileitis: no diarrhea currently. GI following 11. Acute on chronic diastolic CHF 12. Possible pneumonia: per PCP. negative covid-19 PCR Recommendations 1. Continue lopressor. She is on high dose coreg at home. Would resume once PO allowed. While NPO. Start on NTG paste. Lasix x1. Stop procalamine for now with her elevated K change to NS 2. May hold brilinta for now. Resume ASA when clear with GI pending pulmonary workup. 3. Secondary prevention when able to take PO 4. LP and head CT pending, neurology consulted 5. Supportive care Justicifation of Admission Dx: Justifications for Admission: Justification of Admission Dx: Yes WANDY GARCIA MECHANIST Sep 25, 2020 14:49
[2020-09-25 15:00] VITALS: BP 148/85
--- NOTE | 2020-09-25 16:05 | EEG ---
DATE OF SERVICE: 09/25/2020 ELECTROENCEPHALOGRAM ATTENDING EEG NUMBER [id number]. OBJECTIVE: The patient is a 75-year-old female with altered mental status. DESCRIPTION: This is a digital study. Electrodes are placed according to international 10-20 system. Bipolar and referential montages are available. Activation procedures typically include hyperventilation and intermittent photic stimulation. INTERPRETATION: The waking background consists of 5-6 Hz, 50-100 microvolt activity. There is no significant reactivity. Hyperventilation is not performed. Intermittent photic stimulation is noncontributory. IMPRESSION: This electroencephalogram with the patient in an obtunded state is abnormal because of a moderate, diffuse disturbance of cerebral activity consistent with any of a variety of toxic or metabolic encephalopathy. There is no focal, paroxysmal, or epileptiform activity. Thank you for letting us help with the patient's care. MACY MARIA MD DR: PANCHITO/adrienne JOB#: [id number] / [id number]
[2020-09-25 19:00] VITALS: BP 147/91
[2020-09-25 23:00] VITALS: BP 157/91
[2020-09-26] MEDS: MORPHINE SULFATE 4 MG/ML VIAL. IV PRN ×2 (00:25→06:41)
[2020-09-26] MEDS: IV NORMAL SALINE 1000ML BAG 1,000 ML IV SCH (02:49)
[2020-09-26 02:50] VITALS: BP 150/82
[2020-09-26] MEDS: INSULIN LISPRO 300 UNITS/3 ML VIAL. SQ SCH ×3 (06:00→16:48)
[2020-09-26] MEDS: MEROPENEM 500 MG in IV NORMAL SALINE 50ML 50 ML IV SCH ×3 (06:35→21:33)
[2020-09-26] MEDS: METOPROLOL IV PUSH 5 MG/5 ML VIAL. IVP SCH ×2 (06:44→18:08)
[2020-09-26] MEDS: NITROGLYCERIN OINT 1 GM PACKET. TP SCH ×3 (06:45→18:00)
[2020-09-26 07:00] VITALS: BP 169/96
[2020-09-26] MEDS: PANTOPRAZOLE IV PUSH 40 MG VIAL. IVP SCH ×2 (08:18→21:28)
--- NOTE | 2020-09-26 08:40 | PDOC ---
PROGRESS NOTES Date of Service: DATE: 09/26/20 TIME: 08:40 Chief Complaint Chief Complaint IMPRESSION Acute blood loss anemia hypoxia, CTA CHEST NEG PE echodensity in the wall of the left atrium of uncertain significance. A possible mass cannot be excluded., CARDIOLOGY CONSULT // transesophageal echo no thrombus, UGIB Acute METABOLIC encephalopathy, NEUROLOGY CONSULT, CT HEAD STAT 09-25 , NH4< 10 , PT/INR UTI MARIA ELENA Uremia Sepsis, ID CONSULT 09-25 Hyponatremia, NEPHROLOGY FOLLOWING DM2 CAD Elevated troponins ELECTROLYTE DISTURBANCE, NEPHROLOGY FOLLOWING, AM , PM CORTISOL no need for LP 09-26, IMPROVING supportive care 09-26 now more responsive NEW CHG FROM 09-24 CT HEAD, STAT NH4 D/W DR BURR IN [place], CONSULT NEUROLOGY EEG consistent with the metabolic encephalopathy and shows no seizure activity History of Present Illness History of Present Illness Ms Gonzalez is a 75yo F w/ PMHx hypertension, type 2 diabetes, CAD s/p PCI (x3 in 08/2019 at [facility], then x2 11/2019) who presented to [place] 09/19/20 c/o hematemesis. Was transfused 2u of convalescent FFP, NGT was placed, but coiled in esophagus. Vital signs on ED presentation temp 94 F, heart rate 102 bpm blood pressure 142/73. WBC 16.4, Hb 9.3, Platelets 295, Na 129, K 4, BUN 111, Cr 2.3, Glucose 291, Trop 0.061, BNP 7800, Lipase 75, Albumin 3. UDS + for opioids. UA positive leukoesterase and blood. Transferred to [facility] for GI consultation and further treatment. Per GI has had dyspepsia and early satiety for decades. EGD in 2010 2018 not revealing. Previous gastric emptying study borderline delay. Colonoscopy in 2010 with no pathology. Upon evaluation she is drowsy and very confused. Repeat KUB with NG tube better placed below the diaphragm and appears in stomach. Discussed with bedside patient has been continuing her home medications in addition she has been taking ibuprofen and Aleve for pain recently. She was seen by [facility] cardiology on ~09/08/2020 and prescribed Brilinta 90 mg, and losartan 25 mg spironolactone 25 mg and furosemide 20 mg twice daily Overnight 100.5F. Hb 6.4, WBC 16, BUN 101, Cr 2.1. 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 Angel renal case manager. -Chart reviewed. 09/26/2020 -Patient seen and examined. -Patient had rapid response 09-22 due to hypoxia and tachycardia. intermediate VQ scan, CTA CHEST NEG , D/W DR CIFUENTES, DR BURR -Creatinine trending down. 2.5 -> 1.2 -Angel RN. Angel renal case manager. -Chart reviewed. EEG consistent with the metabolic encephalopathy and shows no seizure activity 38 MIN pt exam, chart review CC TIME, > 50% of time spent with exam, chart re view, pt care coordination Vitals Vitals Vital Signs Date Time Temp Pulse Resp B/P (MAP) Pulse Ox O2 Delivery O2 Flow Rate FiO2 09/26/20 07:32 95 Nasal Cannula 3.0 09/26/20 07:11 26 09/26/20 07:00 98.0 101 169/96 (120) 98.0 Physical Exam Physical Exam SITTING BEDSIDE CHAIR, NOT RESPONDING TO COMMANDS, LETHARGIC General: Cooperative, mild distress, Other (confused, NOW LETHARGIC ) Heart: Regular rate, No murmurs Lungs: Clear, Other (diminished) Abdomen: Normal bowel sounds, Soft, No tenderness Extremities: No clubbing, No cyanosis, No edema, Normal pulses, No tenderness/swelling Skin: No rashes, No breakdown, No significant lesion Labs LABS Laboratory Tests Test 09/25/20 09:50 09/25/20 11:07 09/25/20 11:45 09/25/20 14:35 White Blood Count 20.3 x10^3/uL (4.0-11.0) Red Blood Count 2.71 x10^6/uL (3.50-5.40) Hemoglobin 8.3 g/dL (12.0-15.5) Hematocrit 26.4 % (36.0-47.0) Mean Corpuscular Volume 97 fL (79-100) Mean Corpuscular Hemoglobin 31 pg (25-35) Mean Corpuscular Hemoglobin Concent 32 g/dL (31-37) Red Cell Distribution Width 14.6 % (11.5-14.5) Platelet Count 316 x10^3/uL (140-400) Neutrophils (%) (Auto) 78 % (31-73) Lymphocytes (%) (Auto) 12 % (24-48) Monocytes (%) (Auto) 10 % (0-9) Eosinophils (%) (Auto) 0 % (0-3) Basophils (%) (Auto) 0 % (0-3) Neutrophils # (Auto) 15.8 x10^3/uL (1.8-7.7) Lymphocytes # (Auto) 2.3 x10^3/uL (1.0-4.8) Monocytes # (Auto) 2.1 x10^3/uL (0.0-1.1) Eosinophils # (Auto) 0.0 x10^3/uL (0.0-0.7) Basophils # (Auto) 0.0 x10^3/uL (0.0-0.2) O2 Saturation 95 % (92-99) Arterial Blood pH 7.44 (7.35-7.45) Arterial Blood pCO2 at Patient Temp 32 mmHg (35-46) Arterial Blood pO2 at Patient Temp 82 mmHg (65-108) Arterial Blood HCO3 21 mmol/L (21-28) Arterial Blood Base Excess -2 mmol/L (-3-3) Oxyhemoglobin 94.0 % Methemoglobin 0.5 % (0.0-1.9) Carbon Monoxide, Quantitative 0.3 % (0.0-1.9) FiO2 3ln.c. Ammonia < 10 mcmol/L (11-34) Cortisol AM Sample 47.2 ug/dL (4.3-22.4) Glucose (Fingerstick) 202 mg/dL (70-99) Test 09/25/20 17:17 09/25/20 21:00 09/25/20 23:49 09/26/20 06:21 Glucose (Fingerstick) 174 mg/dL (70-99) 150 mg/dL (70-99) 123 mg/dL (70-99) Cortisol PM Sample 44.0 ug/dL (3.1-16.7) Comment Review of Relevant I have reviewed the following items brett (where applicable) has been applied. Labs Laboratory Tests Test 09/24/20 11:49 09/24/20 18:33 09/24/20 23:53 09/25/20 05:58 Glucose (Fingerstick) 221 mg/dL (70-99) 162 mg/dL (70-99) 176 mg/dL (70-99) 183 mg/dL (70-99) Test 09/25/20 08:00 09/25/20 09:50 09/25/20 11:07 09/25/20 11:45 Prothrombin Time 23.9 SEC (11.7-14.0) Prothromb Time International Ratio 2.2 (0.8-1.1) Sodium Level 147 mmol/L (136-145) Potassium Level 5.5 mmol/L (3.5-5.1) Chloride Level 109 mmol/L (98-107) Carbon Dioxide Level 22 mmol/L (21-32) Anion Gap 16 (6-14) Blood Urea Nitrogen 64 mg/dL (7-20) Creatinine 1.8 mg/dL (0.6-1.0) Estimated GFR (Cockcroft-Gault) 27.5 Glucose Level 199 mg/dL (70-99) Calcium Level 9.7 mg/dL (8.5-10.1) Phosphorus Level 3.9 mg/dL (2.6-4.7) Magnesium Level 2.7 mg/dL (1.8-2.4) PD-Esf-U-Type Natriuretic Peptide > 00387 pg/mL (0-124) Albumin 3.0 g/dL (3.4-5.0) Procalcitonin 0.41 ng/mL (0.00-0.10) White Blood Count 20.3 x10^3/uL (4.0-11.0) Red Blood Count 2.71 x10^6/uL (3.50-5.40) Hemoglobin 8.3 g/dL (12.0-15.5) Hematocrit 26.4 % (36.0-47.0) Mean Corpuscular Volume 97 fL (79-100) Mean Corpuscular Hemoglobin 31 pg (25-35) Mean Corpuscular Hemoglobin Concent 32 g/dL (31-37) Red Cell Distribution Width 14.6 % (11.5-14.5) Platelet Count 316 x10^3/uL (140-400) Neutrophils (%) (Auto) 78 % (31-73) Lymphocytes (%) (Auto) 12 % (24-48) Monocytes (%) (Auto) 10 % (0-9) Eosinophils (%) (Auto) 0 % (0-3) Basophils (%) (Auto) 0 % (0-3) Neutrophils # (Auto) 15.8 x10^3/uL (1.8-7.7) Lymphocytes # (Auto) 2.3 x10^3/uL (1.0-4.8) Monocytes # (Auto) 2.1 x10^3/uL (0.0-1.1) Eosinophils # (Auto) 0.0 x10^3/uL (0.0-0.7) Basophils # (Auto) 0.0 x10^3/uL (0.0-0.2) O2 Saturation 95 % (92-99) Arterial Blood pH 7.44 (7.35-7.45) Arterial Blood pCO2 at Patient Temp 32 mmHg (35-46) Arterial Blood pO2 at Patient Temp 82 mmHg (65-108) Arterial Blood HCO3 21 mmol/L (21-28) Arterial Blood Base Excess -2 mmol/L (-3-3) Oxyhemoglobin 94.0 % Methemoglobin 0.5 % (0.0-1.9) Carbon Monoxide, Quantitative 0.3 % (0.0-1.9) FiO2 3ln.c. Ammonia < 10 mcmol/L (11-34) Cortisol AM Sample 47.2 ug/dL (4.3-22.4) Test 09/25/20 14:35 09/25/20 17:17 09/25/20 21:00 09/25/20 23:49 Glucose (Fingerstick) 202 mg/dL (70-99) 174 mg/dL (70-99) 150 mg/dL (70-99) Cortisol PM Sample 44.0 ug/dL (3.1-16.7) Test 09/26/20 06:21 Glucose (Fingerstick) 123 mg/dL (70-99) Laboratory Tests Test 09/25/20 09:50 09/25/20 11:07 09/25/20 11:45 09/25/20 14:35 White Blood Count 20.3 x10^3/uL (4.0-11.0) Red Blood Count 2.71 x10^6/uL (3.50-5.40) Hemoglobin 8.3 g/dL (12.0-15.5) Hematocrit 26.4 % (36.0-47.0) Mean Corpuscular Volume 97 fL (79-100) Mean Corpuscular Hemoglobin 31 pg (25-35) Mean Corpuscular Hemoglobin Concent 32 g/dL (31-37) Red Cell Distribution Width 14.6 % (11.5-14.5) Platelet Count 316 x10^3/uL (140-400) Neutrophils (%) (Auto) 78 % (31-73) Lymphocytes (%) (Auto) 12 % (24-48) Monocytes (%) (Auto) 10 % (0-9) Eosinophils (%) (Auto) 0 % (0-3) Basophils (%) (Auto) 0 % (0-3) Neutrophils # (Auto) 15.8 x10^3/uL (1.8-7.7) Lymphocytes # (Auto) 2.3 x10^3/uL (1.0-4.8) Monocytes # (Auto) 2.1 x10^3/uL (0.0-1.1) Eosinophils # (Auto) 0.0 x10^3/uL (0.0-0.7) Basophils # (Auto) 0.0 x10^3/uL (0.0-0.2) O2 Saturation 95 % (92-99) Arterial Blood pH 7.44 (7.35-7.45) Arterial Blood pCO2 at Patient Temp 32 mmHg (35-46) Arterial Blood pO2 at Patient Temp 82 mmHg (65-108) Arterial Blood HCO3 21 mmol/L (21-28) Arterial Blood Base Excess -2 mmol/L (-3-3) Oxyhemoglobin 94.0 % Methemoglobin 0.5 % (0.0-1.9) Carbon Monoxide, Quantitative 0.3 % (0.0-1.9) FiO2 3ln.c. Ammonia < 10 mcmol/L (11-34) Cortisol AM Sample 47.2 ug/dL (4.3-22.4) Glucose (Fingerstick) 202 mg/dL (70-99) Test 09/25/20 17:17 09/25/20 21:00 09/25/20 23:49 09/26/20 06:21 Glucose (Fingerstick) 174 mg/dL (70-99) 150 mg/dL (70-99) 123 mg/dL (70-99) Cortisol PM Sample 44.0 ug/dL (3.1-16.7) Microbiology 09/20/20 Urine Culture - Final, Complete Medications Current Medications Sodium Chloride 1,000 ml @ 100 mls/hr Q10H IV Last administered on 09/20/20at 23:46; Start 09/20/20 at 03:00; Stop 09/21/20 at 10:18; Status DC Ondansetron HCl (Zofran) 4 mg PRN Q6HRS PRN IVP NAUSEA/VOMITING; Start 09/20/20 at 03:00 Morphine Sulfate (Morphine Sulfate) 4 mg PRN Q4HRS PRN IV PAIN Last administered on 09/26/20at 06:41; Start 09/20/20 at 03:00 Pantoprazole Sodium (PROTONIX VIAL for IV PUSH) 40 mg BID IVP Last administered on 09/26/20at 08:18; Start 09/20/20 at 03:00 Ceftriaxone Sodium (Rocephin) 1 gm Q24H IVP ; Start 09/20/20 at 03:00; Stop 09/20/20 at 03:07; Status DC Ceftriaxone Sodium (Rocephin) 1 gm Q24H IVP Last administered on 09/24/20at 21:13; Start 09/20/20 at 21:00; Stop 09/25/20 at 10:16; Status DC Metoprolol Tartrate (Lopressor Vial) 5 mg Q6HRS IVP Last administered on 09/26/20at 06:44; Start 09/20/20 at 07:45 Insulin Human Lispro (HumaLOG) 0-9 UNITS Q6HRS SQ Last administered on 09/24/20at 13:42; Start 09/20/20 at 07:45 Dextrose (Dextrose 50%-Water Syringe) 12.5 gm PRN Q15MIN PRN IV SEE COMMENTS; Start 09/20/20 at 07:45 Acetaminophen (Tylenol Supp) 650 mg PRN Q6HRS PRN PA MILD PAIN / TEMP > 100.3'F Last administered on 09/20/20at 10:24; Start 09/20/20 at 09:00 Nitroglycerin (Nitrostat) 0.4 mg PRN Q5MIN PRN SL CHEST PAIN; Start 09/20/20 at 14:15 Ringer's Solution 1,000 ml @ 50 mls/hr Q20H IV ; Start 09/21/20 at 07:00; Stop 09/21/20 at 18:59; Status DC Magnesium Sulfate 50 ml @ 25 mls/hr PRN DAILY PRN IV for Mag < 1.7 on am labs; Start 09/20/20 at 14:30 Ringer's Solution 1,000 ml @ 75 mls/hr [id number] IV Last administered on 09/22/20at 05:03; Start 09/21/20 at 10:30; Stop 09/22/20 at 12:31; Status DC Ringer's Solution 1,000 ml @ 50 mls/hr Q20H IV Last administered on 09/22/20at 13:42; Start 09/22/20 at 10:15; Stop 09/22/20 at 22:14; Status DC Benzocaine (Hurricaine One) 2 spray 1X ONCE MM Last administered on 09/22/20at 13:40; Start 09/22/20 at 10:30; Stop 09/22/20 at 10:31; Status DC Lidocaine HCl (Xylocaine 2% Topical 30gm Tube) 1 freddie 1X ONCE TP ; Start 1 at 10:30; Stop 09/22/20 at 10:31; Status DC Lidocaine HCl (Viscous Lidocaine) 15 ml 1X ONCE SWSW ; Start 09/22/20 at 10:30; Stop 09/22/20 at 10:31; Status DC Phenol (Chloraseptic) 1 spray PRN Q2HR PRN PO SORE THROAT Last administered on 09/22/20at 15:43; Start 09/22/20 at 11:30 Amino Acids/ Glycerin/ Electrolytes 1,000 ml @ 80 mls/hr [id number] IV Last administered on 09/25/20at 05:43; Start 09/22/20 at 12:30; Stop 09/25/20 at 12:47; Status DC Propofol (Diprivan) 200 mg STK-MED ONCE IV ; Start 09/22/20 at 12:55; Stop 09/22/20 at 12:55; Status DC Labetalol HCl (Normodyne Iv Push) 10 mg PRN Q10MIN PRN IVP HYPERTENSION Last administered on 09/25/20at 07:43; Start 09/23/20 at 04:30; Stop 09/25/20 at 10:56; Status DC Hydrocortisone Sodium Succinate (Solu-CORTEF) 200 mg 1X ONCE IVP Last administered on 09/23/20at 07:03; Start 09/23/20 at 05:45; Stop 09/23/20 at 05:46; Status DC Diphenhydramine HCl (Benadryl) 25 mg 1X ONCE IVP ; Start 09/23/20 at 05:45; Stop 09/23/20 at 05:46; Status DC Diphenhydramine HCl (Benadryl) 25 mg 1X ONCE IVP ; Start 09/23/20 at 05:45; Stop 09/23/20 at 05:46; Status DC Sodium Chloride 1,000 ml @ 75 mls/hr [id number] IV Last administered on 09/24/20at 03:38; Start 09/23/20 at 06:45; Stop 09/24/20 at 08:15; Status DC Albuterol Sulfate (Ventolin Neb Soln) 2.5 mg PRN Q6HRS PRN NEB SHORTNESS OF BREATH Last administered on 09/23/20at 07:16; Start 09/23/20 at 07:00 Prednisone (Prednisone) 20 mg 1X ONCE PO Last administered on 09/23/20at 19:51; Start 09/23/20 at 19:30; Stop 09/23/20 at 19:34; Status DC Prednisone (Prednisone) 20 mg 1X ONCE PO Last administered on 09/23/20at 22:49; Start 09/23/20 at 23:00; Stop 09/23/20 at 23:01; Status DC Prednisone (Prednisone) 20 mg 1X ONCE PO Last administered on 09/24/20at 05:59; Start 09/24/20 at 06:00; Stop 09/24/20 at 06:01; Status DC Iohexol (Omnipaque 350 Mg/ml) 80 ml 1X ONCE IV Last administered on 09/24/20at 11:37; Start 09/24/20 at 11:00; Stop 09/24/20 at 11:01; Status DC Info (CONTRAST GIVEN -- Rx MONITORING) 1 each PRN DAILY PRN MC SEE COMMENTS; Start 09/24/20 at 11:00; Stop 09/26/20 at 10:59 Diphenhydramine HCl (Benadryl) 50 mg 1X ONCE PO ; Start 09/24/20 at 11:30; Stop 09/24/20 at 11:06; Status DC Diphenhydramine HCl (Benadryl) 50 mg 1X ONCE IV Last administered on 09/24/20at 11:10; Start 09/24/20 at 11:30; Stop 09/24/20 at 11:31; Status DC Ringer's Solution 1,000 ml @ 50 mls/hr Q20H IV Last administered on 09/25/20at 09:15; Start 09/25/20 at 07:00; Stop 09/25/20 at 18:59; Status DC Ringer's Solution 1,000 ml @ 75 mls/hr 1X ONCE IV ; Start 09/25/20 at 08:45; Stop 09/25/20 at 22:04; Status DC Nitroglycerin (Nitro-Bid Oint) 1 inch Q6HRS TP Last administered on 09/26/20at 06:45; Start 09/25/20 at 10:00 Piperacillin Sod/ Tazobactam Sod (Zosyn Per Pharmacy) 1 each PRN DAILY PRN MC SEE COMMENTS; Start 09/25/20 at 10:15; Stop 09/25/20 at 10:56; Status DC Piperacillin Sod/ Tazobactam Sod 2.25 gm/Sodium Chloride 50 ml @ 100 mls/hr Q6HRS IV ; Start 09/25/20 at 11:00; Stop 09/25/20 at 10:56; Status DC Furosemide (Lasix) 40 mg 1X ONCE IVP Last administered on 09/25/20at 11:48; Start 09/25/20 at 11:00; Stop 09/25/20 at 11:01; Status DC Labetalol HCl (Normodyne Iv Push) 20 mg PRN Q2HR PRN IVP HYPERTENSION; Start 09/25/20 at 11:00 Meropenem 500 mg/ Sodium Chloride 50 ml @ 100 mls/hr Q8HRS IV Last administered on 09/26/20at 06:35; Start 09/25/20 at 14:00 Daptomycin 350 mg/ Sodium Chloride 50 ml @ 100 mls/hr Q48H IV Last administered on 09/25/20at 13:57; Start 09/25/20 at 14:00 Sodium Chloride 1,000 ml @ 75 mls/hr [id number] IV Last administered on 09/26/20at 02:49; Start 09/25/20 at 13:00 Active Scripts Active Reported Cyclobenzaprine Hcl 10 Mg Tablet 1 Tab PO QHS Carvedilol 25 Mg Tablet 12.5 Mg PO BIDWMEALS Lipitor (Atorvastatin Calcium) 80 Mg Tablet 1 Tab PO HS Aspirin Ec (Aspirin) 81 Mg Tablet.dr 1 Tab PO DAILY Acetaminophen 325 Mg Tablet 2 Tab PO PRN DAILY PRN 30 Days Zyrtec (Cetirizine Hcl) 10 Mg Tablet 1 Tab PO DAILY Norvasc (Amlodipine Besylate) 10 Mg Tablet 10 Mg PO DAILY Nitrostat (Nitroglycerin) 0.4 Mg Tab.subl 0.4 Mg SL PRN Q5MIN PRN Clopidogrel (Clopidogrel Bisulfate) 75 Mg Tablet 1 Tab PO DAILY Percocet 10-325 Mg Tablet (Oxycodone/Acetaminophen) 1 Each Tablet 1 Tab PO Q4-6HRS Gabapentin (Gabapentin) 300 Mg Capsule 1 Cap PO HS Vitals/I & O Vital Sign - Last 24 Hours 09/25/20 09/25/20 09/25/20 09/25/20 11:01 11:48 11:50 12:07 Temp 98.5 98.5 Pulse 113 113 113 Resp 24 B/P (MAP) 173/80 (111) 173/80 173/80 Pulse Ox 100 O2 Delivery Nasal Cannula Nasal Cannula O2 Flow Rate 3.0 3.0 09/25/20 09/25/20 09/25/20 09/25/20 15:00 17:11 17:13 19:00 Temp 97.8 98.9 97.8 98.9 Pulse 116 113 113 114 Resp 24 34 B/P (MAP) 148/85 (106) 173/80 173/80 147/91 (109) Pulse Ox 99 99 O2 Delivery Nasal Cannula O2 Flow Rate 3.0 09/25/20 09/25/20 09/25/20 09/25/20 20:00 23:00 23:43 23:44 Temp 98.0 98.0 Pulse 122 122 122 Resp 32 B/P (MAP) 157/91 (113) 157/91 157/91 Pulse Ox 98 O2 Delivery Nasal Cannula O2 Flow Rate 3.0 09/26/20 09/26/20 09/26/20 09/26/20 00:25 00:55 02:50 06:41 Temp 97.7 97.7 Pulse 116 Resp 24 B/P (MAP) 150/82 (104) Pulse Ox 99 95 98 98 O2 Delivery Nasal Cannula Nasal Cannula Nasal Cannula Nasal Cannula O2 Flow Rate 3.0 3.0 3.0 3.0 09/26/20 09/26/20 09/26/20 09/26/20 06:44 06:45 07:00 07:11 Temp 98.0 98.0 Pulse 121 121 101 Resp 18 26 B/P (MAP) 175/104 175/104 169/96 (120) Pulse Ox 98 95 O2 Delivery Room Air Nasal Cannula O2 Flow Rate 3.0 09/26/20 07:32 Pulse Ox 95 O2 Delivery Nasal Cannula O2 Flow Rate 3.0 Intake and Output 09/25/20 09/25/20 09/26/20 15:00 23:00 07:00 Intake Total 819 ml 0 ml Output Total 750 ml 250 ml Balance 69 ml -250 ml Nutrition Consultation Dietary Evaluation: Recommendations by RD: Dietary education by RD, PPN/TPN Comments: REC continue PPN for short term nutrition until able to advance diet REC ADA/Cardiac diet per PMH when able with glucerna supplements Expected Outcomes/Goals: diet adv/ tolerance - not met, ongoing to meet >75% est nutr needs via po intake not met, ongoing Malnutrition Findings: Food and Nutrition Intake (Sev: <50% est energy req 5days Weight Status: Appropriate Justicifation of Admission Dx: Justifications for Admission: Justification of Admission Dx: Yes CHRISTIAN CAMARGO MD Sep 26, 2020 08:40
[2020-09-26] MEDS ORDERED: IV RINGERS,LACTATED 1000ML 1,000 ML IV ONE (09:15)
--- NOTE | 2020-09-26 09:25 | PDOC ---
PROGRESS NOTES Date of Service DATE: 09/26/20 TIME: 09:22 Assessment Metabolic encephalopathy, better. Multiple abnormalities including elevated B natruretic peptide, methemoglobin, carbon monoxide, positive leukocyte esterase in the urine, opioids in the urine, anemia, hypoxia with work-up negative for pulmonary embolism, INR 2.2, acute kidney injury, leukocytosis and possible sepsis syndrome, hyponatremia, hyperkalemia, elevated troponins, possible left atrial mass with negative transesophageal echocardiogram, anemia and GI bleeding. Suspect hepatic dysfunction despite normal ammonia level. EEG consistent with the metabolic encephalopathy and shows no seizure activity Plan Patient is better, hold on additional studies for now Treat medical diseases Subjective None Objective Vital Signs Date Time Temp Pulse Resp B/P (MAP) Pulse Ox O2 Delivery O2 Flow Rate FiO2 09/26/20 07:32 95 Nasal Cannula 3.0 09/26/20 07:11 26 09/26/20 07:00 98.0 101 169/96 (120) 98.0 Intake and Output 09/26/20 07:00 Intake Total 819 ml Output Total 1000 ml Balance -181 ml Intake Oral 250 ml Blood Product IV Normal Saline Flush 569 ml Output Urine Total 1000 ml PHYSICAL EXAM Alert. Oriented to "hospital" and person PERRL. EOMI. CN: no focal findings. Muscle tone: normal. Muscle strength: 3/5 DTR: 2+ Plantar reflex: Flexor Gait: not examined in bed. Sensory exam: no abnormal findings. Cerebellar: Not cooperative Review of Relevant I have reviewed the following items brett (where applicable) has been applied. Labs Laboratory Tests Test 09/24/20 11:49 09/24/20 18:33 09/24/20 23:53 09/25/20 05:58 Glucose (Fingerstick) 221 mg/dL (70-99) 162 mg/dL (70-99) 176 mg/dL (70-99) 183 mg/dL (70-99) Test 09/25/20 08:00 09/25/20 09:50 09/25/20 11:07 09/25/20 11:45 Prothrombin Time 23.9 SEC (11.7-14.0) Prothromb Time International Ratio 2.2 (0.8-1.1) Sodium Level 147 mmol/L (136-145) Potassium Level 5.5 mmol/L (3.5-5.1) Chloride Level 109 mmol/L (98-107) Carbon Dioxide Level 22 mmol/L (21-32) Anion Gap 16 (6-14) Blood Urea Nitrogen 64 mg/dL (7-20) Creatinine 1.8 mg/dL (0.6-1.0) Estimated GFR (Cockcroft-Gault) 27.5 Glucose Level 199 mg/dL (70-99) Calcium Level 9.7 mg/dL (8.5-10.1) Phosphorus Level 3.9 mg/dL (2.6-4.7) Magnesium Level 2.7 mg/dL (1.8-2.4) CD-Lgs-Z-Type Natriuretic Peptide > 49169 pg/mL (0-124) Albumin 3.0 g/dL (3.4-5.0) Procalcitonin 0.41 ng/mL (0.00-0.10) White Blood Count 20.3 x10^3/uL (4.0-11.0) Red Blood Count 2.71 x10^6/uL (3.50-5.40) Hemoglobin 8.3 g/dL (12.0-15.5) Hematocrit 26.4 % (36.0-47.0) Mean Corpuscular Volume 97 fL (79-100) Mean Corpuscular Hemoglobin 31 pg (25-35) Mean Corpuscular Hemoglobin Concent 32 g/dL (31-37) Red Cell Distribution Width 14.6 % (11.5-14.5) Platelet Count 316 x10^3/uL (140-400) Neutrophils (%) (Auto) 78 % (31-73) Lymphocytes (%) (Auto) 12 % (24-48) Monocytes (%) (Auto) 10 % (0-9) Eosinophils (%) (Auto) 0 % (0-3) Basophils (%) (Auto) 0 % (0-3) Neutrophils # (Auto) 15.8 x10^3/uL (1.8-7.7) Lymphocytes # (Auto) 2.3 x10^3/uL (1.0-4.8) Monocytes # (Auto) 2.1 x10^3/uL (0.0-1.1) Eosinophils # (Auto) 0.0 x10^3/uL (0.0-0.7) Basophils # (Auto) 0.0 x10^3/uL (0.0-0.2) O2 Saturation 95 % (92-99) Arterial Blood pH 7.44 (7.35-7.45) Arterial Blood pCO2 at Patient Temp 32 mmHg (35-46) Arterial Blood pO2 at Patient Temp 82 mmHg (65-108) Arterial Blood HCO3 21 mmol/L (21-28) Arterial Blood Base Excess -2 mmol/L (-3-3) Oxyhemoglobin 94.0 % Methemoglobin 0.5 % (0.0-1.9) Carbon Monoxide, Quantitative 0.3 % (0.0-1.9) FiO2 3ln.c. Ammonia < 10 mcmol/L (11-34) Cortisol AM Sample 47.2 ug/dL (4.3-22.4) Test 09/25/20 14:35 09/25/20 17:17 09/25/20 21:00 09/25/20 23:49 Glucose (Fingerstick) 202 mg/dL (70-99) 174 mg/dL (70-99) 150 mg/dL (70-99) Cortisol PM Sample 44.0 ug/dL (3.1-16.7) Test 09/26/20 06:21 Glucose (Fingerstick) 123 mg/dL (70-99) Laboratory Tests Test 09/25/20 09:50 09/25/20 11:07 09/25/20 11:45 09/25/20 14:35 White Blood Count 20.3 x10^3/uL (4.0-11.0) Red Blood Count 2.71 x10^6/uL (3.50-5.40) Hemoglobin 8.3 g/dL (12.0-15.5) Hematocrit 26.4 % (36.0-47.0) Mean Corpuscular Volume 97 fL (79-100) Mean Corpuscular Hemoglobin 31 pg (25-35) Mean Corpuscular Hemoglobin Concent 32 g/dL (31-37) Red Cell Distribution Width 14.6 % (11.5-14.5) Platelet Count 316 x10^3/uL (140-400) Neutrophils (%) (Auto) 78 % (31-73) Lymphocytes (%) (Auto) 12 % (24-48) Monocytes (%) (Auto) 10 % (0-9) Eosinophils (%) (Auto) 0 % (0-3) Basophils (%) (Auto) 0 % (0-3) Neutrophils # (Auto) 15.8 x10^3/uL (1.8-7.7) Lymphocytes # (Auto) 2.3 x10^3/uL (1.0-4.8) Monocytes # (Auto) 2.1 x10^3/uL (0.0-1.1) Eosinophils # (Auto) 0.0 x10^3/uL (0.0-0.7) Basophils # (Auto) 0.0 x10^3/uL (0.0-0.2) O2 Saturation 95 % (92-99) Arterial Blood pH 7.44 (7.35-7.45) Arterial Blood pCO2 at Patient Temp 32 mmHg (35-46) Arterial Blood pO2 at Patient Temp 82 mmHg (65-108) Arterial Blood HCO3 21 mmol/L (21-28) Arterial Blood Base Excess -2 mmol/L (-3-3) Oxyhemoglobin 94.0 % Methemoglobin 0.5 % (0.0-1.9) Carbon Monoxide, Quantitative 0.3 % (0.0-1.9) FiO2 3ln.c. Ammonia < 10 mcmol/L (11-34) Cortisol AM Sample 47.2 ug/dL (4.3-22.4) Glucose (Fingerstick) 202 mg/dL (70-99) Test 09/25/20 17:17 09/25/20 21:00 09/25/20 23:49 09/26/20 06:21 Glucose (Fingerstick) 174 mg/dL (70-99) 150 mg/dL (70-99) 123 mg/dL (70-99) Cortisol PM Sample 44.0 ug/dL (3.1-16.7) Microbiology 09/20/20 Urine Culture - Final, Complete Medications Current Medications Sodium Chloride 1,000 ml @ 100 mls/hr Q10H IV Last administered on 09/20/20at 23:46; Start 09/20/20 at 03:00; Stop 09/21/20 at 10:18; Status DC Ondansetron HCl (Zofran) 4 mg PRN Q6HRS PRN IVP NAUSEA/VOMITING; Start 09/20/20 at 03:00 Morphine Sulfate (Morphine Sulfate) 4 mg PRN Q4HRS PRN IV PAIN Last administered on 09/26/20at 06:41; Start 09/20/20 at 03:00 Pantoprazole Sodium (PROTONIX VIAL for IV PUSH) 40 mg BID IVP Last administered on 09/26/20at 08:18; Start 09/20/20 at 03:00 Ceftriaxone Sodium (Rocephin) 1 gm Q24H IVP ; Start 09/20/20 at 03:00; Stop 09/20/20 at 03:07; Status DC Ceftriaxone Sodium (Rocephin) 1 gm Q24H IVP Last administered on 09/24/20at 21:13; Start 09/20/20 at 21:00; Stop 09/25/20 at 10:16; Status DC Metoprolol Tartrate (Lopressor Vial) 5 mg Q6HRS IVP Last administered on 09/26/20at 06:44; Start 09/20/20 at 07:45 Insulin Human Lispro (HumaLOG) 0-9 UNITS Q6HRS SQ Last administered on 09/24/20at 13:42; Start 09/20/20 at 07:45 Dextrose (Dextrose 50%-Water Syringe) 12.5 gm PRN Q15MIN PRN IV SEE COMMENTS; Start 09/20/20 at 07:45 Acetaminophen (Tylenol Supp) 650 [address] Q6HRS PR[address] CT MILD PAIN / TEMP > 100.3'F Last administered on 09/20/20at 10:24; Start 09/20/20 at 09:00 Nitroglycerin (Nitrostat) 0.4 mg PRN Q5MIN PRN SL CHEST PAIN; Start 09/20/20 at 14:15 Ringer's Solution 1,000 ml @ 50 mls/hr Q20H IV ; Start 09/21/20 at 07:00; Stop 09/21/20 at 18:59; Status DC Magnesium Sulfate 50 ml @ 25 mls/hr PRN DAILY PRN IV for Mag < 1.7 on am labs; Start 09/20/20 at 14:30 Ringer's Solution 1,000 ml @ 75 mls/hr [id number] IV Last administered on 09/22/20at 05:03; Start 09/21/20 at 10:30; Stop 09/22/20 at 12:31; Status DC Ringer's Solution 1,000 ml @ 50 mls/hr Q20H IV Last administered on 09/22/20at 13:42; Start 09/22/20 at 10:15; Stop 09/22/20 at 22:14; Status DC Benzocaine (Hurricaine One) 2 spray 1X ONCE MM Last administered on 09/22/20at 13:40; Start 09/22/20 at 10:30; Stop 09/22/20 at 10:31; Status DC Lidocaine HCl (Xylocaine 2% Topical 30gm Tube) 1 freddie 1X ONCE TP ; Start 09/22/20 at 10:30; Stop 09/22/20 at 10:31; Status DC Lidocaine HCl (Viscous Lidocaine) 15 ml 1X ONCE SWSW ; Start 09/22/20 at 10:30; Stop 09/22/20 at 10:31; Status DC Phenol (Chloraseptic) 1 spray PRN Q2HR PRN PO SORE THROAT Last administered on 09/22/20at 15:43; Start 09/22/20 at 11:30 Amino Acids/ Glycerin/ Electrolytes 1,000 ml @ 80 mls/hr [id number] IV Last administered on 09/25/20at 05:43; Start 09/22/20 at 12:30; Stop 09/25/20 at 12:47; Status DC Propofol (Diprivan) 200 mg STK-MED ONCE IV ; Start 09/22/20 at 12:55; Stop 09/22/20 at 12:55; Status DC Labetalol HCl (Normodyne Iv Push) 10 mg PRN Q10MIN PRN IVP HYPERTENSION Last administered on 09/25/20at 07:43; Start 09/23/20 at 04:30; Stop 09/25/20 at 10:56; Status DC Hydrocortisone Sodium Succinate (Solu-CORTEF) 200 mg 1X ONCE IVP Last administered on 09/23/20at 07:03; Start 09/23/20 at 05:45; Stop 09/23/20 at 05:46; Status DC Diphenhydramine HCl (Benadryl) 25 mg 1X ONCE IVP ; Start 09/23/20 at 05:45; Stop 09/23/20 at 05:46; Status DC Diphenhydramine HCl (Benadryl) 25 mg 1X ONCE IVP ; Start 09/23/20 at 05:45; Stop 09/23/20 at 05:46; Status DC Sodium Chloride 1,000 ml @ 75 mls/hr [id number] IV Last administered on 09/24/20at 03:38; Start 09/23/20 at 06:45; Stop 09/24/20 at 08:15; Status DC Albuterol Sulfate (Ventolin Neb Soln) 2.5 mg PRN Q6HRS PRN NEB SHORTNESS OF BREATH Last administered on 09/23/20at 07:16; Start 09/23/20 at 07:00 Prednisone (Prednisone) 20 mg 1X ONCE PO Last administered on 09/23/20at 19:51; Start 09/23/20 at 19:30; Stop 09/23/20 at 19:34; Status DC Prednisone (Prednisone) 20 mg 1X ONCE PO Last administered on 09/23/20at 22:49; Start 09/23/20 at 23:00; Stop 09/23/20 at 23:01; Status DC Prednisone (Prednisone) 20 mg 1X ONCE PO Last administered on 09/24/20at 05:59; Start 09/24/20 at 06:00; Stop 09/24/20 at 06:01; Status DC Iohexol (Omnipaque 350 Mg/ml) 80 ml 1X ONCE IV Last administered on 09/24/20at 11:37; Start 09/24/20 at 11:00; Stop 09/24/20 at 11:01; Status DC Info (CONTRAST GIVEN -- Rx MONITORING) 1 each PRN DAILY PRN MC SEE COMMENTS; Start 09/24/20 at 11:00; Stop 09/26/20 at 10:59 Diphenhydramine HCl (Benadryl) 50 mg 1X ONCE PO ; Start 09/24/20 at 11:30; Stop 09/24/20 at 11:06; Status DC Diphenhydramine HCl (Benadryl) 50 mg 1X ONCE IV Last administered on 09/24/20at 11:10; Start 09/24/20 at 11:30; Stop 09/24/20 at 11:31; Status DC Ringer's Solution 1,000 ml @ 50 mls/hr Q20H IV Last administered on 09/25/20at 09:15; Start 09/25/20 at 07:00; Stop 09/25/20 at 18:59; Status DC Ringer's Solution 1,000 ml @ 75 mls/hr 1X ONCE IV ; Start 09/25/20 at 08:45; Stop 09/25/20 at 22:04; Status DC Nitroglycerin (Nitro-Bid Oint) 1 inch Q6HRS TP Last administered on 09/26/20at 06:45; Start 09/25/20 at 10:00 Piperacillin Sod/ Tazobactam Sod (Zosyn Per Pharmacy) 1 each PRN DAILY PRN MC SEE COMMENTS; Start 09/25/20 at 10:15; Stop 09/25/20 at 10:56; Status DC Piperacillin Sod/ Tazobactam Sod 2.25 gm/Sodium Chloride 50 ml @ 100 mls/hr Q6HRS IV ; Start 09/25/20 at 11:00; Stop 09/25/20 at 10:56; Status DC Furosemide (Lasix) 40 mg 1X ONCE IVP Last administered on 09/25/20at 11:48; Start 09/25/20 at 11:00; Stop 09/25/20 at 11:01; Status DC Labetalol HCl (Normodyne Iv Push) 20 mg PRN Q2HR PRN IVP HYPERTENSION; Start 09/25/20 at 11:00 Meropenem 500 mg/ Sodium Chloride 50 ml @ 100 mls/hr Q8HRS IV Last administered on 09/26/20at 06:35; Start 09/25/20 at 14:00 Daptomycin 350 mg/ Sodium Chloride 50 ml @ 100 mls/hr Q48H IV Last administered on 09/25/20at 13:57; Start 09/25/20 at 14:00 Sodium Chloride 1,000 ml @ 75 mls/hr [id number] IV Last administered on 09/26/20at 02:49; Start 09/25/20 at 13:00 Ringer's Solution 1,000 ml @ 75 mls/hr 1X ONCE IV ; Start 09/26/20 at 09:15; Stop 09/26/20 at 22:34 Active Scripts Active Reported Cyclobenzaprine Hcl 10 Mg Tablet 1 Tab PO QHS Carvedilol 25 Mg Tablet 12.5 Mg PO BIDWMEALS Lipitor (Atorvastatin Calcium) 80 Mg Tablet 1 Tab PO HS Aspirin Ec (Aspirin) 81 Mg Tablet.dr 1 Tab PO DAILY Acetaminophen 325 Mg Tablet 2 Tab PO PRN DAILY PRN 30 Days Zyrtec (Cetirizine Hcl) 10 Mg Tablet 1 Tab PO DAILY Norvasc (Amlodipine Besylate) 10 Mg Tablet 10 Mg PO DAILY Nitrostat (Nitroglycerin) 0.4 Mg Tab.subl 0.4 Mg SL PRN Q5MIN PRN Clopidogrel (Clopidogrel Bisulfate) 75 Mg Tablet 1 Tab PO DAILY Percocet 10-325 Mg Tablet (Oxycodone/Acetaminophen) 1 Each Tablet 1 Tab PO Q4-6HRS Gabapentin (Gabapentin) 300 Mg Capsule 1 Cap PO HS Vitals/I & O Vital Sign - Last 24 Hours 09/25/20 09/25/20 09/25/20 09/25/20 11:01 11:48 11:50 12:07 Temp 98.5 98.5 Pulse 113 113 113 Resp 24 B/P (MAP) 173/80 (111) 173/80 173/80 Pulse Ox 100 O2 Delivery Nasal Cannula Nasal Cannula O2 Flow Rate 3.0 3.0 09/25/20 09/25/20 09/25/20 09/25/20 15:00 17:11 17:13 19:00 Temp 97.8 98.9 97.8 98.9 Pulse 116 113 113 114 Resp 24 34 B/P (MAP) 148/85 (106) 173/80 173/80 147/91 (109) Pulse Ox 99 99 O2 Delivery Nasal Cannula O2 Flow Rate 3.0 09/25/20 09/25/20 09/25/20 09/25/20 20:00 23:00 23:43 23:44 Temp 98.0 98.0 Pulse 122 122 122 Resp 32 B/P (MAP) 157/91 (113) 157/91 157/91 Pulse Ox 98 O2 Delivery Nasal Cannula O2 Flow Rate 3.0 09/26/20 09/26/20 09/26/20 09/26/20 00:25 00:55 02:50 06:41 Temp 97.7 97.7 Pulse 116 Resp 28 24 26 24 B/P (MAP) 150/82 (104) Pulse Ox 99 95 98 98 O2 Delivery Nasal Cannula Nasal Cannula Nasal Cannula Nasal Cannula O2 Flow Rate 3.0 3.0 3.0 3.0 09/26/20 09/26/20 09/26/20 09/26/20 06:44 06:45 07:00 07:11 Temp 98.0 98.0 Pulse 121 121 101 Resp 18 26 B/P (MAP) 175/104 175/104 169/96 (120) Pulse Ox 98 95 O2 Delivery Room Air Nasal Cannula O2 Flow Rate 3.0 09/26/20 07:32 Pulse Ox 95 O2 Delivery Nasal Cannula O2 Flow Rate 3.0 Intake and Output 09/25/20 09/25/20 09/26/20 15:00 23:00 07:00 Intake Total 819 ml 0 ml Output Total 750 ml 250 ml Balance 69 ml -250 ml Justicifation of Admission Dx: Justifications for Admission: Justification of Admission Dx: Yes MACY MARIA MD Sep 26, 2020 09:25
--- NOTE | 2020-09-26 09:40 | PDOC ---
Infectious Disease Note Subjective Subjective pt is awake, able to communicate, answers appropriately ROS ROS no n/v/d/fever Vital Sign Vital Signs Vital Signs Date Time Temp Pulse Resp B/P (MAP) Pulse Ox O2 Delivery O2 Flow Rate FiO2 09/26/20 07:32 95 Nasal Cannula 3.0 09/26/20 07:11 26 09/26/20 07:00 98.0 101 169/96 (120) 98.0 Physical Exam PHYSICAL EXAM GENERAL: awake , comfortable VITAL SIGNS: stable HEENT: Both pupils are round and reacting. No conjunctival lesion, no lesion in the mouth. NECK: Supple, no JVP, no lymphadenopathy. LUNGS: Clear. HEART: S1, S2 regular. ABDOMEN: Soft, nontender, no organomegaly. EXTREMITIES: No edema, cyanosis. SKIN: Unremarkable other than some scratch ortiz are present. NEUROLOGIC: a and o , no focal deficit Labs Lab Laboratory Tests Test 09/25/20 09:50 09/25/20 11:07 09/25/20 11:45 09/25/20 14:35 White Blood Count 20.3 x10^3/uL (4.0-11.0) Red Blood Count 2.71 x10^6/uL (3.50-5.40) Hemoglobin 8.3 g/dL (12.0-15.5) Hematocrit 26.4 % (36.0-47.0) Mean Corpuscular Volume 97 fL (79-100) Mean Corpuscular Hemoglobin 31 pg (25-35) Mean Corpuscular Hemoglobin Concent 32 g/dL (31-37) Red Cell Distribution Width 14.6 % (11.5-14.5) Platelet Count 316 x10^3/uL (140-400) Neutrophils (%) (Auto) 78 % (31-73) Lymphocytes (%) (Auto) 12 % (24-48) Monocytes (%) (Auto) 10 % (0-9) Eosinophils (%) (Auto) 0 % (0-3) Basophils (%) (Auto) 0 % (0-3) Neutrophils # (Auto) 15.8 x10^3/uL (1.8-7.7) Lymphocytes # (Auto) 2.3 x10^3/uL (1.0-4.8) Monocytes # (Auto) 2.1 x10^3/uL (0.0-1.1) Eosinophils # (Auto) 0.0 x10^3/uL (0.0-0.7) Basophils # (Auto) 0.0 x10^3/uL (0.0-0.2) O2 Saturation 95 % (92-99) Arterial Blood pH 7.44 (7.35-7.45) Arterial Blood pCO2 at Patient Temp 32 mmHg (35-46) Arterial Blood pO2 at Patient Temp 82 mmHg (65-108) Arterial Blood HCO3 21 mmol/L (21-28) Arterial Blood Base Excess -2 mmol/L (-3-3) Oxyhemoglobin 94.0 % Methemoglobin 0.5 % (0.0-1.9) Carbon Monoxide, Quantitative 0.3 % (0.0-1.9) FiO2 3ln.c. Ammonia < 10 mcmol/L (11-34) Cortisol AM Sample 47.2 ug/dL (4.3-22.4) Glucose (Fingerstick) 202 mg/dL (70-99) Test 09/25/20 17:17 09/25/20 21:00 09/25/20 23:49 09/26/20 06:21 Glucose (Fingerstick) 174 mg/dL (70-99) 150 mg/dL (70-99) 123 mg/dL (70-99) Cortisol PM Sample 44.0 ug/dL (3.1-16.7) Micro Microbiology 09/20/20 Urine Culture - Final, Complete Objective Assessment IMPRESSION: 1. Leukocytosis, most likely to be reactive. There is no obvious area of infection so far. 2. Gastrointestinal bleed that itself gastrointestinal bleed can cause leukocytosis. 3. Renal insufficiency. 4. Encephalopathy, improved 5. Coronary artery disease. Plan Plan of Care cont antibiotics no need for LP supportive care pt/ot TERRIE BURR MD Sep 26, 2020 09:40
--- NOTE | 2020-09-26 09:51 | PDOC ---
Date of Service: DATE: 09/26/20 TIME: 09:48 Subjective: Subjective: More awake today - wants a "fizzy" (green mouth sponge). Knows she's at [place], says the year is 2019, knows who the president is. Objective: Objective: D/w nurse - she thinks EGD planned for this afternoon. Vital Signs: Vital Signs Date Time Temp Pulse Resp B/P (MAP) Pulse Ox O2 Delivery O2 Flow Rate FiO2 09/26/20 07:32 95 Nasal Cannula 3.0 09/26/20 07:11 26 09/26/20 07:00 98.0 101 169/96 (120) 98.0 Labs: Laboratory Tests Test 09/25/20 09:50 09/25/20 11:07 09/25/20 11:45 09/25/20 14:35 White Blood Count 20.3 x10^3/uL Red Blood Count 2.71 x10^6/uL Hemoglobin 8.3 g/dL Hematocrit 26.4 % Mean Corpuscular Volume 97 fL Mean Corpuscular Hemoglobin 31 pg Mean Corpuscular Hemoglobin Concent 32 g/dL Red Cell Distribution Width 14.6 % Platelet Count 316 x10^3/uL Neutrophils (%) (Auto) 78 % Lymphocytes (%) (Auto) 12 % Monocytes (%) (Auto) 10 % Eosinophils (%) (Auto) 0 % Basophils (%) (Auto) 0 % Neutrophils # (Auto) 15.8 x10^3/uL Lymphocytes # (Auto) 2.3 x10^3/uL Monocytes # (Auto) 2.1 x10^3/uL Eosinophils # (Auto) 0.0 x10^3/uL Basophils # (Auto) 0.0 x10^3/uL O2 Saturation 95 % Arterial Blood pH 7.44 Arterial Blood pCO2 at Patient Temp 32 mmHg Arterial Blood pO2 at Patient Temp 82 mmHg Arterial Blood HCO3 21 mmol/L Arterial Blood Base Excess -2 mmol/L Oxyhemoglobin 94.0 % Methemoglobin 0.5 % Carbon Monoxide, Quantitative 0.3 % FiO2 3ln.c. Ammonia < 10 mcmol/L Cortisol AM Sample 47.2 ug/dL Glucose (Fingerstick) 202 mg/dL Test 09/25/20 17:17 09/25/20 21:00 09/25/20 23:49 09/26/20 06:21 Glucose (Fingerstick) 174 mg/dL 150 mg/dL 123 mg/dL Cortisol PM Sample 44.0 ug/dL PE: GEN: NAD LUNGS: diminished NC 3L HEART: mildly tachycardic ABD: soft, doesn't seem tender NEURO/PSYCH: more awake, less confused A/P: Metabolic encephalopathy Anemia, leukocytosis, MARIA ELENA, coagulopathy COVID negative09/20 -- Await today's labs. D/w Dr. Barbosa and GI labs - EGD tentatively 2:00 p.m. today. Continue IV PPI. Justicifation of Admission Dx: Justifications for Admission: Justification of Admission Dx: Yes REAL FRAZIER Sep 26, 2020 09:51
[2020-09-26 10:18] LABS: BASO # 0.1 x10^3/uL (0.0-0.2); BASO % 0 % (0-3); EOS % 0 % (0-3); HEMATOCRIT 26.7 % (36.0-47.0); HEMOGLOBIN 8.5 g/dL (12.0-15.5); LYMPH # 2.3 x10^3/uL (1.0-4.8); LYMPH % 13 % (24-48); MEAN CORPUSCULAR HEMOGLOBIN 31 pg (25-35); MEAN CORPUSCULAR HGB CONC 32 g/dL (31-37); MEAN CORPUSCULAR VOLUME 98 fL (79-100); MONO # 1.5 x10^3/uL (0.0-1.1); MONO % 8 % (0-9); NEUT # 14.1 x10^3/uL (1.8-7.7); NEUT % 79 % (31-73); PLATELET COUNT 303 x10^3/uL (140-400); RED BLOOD COUNT 2.74 x10^6/uL (3.50-5.40)
[2020-09-26 10:25] LABS: ALBUMIN 2.8 g/dL (3.4-5.0); CALCIUM 8.6 mg/dL (8.5-10.1); CREATININE 1.8 mg/dL (0.6-1.0); GFR 27.5; PHOSPHORUS 4.2 mg/dL (2.6-4.7); POTASSIUM 4.1 mmol/L (3.5-5.1)
[2020-09-26 10:27] LABS: ALBUMIN 2.8 g/dL (3.4-5.0); DIRECT BILIRUBIN 0.1 mg/dL (0.0-0.2); TOTAL BILIRUBIN 0.4 mg/dL (0.2-1.0); TOTAL PROTEIN 6.1 g/dL (6.4-8.2)
[2020-09-26 10:29] LABS: PROTHROMBIN TIME PATIENT 20.9 SEC (11.7-14.0)
--- NOTE | 2020-09-26 10:32 | PDOC ---
PULMONARY PROGRESS NOTES DATE: 09/26/20 TIME: 10:30 Subjective Patient is weak, no productive cough, currently on 3 L of oxygen supplementation Vitals Vital Signs Date Time Temp Pulse Resp B/P (MAP) Pulse Ox O2 Delivery O2 Flow Rate FiO2 09/26/20 07:32 95 Nasal Cannula 3.0 09/26/20 07:11 26 09/26/20 07:00 98.0 101 169/96 (120) 98.0 ROS: No Nausea, No Chest Pain, No Increase Cough General: Alert Lungs: Clear, Other (diminished) Cardiovascular: S1, S2 Abdomen: Soft Neuro Exam: Alert Extremities: No Edema Skin: Warm, Dry Labs Laboratory Tests Test 09/24/20 11:49 09/24/20 18:33 09/24/20 23:53 09/25/20 05:58 Glucose (Fingerstick) 221 mg/dL (70-99) 162 mg/dL (70-99) 176 mg/dL (70-99) 183 mg/dL (70-99) Test 09/25/20 08:00 09/25/20 09:50 09/25/20 11:07 09/25/20 11:45 Prothrombin Time 23.9 SEC (11.7-14.0) Prothromb Time International Ratio 2.2 (0.8-1.1) Sodium Level 147 mmol/L (136-145) Potassium Level 5.5 mmol/L (3.5-5.1) Chloride Level 109 mmol/L (98-107) Carbon Dioxide Level 22 mmol/L (21-32) Anion Gap 16 (6-14) Blood Urea Nitrogen 64 mg/dL (7-20) Creatinine 1.8 mg/dL (0.6-1.0) Estimated GFR (Cockcroft-Gault) 27.5 Glucose Level 199 mg/dL (70-99) Calcium Level 9.7 mg/dL (8.5-10.1) Phosphorus Level 3.9 mg/dL (2.6-4.7) Magnesium Level 2.7 mg/dL (1.8-2.4) NA-Udi-S-Type Natriuretic Peptide > 67386 pg/mL (0-124) Albumin 3.0 g/dL (3.4-5.0) Procalcitonin 0.41 ng/mL (0.00-0.10) White Blood Count 20.3 x10^3/uL (4.0-11.0) Red Blood Count 2.71 x10^6/uL (3.50-5.40) Hemoglobin 8.3 g/dL (12.0-15.5) Hematocrit 26.4 % (36.0-47.0) Mean Corpuscular Volume 97 fL (79-100) Mean Corpuscular Hemoglobin 31 pg (25-35) Mean Corpuscular Hemoglobin Concent 32 g/dL (31-37) Red Cell Distribution Width 14.6 % (11.5-14.5) Platelet Count 316 x10^3/uL (140-400) Neutrophils (%) (Auto) 78 % (31-73) Lymphocytes (%) (Auto) 12 % (24-48) Monocytes (%) (Auto) 10 % (0-9) Eosinophils (%) (Auto) 0 % (0-3) Basophils (%) (Auto) 0 % (0-3) Neutrophils # (Auto) 15.8 x10^3/uL (1.8-7.7) Lymphocytes # (Auto) 2.3 x10^3/uL (1.0-4.8) Monocytes # (Auto) 2.1 x10^3/uL (0.0-1.1) Eosinophils # (Auto) 0.0 x10^3/uL (0.0-0.7) Basophils # (Auto) 0.0 x10^3/uL (0.0-0.2) O2 Saturation 95 % (92-99) Arterial Blood pH 7.44 (7.35-7.45) Arterial Blood pCO2 at Patient Temp 32 mmHg (35-46) Arterial Blood pO2 at Patient Temp 82 mmHg (65-108) Arterial Blood HCO3 21 mmol/L (21-28) Arterial Blood Base Excess -2 mmol/L (-3-3) Oxyhemoglobin 94.0 % Methemoglobin 0.5 % (0.0-1.9) Carbon Monoxide, Quantitative 0.3 % (0.0-1.9) FiO2 3ln.c. Ammonia < 10 mcmol/L (11-34) Cortisol AM Sample 47.2 ug/dL (4.3-22.4) Test 09/25/20 14:35 09/25/20 17:17 09/25/20 21:00 09/25/20 23:49 Glucose (Fingerstick) 202 mg/dL (70-99) 174 mg/dL (70-99) 150 mg/dL (70-99) Cortisol PM Sample 44.0 ug/dL (3.1-16.7) Test 09/26/20 06:21 09/26/20 09:50 Glucose (Fingerstick) 123 mg/dL (70-99) White Blood Count 18.0 x10^3/uL (4.0-11.0) Red Blood Count 2.74 x10^6/uL (3.50-5.40) Hemoglobin 8.5 g/dL (12.0-15.5) Hematocrit 26.7 % (36.0-47.0) Mean Corpuscular Volume 98 fL (79-100) Mean Corpuscular Hemoglobin 31 pg (25-35) Mean Corpuscular Hemoglobin Concent 32 g/dL (31-37) Red Cell Distribution Width 15.0 % (11.5-14.5) Platelet Count 303 x10^3/uL (140-400) Neutrophils (%) (Auto) 79 % (31-73) Lymphocytes (%) (Auto) 13 % (24-48) Monocytes (%) (Auto) 8 % (0-9) Eosinophils (%) (Auto) 0 % (0-3) Basophils (%) (Auto) 0 % (0-3) Neutrophils # (Auto) 14.1 x10^3/uL (1.8-7.7) Lymphocytes # (Auto) 2.3 x10^3/uL (1.0-4.8) Monocytes # (Auto) 1.5 x10^3/uL (0.0-1.1) Eosinophils # (Auto) 0.0 x10^3/uL (0.0-0.7) Basophils # (Auto) 0.1 x10^3/uL (0.0-0.2) Laboratory Tests Test 09/25/20 11:07 09/25/20 11:45 09/25/20 14:35 09/25/20 17:17 O2 Saturation 95 % (92-99) Arterial Blood pH 7.44 (7.35-7.45) Arterial Blood pCO2 at Patient Temp 32 mmHg (35-46) Arterial Blood pO2 at Patient Temp 82 mmHg (65-108) Arterial Blood HCO3 21 mmol/L (21-28) Arterial Blood Base Excess -2 mmol/L (-3-3) Oxyhemoglobin 94.0 % Methemoglobin 0.5 % (0.0-1.9) Carbon Monoxide, Quantitative 0.3 % (0.0-1.9) FiO2 3ln.c. Ammonia < 10 mcmol/L (11-34) Cortisol AM Sample 47.2 ug/dL (4.3-22.4) Glucose (Fingerstick) 202 mg/dL (70-99) 174 mg/dL (70-99) Test 09/25/20 21:00 09/25/20 23:49 09/26/20 06:21 09/26/20 09:50 Cortisol PM Sample 44.0 ug/dL (3.1-16.7) Glucose (Fingerstick) 150 mg/dL (70-99) 123 mg/dL (70-99) White Blood Count 18.0 x10^3/uL (4.0-11.0) Red Blood Count 2.74 x10^6/uL (3.50-5.40) Hemoglobin 8.5 g/dL (12.0-15.5) Hematocrit 26.7 % (36.0-47.0) Mean Corpuscular Volume 98 fL (79-100) Mean Corpuscular Hemoglobin 31 pg (25-35) Mean Corpuscular Hemoglobin Concent 32 g/dL (31-37) Red Cell Distribution Width 15.0 % (11.5-14.5) Platelet Count 303 x10^3/uL (140-400) Neutrophils (%) (Auto) 79 % (31-73) Lymphocytes (%) (Auto) 13 % (24-48) Monocytes (%) (Auto) 8 % (0-9) Eosinophils (%) (Auto) 0 % (0-3) Basophils (%) (Auto) 0 % (0-3) Neutrophils # (Auto) 14.1 x10^3/uL (1.8-7.7) Lymphocytes # (Auto) 2.3 x10^3/uL (1.0-4.8) Monocytes # (Auto) 1.5 x10^3/uL (0.0-1.1) Eosinophils # (Auto) 0.0 x10^3/uL (0.0-0.7) Basophils # (Auto) 0.1 x10^3/uL (0.0-0.2) Medications Active Scripts Medications Dose Route/Sig Max Daily Dose Days Date Category Cyclobenzaprine Hcl 10 Mg Tablet 1 Tab PO QHS 05/27/20 Reported Carvedilol 25 Mg Tablet 12.5 Mg PO BIDWMEALS 05/27/20 Reported Lipitor (Atorvastatin Calcium) 80 Mg Tablet 1 Tab PO HS 05/27/20 Reported Aspirin Ec (Aspirin) 81 Mg Tablet.dr 1 Tab PO DAILY 05/27/20 Reported Acetaminophen 325 Mg Tablet 2 Tab PO PRN DAILY PRN 30 05/27/20 Reported Zyrtec (Cetirizine Hcl) 10 Mg Tablet 1 Tab PO DAILY 05/27/20 Reported Norvasc (Amlodipine Besylate) 10 Mg Tablet 10 Mg PO DAILY 05/27/20 Reported Nitrostat (Nitroglycerin) 0.4 Mg Tab.subl 0.4 Mg SL PRN Q5MIN PRN 05/27/20 Reported Clopidogrel (Clopidogrel Bisulfate) 75 Mg Tablet 1 Tab PO DAILY 05/27/20 Reported Percocet 10-325 Mg Tablet (Oxycodone/Acetaminophen) 1 Each Tablet 1 Tab PO Q4-6HRS 08/02/16 Reported Gabapentin (Gabapentin) 300 Mg Capsule 1 Cap PO HS 09/26/14 Reported Comments IMPRESSION: 1. No evidence of acute pulmonary embolism 2. Small left and moderate right pleural effusion 3. Patchy groundglass infiltrates throughout the bilateral lungs. Cardiomegaly. Constellation of findings favor pulmonary edema however an atypical or viral infectious process cannot be excluded. Impression . IMPRESSION: 1. Acute hypoxic respiratory failure, multifactorial, suspect heart failure, anemia, patient is status post transfusion. 2. Metabolic toxic encephalopathy, improved 3. Underlying dementia. 4. Recent gastrointestinal bleed. Plan . Continue oxygen supplementation EGD today Continue supplemental oxygen to keep oxygen saturations greater than 92% CT of chest was negative for PE did demonstrate a loculated effusion, less likely pneumonia Obtain blood cultures, follow urine culture, consult infectious disease for ongoing leukocytosis will DC Rocephin and start Zosyn for empiric antibiotic coverage Follow nephrology recommendations in regards to hyperkalemia and hypernatremia PCP to manage hypertension DVT/GI prophylaxis--[facility] D/W RN DEE BENEDICT MD Sep 26, 2020 10:32
[2020-09-26] MEDS: IV 1/2 NORMAL SALINE 1,000 ML IV SCH (10:45)
[2020-09-26 11:00] VITALS: BP 176/107
--- NOTE | 2020-09-26 13:07 | PDOC ---
CARDIO Progress Notes Date and Time Date of Service 09/26/2020 Time of Evaluation 1100 Subjective Subjective: No Chest Pain, No shortness of breath, No Palpitations Vitals Vitals Vital Signs Date Time Temp Pulse Resp B/P (MAP) Pulse Ox O2 Delivery O2 Flow Rate FiO2 09/26/20 11:00 98.1 114 16 176/107 (130) 98 Room Air 98.1 09/26/20 07:32 3.0 Weight Weight [ ] Input and Output Intake and Output Intake and Output 09/26/20 07:00 Intake Total 819 ml Output Total 1000 ml Balance -181 ml Intake Oral 250 ml Blood Product IV Normal Saline Flush 569 ml Output Urine Total 1000 ml Laboratory Labs Laboratory Tests Test 09/25/20 14:35 09/25/20 17:17 09/25/20 21:00 09/25/20 23:49 Glucose (Fingerstick) 202 mg/dL (70-99) 174 mg/dL (70-99) 150 mg/dL (70-99) Cortisol PM Sample 44.0 ug/dL (3.1-16.7) Test 09/26/20 06:21 09/26/20 09:50 Glucose (Fingerstick) 123 mg/dL (70-99) White Blood Count 18.0 x10^3/uL (4.0-11.0) Red Blood Count 2.74 x10^6/uL (3.50-5.40) Hemoglobin 8.5 g/dL (12.0-15.5) Hematocrit 26.7 % (36.0-47.0) Mean Corpuscular Volume 98 fL (79-100) Mean Corpuscular Hemoglobin 31 pg (25-35) Mean Corpuscular Hemoglobin Concent 32 g/dL (31-37) Red Cell Distribution Width 15.0 % (11.5-14.5) Platelet Count 303 x10^3/uL (140-400) Neutrophils (%) (Auto) 79 % (31-73) Lymphocytes (%) (Auto) 13 % (24-48) Monocytes (%) (Auto) 8 % (0-9) Eosinophils (%) (Auto) 0 % (0-3) Basophils (%) (Auto) 0 % (0-3) Neutrophils # (Auto) 14.1 x10^3/uL (1.8-7.7) Lymphocytes # (Auto) 2.3 x10^3/uL (1.0-4.8) Monocytes # (Auto) 1.5 x10^3/uL (0.0-1.1) Eosinophils # (Auto) 0.0 x10^3/uL (0.0-0.7) Basophils # (Auto) 0.1 x10^3/uL (0.0-0.2) Prothrombin Time 20.9 SEC (11.7-14.0) Prothromb Time International Ratio 1.8 (0.8-1.1) Sodium Level 149 mmol/L (136-145) Potassium Level 4.1 mmol/L (3.5-5.1) Chloride Level 113 mmol/L (98-107) Carbon Dioxide Level 22 mmol/L (21-32) Anion Gap 14 (6-14) Blood Urea Nitrogen 69 mg/dL (7-20) Creatinine 1.8 mg/dL (0.6-1.0) Estimated GFR (Cockcroft-Gault) 27.5 Glucose Level 134 mg/dL (70-99) Calcium Level 8.6 mg/dL (8.5-10.1) Phosphorus Level 4.2 mg/dL (2.6-4.7) Total Bilirubin 0.4 mg/dL (0.2-1.0) Direct Bilirubin 0.1 mg/dL (0.0-0.2) Aspartate Amino Transf (AST/SGOT) 331 U/L (15-37) Alanine Aminotransferase (ALT/SGPT) 335 U/L (14-59) Alkaline Phosphatase 156 U/L (46-116) Creatine Kinase 41 U/L (26-192) Total Protein 6.1 g/dL (6.4-8.2) Albumin 2.8 g/dL (3.4-5.0) Microbiology Micro Microbiology 09/25/20 Blood Culture - Preliminary, Resulted NO GROWTH AFTER 1 DAY 09/20/20 Urine Culture - Final, Complete Review of Systems Constitutional: yes: alert Ears/Nose/Throat: Yes: no symptom reported Eyes: Yes: no symptom reported Pulmonary: Yes no symptom reported Cardiovascular: Yes no symptom reported Gastrointestional: Yes: no symptom reported Genitourinary: Yes: no symptom reported Musculoskeletal: Yes: no symptom reported Psychiatric/Neurological: Yes: no symptom reported Physical Exam HEENT: Neck Supple W Full Motion Chest: Symmetric LUNGS: Other (diminished bases) Heart: RRR (sinus tachycardia) Abdomen: Other (soft) Extremities: No Edema, No Calf Tenderness, Other (pale) Neurology: alert, follow commands, confused (still having long gaps between answers and pt continues to have spacing out period when asked questions) Assessment Assessment 1. Acute anemia: post transfusion, Hgb at 8.5.No PE per CTA. EGD today 2. Mild troponin elevation: suspect demand mediated peaked at 0.128. Post JANELLE no intracardiac lesion nor thrombus, EF nml. 3. CAD: estimated PCI/11/2019 per spouse. Clinically stable 4. Reactive sinus tachycardia: No RV dilation. HR 100-110s 5. Metabolic Encephalopathy: Remains confused. neurology following 6. MARIA ELENA with hyperkalemia: K better, Cr is stable 7. HTN: labile 8. Moderate MR 9. Coagulopathy and transaminitis: GI following 10. Acute on chronic diastolic CHF: better compensated 11. Leukocytosis: no PNA per pulmonary negative covid-19 PCR Recommendations 1. Continue lopressor and will increase. She is on high dose coreg at home. Would resume once PO allowed. While NPO. Continue NTG paste. IVF ongoing 2. May hold brilinta for now. Resume ASA when clear with GI pending pulmonary workup. 3. Secondary prevention when able to take PO 4. Will check NH3 level. Lasix PRN 5. Supportive care 6. Continued leukocytosis, Possible ileitis per CT, no diarrhea, urine/BC so far neg, empiric antibiotic regimen ongoing Justicifation of Admission Dx: Justifications for Admission: Justification of Admission Dx: Yes WANDY GARCIA WOOD MECHANIST Sep 26, 2020 13:07
--- NOTE | 2020-09-26 14:13 | PDOC4 ---
PROCEDURE Procedure EGD Indication: recent UGI bleed. Meds: per anesthesia Findings: E--Normal. G--Normal D--Normal to second portion. Tolerated well. IMP: No lesion seen to explain the bleeding. Could have had a Kandace-Villagomez tear, since healed (will heal quickly). REC: Continue PPI, IV until eating, then PO. OK with me to feed; defer ordering diet to you. CHIRAG TREVIÑO MD Sep 26, 2020 14:12
[2020-09-26] MEDS ORDERED: FUROSEMIDE 20 MG/2 ML VIAL. IVP ONE ×2 (15:15→18:30)
[2020-09-26] MEDS ORDERED: FUROSEMIDE 40 MG/4 ML VIAL. IVP ONE (15:15)
--- NOTE | 2020-09-26 16:32 | RAD ---
EXAMINATION: XR CHEST 1V CLINICAL HISTORY: CHF EXAM DATE/TIME: 09/26/2020 3:34 PM COMPARISON: CTA chest 09/24/2020, chest radiograph 07/04/2019 FINDINGS: Lines, Tubes, and Devices: None. Cardiomediastinal Silhouette: Cardiomegaly. Aortic atherosclerotic calcification. Lungs and Pleura: Mild diffuse interstitial opacities. Hazy opacities in bilateral mid to lower lung zones. Bilateral pleural effusions, greater on the left. Borderline cephalization of the pulmonary va sculature. Bones and Soft Tissues: Partially visualized cervical and thoracolumbar fusion hardware. Thoracolumba r degenerative changes and dextroconvex curvature. Advanced degenerative changes bilateral glenohumer al joints with marked flattening of the right humeral head. IMPRESSION: Findings compatible with CHF and mild volume overload as described, superimposed infection not exclud ed. Correlate clinically. Electronically signed by: Abel Casarez DO (09/26/2020 4:29 PM) [id number]
--- NOTE | 2020-09-26 16:33 | PDOC ---
Renal-Progress Notes Subjective Notes Notes STILL SOMNOLENT History of Present Illness Hx of present illness NO ACUTE CHANGE Vitals Vitals Vital Signs Date Time Temp Pulse Resp B/P (MAP) Pulse Ox O2 Delivery O2 Flow Rate FiO2 09/26/20 16:03 109 142/74 09/26/20 14:40 18 97 Nasal Cannula 2 09/26/20 14:10 98.1 98.1 Weight Weight [ ] I.O. Intake and Output Intake and Output 09/26/20 07:00 Intake Total 819 ml Output Total 1000 ml Balance -181 ml Intake Oral 250 ml Blood Product IV Normal Saline Flush 569 ml Output Urine Total 1000 ml Labs Labs Laboratory Tests Test 09/25/20 17:17 09/25/20 21:00 09/25/20 23:49 09/26/20 06:21 Glucose (Fingerstick) 174 mg/dL (70-99) 150 mg/dL (70-99) 123 mg/dL (70-99) Cortisol PM Sample 44.0 ug/dL (3.1-16.7) Test 09/26/20 09:50 09/26/20 15:23 White Blood Count 18.0 x10^3/uL (4.0-11.0) Red Blood Count 2.74 x10^6/uL (3.50-5.40) Hemoglobin 8.5 g/dL (12.0-15.5) Hematocrit 26.7 % (36.0-47.0) Mean Corpuscular Volume 98 fL (79-100) Mean Corpuscular Hemoglobin 31 pg (25-35) Mean Corpuscular Hemoglobin Concent 32 g/dL (31-37) Red Cell Distribution Width 15.0 % (11.5-14.5) Platelet Count 303 x10^3/uL (140-400) Neutrophils (%) (Auto) 79 % (31-73) Lymphocytes (%) (Auto) 13 % (24-48) Monocytes (%) (Auto) 8 % (0-9) Eosinophils (%) (Auto) 0 % (0-3) Basophils (%) (Auto) 0 % (0-3) Neutrophils # (Auto) 14.1 x10^3/uL (1.8-7.7) Lymphocytes # (Auto) 2.3 x10^3/uL (1.0-4.8) Monocytes # (Auto) 1.5 x10^3/uL (0.0-1.1) Eosinophils # (Auto) 0.0 x10^3/uL (0.0-0.7) Basophils # (Auto) 0.1 x10^3/uL (0.0-0.2) Prothrombin Time 20.9 SEC (11.7-14.0) Prothromb Time International Ratio 1.8 (0.8-1.1) Sodium Level 149 mmol/L (136-145) Potassium Level 4.1 mmol/L (3.5-5.1) Chloride Level 113 mmol/L (98-107) Carbon Dioxide Level 22 mmol/L (21-32) Anion Gap 14 (6-14) Blood Urea Nitrogen 69 mg/dL (7-20) Creatinine 1.8 mg/dL (0.6-1.0) Estimated GFR (Cockcroft-Gault) 27.5 Glucose Level 134 mg/dL (70-99) Calcium Level 8.6 mg/dL (8.5-10.1) Phosphorus Level 4.2 mg/dL (2.6-4.7) Total Bilirubin 0.4 mg/dL (0.2-1.0) Direct Bilirubin 0.1 mg/dL (0.0-0.2) Aspartate Amino Transf (AST/SGOT) 331 U/L (15-37) Alanine Aminotransferase (ALT/SGPT) 335 U/L (14-59) Alkaline Phosphatase 156 U/L (46-116) Creatine Kinase 41 U/L (26-192) Total Protein 6.1 g/dL (6.4-8.2) Albumin 2.8 g/dL (3.4-5.0) Ammonia 22 mcmol/L (11-34) Micro Micro Microbiology 09/25/20 Blood Culture - Preliminary, Resulted NO GROWTH AFTER 1 DAY 09/20/20 Urine Culture - Final, Complete Review of Systems Constitutional: yes: alert Ears/Nose/Throat: Yes: no symptom reported Eyes: Yes: no symptom reported Pulmonary: Yes no symptom reported Cardiovascular: Yes no symptom reported Gastrointestional: Yes: no symptom reported Genitourinary: Yes: no symptom reported Musculoskeletal: Yes: no symptom reported Psychiatric/Neurological: Yes: no symptom reported Physical Exam General Appearance: no apparent distress, febrile Respiratory: decreased breath sounds Heart: S1S2 Abdomen: bowel sounds present Extremities: pulses present, no edema Neurology: alert, follow commands, confused (still having long gaps between answers and pt continues to have spacing out period when asked questions) Musculoskeletal: low back pain, Osteoarthritis Assessment Assessment IMP MARIA ELENA-CR UP TO 1.8 HYPERKALEMIA-RESOLVED CKD STAGE 3-CR AT BASELINE 1.5 LEUCOCYTOSIS HYPERNATREMIA ANEMIA ENCEPHALOPATHY PLAN HYPOTONIC SALINE F/U K WITH AM LABS MAX JUNIOR MD Sep 26, 2020 16:33
[2020-09-26 19:00] VITALS: BP 150/86
[2020-09-26 23:00] VITALS: BP 154/81
[2020-09-27] MEDS: NITROGLYCERIN OINT 1 GM PACKET. TP SCH ×4 (00:16→17:28)
[2020-09-27] MEDS: METOPROLOL IV PUSH 5 MG/5 ML VIAL. IVP SCH ×4 (00:17→17:25)
[2020-09-27] MEDS: IV 1/2 NORMAL SALINE 1,000 ML IV SCH (00:18)
[2020-09-27 03:00] VITALS: BP 137/84
[2020-09-27] MEDS: INSULIN LISPRO 300 UNITS/3 ML VIAL. SQ SCH ×4 (06:00→17:25)
[2020-09-27] MEDS: MEROPENEM 500 MG in IV NORMAL SALINE 50ML 50 ML IV SCH ×3 (06:04→21:37)
[2020-09-27 07:00] VITALS: BP 143/85
--- NOTE | 2020-09-27 08:35 | PDOC ---
Infectious Disease Note Subjective Subjective pt is awake, able to communicate, answers appropriately Feeling hot but no F?C/S/N/V/SOA/aches ROS ROS o/w neg Vital Sign Vital Signs Vital Signs Date Time Temp Pulse Resp B/P (MAP) Pulse Ox O2 Delivery O2 Flow Rate FiO2 09/27/20 07:00 98.3 65 18 143/85 (104) 93 Nasal Cannula 2.0 98.3 Physical Exam PHYSICAL EXAM GENERAL: awake , comfortable HEENT: Both pupils are round and reacting. No conjunctival lesion, no lesion in the mouth. NECK: Supple, no JVP, no lymphadenopathy. LUNGS: Clear. HEART: S1, S2 regular. ABDOMEN: Soft, nontender, no organomegaly. EXTREMITIES: No edema, cyanosis. SKIN: Unremarkable other than some scratch ortiz are present. NEUROLOGIC: a and o , no focal deficit Labs Lab Laboratory Tests Test 09/26/20 09:50 09/26/20 15:23 09/26/20 16:47 09/26/20 23:25 White Blood Count 18.0 x10^3/uL (4.0-11.0) Red Blood Count 2.74 x10^6/uL (3.50-5.40) Hemoglobin 8.5 g/dL (12.0-15.5) Hematocrit 26.7 % (36.0-47.0) Mean Corpuscular Volume 98 fL (79-100) Mean Corpuscular Hemoglobin 31 pg (25-35) Mean Corpuscular Hemoglobin Concent 32 g/dL (31-37) Red Cell Distribution Width 15.0 % (11.5-14.5) Platelet Count 303 x10^3/uL (140-400) Neutrophils (%) (Auto) 79 % (31-73) Lymphocytes (%) (Auto) 13 % (24-48) Monocytes (%) (Auto) 8 % (0-9) Eosinophils (%) (Auto) 0 % (0-3) Basophils (%) (Auto) 0 % (0-3) Neutrophils # (Auto) 14.1 x10^3/uL (1.8-7.7) Lymphocytes # (Auto) 2.3 x10^3/uL (1.0-4.8) Monocytes # (Auto) 1.5 x10^3/uL (0.0-1.1) Eosinophils # (Auto) 0.0 x10^3/uL (0.0-0.7) Basophils # (Auto) 0.1 x10^3/uL (0.0-0.2) Prothrombin Time 20.9 SEC (11.7-14.0) Prothromb Time International Ratio 1.8 (0.8-1.1) Sodium Level 149 mmol/L (136-145) Potassium Level 4.1 mmol/L (3.5-5.1) Chloride Level 113 mmol/L (98-107) Carbon Dioxide Level 22 mmol/L (21-32) Anion Gap 14 (6-14) Blood Urea Nitrogen 69 mg/dL (7-20) Creatinine 1.8 mg/dL (0.6-1.0) Estimated GFR (Cockcroft-Gault) 27.5 Glucose Level 134 mg/dL (70-99) Calcium Level 8.6 mg/dL (8.5-10.1) Phosphorus Level 4.2 mg/dL (2.6-4.7) Total Bilirubin 0.4 mg/dL (0.2-1.0) Direct Bilirubin 0.1 mg/dL (0.0-0.2) Aspartate Amino Transf (AST/SGOT) 331 U/L (15-37) Alanine Aminotransferase (ALT/SGPT) 335 U/L (14-59) Alkaline Phosphatase 156 U/L (46-116) Creatine Kinase 41 U/L (26-192) Total Protein 6.1 g/dL (6.4-8.2) Albumin 2.8 g/dL (3.4-5.0) Ammonia 22 mcmol/L (11-34) Glucose (Fingerstick) 134 mg/dL (70-99) 108 mg/dL (70-99) Test 09/27/20 06:13 09/27/20 08:15 Glucose (Fingerstick) 100 mg/dL (70-99) 95 mg/dL (70-99) Micro Microbiology 09/25/20 Blood Culture - Preliminary, Resulted NO GROWTH AFTER 1 DAY 09/20/20 Urine Culture - Final, Complete Objective Assessment 1. Leukocytosis, most likely to be reactive. There is no obvious area of infection so far. 2. Gastrointestinal bleed that itself gastrointestinal bleed can cause leukocytosis. EGD - neg ? Kandace Villagomez tear per GI 3. Renal insufficiency. 4. Encephalopathy, improved 5. Coronary artery disease. Plan Plan of Care cont antibiotics no need for LP supportive care pt/ot D/w nursing ELANA HAQ MD Sep 27, 2020 08:35
[2020-09-27] MEDS ORDERED: FUROSEMIDE 20 MG/2 ML VIAL. IVP SCH (09:00)
[2020-09-27 10:10] LABS: ALBUMIN 2.7 g/dL (3.4-5.0); CALCIUM 8.5 mg/dL (8.5-10.1); CREATININE 1.5 mg/dL (0.6-1.0); GFR 33.9; POTASSIUM 3.6 mmol/L (3.5-5.1)
--- NOTE | 2020-09-27 10:39 | PDOC ---
PROGRESS NOTES Date of Service: DATE: 09/27/20 TIME: 10:39 Chief Complaint Chief Complaint IMPRESSION Acute blood loss anemia hypoxia, CTA CHEST NEG PE echodensity in the wall of the left atrium of uncertain significance. A possible mass cannot be excluded., CARDIOLOGY CONSULT // transesophageal echo no thrombus, UGIB Acute METABOLIC encephalopathy, NEUROLOGY CONSULT, CT HEAD STAT 09-25 , NH4< 10 , PT/INR UTI MARIA ELENA Uremia Sepsis, ID CONSULT 09-25 Hyponatremia, NEPHROLOGY FOLLOWING DM2 CAD Elevated troponins ELECTROLYTE DISTURBANCE, NEPHROLOGY FOLLOWING, AM , PM CORTISOL no need for LP 09-26, IMPROVING, ALERT supportive care 09-26 now more responsive NEW CHG FROM 09-24 CT HEAD, STAT NH4 D/W DR BURR IN [place], CONSULT NEUROLOGY EEG consistent with the metabolic encephalopathy and shows no seizure activity 09-27. MUCH improved speech normal, alert, making sense, not encephalopathic, no need for LP, MAY HAVE RAYNAUDS FINGERS ARE COLD, pale History of Present Illness History of Present Illness Ms Gonzalez is a 75yo F w/ PMHx hypertension, type 2 diabetes, CAD s/p PCI (x3 in 08/2019 at [facility], then x2 11/2019) who presented to [place] 09/19/20 c/o hematemesis. Was transfused 2u of convalescent FFP, NGT was placed, but coiled in esophagus. Vital signs on ED presentation temp 94 F, heart rate 102 bpm blood pressure 142/73. WBC 16.4, Hb 9.3, Platelets 295, Na 129, K 4, BUN 111, Cr 2.3, Glucose 291, Trop 0.061, BNP 7800, Lipase 75, Albumin 3. UDS + for opioids. UA positive leukoesterase and blood. Transferred to [facility] for GI consultation and further treatment. Per GI has had dyspepsia and early satiety for decades. EGD in 2010 2018 not revealing. Pre vious gastric emptying study borderline delay. Colonoscopy in 2010 with no pathology. Upon evaluation she is drowsy and very confused. Repeat KUB with NG tube better placed below the diaphragm and appears in stomach. Discussed with bedside patient has been continuing her home medications in addition she has been taking ibuprofen and Aleve for pain recently. She was seen by [facility] cardiology on ~09/08/2020 and prescribed Brilinta 90 mg, and losartan 25 mg spironolactone 25 mg and furosemide 20 mg twice daily Overnight 100.5F. Hb 6.4, WBC 16, BUN 101, Cr 2.1. 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 Angel binder caser. -Chart reviewed. 09/26/2020 -Patient seen and examined. -Patient had rapid response 09-22 due to hypoxia and tachycardia. intermediate VQ scan, CTA CHEST NEG , D/W DR CIFUENTES, DR BURR -Creatinine trending down. 2.5 -> 1.2 -Angel RN. Angel binder caser. -Chart reviewed. EEG consistent with the metabolic encephalopathy and shows no seizure activity 38 MIN pt exam, chart review CC TIME, > 50% of time spent with exam, chart review, pt care coordination Vitals Vitals Vital Signs Date Time Temp Pulse Resp B/P (MAP) Pulse Ox O2 Delivery O2 Flow Rate FiO2 09/27/20 07:00 98.3 65 18 143/85 (104) 93 Nasal Cannula 2.0 98.3 Physical Exam Physical Exam GENERAL: awake , comfortable HEENT: Both pupils are round and reacting. No conjunctival lesion, no lesion in the mouth. NECK: Supple, no JVP, no lymphadenopathy. LUNGS: Clear. HEART: S1, S2 regular. ABDOMEN: Soft, nontender, no organomegaly. EXTREMITIES: No edema, cyanosis. SKIN: Unremarkable other than some scratch ortiz are present. NEUROLOGIC: a and o , no focal deficit General: Alert, Oriented X3, Cooperative, mild distress, Other (confused, NOW LETHARGIC ) Heart: Regular rate, No murmurs Lungs: Clear, Other (diminished) Abdomen: Normal bowel sounds, Soft, No tenderness Extremities: No clubbing, No cyanosis, No edema, Normal pulses, No tenderness/swelling Skin: No rashes, No breakdown, No significant lesion Labs LABS Laboratory Tests Test 09/26/20 15:23 09/26/20 16:47 09/26/20 23:25 09/27/20 06:13 Ammonia 22 mcmol/L (11-34) Glucose (Fingerstick) 134 mg/dL (70-99) 108 mg/dL (70-99) 100 mg/dL (70-99) Test 09/27/20 08:15 09/27/20 08:59 Glucose (Fingerstick) 95 mg/dL (70-99) Sodium Level 137 mmol/L (136-145) Potassium Level 3.6 mmol/L (3.5-5.1) Chloride Level 103 mmol/L (98-107) Carbon Dioxide Level 21 mmol/L (21-32) Anion Gap 13 (6-14) Blood Urea Nitrogen 55 mg/dL (7-20) Creatinine 1.5 mg/dL (0.6-1.0) Estimated GFR (Cockcroft-Gault) 33.9 Glucose Level 106 mg/dL (70-99) Calcium Level 8.5 mg/dL (8.5-10.1) Phosphorus Level 4.0 mg/dL (2.6-4.7) Albumin 2.7 g/dL (3.4-5.0) Comment Review of Relevant I have reviewed the following items brett (where applicable) has been applied. Labs Laboratory Tests Test 09/25/20 11:07 09/25/20 11:45 09/25/20 14:35 09/25/20 17:17 O2 Saturation 95 % (92-99) Arterial Blood pH 7.44 (7.35-7.45) Arterial Blood pCO2 at Patient Temp 32 mmHg (35-46) Arterial Blood pO2 at Patient Temp 82 mmHg (65-108) Arterial Blood HCO3 21 mmol/L (21-28) Arterial Blood Base Excess -2 mmol/L (-3-3) Oxyhemoglobin 94.0 % Methemoglobin 0.5 % (0.0-1.9) Carbon Monoxide, Quantitative 0.3 % (0.0-1.9) FiO2 3ln.c. Ammonia < 10 mcmol/L (11-34) Cortisol AM Sample 47.2 ug/dL (4.3-22.4) Glucose (Fingerstick) 202 mg/dL (70-99) 174 mg/dL (70-99) Test 09/25/20 21:00 09/25/20 23:49 09/26/20 06:21 09/26/20 09:50 Cortisol PM Sample 44.0 ug/dL (3.1-16.7) Glucose (Fingerstick) 150 mg/dL (70-99) 123 mg/dL (70-99) White Blood Count 18.0 x10^3/uL (4.0-11.0) Red Blood Count 2.74 x10^6/uL (3.50-5.40) Hemoglobin 8.5 g/dL (12.0-15.5) Hematocrit 26.7 % (36.0-47.0) Mean Corpuscular Volume 98 fL (79-100) Mean Corpuscular Hemoglobin 31 pg (25-35) Mean Corpuscular Hemoglobin Concent 32 g/dL (31-37) Red Cell Distribution Width 15.0 % (11.5-14.5) Platelet Count 303 x10^3/uL (140-400) Neutrophils (%) (Auto) 79 % (31-73) Lymphocytes (%) (Auto) 13 % (24-48) Monocytes (%) (Auto) 8 % (0-9) Eosinophils (%) (Auto) 0 % (0-3) Basophils (%) (Auto) 0 % (0-3) Neutrophils # (Auto) 14.1 x10^3/uL (1.8-7.7) Lymphocytes # (Auto) 2.3 x10^3/uL (1.0-4.8) Monocytes # (Auto) 1.5 x10^3/uL (0.0-1.1) Eosinophils # (Auto) 0.0 x10^3/uL (0.0-0.7) Basophils # (Auto) 0.1 x10^3/uL (0.0-0.2) Prothrombin Time 20.9 SEC (11.7-14.0) Prothromb Time International Ratio 1.8 (0.8-1.1) Sodium Level 149 mmol/L (136-145) Potassium Level 4.1 mmol/L (3.5-5.1) Chloride Level 113 mmol/L (98-107) Carbon Dioxide Level 22 mmol/L (21-32) Anion Gap 14 (6-14) Blood Urea Nitrogen 69 mg/dL (7-20) Creatinine 1.8 mg/dL (0.6-1.0) Estimated GFR (Cockcroft-Gault) 27.5 Glucose Level 134 mg/dL (70-99) Calcium Level 8.6 mg/dL (8.5-10.1) Phosphorus Level 4.2 mg/dL (2.6-4.7) Total Bilirubin 0.4 mg/dL (0.2-1.0) Direct Bilirubin 0.1 mg/dL (0.0-0.2) Aspartate Amino Transf (AST/SGOT) 331 U/L (15-37) Alanine Aminotransferase (ALT/SGPT) 335 U/L (14-59) Alkaline Phosphatase 156 U/L (46-116) Creatine Kinase 41 U/L (26-192) Total Protein 6.1 g/dL (6.4-8.2) Albumin 2.8 g/dL (3.4-5.0) Test 09/26/20 15:23 09/26/20 16:47 09/26/20 23:25 09/27/20 06:13 Ammonia 22 mcmol/L (11-34) Glucose (Fingerstick) 134 mg/dL (70-99) 108 mg/dL (70-99) 100 mg/dL (70-99) Test 09/27/20 08:15 09/27/20 08:59 Glucose (Fingerstick) 95 mg/dL (70-99) Sodium Level 137 mmol/L (136-145) Potassium Level 3.6 mmol/L (3.5-5.1) Chloride Level 103 mmol/L (98-107) Carbon Dioxide Level 21 mmol/L (21-32) Anion Gap 13 (6-14) Blood Urea Nitrogen 55 mg/dL (7-20) Creatinine 1.5 mg/dL (0.6-1.0) Estimated GFR (Cockcroft-Gault) 33.9 Glucose Level 106 mg/dL (70-99) Calcium Level 8.5 mg/dL (8.5-10.1) Phosphorus Level 4.0 mg/dL (2.6-4.7) Albumin 2.7 g/dL (3.4-5.0) Laboratory Tests Test 09/26/20 15:23 09/26/20 16:47 09/26/20 23:25 09/27/20 06:13 Ammonia 22 mcmol/L (11-34) Glucose (Fingerstick) 134 mg/dL (70-99) 108 mg/dL (70-99) 100 mg/dL (70-99) Test 09/27/20 08:15 09/27/20 08:59 Glucose (Fingerstick) 95 mg/dL (70-99) Sodium Level 137 mmol/L (136-145) Potassium Level 3.6 mmol/L (3.5-5.1) Chloride Level 103 mmol/L (98-107) Carbon Dioxide Level 21 mmol/L (21-32) Anion Gap 13 (6-14) Blood Urea Nitrogen 55 mg/dL (7-20) Creatinine 1.5 mg/dL (0.6-1.0) Estimated GFR (Cockcroft-Gault) 33.9 Glucose Level 106 mg/dL (70-99) Calcium Level 8.5 mg/dL (8.5-10.1) Phosphorus Level 4.0 mg/dL (2.6-4.7) Albumin 2.7 g/dL (3.4-5.0) Microbiology 09/25/20 Blood Culture - Preliminary, Resulted NO GROWTH AFTER 1 DAY 09/20/20 Urine Culture - Final, Complete Medications Current Medications Sodium Chloride 1,000 ml @ 100 mls/hr Q10H IV Last administered on 09/20/20at 23:46; Start 09/20/20 at 03:00; Stop 09/21/20 at 10:18; Status DC Ondansetron HCl (Zofran) 4 mg PRN Q6HRS PRN IVP NAUSEA/VOMITING; Start 09/20/20 at 03:00 Morphine Sulfate (Morphine Sulfate) 4 mg PRN Q4HRS PRN IV PAIN Last administered on 09/26/20at 06:41; Start 09/20/20 at 03:00 Pantoprazole Sodium (PROTONIX VIAL for IV PUSH) 40 mg BID IVP Last administered on 09/26/20at 21:28; Start 09/20/20 at 03:00 Ceftriaxone Sodium (Rocephin) 1 gm Q24H IVP ; Start 09/20/20 at 03:00; Stop 09/20/20 at 03:07; Status DC Ceftriaxone Sodium (Rocephin) 1 gm Q24H IVP Last administered on 09/24/20at 21:13; Start 09/20/20 at 21:00; Stop 09/25/20 at 10:16; Status DC Metoprolol Tartrate (Lopressor Vial) 5 mg Q6HRS IVP Last administered on 09/26/20at 06:44; Start 09/20/20 at 07:45; Stop 09/26/20 at 12:59; Status DC Insulin Human Lispro (HumaLOG) 0-9 UNITS Q6HRS SQ Last administered on 09/24/20at 13:42; Start 09/20/20 at 07:45 Dextrose (Dextrose 50%-Water Syringe) 12.5 gm PRN Q15MIN PRN IV SEE COMMENTS; Start 09/20/20 at 07:45 Acetaminophen (Tylenol Supp) 650 mg PRN Q6HRS PRN IA MILD PAIN / TEMP > 100.3'F Last administered on 09/20/20at 10:24; Start 09/20/20 at 09:00 Nitroglycerin (Nitrostat) 0.4 mg PRN Q5MIN PRN SL CHEST PAIN; Start 09/20/20 at 14:15 Ringer's Solution 1,000 ml @ 50 mls/hr Q20H IV ; Start 09/21/20 at 07:00; Stop 09/21/20 at 18:59; Status DC Magnesium Sulfate 50 ml @ 25 mls/hr PRN DAILY PRN IV for Mag < 1.7 on am labs; Start 09/20/20 at 14:30 Ringer's Solution 1,000 ml @ 75 mls/hr [id number] IV Last administered on 09/22/20at 05:03; Start 09/21/20 at 10:30; Stop 09/22/20 at 12:31; Status DC Ringer's Solution 1,000 ml @ 50 mls/hr Q20H IV Last administered on 09/22/20at 13:42; Start 09/22/20 at 10:15; Stop 09/22/20 at 22:14; Status DC Benzocaine (Hurricaine One) 2 spray 1X ONCE MM Last administered on 09/22/20at 13:40; Start 09/22/20 at 10:30; Stop 09/22/20 at 10:31; Status DC Lidocaine HCl (Xylocaine 2% Topical 30gm Tube) 1 freddie 1X ONCE TP ; Start 09/22/20 at 10:30; Stop 09/22/20 at 10:31; Status DC Lidocaine HCl (Viscous Lidocaine) 15 ml 1X ONCE SWSW ; Start 09/22/20 at 10:30; Stop 09/22/20 at 10:31; Status DC Phenol (Chloraseptic) 1 spray PRN Q2HR PRN PO SORE THROAT Last administered on 09/22/20at 15:43; Start 09/22/20 at 11:30 Amino Acids/ Glycerin/ Electrolytes 1,000 ml @ 80 mls/hr [id number] IV Last administered on 09/25/20at 05:43; Start 09/22/20 at 12:30; Stop 09/25/20 at 12:47; Status DC Propofol (Diprivan) 200 mg STK-MED ONCE IV ; Start 09/22/20 at 12:55; Stop 09/22/20 at 12:55; Status DC Labetalol HCl (Normodyne Iv Push) 10 mg PRN Q10MIN PRN IVP HYPERTENSION Last administered on 09/25/20at 07:43; Start 09/23/20 at 04:30; Stop 09/25/20 at 10:56; Status DC Hydrocortisone Sodium Succinate (Solu-CORTEF) 200 mg 1X ONCE IVP Last administered on 09/23/20at 07:03; Start 09/23/20 at 05:45; Stop 09/23/20 at 05:46; Status DC Diphenhydramine HCl (Benadryl) 25 mg 1X ONCE IVP ; Start 09/23/20 at 05:45; S top 09/23/20 at 05:46; Status DC Diphenhydramine HCl (Benadryl) 25 mg 1X ONCE IVP ; Start 09/23/20 at 05:45; Stop 09/23/20 at 05:46; Status DC Sodium Chloride 1,000 ml @ 75 mls/hr [id number] IV Last administered on 09/24/20at 03:38; Start 09/23/20 at 06:45; Stop 09/24/20 at 08:15; Status DC Albuterol Sulfate (Ventolin Neb Soln) 2.5 mg PRN Q6HRS PRN NEB SHORTNESS OF BREATH Last administered on 09/23/20at 07:16; Start 09/23/20 at 07:00 Prednisone (Prednisone) 20 mg 1X ONCE PO Last administered on 09/23/20at 19:51; Start 09/23/20 at 19:30; Stop 09/23/20 at 19:34; Status DC Prednisone (Prednisone) 20 mg 1X ONCE PO Last administered on 09/23/20at 22:49; Start 09/23/20 at 23:00; Stop 09/23/20 at 23:01; Status DC Prednisone (Prednisone) 20 mg 1X ONCE PO Last administered on 09/24/20at 05:59; Start 09/24/20 at 06:00; Stop 09/24/20 at 06:01; Status DC Iohexol (Omnipaque 350 Mg/ml) 80 ml 1X ONCE IV Last administered on 09/24/20at 11:37; Start 09/24/20 at 11:00; Stop 09/24/20 at 11:01; Status DC Info (CONTRAST GIVEN -- Rx MONITORING) 1 each PRN DAILY PRN MC SEE COMMENTS; Start 09/24/20 at 11:00; Stop 09/26/20 at 10:59; Status DC Diphenhydramine HCl (Benadryl) 50 mg 1X ONCE PO ; Start 09/24/20 at 11:30; Stop 09/24/20 at 11:06; Status DC Diphenhydramine HCl (Benadryl) 50 mg 1X ONCE IV Last administered on 09/24/20at 11:10; Start 09/24/20 at 11:30; Stop 09/24/20 at 11:31; Status DC Ringer's Solution 1,000 ml @ 50 mls/hr Q20H IV Last administered on 09/25/20at 09:15; Start 09/25/20 at 07:00; Stop 09/25/20 at 18:59; Status DC Ringer's Solution 1,000 ml @ 75 mls/hr 1X ONCE IV ; Start 09/25/20 at 08:45; Stop 09/25/20 at 22:04; Status DC Nitroglycerin (Nitro-Bid Oint) 1 inch Q6HRS TP Last administered on 09/27/20at 06:08; Start 09/25/20 at 10:00 Piperacillin Sod/ Tazobactam Sod (Zosyn Per Pharmacy) 1 each PRN DAILY PRN MC SEE COMMENTS; Start 09/25/20 at 10:15; Stop 09/25/20 at 10:56; Status DC Piperacillin Sod/ Tazobactam Sod 2.25 gm/Sodium Chloride 50 ml @ 100 mls/hr Q6HRS IV ; Start 09/25/20 at 11:00; Stop 09/25/20 at 10:56; Status DC Furosemide (Lasix) 40 mg 1X ONCE IVP Last administered on 09/25/20at 11:48; Start 09/25/20 at 11:00; Stop 09/25/20 at 11:01; Status DC Labetalol HCl (Normodyne Iv Push) 20 mg PRN Q2HR PRN IVP HYPERTENSION; Start 09/25/20 at 11:00 Meropenem 500 mg/ Sodium Chloride 50 ml @ 100 mls/hr Q8HRS IV Last administered on 09/27/20at 06:04; Start 09/25/20 at 14:00 Daptomycin 350 mg/ Sodium Chloride 50 ml @ 100 mls/hr Q48H IV Last administered on 09/25/20at 13:57; Start 09/25/20 at 14:00 Sodium Chloride 1,000 ml @ 75 mls/hr [id number] IV Last administered on 09/26/20at 02:49; Start 09/25/20 at 13:00; Stop 09/26/20 at 10:43; Status DC Ringer's Solution 1,000 ml @ 75 mls/hr 1X ONCE IV Last administered on 09/26/20at 11:17; Start 09/26/20 at 09:15; Stop 09/26/20 at 22:34; Status DC Sodium Chloride 1,000 ml @ 50 mls/hr Q20H IV Last administered on 09/27/20at 00:18; Start 09/26/20 at 10:45 Metoprolol Tartrate (Lopressor Vial) 10 mg Q6HRS IVP Last administered on 09/27/20at 06:09; Start 09/26/20 at 18:00 Furosemide (Lasix) 40 mg 1X ONCE IVP ; Start 09/26/20 at 15:15; Stop 09/26/20 at 15:12; Status DC Furosemide (Lasix) 20 mg 1X ONCE IVP Last administered on 09/26/20at 16:02; Start 09/26/20 at 15:15; Stop 09/26/20 at 15:16; Status DC Furosemide (Lasix) 20 mg 1X ONCE IVP Last administered on 09/26/20at 18:43; Start 09/26/20 at 18:30; Stop 09/26/20 at 18:31; Status DC Furosemide (Lasix) 20 mg DAILY IVP ; Start 09/27/20 at 09:00 Active Scripts Active Reported Cyclobenzaprine Hcl 10 Mg Tablet 1 Tab PO QHS Carvedilol 25 Mg Tablet 12.5 Mg PO BIDWMEALS Lipitor (Atorvastatin Calcium) 80 Mg Tablet 1 Tab PO HS Aspirin Ec (Aspirin) 81 Mg Tablet.dr 1 Tab PO DAILY Acetaminophen 325 Mg Tablet 2 Tab PO PRN DAILY PRN 30 Days Zyrtec (Cetirizine Hcl) 10 Mg Tablet 1 Tab PO DAILY Norvasc (Amlodipine Besylate) 10 Mg Tablet 10 Mg PO DAILY Nitrostat (Nitroglycerin) 0.4 Mg Tab.subl 0.4 Mg SL PRN Q5MIN PRN Clopidogrel (Clopidogrel Bisulfate) 75 Mg Tablet 1 Tab PO DAILY Percocet 10-325 Mg Tablet (Oxycodone/Acetaminophen) 1 Each Tablet 1 Tab PO Q4-6HRS Gabapentin (Gabapentin) 300 Mg Capsule 1 Cap PO HS Vitals/I & O Vital Sign - Last 24 Hours 09/26/20 09/26/20 09/26/20 09/26/20 11:00 13:31 13:37 14:10 Temp 98.1 98.2 98.1 98.1 98.2 98.1 Pulse 114 124 111 Resp 16 20 17 B/P (MAP) 176/107 (130) 119/59 Pulse Ox 98 99 97 O2 Delivery Room Air Nasal Cannula Nasal Cannula O2 Flow Rate 3.0 2 09/26/20 09/26/20 09/26/20 09/26/20 14:25 14:40 16:03 18:08 Pulse 100 109 109 109 Resp 18 18 B/P (MAP) 129/68 142/74 142/74 142/74 Pulse Ox 97 97 O2 Delivery Nasal Cannula Nasal Cannula O2 Flow Rate 2 2 09/26/20 09/26/20 09/26/20 09/26/20 19:00 19:26 20:00 23:00 Temp 98.9 98.2 98.3 98.9 98.2 98.3 Pulse 102 62 108 Resp 18 16 20 B/P (MAP) 150/86 (107) 122/64 154/81 (105) Pulse Ox 100 97 100 O2 Delivery Room Air Simple Mask Nasal Cannula Room Air O2 Flow Rate 10 3.0 09/27/20 09/27/20 09/27/20 09/27/20 00:16 00:17 03:00 06:08 Temp 97.8 97.8 Pulse 107 107 92 93 Resp 20 B/P (MAP) 157/87 157/87 137/84 (101) 158/74 Pulse Ox 100 O2 Delivery Nasal Cannula O2 Flow Rate 2.0 09/27/20 09/27/20 06:09 07:00 Temp 98.3 98.3 Pulse 93 65 Resp 18 B/P (MAP) 158/74 143/85 (104) Pulse Ox 93 O2 Delivery Nasal Cannula O2 Flow Rate 2.0 Intake and Output 09/26/20 09/26/20 09/27/20 15:00 23:00 07:00 Intake Total 300 ml 300 ml Output Total 860 ml 1450 ml Balance 300 ml -560 ml -1450 ml Nutrition Consultation Dietary Evaluation: Recommendations by RD: Dietary education by RD, PPN/TPN Comments: REC continue PPN for short term nutrition until able to advance diet REC ADA/Cardiac diet per PMH when able with glucerna supplements Expected Outcomes/Goals: diet adv/ tolerance - not met, ongoing to meet >75% est nutr needs via po intake not met, ongoing Malnutrition Findings: Food and Nutrition Intake (Sev: <50% est energy req 5days Weight Status: Appropriate Justicifation of Admission Dx: Justifications for Admission: Justification of Admission Dx: Yes CHRISTIAN CAMARGO MD Sep 27, 2020 10:39
[2020-09-27] MEDS: PANTOPRAZOLE IV PUSH 40 MG VIAL. IVP SCH ×2 (10:50→21:37)
[2020-09-27 11:00] VITALS: BP 151/79
[2020-09-27] MEDS: MORPHINE SULFATE 4 MG/ML VIAL. IV PRN ×3 (11:04→23:31)
--- NOTE | 2020-09-27 11:07 | PDOC ---
PULMONARY PROGRESS NOTES DATE: 09/27/20 TIME: 11:06 Subjective Patient is weak, no productive cough, currently on 3 L of oxygen supplementation Status post EGD 09/26 Vitals Vital Signs Date Time Temp Pulse Resp B/P (MAP) Pulse Ox O2 Delivery O2 Flow Rate FiO2 09/27/20 11:04 20 93 Nasal Cannula 2.0 09/27/20 07:00 98.3 65 143/85 (104) 98.3 ROS: No Nausea, No Chest Pain, No Increase Cough General: Alert Lungs: Clear, Other (diminished) Cardiovascular: S1, S2 Abdomen: Soft Neuro Exam: Alert Extremities: No Edema Skin: Cool Labs Laboratory Tests Test 09/25/20 11:07 09/25/20 11:45 09/25/20 14:35 09/25/20 17:17 O2 Saturation 95 % (92-99) Arterial Blood pH 7.44 (7.35-7.45) Arterial Blood pCO2 at Patient Temp 32 mmHg (35-46) Arterial Blood pO2 at Patient Temp 82 mmHg (65-108) Arterial Blood HCO3 21 mmol/L (21-28) Arterial Blood Base Excess -2 mmol/L (-3-3) Oxyhemoglobin 94.0 % Methemoglobin 0.5 % (0.0-1.9) Carbon Monoxide, Quantitative 0.3 % (0.0-1.9) FiO2 3ln.c. Ammonia < 10 mcmol/L (11-34) Cortisol AM Sample 47.2 ug/dL (4.3-22.4) Glucose (Fingerstick) 202 mg/dL (70-99) 174 mg/dL (70-99) Test 09/25/20 21:00 09/25/20 23:49 09/26/20 06:21 09/26/20 09:50 Cortisol PM Sample 44.0 ug/dL (3.1-16.7) Glucose (Fingerstick) 150 mg/dL (70-99) 123 mg/dL (70-99) White Blood Count 18.0 x10^3/uL (4.0-11.0) Red Blood Count 2.74 x10^6/uL (3.50-5.40) Hemoglobin 8.5 g/dL (12.0-15.5) Hematocrit 26.7 % (36.0-47.0) Mean Corpuscular Volume 98 fL (79-100) Mean Corpuscular Hemoglobin 31 pg (25-35) Mean Corpuscular Hemoglobin Concent 32 g/dL (31-37) Red Cell Distribution Width 15.0 % (11.5-14.5) Platelet Count 303 x10^3/uL (140-400) Neutrophils (%) (Auto) 79 % (31-73) Lymphocytes (%) (Auto) 13 % (24-48) Monocytes (%) (Auto) 8 % (0-9) Eosinophils (%) (Auto) 0 % (0-3) Basophils (%) (Auto) 0 % (0-3) Neutrophils # (Auto) 14.1 x10^3/uL (1.8-7.7) Lymphocytes # (Auto) 2.3 x10^3/uL (1.0-4.8) Monocytes # (Auto) 1.5 x10^3/uL (0.0-1.1) Eosinophils # (Auto) 0.0 x10^3/uL (0.0-0.7) Basophils # (Auto) 0.1 x10^3/uL (0.0-0.2) Prothrombin Time 20.9 SEC (11.7-14.0) Prothromb Time International Ratio 1.8 (0.8-1.1) Sodium Level 149 mmol/L (136-145) Potassium Level 4.1 mmol/L (3.5-5.1) Chloride Level 113 mmol/L (98-107) Carbon Dioxide Level 22 mmol/L (21-32) Anion Gap 14 (6-14) Blood Urea Nitrogen 69 mg/dL (7-20) Creatinine 1.8 mg/dL (0.6-1.0) Estimated GFR (Cockcroft-Gault) 27.5 Glucose Level 134 mg/dL (70-99) Calcium Level 8.6 mg/dL (8.5-10.1) Phosphorus Level 4.2 mg/dL (2.6-4.7) Total Bilirubin 0.4 mg/dL (0.2-1.0) Direct Bilirubin 0.1 mg/dL (0.0-0.2) Aspartate Amino Transf (AST/SGOT) 331 U/L (15-37) Alanine Aminotransferase (ALT/SGPT) 335 U/L (14-59) Alkaline Phosphatase 156 U/L (46-116) Creatine Kinase 41 U/L (26-192) Total Protein 6.1 g/dL (6.4-8.2) Albumin 2.8 g/dL (3.4-5.0) Test 09/26/20 15:23 09/26/20 16:47 09/26/20 23:25 09/27/20 06:13 Ammonia 22 mcmol/L (11-34) Glucose (Fingerstick) 134 mg/dL (70-99) 108 mg/dL (70-99) 100 mg/dL (70-99) Test 09/27/20 08:15 09/27/20 08:59 Glucose (Fingerstick) 95 mg/dL (70-99) Sodium Level 137 mmol/L (136-145) Potassium Level 3.6 mmol/L (3.5-5.1) Chloride Level 103 mmol/L (98-107) Carbon Dioxide Level 21 mmol/L (21-32) Anion Gap 13 (6-14) Blood Urea Nitrogen 55 mg/dL (7-20) Creatinine 1.5 mg/dL (0.6-1.0) Estimated GFR (Cockcroft-Gault) 33.9 Glucose Level 106 mg/dL (70-99) Calcium Level 8.5 mg/dL (8.5-10.1) Phosphorus Level 4.0 mg/dL (2.6-4.7) Albumin 2.7 g/dL (3.4-5.0) Laboratory Tests Test 09/26/20 15:23 09/26/20 16:47 09/26/20 23:25 09/27/20 06:13 Ammonia 22 mcmol/L (11-34) Glucose (Fingerstick) 134 mg/dL (70-99) 108 mg/dL (70-99) 100 mg/dL (70-99) Test 09/27/20 08:15 09/27/20 08:59 Glucose (Fingerstick) 95 mg/dL (70-99) Sodium Level 137 mmol/L (136-145) Potassium Level 3.6 mmol/L (3.5-5.1) Chloride Level 103 mmol/L (98-107) Carbon Dioxide Level 21 mmol/L (21-32) Anion Gap 13 (6-14) Blood Urea Nitrogen 55 mg/dL (7-20) Creatinine 1.5 mg/dL (0.6-1.0) Estimated GFR (Cockcroft-Gault) 33.9 Glucose Level 106 mg/dL (70-99) Calcium Level 8.5 mg/dL (8.5-10.1) Phosphorus Level 4.0 mg/dL (2.6-4.7) Albumin 2.7 g/dL (3.4-5.0) Medications Active Scripts Medications Dose Route/Sig Max Daily Dose Days Date Category Cyclobenzaprine Hcl 10 Mg Tablet 1 Tab PO QHS 05/27/20 Reported Carvedilol 25 Mg Tablet 12.5 Mg PO BIDWMEALS 05/27/20 Reported Lipitor (Atorvastatin Calcium) 80 Mg Tablet 1 Tab PO HS 05/27/20 Reported Aspirin Ec (Aspirin) 81 Mg Tablet.dr 1 Tab PO DAILY 05/27/20 Reported Acetaminophen 325 Mg Tablet 2 Tab PO PRN DAILY PRN 30 05/27/20 Reported Zyrtec (Cetirizine Hcl) 10 Mg Tablet 1 Tab PO DAILY 05/27/20 Reported Norvasc (Amlodipine Besylate) 10 Mg Tablet 10 Mg PO DAILY 05/27/20 Reported Nitrostat (Nitroglycerin) 0.4 Mg Tab.subl 0.4 Mg SL PRN Q5MIN PRN 05/27/20 Reported Clopidogrel (Clopidogrel Bisulfate) 75 Mg Tablet 1 Tab PO DAILY 05/27/20 Reported Percocet 10-325 Mg Tablet (Oxycodone/Acetaminophen) 1 Each Tablet 1 Tab PO Q4-6HRS 08/02/16 Reported Gabapentin (Gabapentin) 300 Mg Capsule 1 Cap PO HS 09/26/14 Reported Comments IMPRESSION: 1. No evidence of acute pulmonary embolism 2. Small left and moderate right pleural effusion 3. Patchy groundglass infiltrates throughout the bilateral lungs. Cardiomegaly. Constellation of findings favor pulmonary edema however an atypical or viral infectious process cannot be excluded. Impression . IMPRESSION: 1. Acute hypoxic respiratory failure, multifactorial, suspect heart failure, anemia, patient is status post transfusion. 2. Metabolic toxic encephalopathy, improved 3. Underlying dementia. 4. Recent gastrointestinal bleed. Plan . Continue oxygen supplementation currently on 3 L nasal cannula Status post EGD 09/26--- Kandace-Villagomez tear?, No evidence of bleeding lesion now tolerating p.o. diet CT of chest was negative for PE did demonstrate a loculated effusion, less likely pneumonia Follow infectious disease recommendations in regards to antibiotics, follow cultures Follow nephrology recommendations PCP to manage hypertension Physical therapy/Occupational Therapy DVT/GI prophylaxis--[facility] D/W DEE ABEBE MD Sep 27, 2020 11:07
--- NOTE | 2020-09-27 13:39 | PDOC ---
PROGRESS NOTES Date of Service DATE: 09/27/20 TIME: 13:37 Assessment Metabolic encephalopathy, better. Multiple abnormalities including elevated B natruretic peptide, methemoglobin, carbon monoxide, positive leukocyte esterase in the urine, opioids in the urine, anemia, hypoxia with work-up negative for pulmonary embolism, INR 2.2, acute kidney injury, leukocytosis and possible sepsis syndrome, hyponatremia, hyperkalemia, elevated troponins, possible left atrial mass with negative transesophageal echocardiogram, anemia and GI bleeding. Suspect hepatic dysfunction despite normal ammonia level. EEG consistent with the metabolic encephalopathy and shows no seizure activity Plan Patient is better, hold on additional studies for now Treat medical diseases Subjective Denies pain Objective Vital Signs Date Time Temp Pulse Resp B/P (MAP) Pulse Ox O2 Delivery O2 Flow Rate FiO2 09/27/20 11:04 20 93 Nasal Cannula 2.0 09/27/20 07:00 98.3 65 143/85 (104) 98.3 Intake and Output 09/27/20 07:00 Intake Total 600 ml Output Total 2310 ml Balance -1710 ml Intake Oral 300 ml IV Total 300 ml Output Urine Total 2300 ml Estimated Blood Loss 10 ml PHYSICAL EXAM Alert. Oriented to "hospital," month, year, and person PERRL. EOMI. CN: no focal findings. Muscle tone: normal. Muscle strength: 3/5 DTR: 2+ Plantar reflex: Flexor Gait: not examined in bed. Sensory exam: no abnormal findings. Cerebellar: Not cooperative Review of Relevant I have reviewed the following items brett (where applicable) has been applied. Labs Laboratory Tests Test 09/25/20 14:35 09/25/20 17:17 09/25/20 21:00 09/25/20 23:49 Glucose (Fingerstick) 202 mg/dL (70-99) 174 mg/dL (70-99) 150 mg/dL (70-99) Cortisol PM Sample 44.0 ug/dL (3.1-16.7) Test 09/26/20 06:21 09/26/20 09:50 09/26/20 15:23 09/26/20 16:47 Glucose (Fingerstick) 123 mg/dL (70-99) 134 mg/dL (70-99) White Blood Count 18.0 x10^3/uL (4.0-11.0) Red Blood Count 2.74 x10^6/uL (3.50-5.40) Hemoglobin 8.5 g/dL (12.0-15.5) Hematocrit 26.7 % (36.0-47.0) Mean Corpuscular Volume 98 fL (79-100) Mean Corpuscular Hemoglobin 31 pg (25-35) Mean Corpuscular Hemoglobin Concent 32 g/dL (31-37) Red Cell Distribution Width 15.0 % (11.5-14.5) Platelet Count 303 x10^3/uL (140-400) Neutrophils (%) (Auto) 79 % (31-73) Lymphocytes (%) (Auto) 13 % (24-48) Monocytes (%) (Auto) 8 % (0-9) Eosinophils (%) (Auto) 0 % (0-3) Basophils (%) (Auto) 0 % (0-3) Neutrophils # (Auto) 14.1 x10^3/uL (1.8-7.7) Lymphocytes # (Auto) 2.3 x10^3/uL (1.0-4.8) Monocytes # (Auto) 1.5 x10^3/uL (0.0-1.1) Eosinophils # (Auto) 0.0 x10^3/uL (0.0-0.7) Basophils # (Auto) 0.1 x10^3/uL (0.0-0.2) Prothrombin Time 20.9 SEC (11.7-14.0) Prothromb Time International Ratio 1.8 (0.8-1.1) Sodium Level 149 mmol/L (136-145) Potassium Level 4.1 mmol/L (3.5-5.1) Chloride Level 113 mmol/L (98-107) Carbon Dioxide Level 22 mmol/L (21-32) Anion Gap 14 (6-14) Blood Urea Nitrogen 69 mg/dL (7-20) Creatinine 1.8 mg/dL (0.6-1.0) Estimated GFR (Cockcroft-Gault) 27.5 Glucose Level 134 mg/dL (70-99) Calcium Level 8.6 mg/dL (8.5-10.1) Phosphorus Level 4.2 mg/dL (2.6-4.7) Total Bilirubin 0.4 mg/dL (0.2-1.0) Direct Bilirubin 0.1 mg/dL (0.0-0.2) Aspartate Amino Transf (AST/SGOT) 331 U/L (15-37) Alanine Aminotransferase (ALT/SGPT) 335 U/L (14-59) Alkaline Phosphatase 156 U/L (46-116) Creatine Kinase 41 U/L (26-192) Total Protein 6.1 g/dL (6.4-8.2) Albumin 2.8 g/dL (3.4-5.0) Ammonia 22 mcmol/L (11-34) Test 09/26/20 23:25 09/27/20 06:13 09/27/20 08:15 09/27/20 08:59 Glucose (Fingerstick) 108 mg/dL (70-99) 100 mg/dL (70-99) 95 mg/dL (70-99) Sodium Level 137 mmol/L (136-145) Potassium Level 3.6 mmol/L (3.5-5.1) Chloride Level 103 mmol/L (98-107) Carbon Dioxide Level 21 mmol/L (21-32) Anion Gap 13 (6-14) Blood Urea Nitrogen 55 mg/dL (7-20) Creatinine 1.5 mg/dL (0.6-1.0) Estimated GFR (Cockcroft-Gault) 33.9 Glucose Level 106 mg/dL (70-99) Calcium Level 8.5 mg/dL (8.5-10.1) Phosphorus Level 4.0 mg/dL (2.6-4.7) Albumin 2.7 g/dL (3.4-5.0) Test 09/27/20 12:06 Glucose (Fingerstick) 185 mg/dL (70-99) Laboratory Tests Test 09/26/20 15:23 09/26/20 16:47 09/26/20 23:25 09/27/20 06:13 Ammonia 22 mcmol/L (11-34) Glucose (Fingerstick) 134 mg/dL (70-99) 108 mg/dL (70-99) 100 mg/dL (70-99) Test 09/27/20 08:15 09/27/20 08:59 09/27/20 12:06 Glucose (Fingerstick) 95 mg/dL (70-99) 185 mg/dL (70-99) Sodium Level 137 mmol/L (136-145) Potassium Level 3.6 mmol/L (3.5-5.1) Chloride Level 103 mmol/L (98-107) Carbon Dioxide Level 21 mmol/L (21-32) Anion Gap 13 (6-14) Blood Urea Nitrogen 55 mg/dL (7-20) Creatinine 1.5 mg/dL (0.6-1.0) Estimated GFR (Cockcroft-Gault) 33.9 Glucose Level 106 mg/dL (70-99) Calcium Level 8.5 mg/dL (8.5-10.1) Phosphorus Level 4.0 mg/dL (2.6-4.7) Albumin 2.7 g/dL (3.4-5.0) Microbiology 09/25/20 Blood Culture - Preliminary, Resulted NO GROWTH AFTER 2 DAYS 09/20/20 Urine Culture - Final, Complete Medications Current Medications Sodium Chloride 1,000 ml @ 100 mls/hr Q10H IV Last administered on 09/20/20at 23:46; Start 09/20/20 at 03:00; Stop 09/21/20 at 10:18; Status DC Ondansetron HCl (Zofran) 4 mg PRN Q6HRS PRN IVP NAUSEA/VOMITING; Start 09/20/20 at 03:00 Morphine Sulfate (Morphine Sulfate) 4 mg PRN Q4HRS PRN IV PAIN Last administered on 09/27/20at 11:04; Start 09/20/20 at 03:00 Pantoprazole Sodium (PROTONIX VIAL for IV PUSH) 40 mg BID IVP Last administered on 09/27/20at 10:50; Start 09/20/20 at 03:00 Ceftriaxone Sodium (Rocephin) 1 gm Q24H IVP ; Start 09/20/20 at 03:00; Stop 09/20/20 at 03:07; Status DC Ceftriaxone Sodium (Rocephin) 1 gm Q24H IVP Last administered on 09/24/20at 21:13; Start 09/20/20 at 21:00; Stop 09/25/20 at 10:16; Status DC Metoprolol Tartrate (Lopressor Vial) 5 mg Q6HRS IVP Last administered on 09/26/20at 06:44; Start 09/20/20 at 07:45; Stop 09/26/20 at 12:59; Status DC Insulin Human Lispro (HumaLOG) 0-9 UNITS Q6HRS SQ Last administered on 09/24/20at 13:42; Start 09/20/20 at 07:45 Dextrose (Dextrose 50%-Water Syringe) 12.5 gm PRN Q15MIN PRN IV SEE COMMENTS; Start 09/20/20 at 07:45 Acetaminophen (Tylenol Supp) 650 mg PRN Q6HRS PRN MS MILD PAIN / TEMP > 100.3'F Last administered on 09/20/20at 10:24; Start 09/20/20 at 09:00 Nitroglycerin (Nitrostat) 0.4 mg PRN Q5MIN PRN SL CHEST PAIN; Start 09/20/20 at 14:15 Ringer's Solution 1,000 ml @ 50 mls/hr Q20H IV ; Start 09/21/20 at 07:00; Stop 09/21/20 at 18:59; Status DC Magnesium Sulfate 50 ml @ 25 mls/hr PRN DAILY PRN IV for Mag < 1.7 on am labs; Start 09/20/20 at 14:30 Ringer's Solution 1,000 ml @ 75 mls/hr [id number] IV Last administered on 09/22/20at 05:03; Start 09/21/20 at 10:30; Stop 09/22/20 at 12:31; Status DC Ringer's Solution 1,000 ml @ 50 mls/hr Q20H IV Last administered on 09/22/20at 13:42; Start 09/22/20 at 10:15; Stop 09/22/20 at 22:14; Status DC Benzocaine (Hurricaine One) 2 spray 1X ONCE MM Last administered on 09/22/20at 13:40; Start 09/22/20 at 10:30; Stop 09/22/20 at 10:31; Status DC Lidocaine HCl (Xylocaine 2% Topical 30gm Tube) 1 freddie 1X ONCE TP ; Start 09/22/20 at 10:30; Stop 09/22/20 at 10:31; Status DC Lidocaine HCl (Viscous Lidocaine) 15 ml 1X ONCE SWSW ; Start 09/22/20 at 10:30; Stop 09/22/20 at 10:31; Status DC Phenol (Chloraseptic) 1 spray PRN Q2HR PRN PO SORE THROAT Last administered on 09/22/20at 15:43; Start 09/22/20 at 11:30 Amino Acids/ Glycerin/ Electrolytes 1,000 ml @ 80 mls/hr [id number] IV Last administered on 09/25/20at 05:43; Start 09/22/20 at 12:30; Stop 09/25/20 at 12:47; Status DC Propofol (Diprivan) 200 mg STK-MED ONCE IV ; Start 09/22/20 at 12:55; Stop 09/22/20 at 12:55; Status DC Labetalol HCl (Normodyne Iv Push) 10 mg PRN Q10MIN PRN IVP HYPERTENSION Last administered on 09/25/20at 07:43; Start 09/23/20 at 04:30; Stop 09/25/20 at 10:56; Status DC Hydrocortisone Sodium Succinate (Solu-CORTEF) 200 mg 1X ONCE IVP Last administered on 09/23/20at 07:03; Start 09/23/20 at 05:45; Stop 09/23/20 at 05:46; Status DC Diphenhydramine HCl (Benadryl) 25 mg 1X ONCE IVP ; Start 09/23/20 at 05:45; Stop 09/23/20 at 05:46; Status DC Diphenhydramine HCl (Benadryl) 25 mg 1X ONCE IVP ; Start 09/23/20 at 05:45; Stop 09/23/20 at 05:46; Status DC Sodium Chloride 1,000 ml @ 75 mls/hr [id number] IV Last administered on 09/24/20at 03:38; Start 09/23/20 at 06:45; Stop 09/24/20 at 08:15; Status DC Albuterol Sulfate (Ventolin Neb Soln) 2.5 mg PRN Q6HRS PRN NEB SHORTNESS OF BREATH Last administered on 09/23/20at 07:16; Start 09/23/20 at 07:00 Prednisone (Prednisone) 20 mg 1X ONCE PO Last administered on 09/23/20at 19:51; Start 09/23/20 at 19:30; Stop 09/23/20 at 19:34; Status DC Prednisone (Prednisone) 20 mg 1X ONCE PO Last administered on 09/23/20at 22:49; Start 09/23/20 at 23:00; Stop 09/23/20 at 23:01; Status DC Prednisone (Prednisone) 20 mg 1X ONCE PO Last administered on 09/24/20at 05:59; Start 09/24/20 at 06:00; Stop 09/24/20 at 06:01; Status DC Iohexol (Omnipaque 350 Mg/ml) 80 ml 1X ONCE IV Last administered on 09/24/20at 11:37; Start 09/24/20 at 11:00; Stop 09/24/20 at 11:01; Status DC Info (CONTRAST GIVEN -- Rx MONITORING) 1 each PRN DAILY PRN MC SEE COMMENTS; Start 09/24/20 at 11:00; Stop 09/26/20 at 10:59; Status DC Diphenhydramine HCl (Benadryl) 50 mg 1X ONCE PO ; Start 09/24/20 at 11:30; Stop 09/24/20 at 11:06; Status DC Diphenhydramine HCl (Benadryl) 50 mg 1X ONCE IV Last administered on 09/24/20at 11:10; Start 09/24/20 at 11:30; Stop 09/24/20 at 11:31; Status DC Ringer's Solution 1,000 ml @ 50 mls/hr Q20H IV Last administered on 09/25/20at 09:15; Start 09/25/20 at 07:00; Stop 09/25/20 at 18:59; Status DC Ringer's Solution 1,000 ml @ 75 mls/hr 1X ONCE IV ; Start 09/25/20 at 08:45; Stop 09/25/20 at 22:04; Status DC Nitroglycerin (Nitro-Bid Oint) 1 inch Q6HRS TP Last administered on 09/27/20at 06:08; Start 09/25/20 at 10:00 Piperacillin Sod/ Tazobactam Sod (Zosyn Per Pharmacy) 1 each PRN DAILY PRN MC SEE COMMENTS; Start 09/25/20 at 10:15; Stop 09/25/20 at 10:56; Status DC Piperacillin Sod/ Tazobactam Sod 2.25 gm/Sodium Chloride 50 ml @ 100 mls/hr Q6HRS IV ; Start 09/25/20 at 11:00; Stop 09/25/20 at 10:56; Status DC Furosemide (Lasix) 40 mg 1X ONCE IVP Last administered on 09/25/20at 11:48; Start 09/25/20 at 11:00; Stop 09/25/20 at 11:01; Status DC Labetalol HCl (Normodyne Iv Push) 20 mg PRN Q2HR PRN IVP HYPERTENSION; Start 09/25/20 at 11:00 Meropenem 500 mg/ Sodium Chloride 50 ml @ 100 mls/hr Q8HRS IV Last administered on 09/27/20at 06:04; Start 09/25/20 at 14:00 Daptomycin 350 mg/ Sodium Chloride 50 ml @ 100 mls/hr Q48H IV Last administered on 09/25/20at 13:57; Start 09/25/20 at 14:00 Sodium Chloride 1,000 ml @ 75 mls/hr [id number] IV Last administered on 09/26/20at 02:49; Start 09/25/20 at 13:00; Stop 09/26/20 at 10:43; Status DC Ringer's Solution 1,000 ml @ 75 mls/hr 1X ONCE IV Last administered on 09/26/20at 11:17; Start 09/26/20 at 09:15; Stop 09/26/20 at 22:34; Status DC Sodium Chloride 1,000 ml @ 50 mls/hr Q20H IV Last administered on 09/27/20at 00:18; Start 09/26/20 at 10:45 Metoprolol Tartrate (Lopressor Vial) 10 mg Q6HRS IVP Last administered on 09/27/20at 06:09; Start 09/26/20 at 18:00 Furosemide (Lasix) 40 mg 1X ONCE IVP ; Start 09/26/20 at 15:15; Stop 09/26/20 at 15:12; Status DC Furosemide (Lasix) 20 mg 1X ONCE IVP Last administered on 09/26/20at 16:02; Start 09/26/20 at 15:15; Stop 09/26/20 at 15:16; Status DC Furosemide (Lasix) 20 mg 1X ONCE IVP Last administered on 09/26/20at 18:43; Start 09/26/20 at 18:30; Stop 09/26/20 at 18:31; Status DC Furosemide (Lasix) 20 mg DAILY IVP Last administered on 09/27/20at 10:45; Start 09/27/20 at 09:00 Active Scripts Active Reported Cyclobenzaprine Hcl 10 Mg Tablet 1 Tab PO QHS Carvedilol 25 Mg Tablet 12.5 Mg PO BIDWMEALS Lipitor (Atorvastatin Calcium) 80 Mg Tablet 1 Tab PO HS Aspirin Ec (Aspirin) 81 Mg Tablet.dr 1 Tab PO DAILY Acetaminophen 325 Mg Tablet 2 Tab PO PRN DAILY PRN 30 Days Zyrtec (Cetirizine Hcl) 10 Mg Tablet 1 Tab PO DAILY Norvasc (Amlodipine Besylate) 10 Mg Tablet 10 Mg PO DAILY Nitrostat (Nitroglycerin) 0.4 Mg Tab.subl 0.4 Mg SL PRN Q5MIN PRN Clopidogrel (Clopidogrel Bisulfate) 75 Mg Tablet 1 Tab PO DAILY Percocet 10-325 Mg Tablet (Oxycodone/Acetaminophen) 1 Each Tablet 1 Tab PO Q4-6HRS Gabapentin (Gabapentin) 300 Mg Capsule 1 Cap PO HS Vitals/I & O Vital Sign - Last 24 Hours 09/26/20 09/26/20 09/26/20 09/26/20 14:10 14:25 14:40 16:03 Temp 98.1 98.1 Pulse 111 100 109 109 Resp 17 18 18 B/P (MAP) 119/59 129/68 142/74 142/74 Pulse Ox 97 97 97 O2 Delivery Nasal Cannula Nasal Cannula Nasal Cannula O2 Flow Rate 2 2 2 09/26/20 09/26/20 09/26/20 09/26/20 18:08 19:00 19:26 20:00 Temp 98.9 98.2 98.9 98.2 Pulse 109 102 62 Resp 18 16 B/P (MAP) 142/74 150/86 (107) 122/64 Pulse Ox 100 97 O2 Delivery Room Air Simple Mask Nasal Cannula O2 Flow Rate 10 3.0 09/26/20 09/27/20 09/27/20 09/27/20 23:00 00:16 00:17 03:00 Temp 98.3 97.8 98.3 97.8 Pulse 108 107 107 92 Resp 20 20 B/P (MAP) 154/81 (105) 157/87 157/87 137/84 (101) Pulse Ox 100 100 O2 Delivery Room Air Nasal Cannula O2 Flow Rate 2.0 09/27/20 09/27/20 09/27/20 09/27/20 06:08 06:09 07:00 11:04 Temp 98.3 98.3 Pulse 93 93 65 Resp 18 20 B/P (MAP) 158/74 158/74 143/85 (104) Pulse Ox 93 93 O2 Delivery Nasal Cannula Nasal Cannula O2 Flow Rate 2.0 2.0 Intake and Output 09/26/20 09/26/20 09/27/20 15:00 23:00 07:00 Intake Total 300 ml 300 ml Output Total 860 ml 1450 ml Balance 300 ml -560 ml -1450 ml Justicifation of Admission Dx: Justifications for Admission: Justification of Admission Dx: Yes MACY MARIA MD Sep 27, 2020 13:39
[2020-09-27] MEDS: DAPTOmycin (GENERIC) IVPB 350 MG in IV NORMAL SALINE 50ML 50 ML IV SCH (14:22)
[2020-09-27 15:00] VITALS: BP 140/73
[2020-09-27 15:16] LABS: BASO # 0.1 x10^3/uL (0.0-0.2); BASO % 0 % (0-3); EOS # 0.2 x10^3/uL (0.0-0.7); EOS % 1 % (0-3); HEMOGLOBIN 8.9 g/dL (12.0-15.5); LYMPH # 2.3 x10^3/uL (1.0-4.8); LYMPH % 15 % (24-48); MEAN CORPUSCULAR HEMOGLOBIN 31 pg (25-35); MEAN CORPUSCULAR HGB CONC 32 g/dL (31-37); MEAN CORPUSCULAR VOLUME 97 fL (79-100); MONO # 1.5 x10^3/uL (0.0-1.1); MONO % 9 % (0-9); NEUT # 11.9 x10^3/uL (1.8-7.7); NEUT % 75 % (31-73); PLATELET COUNT 296 x10^3/uL (140-400); RED CELL DISTRIBUTION WIDTH 14.9 % (11.5-14.5); WHITE BLOOD COUNT 15.9 x10^3/uL (4.0-11.0)
--- NOTE | 2020-09-27 15:54 | PDOC ---
Renal-Progress Notes Subjective Notes Notes NO NEW COMPLAINTS History of Present Illness Hx of present illness STILL ON SUPPLEMENTAL O2 Vitals Vitals Vital Signs Date Time Temp Pulse Resp B/P (MAP) Pulse Ox O2 Delivery O2 Flow Rate FiO2 09/27/20 15:22 20 Nasal Cannula 2.0 09/27/20 14:29 58 151/79 09/27/20 11:34 93 09/27/20 11:00 98.4 98.4 Weight Weight [ ] I.O. Intake and Output Intake and Output 09/27/20 07:00 Intake Total 600 ml Output Total 2310 ml Balance -1710 ml Intake Oral 300 ml IV Total 300 ml Output Urine Total 2300 ml Estimated Blood Loss 10 ml Labs Labs Laboratory Tests Test 09/26/20 16:47 09/26/20 23:25 09/27/20 06:13 09/27/20 08:15 Glucose (Fingerstick) 134 mg/dL (70-99) 108 mg/dL (70-99) 100 mg/dL (70-99) 95 mg/dL (70-99) Test 09/27/20 08:59 09/27/20 12:06 09/27/20 15:05 Sodium Level 137 mmol/L (136-145) Potassium Level 3.6 mmol/L (3.5-5.1) Chloride Level 103 mmol/L (98-107) Carbon Dioxide Level 21 mmol/L (21-32) Anion Gap 13 (6-14) Blood Urea Nitrogen 55 mg/dL (7-20) Creatinine 1.5 mg/dL (0.6-1.0) Estimated GFR (Cockcroft-Gault) 33.9 Glucose Level 106 mg/dL (70-99) Calcium Level 8.5 mg/dL (8.5-10.1) Phosphorus Level 4.0 mg/dL (2.6-4.7) Albumin 2.7 g/dL (3.4-5.0) Glucose (Fingerstick) 185 mg/dL (70-99) White Blood Count 15.9 x10^3/uL (4.0-11.0) Red Blood Count 2.90 x10^6/uL (3.50-5.40) Hemoglobin 8.9 g/dL (12.0-15.5) Hematocrit 28.0 % (36.0-47.0) Mean Corpuscular Volume 97 fL (79-100) Mean Corpuscular Hemoglobin 31 pg (25-35) Mean Corpuscular Hemoglobin Concent 32 g/dL (31-37) Red Cell Distribution Width 14.9 % (11.5-14.5) Platelet Count 296 x10^3/uL (140-400) Neutrophils (%) (Auto) 75 % (31-73) Lymphocytes (%) (Auto) 15 % (24-48) Monocytes (%) (Auto) 9 % (0-9) Eosinophils (%) (Auto) 1 % (0-3) Basophils (%) (Auto) 0 % (0-3) Neutrophils # (Auto) 11.9 x10^3/uL (1.8-7.7) Lymphocytes # (Auto) 2.3 x10^3/uL (1.0-4.8) Monocytes # (Auto) 1.5 x10^3/uL (0.0-1.1) Eosinophils # (Auto) 0.2 x10^3/uL (0.0-0.7) Basophils # (Auto) 0.1 x10^3/uL (0.0-0.2) Micro Micro Microbiology 09/25/20 Blood Culture - Preliminary, Resulted NO GROWTH AFTER 2 DAYS 09/20/20 Urine Culture - Final, Complete Review of Systems Constitutional: yes: alert Ears/Nose/Throat: Yes: no symptom reported Eyes: Yes: no symptom reported Pulmonary: Yes no symptom reported Cardiovascular: Yes no symptom reported Gastrointestional: Yes: no symptom reported Genitourinary: Yes: no symptom reported Musculoskeletal: Yes: no symptom reported Psychiatric/Neurological: Yes: no symptom reported Physical Exam General Appearance: no apparent distress, febrile Respiratory: decreased breath sounds Heart: S1S2 Abdomen: bowel sounds present Extremities: pulses present, no edema Neurology: alert, follow commands, confused (still having long gaps between answers and pt continues to have spacing out period when asked questions) Musculoskeletal: low back pain, Osteoarthritis Assessment Assessment IMP MARIA ELENA-RESOLVED HYPERKALEMIA-RESOLVED CKD STAGE 3-CR AT BASELINE 1.5 LEUCOCYTOSIS ANEMIA ENCEPHALOPATHY PLAN STOP IVF'S IV LASIX F/U K WITH AM LABS MAX JUNIOR MD Sep 27, 2020 15:54
[2020-09-27] MEDS: FUROSEMIDE 40 MG/4 ML VIAL. IVP SCH (17:24)
[2020-09-27 19:00] VITALS: BP 128/69
[2020-09-27 23:00] VITALS: BP 126/66
[2020-09-28] VITALS (7 sets, daily range): BP systolic 97–133; BP diastolic 41–69
[2020-09-28] MEDS: INSULIN LISPRO 300 UNITS/3 ML VIAL. SQ SCH ×4 (06:00→18:00)
[2020-09-28] MEDS: MORPHINE SULFATE 4 MG/ML VIAL. IV PRN ×2 (06:00→12:56)
[2020-09-28] MEDS: MEROPENEM 500 MG in IV NORMAL SALINE 50ML 50 ML IV SCH ×3 (06:03→22:14)
[2020-09-28] MEDS: METOPROLOL IV PUSH 5 MG/5 ML VIAL. IVP SCH ×4 (06:10→17:15)
[2020-09-28] MEDS: NITROGLYCERIN OINT 1 GM PACKET. TP SCH ×4 (06:10→17:15)
[2020-09-28] MEDS: FUROSEMIDE 40 MG/4 ML VIAL. IVP SCH (08:14)
[2020-09-28] MEDS: PANTOPRAZOLE IV PUSH 40 MG VIAL. IVP SCH ×2 (08:14→22:09)
--- NOTE | 2020-09-28 10:55 | PDOC ---
[employer] PROGRESS NOTE Date of Service DOS: DATE: 09/28/20 TIME: 10:51 Chief Complaint Chief Complaint Acute blood loss anemia hypoxia, CTA CHEST NEG PE echodensity in the wall of the left atrium of uncertain significance. A possible mass cannot be excluded., CARDIOLOGY CONSULT // transesophageal echo no thrombus, UGIB Acute METABOLIC encephalopathy, NEUROLOGY CONSULT, CT HEAD STAT 09-25 , NH4< 10 , PT/INR UTI MARIA ELENA Uremia Sepsis, ID CONSULT 09-25 Hyponatremia, NEPHROLOGY FOLLOWING DM2 CAD Elevated troponins ELECTROLYTE DISTURBANCE, NEPHROLOGY FOLLOWING, AM , PM CORTISOL no need for LP 09-26, IMPROVING, ALERT supportive care History of Present Illness History of Present Illness Ms Gonzalez is a 75yo F w/ PMHx hypertension, type 2 diabetes, CAD s/p PCI (x3 in 08/2019 at [facility], then x2 11/2019) who presented to [facility] 09/19/20 c/o hematemesis. Was transfused 2u of convalescent FFP, NGT was placed, but coiled in esophagus. Vital signs on ED presentation temp 94 F, heart rate 102 bpm blood pressure 142/73. WBC 16.4, Hb 9.3, Platelets 295, Na 129, K 4, BUN 111, Cr 2.3, Glucose 291, Trop 0.061, BNP 7800, Lipase 75, Albumin 3. UDS + for opioids. UA positive leukoesterase and blood. Transferred to [facility] for GI consultation and further treatment. Per GI has had dyspepsia and early satiety for decades. EGD in 2010 2019 not revealing. Previous gastric emptying study borderline delay. Colonoscopy in 2010 with no pathology. Upon evaluation she is drowsy and very confused. Repeat KUB with NG tube better placed below the diaphragm and appears in stomach. Discussed with bedside patient has been continuing her home medications in addition she has been taking ibuprofen and Aleve for pain recently. She was seen by [facility] cardiology on ~09/08/2020 and prescribed Brilinta 90 mg, and losartan 25 mg spironolactone 25 mg and furosemide 20 mg twice daily Overnight 100.5F. Hb 6.4, WBC 16, BUN 101, Cr 2.1. 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 Angel case therapist. -Chart reviewed. 09/26/2020 -Patient seen and examined. -Patient had rapid response 1- due to hypoxia and tachycardia. intermediate VQ scan, CTA CHEST NEG , D/W DR CIFUENTES, DR BURR -Creatinine trending down. 2.5 -> 1.2 -Angel TOMPKINS. Angel case therapist. -Chart reviewed. EEG consistent with the metabolic encephalopathy and shows no seizure activity 09/28/2020 - pt seen and examined - discussed with RN - chart reviewed - pt on IV abx - solorio at BSD - pt on cardiac monitoring Vitals/I&O Vitals/I&O: Vital Signs Date Time Temp Pulse Resp B/P (MAP) Pulse Ox O2 Delivery O2 Flow Rate FiO2 09/28/20 07:00 97.9 64 18 124/63 (83) 95 Nasal Cannula 2.0 97.9 I & O 09/27/20 09/27/20 09/28/20 15:00 23:00 07:00 Intake Total 50 ml 1000 ml Output Total 800 ml 1075 ml 1200 ml Balance -800 ml -1025 ml -200 ml Physical Exam Physical Exam: GENERAL: awake , comfortable HEENT: Both pupils are round and reacting. No conjunctival lesion, no lesion in the mouth. NECK: Supple, no JVP, no lymphadenopathy. LUNGS: Clear. HEART: S1, S2 regular. ABDOMEN: Soft, nontender, no organomegaly. EXTREMITIES: No edema, cyanosis. SKIN: Unremarkable other than some scratch ortiz are present. NEUROLOGIC: a and o , no focal deficit General: Alert, Oriented X3, Cooperative, mild distress, Other (confused, NOW LETHARGIC ) Heart: Regular rate, No murmurs Lungs: Clear, Other (diminished) Abdomen: Normal bowel sounds, Soft, No tenderness Extremities: No clubbing, No cyanosis, No edema, Normal pulses, No tenderness/swelling Skin: No rashes, No breakdown, No significant lesion Labs Labs: Laboratory Tests Test 09/27/20 12:06 09/27/20 15:05 09/27/20 16:34 09/27/20 21:22 Glucose (Fingerstick) 185 mg/dL (70-99) 159 mg/dL (70-99) 179 mg/dL (70-99) White Blood Count 15.9 x10^3/uL (4.0-11.0) Red Blood Count 2.90 x10^6/uL (3.50-5.40) Hemoglobin 8.9 g/dL (12.0-15.5) Hematocrit 28.0 % (36.0-47.0) Mean Corpuscular Volume 97 fL (79-100) Mean Corpuscular Hemoglobin 31 pg (25-35) Mean Corpuscular Hemoglobin Concent 32 g/dL (31-37) Red Cell Distribution Width 14.9 % (11.5-14.5) Platelet Count 296 x10^3/uL (140-400) Neutrophils (%) (Auto) 75 % (31-73) Lymphocytes (%) (Auto) 15 % (24-48) Monocytes (%) (Auto) 9 % (0-9) Eosinophils (%) (Auto) 1 % (0-3) Basophils (%) (Auto) 0 % (0-3) Neutrophils # (Auto) 11.9 x10^3/uL (1.8-7.7) Lymphocytes # (Auto) 2.3 x10^3/uL (1.0-4.8) Monocytes # (Auto) 1.5 x10^3/uL (0.0-1.1) Eosinophils # (Auto) 0.2 x10^3/uL (0.0-0.7) Basophils # (Auto) 0.1 x10^3/uL (0.0-0.2) Review of Systems Review of Systems: pt denies change in mental status, pt denies [place] Assessment and Plan Assessmemt and Plan Assessment Acute blood loss anemia hypoxia, CTA CHEST NEG PE echodensity in the wall of the left atrium of uncertain significance. A possible mass cannot be excluded., CARDIOLOGY CONSULT // transesophageal echo no thrombus, UGIB Acute METABOLIC encephalopathy, NEUROLOGY CONSULT, CT HEAD STAT 1-28 , NH4< 10 , PT/INR UTI MARIA ELENA Uremia Sepsis, ID CONSULT - Hyponatremia, NEPHROLOGY FOLLOWING DM2 CAD Plan - trend labs - continue solorio to BSD - continue IV Abx - cardiac monitoring - continue nitro paste - appreciate input from subspecialists - PT/OT Comment Review of Relevant I have reviewed the following items brett (where applicable) has been applied. Medications: Current Medications Medications (Trade) Dose Ordered Sig/Jess Route PRN Reason Start Time Stop Time Status Last Admin Dose Admin Furosemide (Lasix) 40 mg DAILY IVP 09/27/20 16:00 09/28/20 08:14 Justifications for Admission Other Justification RENE ALTMAN III DO Sep 28, 2020 10:54
[2020-09-28 11:06] LABS: BASO # 0.1 x10^3/uL (0.0-0.2); BASO % 0 % (0-3); EOS # 0.2 x10^3/uL (0.0-0.7); EOS % 1 % (0-3); HEMOGLOBIN 9.7 g/dL (12.0-15.5); LYMPH # 0.9 x10^3/uL (1.0-4.8); LYMPH % 4 % (24-48); MEAN CORPUSCULAR HEMOGLOBIN 31 pg (25-35); MEAN CORPUSCULAR HGB CONC 32 g/dL (31-37); MEAN CORPUSCULAR VOLUME 96 fL (79-100); MONO # 1.8 x10^3/uL (0.0-1.1); MONO % 8 % (0-9); NEUT # 19.1 x10^3/uL (1.8-7.7); NEUT % 87 % (31-73); PLATELET COUNT 283 x10^3/uL (140-400); RED BLOOD COUNT 3.13 x10^6/uL (3.50-5.40); RED CELL DISTRIBUTION WIDTH 15.2 % (11.5-14.5); WHITE BLOOD COUNT 22.1 x10^3/uL (4.0-11.0)
--- NOTE | 2020-09-28 11:06 | PDOC ---
PULMONARY PROGRESS NOTES DATE: 09/28/20 TIME: 11:05 Subjective Patient is weak, no productive cough, currently on 2 L of oxygen supplementation More awake today Vitals Vital Signs Date Time Temp Pulse Resp B/P (MAP) Pulse Ox O2 Delivery O2 Flow Rate FiO2 09/28/20 08:00 Nasal Cannula 2.0 09/28/20 07:00 97.9 64 18 124/63 (83) 95 97.9 ROS: No Nausea, No Chest Pain, No Increase Cough General: Alert Lungs: Clear Cardiovascular: S1, S2 Abdomen: Soft Neuro Exam: Alert Extremities: No Edema Skin: Warm Labs Laboratory Tests Test 09/26/20 15:23 09/26/20 16:47 09/26/20 23:25 09/27/20 06:13 Ammonia 22 mcmol/L (11-34) Glucose (Fingerstick) 134 mg/dL (70-99) 108 mg/dL (70-99) 100 mg/dL (70-99) Test 09/27/20 08:15 09/27/20 08:59 09/27/20 12:06 09/27/20 15:05 Glucose (Fingerstick) 95 mg/dL (70-99) 185 mg/dL (70-99) Sodium Level 137 mmol/L (136-145) Potassium Level 3.6 mmol/L (3.5-5.1) Chloride Level 103 mmol/L (98-107) Carbon Dioxide Level 21 mmol/L (21-32) Anion Gap 13 (6-14) Blood Urea Nitrogen 55 mg/dL (7-20) Creatinine 1.5 mg/dL (0.6-1.0) Estimated GFR (Cockcroft-Gault) 33.9 Glucose Level 106 mg/dL (70-99) Calcium Level 8.5 mg/dL (8.5-10.1) Phosphorus Level 4.0 mg/dL (2.6-4.7) Albumin 2.7 g/dL (3.4-5.0) White Blood Count 15.9 x10^3/uL (4.0-11.0) Red Blood Count 2.90 x10^6/uL (3.50-5.40) Hemoglobin 8.9 g/dL (12.0-15.5) Hematocrit 28.0 % (36.0-47.0) Mean Corpuscular Volume 97 fL (79-100) Mean Corpuscular Hemoglobin 31 pg (25-35) Mean Corpuscular Hemoglobin Concent 32 g/dL (31-37) Red Cell Distribution Width 14.9 % (11.5-14.5) Platelet Count 296 x10^3/uL (140-400) Neutrophils (%) (Auto) 75 % (31-73) Lymphocytes (%) (Auto) 15 % (24-48) Monocytes (%) (Auto) 9 % (0-9) Eosinophils (%) (Auto) 1 % (0-3) Basophils (%) (Auto) 0 % (0-3) Neutrophils # (Auto) 11.9 x10^3/uL (1.8-7.7) Lymphocytes # (Auto) 2.3 x10^3/uL (1.0-4.8) Monocytes # (Auto) 1.5 x10^3/uL (0.0-1.1) Eosinophils # (Auto) 0.2 x10^3/uL (0.0-0.7) Basophils # (Auto) 0.1 x10^3/uL (0.0-0.2) Test 09/27/20 16:34 09/27/20 21:22 Glucose (Fingerstick) 159 mg/dL (70-99) 179 mg/dL (70-99) Laboratory Tests Test 09/27/20 12:06 09/27/20 15:05 09/27/20 16:34 09/27/20 21:22 Glucose (Fingerstick) 185 mg/dL (70-99) 159 mg/dL (70-99) 179 mg/dL (70-99) White Blood Count 15.9 x10^3/uL (4.0-11.0) Red Blood Count 2.90 x10^6/uL (3.50-5.40) Hemoglobin 8.9 g/dL (12.0-15.5) Hematocrit 28.0 % (36.0-47.0) Mean Corpuscular Volume 97 fL (79-100) Mean Corpuscular Hemoglobin 31 pg (25-35) Mean Corpuscular Hemoglobin Concent 32 g/dL (31-37) Red Cell Distribution Width 14.9 % (11.5-14.5) Platelet Count 296 x10^3/uL (140-400) Neutrophils (%) (Auto) 75 % (31-73) Lymphocytes (%) (Auto) 15 % (24-48) Monocytes (%) (Auto) 9 % (0-9) Eosinophils (%) (Auto) 1 % (0-3) Basophils (%) (Auto) 0 % (0-3) Neutrophils # (Auto) 11.9 x10^3/uL (1.8-7.7) Lymphocytes # (Auto) 2.3 x10^3/uL (1.0-4.8) Monocytes # (Auto) 1.5 x10^3/uL (0.0-1.1) Eosinophils # (Auto) 0.2 x10^3/uL (0.0-0.7) Basophils # (Auto) 0.1 x10^3/uL (0.0-0.2) Medications Active Scripts Medications Dose Route/Sig Max Daily Dose Days Date Category Cyclobenzaprine Hcl 10 Mg Tablet 1 Tab PO QHS 05/27/20 Reported Carvedilol 25 Mg Tablet 12.5 Mg PO BIDWMEALS 05/27/20 Reported Lipitor (Atorvastatin Calcium) 80 Mg Tablet 1 Tab PO HS 05/27/20 Reported Aspirin Ec (Aspirin) 81 Mg Tablet.dr 1 Tab PO DAILY 05/27/20 Reported Acetaminophen 325 Mg Tablet 2 Tab PO PRN DAILY PRN 30 05/27/20 Reported Zyrtec (Cetirizine Hcl) 10 Mg Tablet 1 Tab PO DAILY 05/27/20 Reported Norvasc (Amlodipine Besylate) 10 Mg Tablet 10 Mg PO DAILY 05/27/20 Reported Nitrostat (Nitroglycerin) 0.4 Mg Tab.subl 0.4 Mg SL PRN Q5MIN PRN 05/27/20 Reported Clopidogrel (Clopidogrel Bisulfate) 75 Mg Tablet 1 Tab PO DAILY 05/27/20 Reported Percocet 10-325 Mg Tablet (Oxycodone/Acetaminophen) 1 Each Tablet 1 Tab PO Q4-6HRS 08/02/16 Reported Gabapentin (Gabapentin) 300 Mg Capsule 1 Cap PO HS 09/26/14 Reported Comments IMPRESSION: 1. No evidence of acute pulmonary embolism 2. Small left and moderate right pleural effusion 3. Patchy groundglass infiltrates throughout the bilateral lungs. Cardiomegaly. Constellation of findings favor pulmonary edema however an atypical or viral infectious process cannot be excluded. Impression . IMPRESSION: 1. Acute hypoxic respiratory failure, multifactorial, suspect heart failure, anemia, patient is status post transfusion. 2. Metabolic toxic encephalopathy, improved 3. Underlying dementia. 4. Recent gastrointestinal bleed. Plan . Continue oxygen supplementation currently on 2 L nasal cannula Status post EGD 09/26--- Kandace-Villagomez tear?, No evidence of bleeding lesion now tolerating p.o. diet CT of chest was negative for PE did demonstrate a loculated effusion, less likely pneumonia Follow infectious disease recommendations in regards to antibiotics, follow cultures Follow nephrology recommendations--MARIA ELENA resolved, at baseline PCP to manage hypertension Physical therapy/Occupational Therapy DVT/GI prophylaxis--SCDS D/W DEE ABEBE MD Sep 28, 2020 11:06
[2020-09-28 11:24] LABS: CALCIUM 8.4 mg/dL (8.5-10.1); CREATININE 1.4 mg/dL (0.6-1.0); GFR 36.8
[2020-09-28 11:29] LABS: MAGNESIUM 1.7 mg/dL (1.8-2.4); PHOSPHORUS 3.5 mg/dL (2.6-4.7)
[2020-09-28 11:30] LABS: POTASSIUM 2.7 mmol/L (3.5-5.1)
[2020-09-28 11:39] LABS: % BANDS 3 % (0-9); % EOS 1 % (0-5); % LYMPHS 6 % (24-48); % MONOS 10 % (0-10); % SEGS 80 % (35-66)
[2020-09-28 11:41] LABS: ANISOCYTOSIS SLIGHT; HYPOCHROMIA SLIGHT; PLT ESTIMATE ADEQUATE (ADEQUATE)
[2020-09-28] MEDS ORDERED: ACETAMINOPHEN 325 MG TABLET. PO PRN (12:15)
[2020-09-28] MEDS ORDERED: POTASSIUM BICARB 20 MEQ EFFERVESCENT TABLET. PO ONE (12:30)
[2020-09-28] MEDS: CETIRIZINE HCL 10 MG TABLET. PO SCH (12:59)
[2020-09-28] MEDS: CLOPIDOGREL BISULFATE 75 MG TABLET PO SCH (12:59)
[2020-09-28] MEDS: ASPIRIN ENTERIC COATED 81 MG TABLET.DR. PO SCH (12:59)
--- NOTE | 2020-09-28 14:51 | PDOC ---
Renal-Progress Notes Subjective Notes Notes NO NEW COMPLAINTS History of Present Illness Hx of present illness STABLE Vitals Vitals Vital Signs Date Time Temp Pulse Resp B/P (MAP) Pulse Ox O2 Delivery O2 Flow Rate FiO2 09/28/20 13:26 20 95 Nasal Cannula 2.0 09/28/20 13:12 130/54 09/28/20 13:11 82 09/28/20 11:00 97.8 97.8 Weight Weight [ ] I.O. Intake and Output Intake and Output 09/28/20 07:00 Intake Total 1050 ml Output Total 3075 ml Balance -2025 ml IV Total 1050 ml Output Urine Total 3075 ml Labs Labs Laboratory Tests Test 09/27/20 15:05 09/27/20 16:34 09/27/20 21:22 09/28/20 10:33 White Blood Count 15.9 x10^3/uL (4.0-11.0) 22.1 x10^3/uL (4.0-11.0) Red Blood Count 2.90 x10^6/uL (3.50-5.40) 3.13 x10^6/uL (3.50-5.40) Hemoglobin 8.9 g/dL (12.0-15.5) 9.7 g/dL (12.0-15.5) Hematocrit 28.0 % (36.0-47.0) 30.0 % (36.0-47.0) Mean Corpuscular Volume 97 fL (79-100) 96 fL (79-100) Mean Corpuscular Hemoglobin 31 pg (25-35) 31 pg (25-35) Mean Corpuscular Hemoglobin Concent 32 g/dL (31-37) 32 g/dL (31-37) Red Cell Distribution Width 14.9 % (11.5-14.5) 15.2 % (11.5-14.5) Platelet Count 296 x10^3/uL (140-400) 283 x10^3/uL (140-400) Neutrophils (%) (Auto) 75 % (31-73) 87 % (31-73) Lymphocytes (%) (Auto) 15 % (24-48) 4 % (24-48) Monocytes (%) (Auto) 9 % (0-9) 8 % (0-9) Eosinophils (%) (Auto) 1 % (0-3) 1 % (0-3) Basophils (%) (Auto) 0 % (0-3) 0 % (0-3) Neutrophils # (Auto) 11.9 x10^3/uL (1.8-7.7) 19.1 x10^3/uL (1.8-7.7) Lymphocytes # (Auto) 2.3 x10^3/uL (1.0-4.8) 0.9 x10^3/uL (1.0-4.8) Monocytes # (Auto) 1.5 x10^3/uL (0.0-1.1) 1.8 x10^3/uL (0.0-1.1) Eosinophils # (Auto) 0.2 x10^3/uL (0.0-0.7) 0.2 x10^3/uL (0.0-0.7) Basophils # (Auto) 0.1 x10^3/uL (0.0-0.2) 0.1 x10^3/uL (0.0-0.2) Glucose (Fingerstick) 159 mg/dL (70-99) 179 mg/dL (70-99) Segmented Neutrophils % 80 % (35-66) Band Neutrophils % 3 % (0-9) Lymphocytes % 6 % (24-48) Monocytes % 10 % (0-10) Eosinophils % 1 % (0-5) Platelet Estimate Adequate (ADEQUATE) Hypochromasia Slight Anisocytosis Slight Sodium Level 135 mmol/L (136-145) Potassium Level 2.7 mmol/L (3.5-5.1) Chloride Level 98 mmol/L (98-107) Carbon Dioxide Level 28 mmol/L (21-32) Anion Gap 9 (6-14) Blood Urea Nitrogen 43 mg/dL (7-20) Creatinine 1.4 mg/dL (0.6-1.0) Estimated GFR (Cockcroft-Gault) 36.8 Glucose Level 211 mg/dL (70-99) Calcium Level 8.4 mg/dL (8.5-10.1) Phosphorus Level 3.5 mg/dL (2.6-4.7) Magnesium Level 1.7 mg/dL (1.8-2.4) Test 09/28/20 11:56 Glucose (Fingerstick) 158 mg/dL (70-99) Micro Micro Microbiology 09/25/20 Blood Culture - Preliminary, Resulted NO GROWTH AFTER 3 DAYS 09/20/20 Urine Culture - Final, Complete Review of Systems Constitutional: yes: alert Ears/Nose/Throat: Yes: no symptom reported Eyes: Yes: no symptom reported Pulmonary: Yes no symptom reported Cardiovascular: Yes no symptom reported Gastrointestional: Yes: no symptom reported Genitourinary: Yes: no symptom reported Musculoskeletal: Yes: no symptom reported Psychiatric/Neurological: Yes: no symptom reported Physical Exam General Appearance: no apparent distress, febrile Respiratory: decreased breath sounds Heart: S1S2 Abdomen: bowel sounds present Extremities: pulses present, no edema Neurology: alert, follow commands, confused (still having long gaps between answers and pt continues to have spacing out period when asked questions) Musculoskeletal: low back pain, Osteoarthritis Assessment Assessment IMP MARIA ELENA-RESOLVED HYPOKALEMIA LOW MAG CKD STAGE 3-CR AT BASELINE 1.5 LEUCOCYTOSIS ANEMIA ENCEPHALOPATHY PLAN STOP IVF'S REPLACE K AND MAG F/U K WITH AM LABS MAX JUNIOR MD Sep 28, 2020 14:51
[2020-09-28] MEDS ORDERED: MAGNESIUM SULFATE 2GM 50 ML IV ONE (15:30)
[2020-09-28] MEDS: CARVEDILOL 12.5 MG TABLET. PO SCH (17:00)
[2020-09-28] MEDS: ATORVASTATIN CALCIUM 40 MG TABLET. PO SCH (22:07)
[2020-09-28] MEDS: CYCLOBENZAPRINE 10 MG TABLET. PO SCH (22:07)
[2020-09-28] MEDS: LACTOBACILLUS RHAMNOSUS GG 1 CAPSULE. PO SCH (22:07)
[2020-09-28] MEDS: GABAPENTIN 300 MG CAPSULE. PO SCH (22:07)
[2020-09-29] MEDS: oxyCODONE/APAP 10/325 1 TAB TABLET PO PRN ×3 (02:09→18:03)
[2020-09-29 03:00] VITALS: BP 107/45
[2020-09-29] MEDS: NITROGLYCERIN OINT 1 GM PACKET. TP SCH ×4 (05:34→18:00)
[2020-09-29] MEDS: METOPROLOL IV PUSH 5 MG/5 ML VIAL. IVP SCH ×4 (05:34→18:00)
[2020-09-29] MEDS: MEROPENEM 500 MG in IV NORMAL SALINE 50ML 50 ML IV SCH (05:35)
[2020-09-29 07:00] VITALS: BP 135/58
[2020-09-29] MEDS: INSULIN LISPRO 300 UNITS/3 ML VIAL. SQ SCH ×5 (07:30→21:00)
--- NOTE | 2020-09-29 09:06 | PDOC ---
Infectious Disease Note Subjective Subjective Patient is much improved sitting up joking ROS ROS No nausea vomiting diarrhea or fever Vital Sign Vital Signs Vital Signs Date Time Temp Pulse Resp B/P (MAP) Pulse Ox O2 Delivery O2 Flow Rate FiO2 09/29/20 07:00 98.0 76 16 135/58 (83) 95 Nasal Cannula 2.0 98.0 Physical Exam PHYSICAL EXAM GENERAL: awake , comfortable HEENT: Both pupils are round and reacting. No conjunctival lesion, no lesion in the mouth. NECK: Supple, no JVP, no lymphadenopathy. LUNGS: Clear. HEART: S1, S2 regular. ABDOMEN: Soft, nontender, no organomegaly. EXTREMITIES: No edema, cyanosis. SKIN: Unremarkable other than some scratch ortiz are present. NEUROLOGIC: a and o , no focal deficit Labs Lab Laboratory Tests Test 09/28/20 10:33 09/28/20 11:56 09/28/20 18:51 09/29/20 00:37 White Blood Count 22.1 x10^3/uL (4.0-11.0) Red Blood Count 3.13 x10^6/uL (3.50-5.40) Hemoglobin 9.7 g/dL (12.0-15.5) Hematocrit 30.0 % (36.0-47.0) Mean Corpuscular Volume 96 fL (79-100) Mean Corpuscular Hemoglobin 31 pg (25-35) Mean Corpuscular Hemoglobin Concent 32 g/dL (31-37) Red Cell Distribution Width 15.2 % (11.5-14.5) Platelet Count 283 x10^3/uL (140-400) Neutrophils (%) (Auto) 87 % (31-73) Lymphocytes (%) (Auto) 4 % (24-48) Monocytes (%) (Auto) 8 % (0-9) Eosinophils (%) (Auto) 1 % (0-3) Basophils (%) (Auto) 0 % (0-3) Neutrophils # (Auto) 19.1 x10^3/uL (1.8-7.7) Lymphocytes # (Auto) 0.9 x10^3/uL (1.0-4.8) Monocytes # (Auto) 1.8 x10^3/uL (0.0-1.1) Eosinophils # (Auto) 0.2 x10^3/uL (0.0-0.7) Basophils # (Auto) 0.1 x10^3/uL (0.0-0.2) Segmented Neutrophils % 80 % (35-66) Band Neutrophils % 3 % (0-9) Lymphocytes % 6 % (24-48) Monocytes % 10 % (0-10) Eosinophils % 1 % (0-5) Platelet Estimate Adequate (ADEQUATE) Hypochromasia Slight Anisocytosis Slight Sodium Level 135 mmol/L (136-145) Potassium Level 2.7 mmol/L (3.5-5.1) Chloride Level 98 mmol/L (98-107) Carbon Dioxide Level 28 mmol/L (21-32) Anion Gap 9 (6-14) Blood Urea Nitrogen 43 mg/dL (7-20) Creatinine 1.4 mg/dL (0.6-1.0) Estimated GFR (Cockcroft-Gault) 36.8 Glucose Level 211 mg/dL (70-99) Calcium Level 8.4 mg/dL (8.5-10.1) Phosphorus Level 3.5 mg/dL (2.6-4.7) Magnesium Level 1.7 mg/dL (1.8-2.4) Glucose (Fingerstick) 158 mg/dL (70-99) 209 mg/dL (70-99) 157 mg/dL (70-99) Test 09/29/20 07:26 Glucose (Fingerstick) 121 mg/dL (70-99) Micro Microbiology 09/20/20 Urine Culture - Final, Complete Objective Assessment IMPRESSION: 1. Leukocytosis, most likely to be reactive. There is no obvious area of infection so far. 2. Gastrointestinal bleed that itself gastrointestinal bleed can cause leukocytosis. 3. Renal insufficiency. 4. Encephalopathy, improved 5. Coronary artery disease. Plan Plan of Care Discontinue antibiotic pt/ot D/w nursing TERRIE BURR MD Sep 29, 2020 09:06
[2020-09-29 09:09] LABS: BASO % 0 % (0-3); EOS # 0.3 x10^3/uL (0.0-0.7); EOS % 2 % (0-3); HEMATOCRIT 31.5 % (36.0-47.0); HEMOGLOBIN 9.9 g/dL (12.0-15.5); LYMPH # 1.7 x10^3/uL (1.0-4.8); LYMPH % 10 % (24-48); MEAN CORPUSCULAR HEMOGLOBIN 30 pg (25-35); MEAN CORPUSCULAR HGB CONC 32 g/dL (31-37); MEAN CORPUSCULAR VOLUME 97 fL (79-100); MONO # 1.4 x10^3/uL (0.0-1.1); MONO % 8 % (0-9); NEUT # 14.7 x10^3/uL (1.8-7.7); NEUT % 81 % (31-73); PLATELET COUNT 261 x10^3/uL (140-400); RED BLOOD COUNT 3.27 x10^6/uL (3.50-5.40); RED CELL DISTRIBUTION WIDTH 15.6 % (11.5-14.5); WHITE BLOOD COUNT 18.1 x10^3/uL (4.0-11.0)
--- NOTE | 2020-09-29 09:31 | PDOC ---
PULMONARY PROGRESS NOTES DATE: 09/29/20 TIME: 09:25 Subjective Patient is weak, no productive cough, currently on 2 L of oxygen supplementation Vitals Vital Signs Date Time Temp Pulse Resp B/P (MAP) Pulse Ox O2 Delivery O2 Flow Rate FiO2 09/29/20 07:00 98.0 76 16 135/58 (83) 95 Nasal Cannula 2.0 98.0 ROS: No Nausea, No Chest Pain, No Increase Cough General: Alert Lungs: Clear Cardiovascular: S1, S2 Abdomen: Soft Neuro Exam: Alert Extremities: No Edema Skin: Warm, Dry Labs Laboratory Tests Test 09/27/20 12:06 09/27/20 15:05 09/27/20 16:34 09/27/20 21:22 Glucose (Fingerstick) 185 mg/dL (70-99) 159 mg/dL (70-99) 179 mg/dL (70-99) White Blood Count 15.9 x10^3/uL (4.0-11.0) Red Blood Count 2.90 x10^6/uL (3.50-5.40) Hemoglobin 8.9 g/dL (12.0-15.5) Hematocrit 28.0 % (36.0-47.0) Mean Corpuscular Volume 97 fL (79-100) Mean Corpuscular Hemoglobin 31 pg (25-35) Mean Corpuscular Hemoglobin Concent 32 g/dL (31-37) Red Cell Distribution Width 14.9 % (11.5-14.5) Platelet Count 296 x10^3/uL (140-400) Neutrophils (%) (Auto) 75 % (31-73) Lymphocytes (%) (Auto) 15 % (24-48) Monocytes (%) (Auto) 9 % (0-9) Eosinophils (%) (Auto) 1 % (0-3) Basophils (%) (Auto) 0 % (0-3) Neutrophils # (Auto) 11.9 x10^3/uL (1.8-7.7) Lymphocytes # (Auto) 2.3 x10^3/uL (1.0-4.8) Monocytes # (Auto) 1.5 x10^3/uL (0.0-1.1) Eosinophils # (Auto) 0.2 x10^3/uL (0.0-0.7) Basophils # (Auto) 0.1 x10^3/uL (0.0-0.2) Test 09/28/20 10:33 09/28/20 11:56 09/28/20 18:51 09/29/20 00:37 White Blood Count 22.1 x10^3/uL (4.0-11.0) Red Blood Count 3.13 x10^6/uL (3.50-5.40) Hemoglobin 9.7 g/dL (12.0-15.5) Hematocrit 30.0 % (36.0-47.0) Mean Corpuscular Volume 96 fL (79-100) Mean Corpuscular Hemoglobin 31 pg (25-35) Mean Corpuscular Hemoglobin Concent 32 g/dL (31-37) Red Cell Distribution Width 15.2 % (11.5-14.5) Platelet Count 283 x10^3/uL (140-400) Neutrophils (%) (Auto) 87 % (31-73) Lymphocytes (%) (Auto) 4 % (24-48) Monocytes (%) (Auto) 8 % (0-9) Eosinophils (%) (Auto) 1 % (0-3) Basophils (%) (Auto) 0 % (0-3) Neutrophils # (Auto) 19.1 x10^3/uL (1.8-7.7) Lymphocytes # (Auto) 0.9 x10^3/uL (1.0-4.8) Monocytes # (Auto) 1.8 x10^3/uL (0.0-1.1) Eosinophils # (Auto) 0.2 x10^3/uL (0.0-0.7) Basophils # (Auto) 0.1 x10^3/uL (0.0-0.2) Segmented Neutrophils % 80 % (35-66) Band Neutrophils % 3 % (0-9) Lymphocytes % 6 % (24-48) Monocytes % 10 % (0-10) Eosinophils % 1 % (0-5) Platelet Estimate Adequate (ADEQUATE) Hypochromasia Slight Anisocytosis Slight Sodium Level 135 mmol/L (136-145) Potassium Level 2.7 mmol/L (3.5-5.1) Chloride Level 98 mmol/L (98-107) Carbon Dioxide Level 28 mmol/L (21-32) Anion Gap 9 (6-14) Blood Urea Nitrogen 43 mg/dL (7-20) Creatinine 1.4 mg/dL (0.6-1.0) Estimated GFR (Cockcroft-Gault) 36.8 Glucose Level 211 mg/dL (70-99) Calcium Level 8.4 mg/dL (8.5-10.1) Phosphorus Level 3.5 mg/dL (2.6-4.7) Magnesium Level 1.7 mg/dL (1.8-2.4) Glucose (Fingerstick) 158 mg/dL (70-99) 209 mg/dL (70-99) 157 mg/dL (70-99) Test 09/29/20 07:26 09/29/20 08:40 Glucose (Fingerstick) 121 mg/dL (70-99) White Blood Count 18.1 x10^3/uL (4.0-11.0) Red Blood Count 3.27 x10^6/uL (3.50-5.40) Hemoglobin 9.9 g/dL (12.0-15.5) Hematocrit 31.5 % (36.0-47.0) Mean Corpuscular Volume 97 fL (79-100) Mean Corpuscular Hemoglobin 30 pg (25-35) Mean Corpuscular Hemoglobin Concent 32 g/dL (31-37) Red Cell Distribution Width 15.6 % (11.5-14.5) Platelet Count 261 x10^3/uL (140-400) Neutrophils (%) (Auto) 81 % (31-73) Lymphocytes (%) (Auto) 10 % (24-48) Monocytes (%) (Auto) 8 % (0-9) Eosinophils (%) (Auto) 2 % (0-3) Basophils (%) (Auto) 0 % (0-3) Neutrophils # (Auto) 14.7 x10^3/uL (1.8-7.7) Lymphocytes # (Auto) 1.7 x10^3/uL (1.0-4.8) Monocytes # (Auto) 1.4 x10^3/uL (0.0-1.1) Eosinophils # (Auto) 0.3 x10^3/uL (0.0-0.7) Basophils # (Auto) 0.0 x10^3/uL (0.0-0.2) Laboratory Tests Test 1/31/21 10:33 09/28/20 11:56 09/28/20 18:51 09/29/20 00:37 White Blood Count 22.1 x10^3/uL (4.0-11.0) Red Blood Count 3.13 x10^6/uL (3.50-5.40) Hemoglobin 9.7 g/dL (12.0-15.5) Hematocrit 30.0 % (36.0-47.0) Mean Corpuscular Volume 96 fL (79-100) Mean Corpuscular Hemoglobin 31 pg (25-35) Mean Corpuscular Hemoglobin Concent 32 g/dL (31-37) Red Cell Distribution Width 15.2 % (11.5-14.5) Platelet Count 283 x10^3/uL (140-400) Neutrophils (%) (Auto) 87 % (31-73) Lymphocytes (%) (Auto) 4 % (24-48) Monocytes (%) (Auto) 8 % (0-9) Eosinophils (%) (Auto) 1 % (0-3) Basophils (%) (Auto) 0 % (0-3) Neutrophils # (Auto) 19.1 x10^3/uL (1.8-7.7) Lymphocytes # (Auto) 0.9 x10^3/uL (1.0-4.8) Monocytes # (Auto) 1.8 x10^3/uL (0.0-1.1) Eosinophils # (Auto) 0.2 x10^3/uL (0.0-0.7) Basophils # (Auto) 0.1 x10^3/uL (0.0-0.2) Segmented Neutrophils % 80 % (35-66) Band Neutrophils % 3 % (0-9) Lymphocytes % 6 % (24-48) Monocytes % 10 % (0-10) Eosinophils % 1 % (0-5) Platelet Estimate Adequate (ADEQUATE) Hypochromasia Slight Anisocytosis Slight Sodium Level 135 mmol/L (136-145) Potassium Level 2.7 mmol/L (3.5-5.1) Chloride Level 98 mmol/L (98-107) Carbon Dioxide Level 28 mmol/L (21-32) Anion Gap 9 (6-14) Blood Urea Nitrogen 43 mg/dL (7-20) Creatinine 1.4 mg/dL (0.6-1.0) Estimated GFR (Cockcroft-Gault) 36.8 Glucose Level 211 mg/dL (70-99) Calcium Level 8.4 mg/dL (8.5-10.1) Phosphorus Level 3.5 mg/dL (2.6-4.7) Magnesium Level 1.7 mg/dL (1.8-2.4) Glucose (Fingerstick) 158 mg/dL (70-99) 209 mg/dL (70-99) 157 mg/dL (70-99) Test 09/29/20 07:26 09/29/20 08:40 Glucose (Fingerstick) 121 mg/dL (70-99) White Blood Count 18.1 x10^3/uL (4.0-11.0) Red Blood Count 3.27 x10^6/uL (3.50-5.40) Hemoglobin 9.9 g/dL (12.0-15.5) Hematocrit 31.5 % (36.0-47.0) Mean Corpuscular Volume 97 fL (79-100) Mean Corpuscular Hemoglobin 30 pg (25-35) Mean Corpuscular Hemoglobin Concent 32 g/dL (31-37) Red Cell Distribution Width 15.6 % (11.5-14.5) Platelet Count 261 x10^3/uL (140-400) Neutrophils (%) (Auto) 81 % (31-73) Lymphocytes (%) (Auto) 10 % (24-48) Monocytes (%) (Auto) 8 % (0-9) Eosinophils (%) (Auto) 2 % (0-3) Basophils (%) (Auto) 0 % (0-3) Neutrophils # (Auto) 14.7 x10^3/uL (1.8-7.7) Lymphocytes # (Auto) 1.7 x10^3/uL (1.0-4.8) Monocytes # (Auto) 1.4 x10^3/uL (0.0-1.1) Eosinophils # (Auto) 0.3 x10^3/uL (0.0-0.7) Basophils # (Auto) 0.0 x10^3/uL (0.0-0.2) Medications Active Scripts Medications Dose Route/Sig Max Daily Dose Days Date Category Cyclobenzaprine Hcl 10 Mg Tablet 1 Tab PO QHS 05/27/20 Reported Carvedilol 25 Mg Tablet 12.5 Mg PO BIDWMEALS 05/27/20 Reported Lipitor (Atorvastatin Calcium) 80 Mg Tablet 1 Tab PO HS 05/27/20 Reported Aspirin Ec (Aspirin) 81 Mg Tablet.dr 1 Tab PO DAILY 05/27/20 Reported Acetaminophen 325 Mg Tablet 2 Tab PO PRN DAILY PRN 30 05/27/20 Reported Zyrtec (Cetirizine Hcl) 10 Mg Tablet 1 Tab PO DAILY 05/27/20 Reported Norvasc (Amlodipine Besylate) 10 Mg Tablet 10 Mg PO DAILY 05/27/20 Reported Nitrostat (Nitroglycerin) 0.4 Mg Tab.subl 0.4 Mg SL PRN Q5MIN PRN 05/27/20 Reported Clopidogrel (Clopidogrel Bisulfate) 75 Mg Tablet 1 Tab PO DAILY 05/27/20 Reported Percocet 10-325 Mg Tablet (Oxycodone/Acetaminophen) 1 Each Tablet 1 Tab PO Q4-6HRS 08/02/16 Reported Gabapentin (Gabapentin) 300 Mg Capsule 1 Cap PO HS 09/26/14 Reported Comments IMPRESSION: 1. No evidence of acute pulmonary embolism 2. Small left and moderate right pleural effusion 3. Patchy groundglass infiltrates throughout the bilateral lungs. Cardiomegaly. Constellation of findings favor pulmonary edema however an atypical or viral infectious process cannot be excluded. Impression . IMPRESSION: 1. Acute hypoxic respiratory failure, multifactorial, suspect heart failure, anemia, patient is status post transfusion.--- improved 2. Metabolic toxic encephalopathy, improved 3. Underlying dementia. 4. Recent gastrointestinal bleed. Plan . Continue oxygen supplementation currently on 2 L nasal cannula Status post EGD 09/26--- Kandace-Villagomez tear?, No evidence of bleeding lesion now tolerating p.o. diet CT of chest was negative for PE did demonstrate a loculated effusion, less likely pneumonia Follow infectious disease recommendations in regards to antibiotics, follow cultures-- NGTD Follow nephrology recommendations--MARIA ELENA resolved, at baseline PCP to manage hypertension Physical therapy/Occupational Therapy DVT/GI prophylaxis--SCDS D/W DEE ABEBE MD Sep 29, 2020 09:31
[2020-09-29] MEDS: LACTOBACILLUS RHAMNOSUS GG 1 CAPSULE. PO SCH ×2 (09:44→20:36)
[2020-09-29] MEDS: ASPIRIN ENTERIC COATED 81 MG TABLET.DR. PO SCH (09:44)
[2020-09-29] MEDS: CARVEDILOL 12.5 MG TABLET. PO SCH ×2 (09:44→17:39)
[2020-09-29] MEDS: PANTOPRAZOLE IV PUSH 40 MG VIAL. IVP SCH (09:46)
[2020-09-29] MEDS: CETIRIZINE HCL 10 MG TABLET. PO SCH (09:46)
[2020-09-29] MEDS: CLOPIDOGREL BISULFATE 75 MG TABLET PO SCH (09:46)
[2020-09-29] MEDS: FUROSEMIDE 40 MG/4 ML VIAL. IVP SCH (09:47)
[2020-09-29 09:49] LABS: CALCIUM 7.9 mg/dL (8.5-10.1); CREATININE 1.3 mg/dL (0.6-1.0)
[2020-09-29 09:55] LABS: PHOSPHORUS 2.8 mg/dL (2.6-4.7)
--- NOTE | 2020-09-29 09:55 | PDOC ---
DATE OF SERVICE DATE: 09/29/20 TIME: 09:55 SUBJECTIVE ROS sitting in chair, states feeling better OBJECTIVE Vital Signs Vital Signs Date Time Temp Pulse Resp B/P (MAP) Pulse Ox O2 Delivery O2 Flow Rate FiO2 09/29/20 09:45 76 135/58 09/29/20 07:00 98.0 16 95 Nasal Cannula 2.0 98.0 I & 0 Intake and Output 09/29/20 07:00 Intake Total 360 ml Output Total 1750 ml Balance -1390 ml Intake Oral 360 ml Output Urine Total 1750 ml # Bowel Movements 1 PHYSICAL EXAM Physical Exam GENERAL: awake , comfortable HEENT: Both pupils are round and reacting. No conjunctival lesion, no lesion in the mouth. NECK: Supple, no JVP, no lymphadenopathy. LUNGS: Clear. HEART: S1, S2 regular. ABDOMEN: Soft, nontender, no organomegaly. EXTREMITIES: No edema, cyanosis. SKIN: Unremarkable other than some scratch ortiz are present. NEUROLOGIC: a and o , no focal deficit DIAGNOSIS/ASSESSMENT Assessment & Plan MARIA ELENA-Improving , Cr improved 2.5-->1.3 , supportive care, avoid nephrotoxins HypoKalemia- Replace CKDstage 3 baseline Cr 1.1 Anemia Metabolic encephalopathy - better UGI bleed - resolved COMMENT/RELEVANT DATA Meds Current Medications Medications (Trade) Dose Ordered Sig/Jess Start Time Stop Time Status Last Admin Dose Admin Acetaminophen (Tylenol Supp) 650 mg PRN Q6HRS PRN 09/20/20 09:00 09/20/20 10:24 650 MG Acetaminophen (Tylenol) 650 mg PRN DAILY PRN 09/28/20 12:15 Albuterol Sulfate (Ventolin Neb Soln) 2.5 mg PRN Q6HRS PRN 09/23/20 07:00 09/23/20 07:16 2.5 MG Amino Acids/ Glycerin/ Electrolytes 1,000 ml @ 80 mls/hr [id number] 09/22/20 12:30 09/25/20 12:47 DC 09/25/20 05:43 80 MLS/HR Amlodipine Besylate (Norvasc) 10 mg DAILY 09/29/20 09:00 09/29/20 09:45 10 MG Aspirin (Ecotrin) 81 mg DAILY 09/28/20 12:30 09/29/20 09:44 81 MG Atorvastatin Calcium (Lipitor) 80 mg QHS 09/28/20 21:00 09/28/20 22:07 80 MG Benzocaine (Hurricaine One) 2 spray 1X ONCE 09/22/20 10:30 09/22/20 10:31 DC 09/22/20 13:40 2 SPRAY Carvedilol (Coreg) 12.5 mg BIDWMEALS 09/28/20 17:00 09/29/20 09:44 12.5 MG Ceftriaxone Sodium (Rocephin) 1 gm Q24H 09/20/20 21:00 09/25/20 10:16 DC 09/24/20 21:13 1 GM Cetirizine HCl (ZyrTEC) 10 mg DAILY 09/28/20 12:30 09/29/20 09:46 10 MG Clopidogrel Bisulfate (Plavix) 75 mg DAILY 09/28/20 12:30 09/29/20 09:46 75 MG Cyclobenzaprine HCl (Flexeril) 10 mg QHS 09/28/20 21:00 09/28/20 22:07 10 MG Daptomycin 350 mg/ Sodium Chloride 50 ml @ 100 mls/hr Q48H 09/25/20 14:00 09/29/20 09:46 DC 09/27/20 14:22 100 MLS/HR Dextrose (Dextrose 50%-Water Syringe) 12.5 gm PRN Q15MIN PRN 09/20/20 07:45 Diphenhydramine HCl (Benadryl) 50 mg 1X ONCE 09/24/20 11:30 09/24/20 11:31 DC 09/24/20 11:10 50 MG Furosemide (Lasix) 40 mg DAILY 09/27/20 16:00 09/29/20 09:47 40 MG Gabapentin (Neurontin) 300 mg HS 09/28/20 21:00 09/28/20 22:07 300 MG Hydrocortisone Sodium Succinate (Solu-CORTEF) 200 mg 1X ONCE 09/23/20 05:45 09/23/20 05:46 DC 09/23/20 07:03 200 MG Info (CONTRAST GIVEN -- Rx MONITORING) 1 each PRN DAILY PRN 09/24/20 11:00 09/26/20 10:59 DC Insulin Human Lispro (HumaLOG) 0-9 UNITS TIDACHC 09/29/20 07:30 Iohexol (Omnipaque 350 Mg/ml) 80 ml 1X ONCE 09/24/20 11:00 09/24/20 11:01 DC 09/24/20 11:37 80 ML Labetalol HCl (Normodyne Iv Push) 20 mg PRN Q2HR PRN 09/25/20 11:00 Lactobacillus Rhamnosus (Culturelle) 1 cap BID 09/28/20 21:00 09/29/20 09:44 1 CAP Lidocaine HCl (Viscous Lidocaine) 15 ml 1X ONCE 09/22/20 10:30 09/22/20 10:31 DC Lidocaine HCl (Xylocaine 2% Topical 30gm Tube) 1 freddie 1X ONCE 09/22/20 10:30 09/22/20 10:31 DC Magnesium Sulfate 50 ml @ 25 mls/hr 1X ONCE 09/28/20 15:30 09/28/20 17:29 DC 09/28/20 16:46 25 MLS/HR Meropenem 500 mg/ Sodium Chloride 50 ml @ 100 mls/hr Q8HRS 09/25/20 14:00 09/29/20 09:46 DC 09/29/20 05:35 100 MLS/HR Metoprolol Tartrate (Lopressor Vial) 10 mg Q6HRS 09/26/20 18:00 09/28/20 13:11 10 MG Morphine Sulfate (Morphine Sulfate) 4 mg PRN Q4HRS PRN 09/20/20 03:00 09/28/20 12:56 4 MG Nitroglycerin (Nitro-Bid Oint) 1 inch Q6HRS 09/25/20 10:00 09/28/20 13:12 1 INCH Nitroglycerin (Nitrostat) 0.4 mg PRN Q5MIN PRN 09/20/20 14:15 Ondansetron HCl (Zofran) 4 mg PRN Q6HRS PRN 09/20/20 03:00 Oxycodone/ Acetaminophen (Percocet 10/325) 1 tab QIDPRN PRN 09/28/20 12:15 09/29/20 07:47 1 TAB Pantoprazole Sodium (PROTONIX VIAL for IV PUSH) 40 mg BID 09/20/20 03:00 09/29/20 09:46 40 MG Phenol (Chloraseptic) 1 spray PRN Q2HR PRN 09/22/20 11:30 09/22/20 15:43 1 SPRAY Piperacillin Sod/ Tazobactam Sod (Zosyn Per Pharmacy) 1 each PRN DAILY PRN 09/25/20 10:15 09/25/20 10:56 DC Piperacillin Sod/ Tazobactam Sod 2.25 gm/Sodium Chloride 50 ml @ 100 mls/hr Q6HRS 09/25/20 11:00 09/25/20 10:56 DC Potassium Bicarbonate (Potassium Effervescent Tablet) 40 meq 1X ONCE 09/28/20 12:30 09/28/20 12:31 DC 09/28/20 12:57 40 MEQ Prednisone (Prednisone) 20 mg 1X ONCE 09/24/20 06:00 09/24/20 06:01 DC 09/24/20 05:59 20 MG Propofol (Diprivan) 200 mg STK-MED ONCE 09/22/20 12:55 09/22/20 12:55 DC Ringer's Solution 1,000 ml @ 75 mls/hr 1X ONCE 09/26/20 09:15 09/26/20 22:34 DC 09/26/20 11:17 75 MLS/HR Sodium Chloride 1,000 ml @ 50 mls/hr Q20H 09/26/20 10:45 09/27/20 15:55 DC 09/27/20 00:18 50 MLS/HR Lab Laboratory Tests Test 09/28/20 10:33 09/28/20 11:56 09/28/20 18:51 09/29/20 00:37 White Blood Count 22.1 x10^3/uL (4.0-11.0) Red Blood Count 3.13 x10^6/uL (3.50-5.40) Hemoglobin 9.7 g/dL (12.0-15.5) Hematocrit 30.0 % (36.0-47.0) Mean Corpuscular Volume 96 fL (79-100) Mean Corpuscular Hemoglobin 31 pg (25-35) Mean Corpuscular Hemoglobin Concent 32 g/dL (31-37) Red Cell Distribution Width 15.2 % (11.5-14.5) Platelet Count 283 x10^3/uL (140-400) Neutrophils (%) (Auto) 87 % (31-73) Lymphocytes (%) (Auto) 4 % (24-48) Monocytes (%) (Auto) 8 % (0-9) Eosinophils (%) (Auto) 1 % (0-3) Basophils (%) (Auto) 0 % (0-3) Neutrophils # (Auto) 19.1 x10^3/uL (1.8-7.7) Lymphocytes # (Auto) 0.9 x10^3/uL (1.0-4.8) Monocytes # (Auto) 1.8 x10^3/uL (0.0-1.1) Eosinophils # (Auto) 0.2 x10^3/uL (0.0-0.7) Basophils # (Auto) 0.1 x10^3/uL (0.0-0.2) Segmented Neutrophils % 80 % (35-66) Band Neutrophils % 3 % (0-9) Lymphocytes % 6 % (24-48) Monocytes % 10 % (0-10) Eosinophils % 1 % (0-5) Platelet Estimate Adequate (ADEQUATE) Hypochromasia Slight Anisocytosis Slight Sodium Level 135 mmol/L (136-145) Potassium Level 2.7 mmol/L (3.5-5.1) Chloride Level 98 mmol/L (98-107) Carbon Dioxide Level 28 mmol/L (21-32) Anion Gap 9 (6-14) Blood Urea Nitrogen 43 mg/dL (7-20) Creatinine 1.4 mg/dL (0.6-1.0) Estimated GFR (Cockcroft-Gault) 36.8 Glucose Level 211 mg/dL (70-99) Calcium Level 8.4 mg/dL (8.5-10.1) Phosphorus Level 3.5 mg/dL (2.6-4.7) Magnesium Level 1.7 mg/dL (1.8-2.4) Glucose (Fingerstick) 158 mg/dL (70-99) 209 mg/dL (70-99) 157 mg/dL (70-99) Test 09/29/20 07:26 09/29/20 08:40 Glucose (Fingerstick) 121 mg/dL (70-99) White Blood Count 18.1 x10^3/uL (4.0-11.0) Red Blood Count 3.27 x10^6/uL (3.50-5.40) Hemoglobin 9.9 g/dL (12.0-15.5) Hematocrit 31.5 % (36.0-47.0) Mean Corpuscular Volume 97 fL (79-100) Mean Corpuscular Hemoglobin 30 pg (25-35) Mean Corpuscular Hemoglobin Concent 32 g/dL (31-37) Red Cell Distribution Width 15.6 % (11.5-14.5) Platelet Count 261 x10^3/uL (140-400) Neutrophils (%) (Auto) 81 % (31-73) Lymphocytes (%) (Auto) 10 % (24-48) Monocytes (%) (Auto) 8 % (0-9) Eosinophils (%) (Auto) 2 % (0-3) Basophils (%) (Auto) 0 % (0-3) Neutrophils # (Auto) 14.7 x10^3/uL (1.8-7.7) Lymphocytes # (Auto) 1.7 x10^3/uL (1.0-4.8) Monocytes # (Auto) 1.4 x10^3/uL (0.0-1.1) Eosinophils # (Auto) 0.3 x10^3/uL (0.0-0.7) Basophils # (Auto) 0.0 x10^3/uL (0.0-0.2) Results All relevant outside records, renal labs, imaging studies, telemetry/EKG's were reviewed. Justicifation of Admission Dx: Justifications for Admission: Justification of Admission Dx: Yes LANCE DRISCOLL MD Sep 29, 2020 09:55
[2020-09-29 09:57] LABS: POTASSIUM 2.9 mmol/L (3.5-5.1)
--- NOTE | 2020-09-29 10:28 | PDOC ---
Date of Service: DATE: 09/29/20 TIME: 10:22 Subjective: Subjective: Doing good because "I got to eat!" No pain. Objective: Vital Signs: Vital Signs Date Time Temp Pulse Resp B/P (MAP) Pulse Ox O2 Delivery O2 Flow Rate FiO2 09/29/20 09:45 76 135/58 09/29/20 07:00 98.0 16 95 Nasal Cannula 2.0 98.0 Labs: Laboratory Tests Test 09/28/20 10:33 09/28/20 11:56 09/28/20 18:51 09/29/20 00:37 White Blood Count 22.1 x10^3/uL Red Blood Count 3.13 x10^6/uL Hemoglobin 9.7 g/dL Hematocrit 30.0 % Mean Corpuscular Volume 96 fL Mean Corpuscular Hemoglobin 31 pg Mean Corpuscular Hemoglobin Concent 32 g/dL Red Cell Distribution Width 15.2 % Platelet Count 283 x10^3/uL Neutrophils (%) (Auto) 87 % Lymphocytes (%) (Auto) 4 % Monocytes (%) (Auto) 8 % Eosinophils (%) (Auto) 1 % Basophils (%) (Auto) 0 % Neutrophils # (Auto) 19.1 x10^3/uL Lymphocytes # (Auto) 0.9 x10^3/uL Monocytes # (Auto) 1.8 x10^3/uL Eosinophils # (Auto) 0.2 x10^3/uL Basophils # (Auto) 0.1 x10^3/uL Segmented Neutrophils % 80 % Band Neutrophils % 3 % Lymphocytes % 6 % Monocytes % 10 % Eosinophils % 1 % Platelet Estimate Adequate Hypochromasia Slight Anisocytosis Slight Sodium Level 135 mmol/L Potassium Level 2.7 mmol/L Chloride Level 98 mmol/L Carbon Dioxide Level 28 mmol/L Anion Gap 9 Blood Urea Nitrogen 43 mg/dL Creatinine 1.4 mg/dL Estimated GFR (Cockcroft-Gault) 36.8 Glucose Level 211 mg/dL Calcium Level 8.4 mg/dL Phosphorus Level 3.5 mg/dL Magnesium Level 1.7 mg/dL Glucose (Fingerstick) 158 mg/dL 209 mg/dL 157 mg/dL Test 09/29/20 07:26 09/29/20 08:40 Glucose (Fingerstick) 121 mg/dL White Blood Count 18.1 x10^3/uL Red Blood Count 3.27 x10^6/uL Hemoglobin 9.9 g/dL Hematocrit 31.5 % Mean Corpuscular Volume 97 fL Mean Corpuscular Hemoglobin 30 pg Mean Corpuscular Hemoglobin Concent 32 g/dL Red Cell Distribution Width 15.6 % Platelet Count 261 x10^3/uL Neutrophils (%) (Auto) 81 % Lymphocytes (%) (Auto) 10 % Monocytes (%) (Auto) 8 % Eosinophils (%) (Auto) 2 % Basophils (%) (Auto) 0 % Neutrophils # (Auto) 14.7 x10^3/uL Lymphocytes # (Auto) 1.7 x10^3/uL Monocytes # (Auto) 1.4 x10^3/uL Eosinophils # (Auto) 0.3 x10^3/uL Basophils # (Auto) 0.0 x10^3/uL Sodium Level 136 mmol/L Potassium Level 2.9 mmol/L Chloride Level 98 mmol/L Carbon Dioxide Level 30 mmol/L Anion Gap 8 Blood Urea Nitrogen 30 mg/dL Creatinine 1.3 mg/dL Estimated GFR (Cockcroft-Gault) 40.0 Glucose Level 206 mg/dL Calcium Level 7.9 mg/dL Phosphorus Level 2.8 mg/dL Magnesium Level 2.0 mg/dL BLOOD CULTURE Preliminary NO GROWTH AFTER 3 DAYS Imaging: CXR 09/26 IMPRESSION: Findings compatible with CHF and mild volume overload as described, superimposed infection not excluded. Correlate clinically. EGD 09/26 E--Normal. G--Normal D--Normal to second portion. IMP: No lesion seen to explain the bleeding. Could have had a Kandace-Villagomez tear, since healed (will heal quickly). REC: Continue PPI, IV until eating, then PO. OK with me to feed; defer ordering diet to you. PE: GEN: NAD - looks much better - sitting on edge of bed LUNGS: clear HEART: RRR ABD: NABS, S/ND/NT NEURO/PSYCH: A & O 3 A/P: Metabolic encephalopathy - better UGI bleed - resolved Anemia (stable/improved) MARIA ELENA, hypokalemia - per primary/renal COVID negative09/20 -- DC per primary. PO PPI. Justicifation of Admission Dx: Justifications for Admission: Justification of Admission Dx: Yes REAL FRAZIER Sep 29, 2020 10:28
--- NOTE | 2020-09-29 10:54 | PDOC ---
PROGRESS NOTES Date of Service DATE: 09/29/20 TIME: 10:51 Assessment Metabolic encephalopathy, mostly resolved. Multiple abnormalities including elevated B natruretic peptide, methemoglobin, carbon monoxide, positive leukocyte esterase in the urine, opioids in the urine, anemia, hypoxia with work-up negative for pulmonary embolism, INR 2.2, acute kidney injury, leukocytosis and possible sepsis syndrome, hyponatremia, hyperkalemia, elevated troponins, possible left atrial mass with negative transesophageal echocardiogram, anemia and GI bleeding. Suspect hepatic dysfunction despite normal ammonia level. EEG consistent with the metabolic encephalopathy and shows no seizure activity Plan No need for additional neurological studies Treat medical diseases Okay for discharge from neurological point of view, probably needs [facility] unit Subjective No complaints. Has a chronic frozen left shoulder Objective Vital Signs Date Time Temp Pulse Resp B/P (MAP) Pulse Ox O2 Delivery O2 Flow Rate FiO2 09/29/20 09:45 76 135/58 09/29/20 07:00 98.0 16 95 Nasal Cannula 2.0 98.0 Intake and Output 09/29/20 07:00 Intake Total 360 ml Output Total 1750 ml Balance -1390 ml Intake Oral 360 ml Output Urine Total 1750 ml # Bowel Movements 1 PHYSICAL EXAM Alert. Oriented to place, time, person PERRL. EOMI. CN: no focal findings. Muscle tone: normal. Muscle strength: 4/5, has a frozen left shoulder DTR: 2+ Plantar reflex: Flexor Gait: not examined in bed. Sensory exam: no abnormal findings. Cerebellar: No findings Review of Relevant I have reviewed the following items brett (where applicable) has been applied. Labs Laboratory Tests Test 09/27/20 12:06 09/27/20 15:05 09/27/20 16:34 09/27/20 21:22 Glucose (Fingerstick) 185 mg/dL (70-99) 159 mg/dL (70-99) 179 mg/dL (70-99) White Blood Count 15.9 x10^3/uL (4.0-11.0) Red Blood Count 2.90 x10^6/uL (3.50-5.40) Hemoglobin 8.9 g/dL (12.0-15.5) Hematocrit 28.0 % (36.0-47.0) Mean Corpuscular Volume 97 fL (79-100) Mean Corpuscular Hemoglobin 31 pg (25-35) Mean Corpuscular Hemoglobin Concent 32 g/dL (31-37) Red Cell Distribution Width 14.9 % (11.5-14.5) Platelet Count 296 x10^3/uL (140-400) Neutrophils (%) (Auto) 75 % (31-73) Lymphocytes (%) (Auto) 15 % (24-48) Monocytes (%) (Auto) 9 % (0-9) Eosinophils (%) (Auto) 1 % (0-3) Basophils (%) (Auto) 0 % (0-3) Neutrophils # (Auto) 11.9 x10^3/uL (1.8-7.7) Lymphocytes # (Auto) 2.3 x10^3/uL (1.0-4.8) Monocytes # (Auto) 1.5 x10^3/uL (0.0-1.1) Eosinophils # (Auto) 0.2 x10^3/uL (0.0-0.7) Basophils # (Auto) 0.1 x10^3/uL (0.0-0.2) Test 09/28/20 10:33 09/28/20 11:56 09/28/20 18:51 09/29/20 00:37 White Blood Count 22.1 x10^3/uL (4.0-11.0) Red Blood Count 3.13 x10^6/uL (3.50-5.40) Hemoglobin 9.7 g/dL (12.0-15.5) Hematocrit 30.0 % (36.0-47.0) Mean Corpuscular Volume 96 fL (79-100) Mean Corpuscular Hemoglobin 31 pg (25-35) Mean Corpuscular Hemoglobin Concent 32 g/dL (31-37) Red Cell Distribution Width 15.2 % (11.5-14.5) Platelet Count 283 x10^3/uL (140-400) Neutrophils (%) (Auto) 87 % (31-73) Lymphocytes (%) (Auto) 4 % (24-48) Monocytes (%) (Auto) 8 % (0-9) Eosinophils (%) (Auto) 1 % (0-3) Basophils (%) (Auto) 0 % (0-3) Neutrophils # (Auto) 19.1 x10^3/uL (1.8-7.7) Lymphocytes # (Auto) 0.9 x10^3/uL (1.0-4.8) Monocytes # (Auto) 1.8 x10^3/uL (0.0-1.1) Eosinophils # (Auto) 0.2 x10^3/uL (0.0-0.7) Basophils # (Auto) 0.1 x10^3/uL (0.0-0.2) Segmented Neutrophils % 80 % (35-66) Band Neutrophils % 3 % (0-9) Lymphocytes % 6 % (24-48) Monocytes % 10 % (0-10) Eosinophils % 1 % (0-5) Platelet Estimate Adequate (ADEQUATE) Hypochromasia Slight Anisocytosis Slight Sodium Level 135 mmol/L (136-145) Potassium Level 2.7 mmol/L (3.5-5.1) Chloride Level 98 mmol/L (98-107) Carbon Dioxide Level 28 mmol/L (21-32) Anion Gap 9 (6-14) Blood Urea Nitrogen 43 mg/dL (7-20) Creatinine 1.4 mg/dL (0.6-1.0) Estimated GFR (Cockcroft-Gault) 36.8 Glucose Level 211 mg/dL (70-99) Calcium Level 8.4 mg/dL (8.5-10.1) Phosphorus Level 3.5 mg/dL (2.6-4.7) Magnesium Level 1.7 mg/dL (1.8-2.4) Glucose (Fingerstick) 158 mg/dL (70-99) 209 mg/dL (70-99) 157 mg/dL (70-99) Test 09/29/20 07:26 09/29/20 08:40 Glucose (Fingerstick) 121 mg/dL (70-99) White Blood Count 18.1 x10^3/uL (4.0-11.0) Red Blood Count 3.27 x10^6/uL (3.50-5.40) Hemoglobin 9.9 g/dL (12.0-15.5) Hematocrit 31.5 % (36.0-47.0) Mean Corpuscular Volume 97 fL (79-100) Mean Corpuscular Hemoglobin 30 pg (25-35) Mean Corpuscular Hemoglobin Concent 32 g/dL (31-37) Red Cell Distribution Width 15.6 % (11.5-14.5) Platelet Count 261 x10^3/uL (140-400) Neutrophils (%) (Auto) 81 % (31-73) Lymphocytes (%) (Auto) 10 % (24-48) Monocytes (%) (Auto) 8 % (0-9) Eosinophils (%) (Auto) 2 % (0-3) Basophils (%) (Auto) 0 % (0-3) Neutrophils # (Auto) 14.7 x10^3/uL (1.8-7.7) Lymphocytes # (Auto) 1.7 x10^3/uL (1.0-4.8) Monocytes # (Auto) 1.4 x10^3/uL (0.0-1.1) Eosinophils # (Auto) 0.3 x10^3/uL (0.0-0.7) Basophils # (Auto) 0.0 x10^3/uL (0.0-0.2) Sodium Level 136 mmol/L (136-145) Potassium Level 2.9 mmol/L (3.5-5.1) Chloride Level 98 mmol/L (98-107) Carbon Dioxide Level 30 mmol/L (21-32) Anion Gap 8 (6-14) Blood Urea Nitrogen 30 mg/dL (7-20) Creatinine 1.3 mg/dL (0.6-1.0) Estimated GFR (Cockcroft-Gault) 40.0 Glucose Level 206 mg/dL (70-99) Calcium Level 7.9 mg/dL (8.5-10.1) Phosphorus Level 2.8 mg/dL (2.6-4.7) Magnesium Level 2.0 mg/dL (1.8-2.4) Laboratory Tests Test 09/28/20 11:56 09/28/20 18:51 09/29/20 00:37 09/29/20 07:26 Glucose (Fingerstick) 158 mg/dL (70-99) 209 mg/dL (70-99) 157 mg/dL (70-99) 121 mg/dL (70-99) Test 09/29/20 08:40 White Blood Count 18.1 x10^3/uL (4.0-11.0) Red Blood Count 3.27 x10^6/uL (3.50-5.40) Hemoglobin 9.9 g/dL (12.0-15.5) Hematocrit 31.5 % (36.0-47.0) Mean Corpuscular Volume 97 fL (79-100) Mean Corpuscular Hemoglobin 30 pg (25-35) Mean Corpuscular Hemoglobin Concent 32 g/dL (31-37) Red Cell Distribution Width 15.6 % (11.5-14.5) Platelet Count 261 x10^3/uL (140-400) Neutrophils (%) (Auto) 81 % (31-73) Lymphocytes (%) (Auto) 10 % (24-48) Monocytes (%) (Auto) 8 % (0-9) Eosinophils (%) (Auto) 2 % (0-3) Basophils (%) (Auto) 0 % (0-3) Neutrophils # (Auto) 14.7 x10^3/uL (1.8-7.7) Lymphocytes # (Auto) 1.7 x10^3/uL (1.0-4.8) Monocytes # (Auto) 1.4 x10^3/uL (0.0-1.1) Eosinophils # (Auto) 0.3 x10^3/uL (0.0-0.7) Basophils # (Auto) 0.0 x10^3/uL (0.0-0.2) Sodium Level 136 mmol/L (136-145) Potassium Level 2.9 mmol/L (3.5-5.1) Chloride Level 98 mmol/L (98-107) Carbon Dioxide Level 30 mmol/L (21-32) Anion Gap 8 (6-14) Blood Urea Nitrogen 30 mg/dL (7-20) Creatinine 1.3 mg/dL (0.6-1.0) Estimated GFR (Cockcroft-Gault) 40.0 Glucose Level 206 mg/dL (70-99) Calcium Level 7.9 mg/dL (8.5-10.1) Phosphorus Level 2.8 mg/dL (2.6-4.7) Magnesium Level 2.0 mg/dL (1.8-2.4) Microbiology 09/25/20 Blood Culture - Preliminary, Resulted NO GROWTH AFTER 3 DAYS 09/20/20 Urine Culture - Final, Complete Medications Current Medications Sodium Chloride 1,000 ml @ 100 mls/hr Q10H IV Last administered on 09/20/20at 23:46; Start 09/20/20 at 03:00; Stop 09/21/20 at 10:18; Status DC Ondansetron HCl (Zofran) 4 mg PRN Q6HRS PRN IVP NAUSEA/VOMITING; Start 09/20/20 at 03:00 Morphine Sulfate (Morphine Sulfate) 4 mg PRN Q4HRS PRN IV PAIN Last administered on 09/28/20at 12:56; Start 09/20/20 at 03:00 Pantoprazole Sodium (PROTONIX VIAL for IV PUSH) 40 mg BID IVP Last administered on 09/29/20at 09:46; Start 09/20/20 at 03:00; Stop 09/29/20 at 10:30; Status DC Ceftriaxone Sodium (Rocephin) 1 gm Q24H IVP ; Start 09/20/20 at 03:00; Stop at 03:07; Status DC Ceftriaxone Sodium (Rocephin) 1 gm Q24H IVP Last administered on 09/24/20at 21:13; Start 09/20/20 at 21:00; Stop 09/25/20 at 10:16; Status DC Metoprolol Tartrate (Lopressor Vial) 5 mg Q6HRS IVP Last administered on 09/26/20at 06:44; Start 09/20/20 at 07:45; Stop 09/26/20 at 12:59; Status DC Insulin Human Lispro (HumaLOG) 0-9 UNITS Q6HRS SQ Last administered on 09/24/20at 13:42; Start 09/20/20 at 07:45; Stop 09/29/20 at 02:25; Status DC Dextrose (Dextrose 50%-Water Syringe) 12.5 gm PRN Q15MIN PRN IV SEE COMMENTS; Start 09/20/20 at 07:45 Acetaminophen (Tylenol Supp) 650 mg PRN Q6HRS PRN WA MILD PAIN / TEMP > 100.3'F Last administered on 09/20/20at 10:24; Start 09/20/20 at 09:00 Nitroglycerin (Nitrostat) 0.4 mg PRN Q5MIN PRN SL CHEST PAIN; Start 09/20/20 at 14:15 Ringer's Solution 1,000 ml @ 50 mls/hr Q20H IV ; Start 09/21/20 at 07:00; Stop 09/21/20 at 18:59; Status DC Magnesium Sulfate 50 ml @ 25 mls/hr PRN DAILY PRN IV for Mag < 1.7 on am labs; Start 09/20/20 at 14:30 Ringer's Solution 1,000 ml @ 75 mls/hr [id number] IV Last administered on 09/22/20at 05:03; Start 09/21/20 at 10:30; Stop 09/22/20 at 12:31; Status DC Ringer's Solution 1,000 ml @ 50 mls/hr Q20H IV Last administered on 09/22/20at 13:42; Start 09/22/20 at 10:15; Stop 09/22/20 at 22:14; Status DC Benzocaine (Hurricaine One) 2 spray 1X ONCE MM Last administered on 09/22/20at 13:40; Start 09/22/20 at 10:30; Stop 09/22/20 at 10:31; Status DC Lidocaine HCl (Xylocaine 2% Topical 30gm Tube) 1 freddie 1X ONCE TP ; Start at 10:30; Stop 09/22/20 at 10:31; Status DC Lidocaine HCl (Viscous Lidocaine) 15 ml 1X ONCE SWSW ; Start 09/22/20 at 10:30; Stop 09/22/20 at 10:31; Status DC Phenol (Chloraseptic) 1 spray PRN Q2HR PRN PO SORE THROAT Last administered on 09/22/20at 15:43; Start 09/22/20 at 11:30 Amino Acids/ Glycerin/ Electrolytes 1,000 ml @ 80 mls/hr [id number] IV Last administered on 09/25/20at 05:43; Start 09/22/20 at 12:30; Stop 09/25/20 at 12:47; Status DC Propofol (Diprivan) 200 mg STK-MED ONCE IV ; Start 09/22/20 at 12:55; Stop 09/22/20 at 12:55; Status DC Labetalol HCl (Normodyne Iv Push) 10 mg PRN Q10MIN PRN IVP HYPERTENSION Last administered on 09/25/20at 07:43; Start 09/23/20 at 04:30; Stop 09/25/20 at 10:56; Status DC Hydrocortisone Sodium Succinate (Solu-CORTEF) 200 mg 1X ONCE IVP Last administered on 09/23/20at 07:03; Start 09/23/20 at 05:45; Stop 09/23/20 at 05:46; Status DC Diphenhydramine HCl (Benadryl) 25 mg 1X ONCE IVP ; Start 09/23/20 at 05:45; Stop 09/23/20 at 05:46; Status DC Diphenhydramine HCl (Benadryl) 25 mg 1X ONCE IVP ; Start 09/23/20 at 05:45; Stop 09/23/20 at 05:46; Status DC Sodium Chloride 1,000 ml @ 75 mls/hr [id number] IV Last administered on 09/24/20at 03:38; Start 09/23/20 at 06:45; Stop 09/24/20 at 08:15; Status DC Albuterol Sulfate (Ventolin Neb Soln) 2.5 mg PRN Q6HRS PRN NEB SHORTNESS OF BREATH Last administered on 09/23/20at 07:16; Start 09/23/20 at 07:00 Prednisone (Prednisone) 20 mg 1X ONCE PO Last administered on 09/23/20at 19:51; Start 09/23/20 at 19:30; Stop 09/23/20 at 19:34; Status DC Prednisone (Prednisone) 20 mg 1X ONCE PO Last administered on 09/23/20at 22:49; Start 09/23/20 at 23:00; Stop 09/23/20 at 23:01; Status DC Prednisone (Prednisone) 20 mg 1X ONCE PO Last administered on 09/24/20at 05:59; Start 09/24/20 at 06:00; Stop 09/24/20 at 06:01; Status DC Iohexol (Omnipaque 350 Mg/ml) 80 ml 1X ONCE IV Last administered on 09/24/20at 11:37; Start 09/24/20 at 11:00; Stop 09/24/20 at 11:01; Status DC Info (CONTRAST GIVEN -- Rx MONITORING) 1 each PRN DAILY PRN MC SEE COMMENTS; Start 09/24/20 at 11:00; Stop 09/26/20 at 10:59; Status DC Diphenhydramine HCl (Benadryl) 50 mg 1X ONCE PO ; Start 09/24/20 at 11:30; Stop 09/24/20 at 11:06; Status DC Diphenhydramine HCl (Benadryl) 50 mg 1X ONCE IV Last administered on 09/24/20at 11:10; Start 09/24/20 at 11:30; Stop 09/24/20 at 11:31; Status DC Ringer's Solution 1,000 ml @ 50 mls/hr Q20H IV Last administered on 09/25/20at 09:15; Start 09/25/20 at 07:00; Stop 09/25/20 at 18:59; Status DC Ringer's Solution 1,000 ml @ 75 mls/hr 1X ONCE IV ; Start 09/25/20 at 08:45; Stop 09/25/20 at 22:04; Status DC Nitroglycerin (Nitro-Bid Oint) 1 inch Q6HRS TP Last administered on 09/28/20at 13:12; Start 09/25/20 at 10:00 Piperacillin Sod/ Tazobactam Sod (Zosyn Per Pharmacy) 1 each PRN DAILY PRN MC SEE COMMENTS; Start 09/25/20 at 10:15; Stop 09/25/20 at 10:56; Status DC Piperacillin Sod/ Tazobactam Sod 2.25 gm/Sodium Chloride 50 ml @ 100 mls/hr Q6HRS IV ; Start 09/25/20 at 11:00; Stop 09/25/20 at 10:56; Status DC Furosemide (Lasix) 40 mg 1X ONCE IVP Last administered on 09/25/20at 11:48; Start 09/25/20 at 11:00; Stop 09/25/20 at 11:01; Status DC Labetalol HCl (Normodyne Iv Push) 20 mg PRN Q2HR PRN IVP HYPERTENSION; Start 09/25/20 at 11:00 Meropenem 500 mg/ Sodium Chloride 50 ml @ 100 mls/hr Q8HRS IV Last administered on 09/29/20at 05:35; Start 09/25/20 at 14:00; Stop 09/29/20 at 09:46; Status DC Daptomycin 350 mg/ Sodium Chloride 50 ml @ 100 mls/hr Q48H IV Last administered on 09/27/20at 14:22; Start 09/25/20 at 14:00; Stop 09/29/20 at 09:46; Status DC Sodium Chloride 1,000 ml @ 75 mls/hr [id number] IV Last administered on 09/26/20at 02:49; Start 09/25/20 at 13:00; Stop 09/26/20 at 10:43; Status DC Ringer's Solution 1,000 ml @ 75 mls/hr 1X ONCE IV Last administered on 09/26/20at 11:17; Start 09/26/20 at 09:15; Stop 09/26/20 at 22:34; Status DC Sodium Chloride 1,000 ml @ 50 mls/hr Q20H IV Last administered on 09/27/20at 00:18; Start 09/26/20 at 10:45; Stop 09/27/20 at 15:55; Status DC Metoprolol Tartrate (Lopressor Vial) 10 mg Q6HRS IVP Last administered on 09/28/20at 13:11; Start 09/26/20 at 18:00 Furosemide (Lasix) 40 mg 1X ONCE IVP ; Start 09/26/20 at 15:15; Stop 09/26/20 at 15:12; Status DC Furosemide (Lasix) 20 mg 1X ONCE IVP Last administered on 09/26/20at 16:02; Start 09/26/20 at 15:15; Stop 09/26/20 at 15:16; Status DC Furosemide (Lasix) 20 mg 1X ONCE IVP Last administered on 09/26/20at 18:43; Start 09/26/20 at 18:30; Stop 09/26/20 at 18:31; Status DC Furosemide (Lasix) 20 mg DAILY IVP Last administered on 09/27/20at 10:45; Start 09/27/20 at 09:00; Stop 09/27/20 at 15:55; Status DC Furosemide (Lasix) 40 mg DAILY IVP Last administered on 09/29/20at 09:47; Start 09/27/20 at 16:00 Lactobacillus Rhamnosus (Culturelle) 1 cap BID PO Last administered on 09/29/20at 09:44; Start 09/28/20 at 21:00 Potassium Bicarbonate (Potassium Effervescent Tablet) 40 meq 1X ONCE PO Last administered on 09/28/20at 12:57; Start 09/28/20 at 12:30; Stop 09/28/20 at 12:31; Status DC Acetaminophen (Tylenol) 650 mg PRN DAILY PRN PO pain or fever; Start 09/28/20 at 12:15 Amlodipine Besylate (Norvasc) 10 mg DAILY PO Last administered on 09/29/20at 09:45; Start 09/29/20 at 09:00 Aspirin (Ecotrin) 81 mg DAILY PO Last administered on 09/29/20at 09:44; Start 09/28/20 at 12:30 Cetirizine HCl (ZyrTEC) 10 mg DAILY PO Last administered on 09/29/20 09:46; Start 09/28/20 at 12:30 Clopidogrel Bisulfate (Plavix) 75 mg DAILY PO Last administered on 09/29/20at 09:46; Start 09/28/20 at 12:30 Cyclobenzaprine HCl (Flexeril) 10 mg QHS PO Last administered on 09/28/20at 22:07; Start 09/28/20 at 21:00 Gabapentin (Neurontin) 300 mg HS PO Last administered on 09/28/20at 22:07; Start 09/28/20 at 21:00 Oxycodone/ Acetaminophen (Percocet 10/325) 1 tab QIDPRN PRN PO PAIN Last administered on 09/29/20at 07:47; Start 09/28/20 at 12:15 Atorvastatin Calcium (Lipitor) 80 mg QHS PO Last administered on 09/28/20at 22:07; Start 09/28/20 at 21:00 Carvedilol (Coreg) 12.5 mg BIDWMEALS PO Last administered on 09/29/20at 09:44; Start 09/28/20 at 17:00 Magnesium Sulfate 50 ml @ 25 mls/hr 1X ONCE IV Last administered on 09/28/20at 16:46; Start 09/28/20 at 15:30; Stop 09/28/20 at 17:29; Status DC Insulin Human Lispro (HumaLOG) 0-9 UNITS TIDACHC SQ ; Start 09/29/20 at 07:30 Pantoprazole Sodium (Protonix) 40 mg DAILYAC PO ; Start 09/30/20 at 07:30 Potassium Chloride (Klor-Con) 20 meq [id number] PO ; Start 09/29/20 at 12:00 Active Scripts Active Reported Cyclobenzaprine Hcl 10 Mg Tablet 1 Tab PO QHS Carvedilol 25 Mg Tablet 12.5 Mg PO BIDWMEALS Lipitor (Atorvastatin Calcium) 80 Mg Tablet 1 Tab PO HS Aspirin Ec (Aspirin) 81 Mg Tablet.dr 1 Tab PO DAILY Acetaminophen 325 Mg Tablet 2 Tab PO PRN DAILY PRN 30 Days Zyrtec (Cetirizine Hcl) 10 Mg Tablet 1 Tab PO DAILY Norvasc (Amlodipine Besylate) 10 Mg Tablet 10 Mg PO DAILY Nitrostat (Nitroglycerin) 0.4 Mg Tab.subl 0.4 Mg SL PRN Q5MIN PRN Clopidogrel (Clopidogrel Bisulfate) 75 Mg Tablet 1 Tab PO DAILY Percocet 10-325 Mg Tablet (Oxycodone/Acetaminophen) 1 Each Tablet 1 Tab PO Q4-6HRS Gabapentin (Gabapentin) 300 Mg Capsule 1 Cap PO HS Vitals/I & O Vital Sign - Last 24 Hours 09/28/20 09/28/20 09/28/20 09/28/20 11:00 12:56 13:11 13:12 Temp 97.8 97.8 Pulse 77 82 Resp 18 20 B/P (MAP) 133/65 (87) 130/54 130/54 Pulse Ox 98 95 O2 Delivery Nasal Cannula Nasal Cannula O2 Flow Rate 2.0 2.0 09/28/20 09/28/20 09/28/20 09/28/20 13:26 15:00 17:00 17:13 Temp 97.9 97.9 Pulse 72 76 76 Resp 20 18 20 B/P (MAP) 115/52 (73) 97/41 97/41 (59) Pulse Ox 95 97 O2 Delivery Nasal Cannula Nasal Cannula O2 Flow Rate 2.0 2.0 09/28/20 09/28/20 09/28/20 09/28/20 17:15 17:15 19:00 20:15 Temp 98.7 98.7 Pulse 76 76 78 Resp 18 B/P (MAP) 97/41 97/41 122/66 (84) Pulse Ox 98 O2 Delivery Nasal Cannula Nasal Cannula O2 Flow Rate 2.0 2.0 09/28/20 09/29/20 09/29/20 09/29/20 23:00 00:00 02:09 03:00 Temp 97.7 97.8 97.7 97.8 Pulse 62 62 82 Resp 18 20 18 B/P (MAP) 120/52 (74) 120/52 107/45 (65) Pulse Ox 98 96 O2 Delivery Nasal Cannula Nasal Cannula Nasal Cannula O2 Flow Rate 2.0 2.0 2.0 09/29/20 09/29/20 09/29/20 09/29/20 03:09 07:00 09:44 09:45 Temp 98.0 98.0 Pulse 76 76 76 Resp 18 16 B/P (MAP) 135/58 (83) 135/58 135/58 Pulse Ox 95 O2 Delivery Nasal Cannula Nasal Cannula O2 Flow Rate 1.0 2.0 Intake and Output 09/28/20 09/28/20 09/29/20 15:00 23:00 07:00 Intake Total 240 ml 120 ml Output Total 1325 ml 225 ml 200 ml Balance -1085 ml -225 ml -80 ml Justicifation of Admission Dx: Justifications for Admission: Justification of Admission Dx: Yes MACY MARIA MD Sep 29, 2020 10:54
[2020-09-29 11:00] VITALS: BP 101/54
--- NOTE | 2020-09-29 12:16 | PDOC ---
[employer] PROGRESS NOTE Date of Service DOS: DATE: 09/29/20 TIME: 12:14 Chief Complaint Chief Complaint Acute blood loss anemia hypoxia, CTA CHEST NEG PE echodensity in the wall of the left atrium of uncertain significance. A possible mass cannot be excluded., CARDIOLOGY CONSULT // transesophageal echo no thrombus, UGIB Acute METABOLIC encephalopathy, NEUROLOGY CONSULT, CT HEAD STAT 09-25 , NH4< 10 , PT/INR UTI MARIA ELENA Uremia Sepsis, ID CONSULT 09-25 Hyponatremia, NEPHROLOGY FOLLOWING DM2 CAD Elevated troponins ELECTROLYTE DISTURBANCE, NEPHROLOGY FOLLOWING, AM , PM CORTISOL no need for LP 09-26, IMPROVING, ALERT supportive care History of Present Illness History of Present Illness Ms Gonzalez is a 75yo F w/ PMHx hypertension, type 2 diabetes, CAD s/p PCI (x3 in 08/2019 at [facility], then x2 11/2019) who presented to [place] 09/19/20 c/o hematemesis. Was transfused 2u of convalescent FFP, NGT was placed, but coiled in esophagus. Vital signs on ED presentation temp 94 F, heart rate 102 bpm blood pressure 142/73. WBC 16.4, Hb 9.3, Platelets 295, Na 129, K 4, BUN 111, Cr 2.3, Glucose 291, Trop 0.061, BNP 7800, Lipase 75, Albumin 3. UDS + for opioids. UA positive leukoesterase and blood. Transferred to [facility] for GI consultation and further treatment. Per GI has had dyspepsia and early satiety for decades. EGD in 2010 2019 not revealing. Previous gastric emptying study borderline delay. Colonoscopy in 2010 with no pathology. Upon evaluation she is drowsy and very confused. Repeat KUB with NG tube better placed below the diaphragm and appears in stomach. Discussed with bedside patient has been continuing her home medications in addition she has been taking ibuprofen and Aleve for pain recently. She was seen by [facility] cardiology on ~09/08/2020 and prescribed Brilinta 90 mg, and losartan 25 mg spironolactone 25 mg and furosemide 20 mg twice daily Overnight 100.5F. Hb 6.4, WBC 16, BUN 101, Cr 2.1. 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 Angel child welfare caseworker. -Chart reviewed. 09/26/2020 -Patient seen and examined. -Patient had rapid response 1-25 due to hypoxia and tachycardia. intermediate VQ scan, CTA CHEST NEG , D/W DR CIFUENTES, DR BURR -Creatinine trending down. 2.5 -> 1.2 -Angel TOMPKINS. Angel child welfare caseworker. -Chart reviewed. EEG consistent with the metabolic encephalopathy and shows no seizure activity 09/28/2020 - pt seen and examined - discussed with RN - chart reviewed - pt on IV abx - solorio at BSD - pt on cardiac monitoring 09/29: Patient seen and evaluated. Afebrile, breathing on 2 L nasal cannula. Leukocytosis appears to be reactive to GI bleed. Continue to observe patient off antibiotics. Some hypokalemia today, will replace. Charts and labs reviewed, discussed with RN. Vitals/I&O Vitals/I&O: Vital Signs Date Time Temp Pulse Resp B/P (MAP) Pulse Ox O2 Delivery O2 Flow Rate FiO2 09/29/20 11:00 97.9 82 16 101/54 (70) 93 Nasal Cannula 2.0 97.9 I & O 09/28/20 09/28/20 09/29/20 15:00 23:00 07:00 Intake Total 240 ml 120 ml Output Total 1325 ml 225 ml 200 ml Balance -1085 ml -225 ml -80 ml Physical Exam Physical Exam: GENERAL: awake , comfortable HEENT: Both pupils are round and reacting. No conjunctival lesion, no lesion in the mouth. NECK: Supple, no JVP, no lymphadenopathy. LUNGS: Clear. HEART: S1, S2 regular. ABDOMEN: Soft, nontender, no organomegaly. EXTREMITIES: No edema, cyanosis. SKIN: Unremarkable other than some scratch ortiz are present. NEUROLOGIC: a and o , no focal deficit General: Alert, Oriented X3, Cooperative, No acute distress, Other (confused, NOW LETHARGIC ) Heart: Regular rate, No murmurs Lungs: Clear Abdomen: Normal bowel sounds, Soft, No tenderness Extremities: No clubbing, No cyanosis, No edema, Normal pulses, No tenderness/swelling Skin: No rashes, No breakdown, No significant lesion Labs Labs: Laboratory Tests Test 09/28/20 18:51 09/29/20 00:37 09/29/20 07:26 09/29/20 08:40 Glucose (Fingerstick) 209 mg/dL (70-99) 157 mg/dL (70-99) 121 mg/dL (70-99) White Blood Count 18.1 x10^3/uL (4.0-11.0) Red Blood Count 3.27 x10^6/uL (3.50-5.40) Hemoglobin 9.9 g/dL (12.0-15.5) Hematocrit 31.5 % (36.0-47.0) Mean Corpuscular Volume 97 fL (79-100) Mean Corpuscular Hemoglobin 30 pg (25-35) Mean Corpuscular Hemoglobin Concent 32 g/dL (31-37) Red Cell Distribution Width 15.6 % (11.5-14.5) Platelet Count 261 x10^3/uL (140-400) Neutrophils (%) (Auto) 81 % (31-73) Lymphocytes (%) (Auto) 10 % (24-48) Monocytes (%) (Auto) 8 % (0-9) Eosinophils (%) (Auto) 2 % (0-3) Basophils (%) (Auto) 0 % (0-3) Neutrophils # (Auto) 14.7 x10^3/uL (1.8-7.7) Lymphocytes # (Auto) 1.7 x10^3/uL (1.0-4.8) Monocytes # (Auto) 1.4 x10^3/uL (0.0-1.1) Eosinophils # (Auto) 0.3 x10^3/uL (0.0-0.7) Basophils # (Auto) 0.0 x10^3/uL (0.0-0.2) Sodium Level 136 mmol/L (136-145) Potassium Level 2.9 mmol/L (3.5-5.1) Chloride Level 98 mmol/L (98-107) Carbon Dioxide Level 30 mmol/L (21-32) Anion Gap 8 (6-14) Blood Urea Nitrogen 30 mg/dL (7-20) Creatinine 1.3 mg/dL (0.6-1.0) Estimated GFR (Cockcroft-Gault) 40.0 Glucose Level 206 mg/dL (70-99) Calcium Level 7.9 mg/dL (8.5-10.1) Phosphorus Level 2.8 mg/dL (2.6-4.7) Magnesium Level 2.0 mg/dL (1.8-2.4) Test 09/29/20 11:56 Glucose (Fingerstick) 70 mg/dL (70-99) Comment Review of Relevant I have reviewed the following items brett (where applicable) has been applied. Medications: Current Medications Medications (Trade) Dose Ordered Sig/Jess Route PRN Reason Start Time Stop Time Status Last Admin Dose Admin Lactobacillus Rhamnosus (Culturelle) 1 cap BID PO 09/28/20 21:00 09/29/20 09:44 Potassium Bicarbonate (Potassium Effervescent Tablet) 40 meq 1X ONCE PO 09/28/20 12:30 09/28/20 12:31 DC 09/28/20 12:57 Amlodipine Besylate (Norvasc) 10 mg DAILY PO 09/29/20 09:00 09/29/20 09:45 Aspirin (Ecotrin) 81 mg DAILY PO 09/28/20 12:30 09/29/20 09:44 Cetirizine HCl (ZyrTEC) 10 mg DAILY PO 09/28/20 12:30 09/29/20 09:46 Clopidogrel Bisulfate (Plavix) 75 mg DAILY PO 09/28/20 12:30 09/29/20 09:46 Cyclobenzaprine HCl (Flexeril) 10 mg QHS PO 09/28/20 21:00 09/28/20 22:07 Gabapentin (Neurontin) 300 mg HS PO 09/28/20 21:00 09/28/20 22:07 Oxycodone/ Acetaminophen (Percocet 10/325) 1 tab QIDPRN PRN PO MODERATE - SEVERE PAIN 09/28/20 12:15 09/29/20 07:47 Atorvastatin Calcium (Lipitor) 80 mg QHS PO 09/28/20 21:00 09/28/20 22:07 Carvedilol (Coreg) 12.5 mg BIDWMEALS PO 09/28/20 17:00 09/29/20 09:44 Magnesium Sulfate 50 ml @ 25 mls/hr 1X ONCE IV 09/28/20 15:30 09/28/20 17:29 DC 09/28/20 16:46 Justifications for Admission Other Justification CHARLOTTE FISCHER MD Sep 29, 2020 12:16
[2020-09-29] MEDS: POTASSIUM CHLORIDE 20 MEQ TABLET.ER. PO SCH (12:23)
[2020-09-29 15:00] VITALS: BP 126/51
[2020-09-29 19:00] VITALS: BP 114/41
[2020-09-29] MEDS: CYCLOBENZAPRINE 10 MG TABLET. PO SCH (20:36)
[2020-09-29] MEDS: GABAPENTIN 300 MG CAPSULE. PO SCH (20:36)
[2020-09-29] MEDS: ATORVASTATIN CALCIUM 40 MG TABLET. PO SCH (20:36)
[2020-09-29 23:09] VITALS: BP 108/61
[2020-09-30 03:00] VITALS: BP 104/43
[2020-09-30] MEDS: NITROGLYCERIN OINT 1 GM PACKET. TP SCH ×3 (06:00→12:00)
[2020-09-30] MEDS: METOPROLOL IV PUSH 5 MG/5 ML VIAL. IVP SCH ×2 (06:00)
[2020-09-30 07:00] VITALS: BP 132/59
[2020-09-30] MEDS: INSULIN LISPRO 300 UNITS/3 ML VIAL. SQ SCH ×2 (07:30→11:30)
[2020-09-30] MEDS ORDERED: PANTOPRAZOLE 40 MG TABLET.DR. PO SCH (07:30)
[2020-09-30] MEDS ORDERED: FUROSEMIDE 40 MG TABLET. PO SCH (09:00)
--- NOTE | 2020-09-30 09:02 | PDOC ---
Infectious Disease Note Subjective Subjective Patient is much improved sitting up joking Vital Sign Vital Signs Vital Signs Date Time Temp Pulse Resp B/P (MAP) Pulse Ox O2 Delivery O2 Flow Rate FiO2 09/30/20 07:00 97.8 75 20 132/59 (83) 91 Room Air 97.8 09/29/20 11:00 2.0 Physical Exam PHYSICAL EXAM GENERAL: awake , comfortable HEENT: Both pupils are round and reacting. No conjunctival lesion, no lesion in the mouth. NECK: Supple, no JVP, no lymphadenopathy. LUNGS: Clear. HEART: S1, S2 regular. ABDOMEN: Soft, nontender, no organomegaly. EXTREMITIES: No edema, cyanosis. SKIN: Unremarkable other than some scratch ortiz are present. NEUROLOGIC: a and o , no focal deficit Labs Lab Laboratory Tests Test 09/29/20 11:56 09/29/20 20:59 Glucose (Fingerstick) 70 mg/dL (70-99) 241 mg/dL (70-99) Micro Microbiology 09/20/20 Urine Culture - Final, Complete Objective Assessment IMPRESSION: 1. Leukocytosis, most likely to be reactive. There is no obvious area of infection so far. 2. Gastrointestinal bleed that itself gastrointestinal bleed can cause leukocytosis. 3. Renal insufficiency. 4. Encephalopathy, improved 5. Coronary artery disease. Plan Plan of Care off antibiotics ok to d/c D/w nursing TERRIE BURR MD Sep 30, 2020 09:02
[2020-09-30] MEDS: oxyCODONE/APAP 10/325 1 TAB TABLET PO PRN ×2 (09:07→14:57)
[2020-09-30] MEDS: CETIRIZINE HCL 10 MG TABLET. PO SCH (09:07)
[2020-09-30] MEDS: ASPIRIN ENTERIC COATED 81 MG TABLET.DR. PO SCH (09:07)
[2020-09-30] MEDS: LACTOBACILLUS RHAMNOSUS GG 1 CAPSULE. PO SCH (09:08)
[2020-09-30] MEDS: CLOPIDOGREL BISULFATE 75 MG TABLET PO SCH (09:08)
[2020-09-30] MEDS: POTASSIUM CHLORIDE 20 MEQ TABLET.ER. PO SCH (09:09)
[2020-09-30] MEDS: CARVEDILOL 12.5 MG TABLET. PO SCH ×2 (09:10→17:17)
--- NOTE | 2020-09-30 10:24 | PDOC ---
Date of Service: DATE: 09/30/20 TIME: 10:23 Objective: Objective: D/w nurse - no GI concerns, DC today. D/w Dr. Vazquez. Vital Signs: Vital Signs Date Time Temp Pulse Resp B/P (MAP) Pulse Ox O2 Delivery O2 Flow Rate FiO2 09/30/20 09:10 75 132/59 09/30/20 07:00 97.8 20 91 Room Air 97.8 09/29/20 11:00 2.0 Labs: Laboratory Tests Test 09/29/20 11:56 09/29/20 20:59 Glucose (Fingerstick) 70 mg/dL 241 mg/dL BLOOD CULTURE Preliminary NO GROWTH AFTER 4 DAYS PE: GEN: NAD, eating breakfast and taking pills, talking on the phone LUNGS: CTAB anteriorly HEART: RR ABD: S/ND/NT NEURO/PSYCH: A & O 3, quite talkative A/P: Metabolic encephalopathy - resolving UGI bleed, anemia - resolved/stable/improved; EGD unrevealing COVID negative09/20 -- DC per primary. Justicifation of Admission Dx: Justifications for Admission: Justification of Admission Dx: Yes REAL FRAZIER Sep 30, 2020 10:24
--- NOTE | 2020-09-30 10:34 | PDOC ---
DATE OF SERVICE DATE: 09/30/20 TIME: 10:33 SUBJECTIVE ROS Stable OBJECTIVE Vital Signs Vital Signs Date Time Temp Pulse Resp B/P (MAP) Pulse Ox O2 Delivery O2 Flow Rate FiO2 09/30/20 09:10 75 132/59 09/30/20 07:00 97.8 20 91 Room Air 97.8 09/29/20 11:00 2.0 I & 0 Intake and Output 09/30/20 07:00 Intake Total 780 ml Output Total 3150 ml Balance -2370 ml Intake Oral 780 ml Output Urine Total 3150 ml # Bowel Movements 1 PHYSICAL EXAM Physical Exam GENERAL: awake , comfortable HEENT: Both pupils are round and reacting. No conjunctival lesion, no lesion in the mouth. NECK: Supple, no JVP, no lymphadenopathy. LUNGS: Clear. HEART: S1, S2 regular. ABDOMEN: Soft, nontender, no organomegaly. EXTREMITIES: No edema, cyanosis. SKIN: Unremarkable other than some scratch ortiz are present. NEUROLOGIC: a and o , no focal deficit DIAGNOSIS/ASSESSMENT Assessment & Plan MARIA ELENA-Improving , Cr improved 2.5-->1.3 , supportive care, avoid nephrotoxins HypoKalemia- Replace CKDstage 3 baseline Cr 1.1 Anemia Metabolic encephalopathy - better UGI bleed - resolved COMMENT/RELEVANT DATA Meds Current Medications Medications (Trade) Dose Ordered Sig/Jess Start Time Stop Time Status Last Admin Dose Admin Acetaminophen (Tylenol Supp) 650 mg PRN Q6HRS PRN 09/20/20 09:00 09/20/20 10:24 650 MG Acetaminophen (Tylenol) 650 mg PRN DAILY PRN 09/28/20 12:15 Albuterol Sulfate (Ventolin Neb Soln) 2.5 mg PRN Q6HRS PRN 09/23/20 07:00 09/23/20 07:16 2.5 MG Amino Acids/ Glycerin/ Electrolytes 1,000 ml @ 80 mls/hr [id number] 09/22/20 12:30 09/25/20 12:47 DC 09/25/20 05:43 80 MLS/HR Amlodipine Besylate (Norvasc) 10 mg DAILY 09/29/20 09:00 09/30/20 09:08 10 MG Aspirin (Ecotrin) 81 mg DAILY 09/28/20 12:30 09/30/20 09:07 81 MG Atorvastatin Calcium (Lipitor) 80 mg QHS 09/28/20 21:00 09/29/20 20:36 80 MG Benzocaine (Hurricaine One) 2 spray 1X ONCE 09/22/20 10:30 09/22/20 10:31 DC 09/22/20 13:40 2 SPRAY Carvedilol (Coreg) 12.5 mg BIDWMEALS 09/28/20 17:00 09/30/20 09:10 12.5 MG Ceftriaxone Sodium (Rocephin) 1 gm Q24H 09/20/20 21:00 09/25/20 10:16 DC 09/24/20 21:13 1 GM Cetirizine HCl (ZyrTEC) 10 mg DAILY 09/28/20 12:30 09/30/20 09:07 10 MG Clopidogrel Bisulfate (Plavix) 75 mg DAILY 09/28/20 12:30 09/30/20 09:08 75 MG Cyclobenzaprine HCl (Flexeril) 10 mg QHS 09/28/20 21:00 09/29/20 20:36 10 MG Daptomycin 350 mg/ Sodium Chloride 50 ml @ 100 mls/hr Q48H 09/25/20 14:00 09/29/20 09:46 DC 09/27/20 14:22 100 MLS/HR Dextrose (Dextrose 50%-Water Syringe) 12.5 gm PRN Q15MIN PRN 09/20/20 07:45 Diphenhydramine HCl (Benadryl) 50 mg 1X ONCE 09/24/20 11:30 09/24/20 11:31 DC 09/24/20 11:10 50 MG Furosemide (Lasix) 40 mg DAILY 09/30/20 09:00 09/30/20 09:08 40 MG Gabapentin (Neurontin) 300 mg HS 09/28/20 21:00 09/29/20 20:36 300 MG Hydrocortisone Sodium Succinate (Solu-CORTEF) 200 mg 1X ONCE 09/23/20 05:45 09/23/20 05:46 DC 09/23/20 07:03 200 MG Info (CONTRAST GIVEN -- Rx MONITORING) 1 each PRN DAILY PRN 09/24/20 11:00 09/26/20 10:59 DC Insulin Human Lispro (HumaLOG) 0-9 UNITS TIDACHC 09/29/20 07:30 Iohexol (Omnipaque 350 Mg/ml) 80 ml 1X ONCE 09/24/20 11:00 09/24/20 11:01 DC 09/24/20 11:37 80 ML Labetalol HCl (Normodyne Iv Push) 20 mg PRN Q2HR PRN 09/25/20 11:00 Lactobacillus Rhamnosus (Culturelle) 1 cap BID 09/28/20 21:00 09/30/20 09:08 1 CAP Lidocaine HCl (Viscous Lidocaine) 15 ml 1X ONCE 09/22/20 10:30 09/22/20 10:31 DC Lidocaine HCl (Xylocaine 2% Topical 30gm Tube) 1 freddie 1X ONCE 09/22/20 10:30 09/22/20 10:31 DC Magnesium Sulfate 50 ml @ 25 mls/hr 1X ONCE 09/28/20 15:30 09/28/20 17:29 DC 09/28/20 16:46 25 MLS/HR Meropenem 500 mg/ Sodium Chloride 50 ml @ 100 mls/hr Q8HRS 09/25/20 14:00 09/29/20 09:46 DC 09/29/20 05:35 100 MLS/HR Metoprolol Tartrate (Lopressor Vial) 10 mg Q6HRS 09/26/20 18:00 09/30/20 08:52 DC 09/28/20 13:11 10 MG Morphine Sulfate (Morphine Sulfate) 4 mg PRN Q4HRS PRN 09/20/20 03:00 09/28/20 12:56 4 MG Nitroglycerin (Nitro-Bid Oint) 1 inch Q6HRS 09/25/20 10:00 09/28/20 13:12 1 INCH Nitroglycerin (Nitrostat) 0.4 mg PRN Q5MIN PRN 09/20/20 14:15 Ondansetron HCl (Zofran) 4 mg PRN Q6HRS PRN 09/20/20 03:00 Oxycodone/ Acetaminophen (Percocet 10/325) 1 tab QIDPRN PRN 09/28/20 12:15 09/30/20 09:07 1 TAB Pantoprazole Sodium (PROTONIX VIAL for IV PUSH) 40 mg BID 09/20/20 03:00 09/29/20 10:30 DC 09/29/20 09:46 40 MG Pantoprazole Sodium (Protonix) 40 mg DAILYAC 09/30/20 07:30 09/30/20 09:06 40 MG Phenol (Chloraseptic) 1 spray PRN Q2HR PRN 09/22/20 11:30 09/22/20 15:43 1 SPRAY Piperacillin Sod/ Tazobactam Sod (Zosyn Per Pharmacy) 1 each PRN DAILY PRN 09/25/20 10:15 09/25/20 10:56 DC Piperacillin Sod/ Tazobactam Sod 2.25 gm/Sodium Chloride 50 ml @ 100 mls/hr Q6HRS 09/25/20 11:00 09/25/20 10:56 DC Potassium Bicarbonate (Potassium Effervescent Tablet) 40 meq 1X ONCE 09/28/20 12:30 09/28/20 12:31 DC 09/28/20 12:57 40 MEQ Potassium Chloride (Klor-Con) 20 meq [id number] 09/29/20 12:00 09/30/20 09:09 20 MEQ Prednisone (Prednisone) 20 mg 1X ONCE 09/24/20 06:00 09/24/20 06:01 DC 09/24/20 05:59 20 MG Propofol (Diprivan) 200 mg STK-MED ONCE 09/22/20 12:55 09/22/20 12:55 DC Ringer's Solution 1,000 ml @ 75 mls/hr 1X ONCE 09/26/20 09:15 09/26/20 22:34 DC 09/26/20 11:17 75 MLS/HR Sodium Chloride 1,000 ml @ 50 mls/hr Q20H 09/26/20 10:45 09/27/20 15:55 DC 09/27/20 00:18 50 MLS/HR Lab Laboratory Tests Test 09/29/20 11:56 09/29/20 20:59 Glucose (Fingerstick) 70 mg/dL (70-99) 241 mg/dL (70-99) Results All relevant outside records, renal labs, imaging studies, telemetry/EKG's were reviewed. Justicifation of Admission Dx: Justifications for Admission: Justification of Admission Dx: Yes LANCE DRISCOLL MD Sep 30, 2020 10:34
--- NOTE | 2020-09-30 10:36 | PDOC ---
PULMONARY PROGRESS NOTES DATE: 09/30/20 TIME: 10:34 Subjective Remains on 2 L of oxygen supplementation afebrile no SOA or cough in better spirits today Vitals Vital Signs Date Time Temp Pulse Resp B/P (MAP) Pulse Ox O2 Delivery O2 Flow Rate FiO2 09/30/20 09:10 75 132/59 09/30/20 07:00 97.8 20 91 Room Air 97.8 09/29/20 11:00 2.0 ROS: No Nausea, No Chest Pain, No Abdominal Pain, No Increase Cough General: Alert Lungs: Clear Cardiovascular: S1, S2 Abdomen: Soft Neuro Exam: Alert Extremities: No Edema Skin: Warm, Dry Labs Laboratory Tests Test 09/28/20 11:56 09/28/20 18:51 09/29/20 00:37 09/29/20 07:26 Glucose (Fingerstick) 158 mg/dL (70-99) 209 mg/dL (70-99) 157 mg/dL (70-99) 121 mg/dL (70-99) Test 09/29/20 08:40 09/29/20 11:56 09/29/20 20:59 White Blood Count 18.1 x10^3/uL (4.0-11.0) Red Blood Count 3.27 x10^6/uL (3.50-5.40) Hemoglobin 9.9 g/dL (12.0-15.5) Hematocrit 31.5 % (36.0-47.0) Mean Corpuscular Volume 97 fL (79-100) Mean Corpuscular Hemoglobin 30 pg (25-35) Mean Corpuscular Hemoglobin Concent 32 g/dL (31-37) Red Cell Distribution Width 15.6 % (11.5-14.5) Platelet Count 261 x10^3/uL (140-400) Neutrophils (%) (Auto) 81 % (31-73) Lymphocytes (%) (Auto) 10 % (24-48) Monocytes (%) (Auto) 8 % (0-9) Eosinophils (%) (Auto) 2 % (0-3) Basophils (%) (Auto) 0 % (0-3) Neutrophils # (Auto) 14.7 x10^3/uL (1.8-7.7) Lymphocytes # (Auto) 1.7 x10^3/uL (1.0-4.8) Monocytes # (Auto) 1.4 x10^3/uL (0.0-1.1) Eosinophils # (Auto) 0.3 x10^3/uL (0.0-0.7) Basophils # (Auto) 0.0 x10^3/uL (0.0-0.2) Sodium Level 136 mmol/L (136-145) Potassium Level 2.9 mmol/L (3.5-5.1) Chloride Level 98 mmol/L (98-107) Carbon Dioxide Level 30 mmol/L (21-32) Anion Gap 8 (6-14) Blood Urea Nitrogen 30 mg/dL (7-20) Creatinine 1.3 mg/dL (0.6-1.0) Estimated GFR (Cockcroft-Gault) 40.0 Glucose Level 206 mg/dL (70-99) Calcium Level 7.9 mg/dL (8.5-10.1) Phosphorus Level 2.8 mg/dL (2.6-4.7) Magnesium Level 2.0 mg/dL (1.8-2.4) Glucose (Fingerstick) 70 mg/dL (70-99) 241 mg/dL (70-99) Laboratory Tests Test 09/29/20 11:56 09/29/20 20:59 Glucose (Fingerstick) 70 mg/dL (70-99) 241 mg/dL (70-99) Medications Active Scripts Medications Dose Route/Sig Max Daily Dose Days Date Category Cyclobenzaprine Hcl 10 Mg Tablet 1 Tab PO QHS 05/27/20 Reported Carvedilol 25 Mg Tablet 12.5 Mg PO BIDWMEALS 05/27/20 Reported Lipitor (Atorvastatin Calcium) 80 Mg Tablet 1 Tab PO HS 05/27/20 Reported Aspirin Ec (Aspirin) 81 Mg Tablet.dr 1 Tab PO DAILY 05/27/20 Reported Acetaminophen 325 Mg Tablet 2 Tab PO PRN DAILY PRN 30 05/27/20 Reported Zyrtec (Cetirizine Hcl) 10 Mg Tablet 1 Tab PO DAILY 05/27/20 Reported Norvasc (Amlodipine Besylate) 10 Mg Tablet 10 Mg PO DAILY 05/27/20 Reported Nitrostat (Nitroglycerin) 0.4 Mg Tab.subl 0.4 Mg SL PRN Q5MIN PRN 05/27/20 Reported Clopidogrel (Clopidogrel Bisulfate) 75 Mg Tablet 1 Tab PO DAILY 05/27/20 Reported Percocet 10-325 Mg Tablet (Oxycodone/Acetaminophen) 1 Each Tablet 1 Tab PO Q4-6HRS 08/02/16 Reported Gabapentin (Gabapentin) 300 Mg Capsule 1 Cap PO HS 09/26/14 Reported Comments IMPRESSION: 1. No evidence of acute pulmonary embolism 2. Small left and moderate right pleural effusion 3. Patchy groundglass infiltrates throughout the bilateral lungs. Cardiomegaly. Constellation of findings favor pulmonary edema however an atypical or viral infectious process cannot be excluded. Impression . IMPRESSION: 1. Acute hypoxic respiratory failure, multifactorial, suspect heart failure, anemia, patient is status post transfusion.--- improved on N/C 2. Metabolic toxic encephalopathy, improved 3. Underlying dementia. 4. Recent gastrointestinal bleed. Plan . Continue oxygen supplementation currently on 2 L nasal cannula Status post EGD 09/26--- Kandace-Villagomez tear?, No evidence of bleeding lesion now tolerating p.o. diet CT of chest was negative for PE did demonstrate a loculated effusion, less likely pneumonia Follow infectious disease recommendations in regards to antibiotics, follow cultures-- NGTD Follow nephrology recommendations--MARIA ELENA resolved, at baseline Physical therapy/Occupational Therapy DVT/GI prophylaxis--SCDS D/W RN OK to D/C from our standpoint DEE BENEDICT MD Sep 30, 2020 10:36
[2020-09-30 11:00] VITALS: BP 130/51
[2020-09-30 12:45] LABS: CALCIUM 8.3 mg/dL (8.5-10.1); CREATININE 1.2 mg/dL (0.6-1.0); GFR 43.9; POTASSIUM 3.3 mmol/L (3.5-5.1)
--- NOTE | 2020-09-30 14:42 | PDOC ---
[employer] PROGRESS NOTE Date of Service DOS: DATE: 09/30/20 TIME: 14:29 Chief Complaint Chief Complaint Acute blood loss anemia hypoxia, CTA CHEST NEG PE echodensity in the wall of the left atrium of uncertain significance. A possible mass cannot be excluded., CARDIOLOGY CONSULT // transesophageal echo no thrombus, UGIB Acute METABOLIC encephalopathy, NEUROLOGY CONSULT, CT HEAD STAT 09-25 , NH4< 10 , PT/INR UTI MARIA ELENA Uremia Sepsis, ID CONSULT 09-25 Hyponatremia, NEPHROLOGY FOLLOWING DM2 CAD Elevated troponins ELECTROLYTE DISTURBANCE, NEPHROLOGY FOLLOWING, AM , PM CORTISOL no need for LP 09-26, IMPROVING, ALERT supportive care History of Present Illness History of Present Illness Ms Gonzalez is a 75yo F w/ PMHx hypertension, type 2 diabetes, CAD s/p PCI (x3 in 08/2019 at [facility], then x2 11/2019) who presented to [place] 09/19/20 c/o hematemesis. Was transfused 2u of convalescent FFP, NGT was placed, but coiled in esophagus. Vital signs on ED presentation temp 94 F, heart rate 102 bpm blood pressure 142/73. WBC 16.4, Hb 9.3, Platelets 295, Na 129, K 4, BUN 111, Cr 2.3, Glucose 291, Trop 0.061, BNP 7800, Lipase 75, Albumin 3. UDS + for opioids. UA positive leukoesterase and blood. Transferred to [facility] for GI consultation and further treatment. Per GI has had dyspepsia and early satiety for decades. EGD in 2010 2019 not revealing. Previous gastric emptying study borderline delay. Colonoscopy in 2010 with no pathology. Upon evaluation she is drowsy and very confused. Repeat KUB with NG tube better placed below the diaphragm and appears in stomach. Discussed with bedside patient has been continuing her home medications in addition she has been taking ibuprofen and Aleve for pain recently. She was seen by [facility] cardiology on ~09/08/2020 and prescribed Brilinta 90 mg, and losartan 25 mg spironolactone 25 mg and furosemide 20 mg twice daily Overnight 100.5F. Hb 6.4, WBC 16, BUN 101, Cr 2.1. 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 Angel case management manager. -Chart reviewed. 09/26/2020 -Patient seen and examined. -Patient had rapid response 1-25 due to hypoxia and tachycardia. intermediate VQ scan, CTA CHEST NEG , D/W DR CIFUENTES, DR BURR -Creatinine trending down. 2.5 -> 1.2 -Angel Ortiz case management manager. -Chart reviewed. EEG consistent with the metabolic encephalopathy and shows no seizure activity 09/28/2020 - pt seen and examined - discussed with RN - chart reviewed - pt on IV abx - solorio at BSD - pt on cardiac monitoring 09/29: Patient seen and evaluated. Afebrile, breathing on 2 L nasal cannula. Leukocytosis appears to be reactive to GI bleed. Continue to observe patient off antibiotics. Some hypokalemia today, will replace. Charts and labs reviewed, discussed with RN. 09/30: Patient seen and evaluated. She is breathing comfortably on room air, afebrile. Only complaints today are chronic lower back and hip pain. Leukocytosis continues to improve. Greater than 30 minutes was spent managing discharge this patient. Vitals/I&O Vitals/I&O: Vital Signs Date Time Temp Pulse Resp B/P (MAP) Pulse Ox O2 Delivery O2 Flow Rate FiO2 09/30/20 11:00 97.3 75 18 130/51 (77) 99 Room Air 97.3 09/29/20 11:00 2.0 I & O 09/29/20 09/29/20 09/30/20 15:00 23:00 07:00 Intake Total 380 ml 400 ml Output Total 1100 ml 850 ml 1200 ml Balance -1100 ml -470 ml -800 ml Physical Exam Physical Exam: GENERAL: awake , comfortable HEENT: Both pupils are round and reacting. No conjunctival lesion, no lesion in the mouth. NECK: Supple, no JVP, no lymphadenopathy. LUNGS: Clear. HEART: S1, S2 regular. ABDOMEN: Soft, nontender, no organomegaly. EXTREMITIES: No edema, cyanosis. SKIN: Unremarkable other than some scratch ortiz are present. NEUROLOGIC: a and o , no focal deficit General: Alert, Oriented X3, Cooperative, No acute distress, Other (confused, NOW LETHARGIC ) Heart: Regular rate, No murmurs Lungs: Clear Abdomen: Normal bowel sounds, Soft, No tenderness Extremities: No clubbing, No cyanosis, No edema, Normal pulses, No tenderness/swelling Skin: No rashes, No breakdown, No significant lesion Labs Labs: Laboratory Tests Test 09/29/20 20:59 09/30/20 12:10 09/30/20 12:28 Glucose (Fingerstick) 241 mg/dL (70-99) 178 mg/dL (70-99) Sodium Level 132 mmol/L (136-145) Potassium Level 3.3 mmol/L (3.5-5.1) Chloride Level 95 mmol/L (98-107) Carbon Dioxide Level 31 mmol/L (21-32) Anion Gap 6 (6-14) Blood Urea Nitrogen 28 mg/dL (7-20) Creatinine 1.2 mg/dL (0.6-1.0) Estimated GFR (Cockcroft-Gault) 43.9 Glucose Level 196 mg/dL (70-99) Calcium Level 8.3 mg/dL (8.5-10.1) Comment Review of Relevant I have reviewed the following items brett (where applicable) has been applied. Medications: Current Medications Medications (Trade) Dose Ordered Sig/Jess Route PRN Reason Start Time Stop Time Status Last Admin Dose Admin Pantoprazole Sodium (Protonix) 40 mg DAILYAC PO 09/30/20 07:30 09/30/20 09:06 Furosemide (Lasix) 40 mg DAILY PO 09/30/20 09:00 09/30/20 09:08 Justifications for Admission Other Justification CHARLOTTE FISCHER MD Sep 30, 2020 14:42
--- NOTE | 2020-09-30 14:44 | SNU/HH DC ---
DISCHARGE ORDERS DISCHARGE INFORMATION: DISCHARGE DATE: Sep 30, 2020 CONDITION ON DISCHARGE: Stable CODE STATUS: Code Status: Full FCI: SNF STAY <30 DAYS: Yes POST DISCHARGE ORDERS: ACTIVITY ORDERS: Activity as tolerated DIET AFTER DISCHARGE: Cardiac (Soft diet) WOUND/INCISION CARE: No wound care needed CHECKS AFTER DISCHARGE: CHECKS AFTER DISCHARGE: Check blood press - daily, Check blood sugar, ac/hs, Check your Temp as needed TREATMENT/EQUIPMENT ORDERS: ADAPTIVE EQUIPMENT NEEDED: [facility] Physical Therapy For: Evalulation/Treatment Occupational Therapy For: Evaluation/Treatment DISCHARGE MEDICATIONS: Home Meds Reported Medications Cyclobenzaprine Hcl (CYCLOBENZAPRINE HCL) 10 Mg Tablet, 1 TAB PO QHS for PAIN, #30 TAB 05/27/20 Carvedilol (CARVEDILOL) 25 Mg Tablet, 12.5 MG PO BIDWMEALS for CARDIAC, TAB 05/27/20 Atorvastatin Calcium (LIPITOR) 80 Mg Tablet, 1 TAB PO HS for HIGH LIPID, #30 TAB 5 Refills 05/27/20 Aspirin (ASPIRIN EC) 81 Mg Tablet.dr, 1 TAB PO DAILY for BLOOD THINNER, #30 TAB 3 Refills 05/27/20 Acetaminophen (ACETAMINOPHEN) 325 Mg Tablet, 2 TAB PO PRN DAILY PRN for pain or fever for 30 Days, #30 TAB 0 Refills 05/27/20 Cetirizine Hcl (ZYRTEC) 10 Mg Tablet, 1 TAB PO DAILY for ALLERGY, #30 TAB 2 Refills 05/27/20 Amlodipine Besylate (NORVASC) 10 Mg Tablet, 10 MG PO DAILY for htn, TAB 05/27/20 Nitroglycerin (NITROSTAT) 0.4 Mg Tab.subl, 0.4 MG SL PRN Q5MIN PRN for CHEST PAIN, BOTTLE 05/27/20 Clopidogrel Bisulfate (CLOPIDOGREL) 75 Mg Tablet, 1 TAB PO DAILY for STENT, #90 TAB 1 Refill 05/27/20 Oxycodone/Apap 10-325 (PERCOCET 10-325 MG TABLET ) 1 Each Tablet, 1 TAB PO Q4- 6HRS, #40 TAB 08/02/16 Gabapentin (GABAPENTIN ) 300 Mg Capsule, 1 CAP PO HS for nerve pain, #90 CAP 5 Refills 09/26/14 CHARLOTTE FISCHER MD Sep 30, 2020 14:44
[2020-09-30] MEDS ORDERED: POTASSIUM CHLORIDE 20 MEQ TABLET.ER. PO ONE (14:45)
--- NOTE | 2020-09-30 14:46 | PDOC ---
WANDY GARCIA CERTIFIED PROSTHETIST 09/30/20 1446: CARDIO Progress Notes Date and Time Date of Service 09/30/2020 Time of Evaluation 1300 Subjective Subjective: No Chest Pain, No shortness of breath, No Palpitations Vitals Vitals Vital Signs Date Time Temp Pulse Resp B/P (MAP) Pulse Ox O2 Delivery O2 Flow Rate FiO2 09/30/20 11:00 97.3 75 18 130/51 (77) 99 Room Air 97.3 09/29/20 11:00 2.0 Weight Weight [ ] Input and Output Intake and Output Intake and Output 09/30/20 07:00 Intake Total 780 ml Output Total 3150 ml Balance -2370 ml Intake Oral 780 ml Output Urine Total 3150 ml # Bowel Movements 1 Laboratory Labs Laboratory Tests Test 09/29/20 20:59 09/30/20 12:10 09/30/20 12:28 Glucose (Fingerstick) 241 mg/dL (70-99) 178 mg/dL (70-99) Sodium Level 132 mmol/L (136-145) Potassium Level 3.3 mmol/L (3.5-5.1) Chloride Level 95 mmol/L (98-107) Carbon Dioxide Level 31 mmol/L (21-32) Anion Gap 6 (6-14) Blood Urea Nitrogen 28 mg/dL (7-20) Creatinine 1.2 mg/dL (0.6-1.0) Estimated GFR (Cockcroft-Gault) 43.9 Glucose Level 196 mg/dL (70-99) Calcium Level 8.3 mg/dL (8.5-10.1) Microbiology Micro Microbiology 09/25/20 Blood Culture - Final, Complete NO GROWTH AFTER 5 DAYS 09/20/20 Urine Culture - Final, Complete Review of Systems Constitutional: yes: alert Ears/Nose/Throat: Yes: no symptom reported Eyes: Yes: no symptom reported Pulmonary: Yes no symptom reported Cardiovascular: Yes no symptom reported Gastrointestional: Yes: no symptom reported Genitourinary: Yes: no symptom reported Musculoskeletal: Yes: no symptom reported Psychiatric/Neurological: Yes: no symptom reported Physical Exam HEENT: Neck Supple W Full Motion Chest: Symmetric LUNGS: Other (diminished bases) Heart: RRR (sinus tachycardia) Abdomen: Other (soft) Extremities: No Edema, Other Neurology: alert, oriented, follow commands Assessment Assessment 1. Acute anemia: post transfusion, Hgb at 9.9.No PE per CTA. EGD today 2. Mild troponin elevation: suspect demand mediated peaked at 0.128. Post JANELLE no intracardiac lesion nor thrombus, EF nml. 3. CAD: estimated PCI/11/2019 per spouse. Clinically stable 4. Reactive sinus tachycardia: No RV dilation. HR is now better at 70s 5. Metabolic Encephalopathy: back to baseline 6. MARIA ELENA with hyperkalemia: K better, Cr better 7. HTN: better controlled 8. Moderate MR 9. Coagulopathy and transaminitis: GI following 10. Acute on chronic diastolic CHF: compensated 11. Leukocytosis: no PNA per pulmonary negative covid-19 PCR Recommendations 1. Continue coreg, amlodipine, and lasix. Replace K 2. Discussed with GI, may continue ASA/plavix 3. Secondary prevention 4. Recheck LFTs and if normalized then may continue current statin if remains elevated pending level may need to hold for now vs continue at much lower dose. Check lipids 5. Possible SNU 6. Follow up with [facility] cardiology Justicifation of Admission Dx: Justifications for Admission: Justification of Admission Dx: Yes AYLA GARCIA MD 09/30/20 1639: CARDIO Progress Notes Assessment Assessment Patient seen and examined The patient looks significantly better today. Acute anemia: post transfusion, GI work-up as above. She looks significantly better today and is eating solid food. Mild troponin elevation: suspect demand mediated peaked at 0.128. Post JANELLE no intracardiac lesion nor thrombus, EF nml. CAD: estimated PCI/11/2019 per spouse. Clinically stable Reactive sinus tachycardia: No RV dilation. Resolved. MARIA ELENA improved as above. HTN: better controlled Moderate MR Coagulopathy and transaminitis: GI following Acute on chronic diastolic CHF: compensated WANDY GARCIA APRN Sep 30, 2020 14:46 AYLA GARCIA MD Sep 30, 2020 16:39
[2020-09-30 14:50] VITALS: BP 109/45
[2020-09-30] MEDS ORDERED: PANT40TA77 PO (14:51)
--- NOTE | 2020-09-30 14:59 | PDOC3 ---
Discharge Summary Visit Information Date of Admission: Sep 20, 2020 Date of Discharge: Sep 30, 2020 Brief Hospital Course Allergies Allergies Coded Allergies Type Severity Reaction Last Updated Verified Iodinated Contrast Media Allergy Severe Hives 09/26/20 Yes clarithromycin Allergy Intermediate 09/26/20 Yes Vital Signs Vital Signs Date Time Temp Pulse Resp B/P (MAP) Pulse Ox O2 Delivery O2 Flow Rate FiO2 09/30/20 14:50 97.4 88 18 109/45 (66) 95 Room Air 97.4 09/29/20 11:00 2.0 Lab Results Laboratory Tests Test 09/28/20 18:51 09/29/20 00:37 09/29/20 07:26 09/29/20 08:40 Glucose (Fingerstick) 209 mg/dL (70-99) 157 mg/dL (70-99) 121 mg/dL (70-99) White Blood Count 18.1 x10^3/uL (4.0-11.0) Red Blood Count 3.27 x10^6/uL (3.50-5.40) Hemoglobin 9.9 g/dL (12.0-15.5) Hematocrit 31.5 % (36.0-47.0) Mean Corpuscular Volume 97 fL (79-100) Mean Corpuscular Hemoglobin 30 pg (25-35) Mean Corpuscular Hemoglobin Concent 32 g/dL (31-37) Red Cell Distribution Width 15.6 % (11.5-14.5) Platelet Count 261 x10^3/uL (140-400) Neutrophils (%) (Auto) 81 % (31-73) Lymphocytes (%) (Auto) 10 % (24-48) Monocytes (%) (Auto) 8 % (0-9) Eosinophils (%) (Auto) 2 % (0-3) Basophils (%) (Auto) 0 % (0-3) Neutrophils # (Auto) 14.7 x10^3/uL (1.8-7.7) Lymphocytes # (Auto) 1.7 x10^3/uL (1.0-4.8) Monocytes # (Auto) 1.4 x10^3/uL (0.0-1.1) Eosinophils # (Auto) 0.3 x10^3/uL (0.0-0.7) Basophils # (Auto) 0.0 x10^3/uL (0.0-0.2) Sodium Level 136 mmol/L (136-145) Potassium Level 2.9 mmol/L (3.5-5.1) Chloride Level 98 mmol/L (98-107) Carbon Dioxide Level 30 mmol/L (21-32) Anion Gap 8 (6-14) Blood Urea Nitrogen 30 mg/dL (7-20) Creatinine 1.3 mg/dL (0.6-1.0) Estimated GFR (Cockcroft-Gault) 40.0 Glucose Level 206 mg/dL (70-99) Calcium Level 7.9 mg/dL (8.5-10.1) Phosphorus Level 2.8 mg/dL (2.6-4.7) Magnesium Level 2.0 mg/dL (1.8-2.4) Test 09/29/20 11:56 09/29/20 20:59 09/30/20 12:10 09/30/20 12:28 Glucose (Fingerstick) 70 mg/dL (70-99) 241 mg/dL (70-99) 178 mg/dL (70-99) Sodium Level 132 mmol/L (136-145) Potassium Level 3.3 mmol/L (3.5-5.1) Chloride Level 95 mmol/L (98-107) Carbon Dioxide Level 31 mmol/L (21-32) Anion Gap 6 (6-14) Blood Urea Nitrogen 28 mg/dL (7-20) Creatinine 1.2 mg/dL (0.6-1.0) Estimated GFR (Cockcroft-Gault) 43.9 Glucose Level 196 mg/dL (70-99) Calcium Level 8.3 mg/dL (8.5-10.1) Laboratory Tests Test 09/29/20 20:59 09/30/20 12:10 09/30/20 12:28 Glucose (Fingerstick) 241 mg/dL (70-99) 178 mg/dL (70-99) Sodium Level 132 mmol/L (136-145) Potassium Level 3.3 mmol/L (3.5-5.1) Chloride Level 95 mmol/L (98-107) Carbon Dioxide Level 31 mmol/L (21-32) Anion Gap 6 (6-14) Blood Urea Nitrogen 28 mg/dL (7-20) Creatinine 1.2 mg/dL (0.6-1.0) Estimated GFR (Cockcroft-Gault) 43.9 Glucose Level 196 mg/dL (70-99) Calcium Level 8.3 mg/dL (8.5-10.1) Brief Hospital Course Ms. Gonzalez is a 75 old female who presented with acute blood loss anemia, upper GI bleed, acute metabolic encephalopathy, UTI, MARIA ELENA. Consultations requested GI. Normal EGD, but this cannot exclude a healed Kandace-Villagomez tear. She was recommended to continue PPI and advance her GI soft diet as tolerated. Consultations were also placed to cardiology. Patient received transesophageal echocardiogram showing EF 50 - 55%, with no evidence of intracardiac mass. Nephrology was consulted for MARIA ELENA. She received IV fluids with improvement in her creatinine. Pulmonology was also consulted due to abnormal ventilation/perfusion scan. This was followed by a CTA showing no evidence of PE but did note bilateral groundglass opacities. Of note, patient was COVID-19 negative. Due to persistent leukocytosis consultations placed to ID. She was treated with IV daptomycin and meropenem. Consultation was also placed to neuro logy due to acute encephalopathy. Her encephalopathic symptoms were deemed secondary to chronic medical issues. Patient symptoms improved with all of her modalities, and patient was eventually accepted at SNU. Discharge Information Condition at Discharge: Improved Follow Up: Weeks Disposition/Orders: D/C to Another Facility Scheduled Amlodipine Besylate (Norvasc) 10 Mg Tablet, 10 MG PO DAILY for htn, (Reported) Entered as Reported by: TIARRA NORWOOD RN on 05/27/20723 Last Action: Continued on 09/28/201212 by RENE ALTMAN Aspirin (Aspirin Ec) 81 Mg Tablet.dr, 1 TAB PO DAILY for BLOOD THINNER, #30 Ref 3 (Reported) Entered as Reported by: TIARRA NORWOOD RN on 05/27/20723 Last Action: Continued on 09/28/201212 by RENE ALTMAN Atorvastatin Calcium (Lipitor) 80 Mg Tablet, 1 TAB PO HS for HIGH LIPID, #30 Ref 5 (Reported) Entered as Reported by: TIARRA NORWOOD RN on 05/27/20723 Last Action: Converted on 09/28/201212 by RENE ALTMAN Carvedilol (Carvedilol) 25 Mg Tablet, 12.5 MG PO BIDWMEALS for CARDIAC, (Reported) Entered as Reported by: TIARRA NORWOOD RN on 05/27/20723 Last Action: Converted on 09/28/201212 by NIAL CASTSONNY Cetirizine Hcl (Zyrtec) 10 Mg Tablet, 1 TAB PO DAILY for ALLERGY, #30 Ref 2 (Reported) Entered as Reported by: TIARRA NORWOOD RN on 05/27/20723 Last Action: Continued on 09/28/201212 by NIAL CASTSONNY Clopidogrel Bisulfate (Clopidogrel) 75 Mg Tablet, 1 TAB PO DAILY for STENT, #90 Ref 1 (Reported) Entered as Reported by: TIARRA NORWOOD RN on 05/27/20723 Last Action: Continued on 09/28/201212 by NIAL CASTSONNY Cyclobenzaprine Hcl (Cyclobenzaprine Hcl) 10 Mg Tablet, 1 TAB PO QHS for PAIN, #30 (Reported) Entered as Reported by: TIARRA NORWOOD RN on 05/27/20723 Last Action: Continued on 09/28/201212 by NIAL CASTSONNY Gabapentin (Gabapentin ) 300 Mg Capsule, 1 CAP PO HS for nerve pain, #90 Ref 5 (Reported) Entered as Reported by: NEVA PATEL on 09/26/14 1324 Last Action: Continued on 09/28/201212 by NIAL CASTLE Oxycodone/Apap 10-325 (Percocet 10-325 Mg Tablet ) 1 Each Tablet, 1 TAB PO Q4- 6HRS, #40 (Reported) Entered as Reported by: MILIND MORELAND on 08/02/16 1603 Last Action: Continued on 09/28/201212 by NIAL CASTSONNY Pantoprazole Sodium (Pantoprazole Sodium ) 40 Mg Tablet.dr, 40 MG PO DAILYAC for GI bleed, #30 Ref 1 Prescribed by: CHARLOTTE FISCHER MD on 09/30/20 3651 Scheduled PRN Nitroglycerin (Nitrostat) 0.4 Mg Tab.subl, 0.4 MG SL PRN Q5MIN PRN for CHEST PAIN, (Reported) Entered as Reported by: TIARRA NORWOOD RN on 05/27/20723 Last Action: Continued on 09/20/20 1408 by EDI BRADEN MD Discontinued Medications Acetaminophen (Acetaminophen) 325 Mg Tablet, 2 TAB PO PRN DAILY PRN for pain or fever for 30 Days, #30 Ref 0 (Reported) Entered as Reported by: TIARRA NORWOOD RN on 05/27/20723 Last Action: Continued on 09/28/20 1213 by RENE ALTMAN Justicifation of Admission Dx: Justifications for Admission: Justification of Admission Dx: Yes CHARLOTTE FISCHRE MD Sep 30, 2020 14:59
[2020-09-30 15:12] LABS: ALBUMIN 2.3 g/dL (3.4-5.0); DIRECT BILIRUBIN 0.2 mg/dL (0.0-0.2); TOTAL BILIRUBIN 0.4 mg/dL (0.2-1.0); TOTAL PROTEIN 5.3 g/dL (6.4-8.2)
[2020-09-30] MEDS ORDERED: ATOR40TA PO (16:30)
[2020-09-30 17:17] VITALS: BP 109/45
--- NOTE | 2020-09-30 18:13 | NUR ---
patient discharged to [facility]. meds and follow up reviewed. scripts for protonix and percocet included in packet. pt stable upon dc. pt did have bowel movemen on commode immediately prior to leaving. dentures and glasses sent with patient. solorio and iv removed.
[2020-09-30] MEDS ORDERED: ATORVASTATIN CALCIUM 40 MG TABLET. PO SCH (21:00)
== END 2020-09-30 17:30 | DRG 871 ==
LOC: 5 NORTH 01:09
PROVIDERS: ADMIT Internal Medicine; ATTEND Internal Medicine
PROC: 30233N1 Transfusion of Nonautologous Red Blood Cells into Peripheral Vein, Percutaneous Approach (ICD-10-PCS; principal; 2020-09-21)
PROC: 0DJ08ZZ Inspection of Upper Intestinal Tract, Via Natural or Artificial Opening Endoscopic (ICD-10-PCS; 2020-09-26)
DX: A41.9 Sepsis, unspecified organism (principal); N17.0 Acute kidney failure with tubular necrosis; G92 Toxic encephalopathy; I50.33 Acute on chronic diastolic (congestive) heart failure; J96.01 Acute respiratory failure with hypoxia; D62 Acute posthemorrhagic anemia; N39.0 Urinary tract infection, site not specified; E87.1 Hypo-osmolality and hyponatremia; I13.0 Hypertensive heart and chronic kidney disease with heart failure and stage 1 through stage 4 chronic kidney disease, or unspecified chronic kidney disease; D68.9 Coagulation defect, unspecified; E87.0 Hyperosmolality and hypernatremia; I24.8 Other forms of acute ischemic heart disease; K92.2 Gastrointestinal hemorrhage, unspecified; E86.1 Hypovolemia; I25.10 Atherosclerotic heart disease of native coronary artery without angina pectoris; E11.22 Type 2 diabetes mellitus with diabetic chronic kidney disease; N18.30 Chronic kidney disease, stage 3 unspecified; E87.5 Hyperkalemia; E87.6 Hypokalemia; F03.90 Unspecified dementia, unspecified severity, without behavioral disturbance, psychotic disturbance, mood disturbance, and anxiety; G89.29 Other chronic pain; I25.2 Old myocardial infarction; I34.0 Nonrheumatic mitral (valve) insufficiency; J44.9 Chronic obstructive pulmonary disease, unspecified; M79.7 Fibromyalgia; Z20.822 Contact with and (suspected) exposure to COVID-19; M19.90 Unspecified osteoarthritis, unspecified site; Z79.02 Long term (current) use of antithrombotics/antiplatelets; Z79.899 Other long term (current) drug therapy; Z82.3 Family history of stroke; Z82.49 Family history of ischemic heart disease and other diseases of the circulatory system; Z83.3 Family history of diabetes mellitus; Z84.1 Family history of disorders of kidney and ureter; Z87.19 Personal history of other diseases of the digestive system; Z87.891 Personal history of nicotine dependence; Z90.710 Acquired absence of both cervix and uterus; Z91.041 Radiographic dye allergy status; Z95.5 Presence of coronary angioplasty implant and graft
CPT/HCPCS: 36415; 36600; 43235; 70450; 71045; 71275; 74022; 74176; 78580; 80048; 80053; 80061; 80069; 80076; 81001; 82140; 82533; 82550; 82607; 82805; 82962; 83540; 83550; 83605; 83735; 83880; 84100; 84145; 84443; 84484; 85007; 85014; 85018; 85025; 85027; 85379; 85610; 86850; 86900; 86901; 86920; 87040; 87086; 87426; 93005; 93306; 93312; 93320; 93325; 93970; 94640; 95816; A9540; C9113; J0696; J0878; J1200; J1720; J1815; J1940; J2185; J2270; J2704; J3475; J3490; J7030; J7120; J7512; P9016; Q9967; U0003; 97110-GP; 97112-GP; 97530-GO; 97530-GP; 97535-GO; G0378; J7613

== ENCOUNTER 2021-05-11 10:44 | Day surgery (SDC) | payer MEDICARE, BC ==
[~2021-05-11] VITALS: Ht 149.9 cm; Wt 57.0 kg
[~2021-05-11 10:44] MED LIST changes: +ATOR40TA PO; +CHLORHEXIDINE 0.12% 15 ML MOUTHWASH. ONE; +HYDROmorphone 2 MG/ML VIAL IVP PRN; +IV RINGERS,LACTATED 1000ML 1,000 ML IV SCH; +LOSA-73 PO; +MAGN400C PO; +MORPHINE SULFATE 2 MG/ML INJ. IVP PRN; +OMEP40CA7 PO; +PANT40TA77 PO; +PROCHLORPERAZINE 10 MG/2 ML VIAL. IVP PRN; +ceFAZolin SODIUM IV Push 1 GM VIAL. IVP PRN; +fentaNYL PF VIAL 100 MCG/2 ML VIAL IVP PRN
[2021-05-11] MEDS ORDERED: BUPIVACAINE-EPI 0.5% 30 ML VIAL KIT. ONE (11:40)
[2021-05-11] MEDS ORDERED: GELATIN SPONGE SIZE 100. ONE (11:40)
[2021-05-11 11:47] VITALS: BP 200/93
[2021-05-11] MEDS ORDERED: PROPOFOL 10 MG/ML (20ML) VIAL. IV ONE ×3 (11:50→11:51)
[2021-05-11] MEDS ORDERED: LIDOCAINE 2% PF 5 ML VIAL. ONE (11:50)
[2021-05-11] MEDS ORDERED: fentaNYL PF VIAL 100 MCG/2 ML VIAL ONE ×2 (11:50→13:54)
[2021-05-11] MEDS ORDERED: ROCURONIUM 50 MG/5 ML VIAL. ONE (11:50)
[2021-05-11] MEDS ORDERED: CHLORHEXIDINE 0.12% 15 ML MOUTHWASH. SWSP PRN (12:00)
[2021-05-11] MEDS ORDERED: LABETALOL 20 MG/4 ML DISP.SYRIN. IVP ONE (12:36)
[2021-05-11] MEDS ORDERED: GLYCOPYRROLATE 1 MG/5 ML VIAL. ONE (12:55)
[2021-05-11] MEDS ORDERED: NEOSTIGMINE METHYLSULFATE 5 MG/5 ML SYRINGE. ONE (12:55)
[2021-05-11] MEDS ORDERED: ONDANSETRON PF 4 MG/2 ML VIAL. ONE (13:11)
[2021-05-11] MEDS ORDERED: PHENYLEPHRINE in 0.9% NACL PF 1 MG/10 ML SYRINGE. IV ONE (13:11)
[2021-05-11] MEDS ORDERED: DEXAMETHASONE SOD PHOS 4 MG/ML VIAL ONE (13:11)
[2021-05-11] MEDS ORDERED: SEVOFLURANE 61 TO 120 MINUTES. IH ONE (13:11)
--- NOTE | 2021-05-11 13:27 | PDOC4 ---
OPERATIVE NOTE Date: Date: May 11, 2021 Pre-Op Diagnosis: COPD caries, non restorable dentition 2,3,4,14,15,20,21,22,23,24,25,26,27,28,29 Post-Op Diagnosis: COPD caries, non restorable dentition 2,3,4,14,15,20,21,22,23,24,25,26,27,28,29 Procedure Performed: OR GA extraction of caries, non restorable dentition 2,3,4,14,15,20,21,22,23,24,25,26,27,28,29 Surgeon: lindsay Anesthesia Type: hopgood Blood Loss: 20 Specimans Obtained: teeth disposed of in OR Findings: see dictation Complications: none noted Operative Note: see dictation CARDLE DMD May 11, 2021 13:27
[2021-05-11] MEDS: fentaNYL PF VIAL 100 MCG/2 ML VIAL IVP PRN ×4 (13:56→14:20)
[2021-05-11] MEDS ORDERED: oxyCODONE/APAP 10/325 1 TAB TABLET PO ONE (14:00)
[2021-05-11 14:18] VITALS: BP 225/104
--- NOTE | 2021-05-11 15:00 | OP ---
DATE OF SURGERY: 05/11/2021 DICTATION #1176 OPERATIVE SERVICE: Oral and Maxillofacial Service. SURGEON: Livan Weaver DMD PREOPERATIVE DIAGNOSES: 1. Chronic obstructive pulmonary disease. 2. Caries of the nonrestorable teeth. The teeth numbers are 2, 3, 4, 14, 15, 20, 21, 22, 23, 24, 25, 26, 27, 28, 29. POSTOPERATIVE DIAGNOSES: 1. Chronic obstructive pulmonary disease. 2. Caries of the nonrestorable teeth. The teeth numbers are 2, 3, 4, 14, 15, 20, 21, 22, 23, 24, 25, 26, 27, 28, 29. PROCEDURE PERFORMED: Extraction of all remaining teeth. The teeth numbers 2, 3, 4, 14, 15, 20, 21, 22, 23, 24, 25, 26, 27, 28, 29 and 4 quadrants of alveoloplasty, upper right, upper left, lower left, lower right. BRIEF HISTORY: The patient was referred to our clinic by Dr. Mustafa, for removal of all remaining teeth as her dentition is poor and failing and in terminal situation. She has significant COPD and on supplemental oxygen. We escalated setting of care to the OR for safety. History and physical, and permit was obtained in our clinic. The patient was then scheduled for surgery. COMPLICATIONS: None noted at the time of surgery. DRAINS PLACED: None. ESTIMATED BLOOD LOSS: Approximately 20 mL. SPECIMENS. No specimens were sent. The teeth were disposed of in the OR. OPERATIVE DESCRIPTION: After history and physical was updated in the preoperative holding area, the patient was transported by the Anesthesia Service to the operating suite, placed in the supine position. General anesthesia was induced. The patient was then intubated without complication. The tube was secured to the upper left. Timeout was initiated by surgical staff. All perioperative staff was present. A moistened throat pack was placed. The oral cavity was lavaged, washed with Peridex mouthwash. Local anesthesia in the form of 0.5% bupivacaine with 1:200,000 epinephrine was administered, approximately 20 mL in all 4 quadrants. Surgery was then begun with the upper right quadrant with a 15 blade to create a full-thickness mucoperiosteal flap. It was continued to the upper right, lower right, lower left, upper left quadrants. A full thickness periosteal elevator was utilized to elevate a buccal full-thickness mucoperiosteal flap. The teeth were then luxated, elevated and extracted with hand instruments. The alveoloplasty was performed with rongeurs, bone file and curettage and serrated curettage in all quadrants and all teeth. All of the periapical granulomatous tissue was removed. The sites were then lavaged with copious normal sterile saline and Gelfoam was placed in each extraction site and the sites were then sewn and oversewn with 3-0 chromic gut sutures in a running locked fashion. The sites were found to be hemostatic at the culmination of the procedure. An OG was passed and the stomach was decompressed. Then, the patient was then returned to the care of anesthesia where she was awakened and extubated without complication and transported to the PACU in stable condition. [place] DR: Anthony TID: [id number] MTDJeannie
== END 2021-05-11 14:48 | disposition home or self-care (01) ==
LOC: SURG 10:44
PROVIDERS: ATTEND Dentist Oral and Maxillofacial Surgery
DX: K02.63 Dental caries on smooth surface penetrating into pulp (principal); J44.9 Chronic obstructive pulmonary disease, unspecified; I25.10 Atherosclerotic heart disease of native coronary artery without angina pectoris; I10 Essential (primary) hypertension; K21.9 Gastro-esophageal reflux disease without esophagitis; M19.90 Unspecified osteoarthritis, unspecified site; Z87.891 Personal history of nicotine dependence; Z79.82 Long term (current) use of aspirin; Z79.899 Other long term (current) drug therapy; Z90.710 Acquired absence of both cervix and uterus; Z98.890 Other specified postprocedural states; Z91.041 Radiographic dye allergy status; Z88.8 Allergy status to other drugs, medicaments and biological substances
CPT/HCPCS: 41874; 41899; A4930; J0690; J1100; J2370; J2405; J2704; J2710; J3010; J3490; A4657